=== PATIENT | male | born 1950 | race Caucasian/White ===

== ENCOUNTER 2016-10-20 10:23 | Inpatient (IN) | payer OTHER ==
[~2016-10-20] VITALS: Ht 172.7 cm; Wt 134.4 kg
[~2016-10-20 10:23] MED LIST: ACT30 PO; GLYB5TAB8 PO; HYZ/50125 PO; REPA1TAB40 PO
[2016-10-20] MEDS ORDERED: SODIUM CHLORIDE 0.9% 500ML 500 ML IV STA (11:24)
[2016-10-20 11:58] LABS: BASO % 0.1 %; BASO ABS # 0.01 K/uL (0-0.2); COMPLETE YES; EOS % 1.8 %; HEMATOCRIT 42.6 % (42-52); IG% 0.3 %; MEAN CELL VOLUME 88.9 fL (80-100); MEAN CORPUSCULAR HEMOGLOBIN 28.8 pg (25-34); MEAN CORPUSCULAR HGB CONC 32.4 g/dl (32-36); MEAN PLATELET VOLUME 9.7 fL (7.4-10.4); MONO % 4.2 %; NEUT % 79.6 %; PLATELET COUNT 159 K/uL (130-400); RED BLOOD COUNT 4.79 M/uL (4.7-6.1); WHITE BLOOD COUNT 7.12 K/uL (4.8-10.8)
[2016-10-20 12:16] LABS: BLOOD UREA NITROGEN 16 mg/dl (7-18); BUN/CREATININE RATIO 18.8 (10-20); CARBON DIOXIDE 30 mmol/L (21-32); CHLORIDE 104 mmol/L (98-107); CREATININE 0.86 mg/dl (0.60-1.40); GLUCOSE 158 mg/dl (70-99); SODIUM 139 mmol/L (136-145)
[2016-10-20 12:17] LABS: CALCIUM 8.6 mg/dl (8.5-10.1)
--- NOTE | 2016-10-20 12:19 | DIAGNOSTIC IMAGING REPORT ---
CHEST ONE VIEW PORTABLE CLINICAL HISTORY: Chest Pain dyspnea COMPARISON STUDY: 10/21/2015 FINDINGS: Increase in prominence of the mid dyspnea mediastinum. Increased prominence of pulmonary vasculature. Central catheter in superior vena cava. Diaphragms smooth. IMPRESSION: Increased prominence of the mid to superior mediastinum. Mild congestive failure. CT study of the chest is recommended as follow-up. Electronically signed by: Miguel Granados M.D. 10/20/2016 12:18 PM Dictated Date/Time: 10/20/2016 12:17 PM
[2016-10-20 12:21] LABS: CKMB/CK RATIO 2.6 (0-3.0)
[2016-10-20] MEDS ORDERED: OPTIRAY 320 IV PRN (13:00)
--- NOTE | 2016-10-20 13:11 | DIAGNOSTIC IMAGING REPORT ---
CT ANGIOGRAM OF THE CHEST CLINICAL HISTORY: Atypical chest pain. Reported history of esophageal cancer. COMPARISON STUDY: Chest x-ray dated 10/20/2016. Radiation treatment planning CT dated 09/03/2015. TECHNIQUE: Following the IV administration of 120 cc of Optiray 320, CT angiogram of the chest was performed from the upper abdomen to the thoracic inlet utilizing the pulmonary embolus protocol. Images are reviewed in the axial, sagittal, and coronal planes. 3-D MIPS images are created and assessed. IV contrast was administered without complication. The examination is degraded by large body habitus, and by streak artifact from the body wall abutting the CT gantry. The examination is also degraded by motion artifact. CT DOSE: 566.96 mGycm FINDINGS: Thyroid: Imaged portions of the thyroid gland are normal in size and attenuation. Thoracic aorta: The thoracic aorta is normal in caliber and demonstrates standard 3-vessel arch anatomy. No dissection is seen. Pulmonary vasculature: The pulmonary trunk is normal in caliber. There are no filling defects identified in main, lobar, or segmental pulmonary branches to suggest pulmonary embolus. Heart: The heart is enlarged and there is a small pericardial effusion. Lungs and pleural spaces: Evaluation of the lung parenchyma is degraded by motion artifact. There are moderate pleural effusions with associated compressive atelectasis. Diffuse peribronchial thickening is seen in both lungs. There are numerous foci of irregular airspace nodularity. Retort Pre Cooker foci are seen in the right lower lobe on image #110 measuring 11 mm, the lingula on image #121 measuring 14 mm and 9 mm, and in the left upper lobe on image #223 measuring 6 mm. The trachea and central airways are clear. Mediastinum: There is mediastinal lymphadenopathy. Enlarged prevascular nodes measure up to 1.4 cm in short axis. Subcarinal nodes measure up to 1.7 cm in short axis. A high right peritracheal node on image #235 measures 2.3 x 2.0 cm. Anel: There is bilateral hilar adenopathy. The largest node is seen on the right on image #176 and measures 2.7 x 2.0 cm. Left hilar nodes measure up to 2.0 cm short axis. Axillae: There is no axillary lymphadenopathy. Esophagus: There is mild circumferential wall thickening seen in the mid to distal esophagus. There are adjacent surgical clips are identified as well as small surrounding Esophageal lymph nodes. Upper abdomen: There is a large hiatal hernia, with at least half of the stomach located in the thoracic cavity. A 2.0 cm right adrenal nodule meets CT criteria for a fat-containing adenoma. Hepatic steatosis is suggested the spleen is mildly enlarged. Laxity of the ventral abdominal wall is noted with protrusion of bowel contents.. Skeletal structures: The skeletal structures are osteopenic. Mild degenerative change is noted throughout the thoracic spine. No lytic or blastic bony lesions are seen. There are healed left anterior rib fractures. IMPRESSION: 1. There is no evidence of pulmonary embolus in the main, lobar, or segmental pulmonary arteries. 2. Moderate pleural effusions with associated compressive atelectasis. 3. There is wall thickening and irregularity seen in the mid to distal esophagus with surrounding surgical clips and paraesophageal lymph nodes. This likely corresponds the patient's reported history of esophageal cancer. Correlation with the patient's oncological history will be required. 4. There are numerous irregular nodular airspace opacities seen throughout both lungs. These are new from the treatment planning CT dated 09/03/2015. This could be on an infectious/inflammatory basis or could represent metastatic disease. Clinical correlation will be required. CT follow-up in 3 months time is recommended for reassessment. 5. There are pathologically enlarged mediastinal and hilar lymph nodes. This is new from the radiation treatment planning CT dated 09/03/2015. Although this could be on a reactive basis, the appearance is concerning for metastatic disease given the patient's history. These should also be reassessed at follow-up. 6. Large hiatal hernia. 7. Cardiomegaly and small pericardial effusion. 8. Additional findings as above. Electronically signed by: Rl Sauceda M.D. 10/20/2016 1:10 PM Dictated Date/Time: 10/20/2016 12:59 PM
[2016-10-20] MEDS ORDERED: FUROSEMIDE 40 MG/4 ML VIAL IV STA (13:24)
[2016-10-20 13:45] VITALS: O2SAT 88; BMI 46.2
[2016-10-20] MEDS ORDERED: ONDANSETRON INJ 2 MG/ML 2 ML VIAL IV PRN (14:30)
[2016-10-20] MEDS ORDERED: ACETAMINOPHEN 325 MG TAB PO PRN (14:30)
[2016-10-20 14:45] VITALS: O2SAT 97
[2016-10-20] MEDS ORDERED: GLUCOSE 40% GEL 15 GM TUBE PO PRN (15:00)
[2016-10-20] MEDS ORDERED: GLUCOSE 10 TABS/TUBE PO PRN (15:00)
[2016-10-20] MEDS ORDERED: DEXTROSE 50% 50 ML SYR IV PRN (15:00)
[2016-10-20] MEDS ORDERED: GLUCAGON FOR INJ 1 MG VIAL SQ PRN (15:00)
[2016-10-20] MEDS ORDERED: FLUT0.15 (15:06)
[2016-10-20] MEDS ORDERED: ALBU18002 INH (15:06)
[2016-10-20 15:34] VITALS: BP 138/86; PULSE 102; TEMP 36.8; O2SAT 97
--- NOTE | 2016-10-20 16:19 | DIAGNOSTIC IMAGING REPORT ---
EFFUSION-CHEST/MEDIASTINUM ultrasound CLINICAL HISTORY: Bilateral pleural effusions COMPARISON STUDY: Chest CTA 10/20/2016. FINDINGS: The right pleural effusion demonstrated a volume of 160 cc. The left pleural effusion demonstrated a volume of 305 cc. Neither site was marked for thoracentesis due to the intervening lung. IMPRESSION: Small bilateral pleural effusions, left greater than right, as described above. Electronically signed by: Sachin Marmolejo M.D. 10/20/2016 4:17 PM Dictated Date/Time: 10/20/2016 4:16 PM
[2016-10-20 16:55] LABS: INR 1.1 (0.9-1.1); PROTHROMBIN TIME (PATIENT) 11.6 SECONDS (9.0-12.0)
[2016-10-20] MEDS: LEVOFLOXACIN / D5W 750 MG in PREMIXED IN D5W 150 ML IV SCH (17:05)
--- NOTE | 2016-10-20 17:09 | EMERGENCY ROOM VISIT NOTE ---
History Report prepared by Thang: Jasmyn Dee Under the Supervision of: Dr. Zackary Hendricks D.O. First contact with patient: 10:51 Chief Complaint: SHORTNESS OF BREATH Stated Complaint: SHORTNESS OF BREATH Nursing Triage Summary: pt reports hx of esophageal ca , to PCP today for sinus sx finished round of prednisone 10/10 and all sinus drainage , sob ,cough returned the next day pt reports feeling increasing exertional sob currently on chemo last tx Sun. sent in for eval of poss PE History of Present Illness The patient is a 65 year old male who presents to the Emergency Room with complaints of worsening shortness of breath beginning a 2 weeks prior to arrival. He notes movement worsens the shortness of breath. The patient has been experiencing sinus symptoms since July. He notes the symptoms include throat pressure, cough and congestion. The patient is experiencing sinus drainage down the throat. He notes he did vomit yesterday. The patient finished a course of Prednisone on October 10. He notes that while taking the Prednisone his symptoms resolved. On October 11, the day after finishing the steroid his symptoms returned again. He was referred to the ED by Dr. Lopez to rule out a PE. The patient has a history of diabetes, hypertension and high cholesterol. He is currently being treated for esophageal cancer. Pt denies headache, change in vision, fevers, chest pain, nausea, diarrhea, abdominal pain, pain with urination, and melena. 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 A total of 10 systems reviewed and were otherwise negative. Past Medical & Surgical Medical Problems: (1) Howard esophagus (2) Cortisol resistance (3) DM2 (diabetes mellitus, type 2) (4) GERD (gastroesophageal reflux disease) (5) HTN (hypertension) (6) AMARA (obstructive sleep apnea) (7) Pleural effusion Surgical Problems: (1) Amputation of leg (2) H/O hernia repair (3) History of carpal tunnel surgery Family History FH: cancer Stroke Social History Smoking Status: Former Smoker Drug Use: none Marital Status: Housing Status: lives with family Current/Historical Medications Scheduled Citalopram Hydrobromide (Celexa), 1 TAB PO DAILY Fish Oil (Athelstane-3), 2 CAP PO DAILY Fluticasone Propionate (Nasal) (Flonase Allergy Relief), 2 SPRAYS NA DAILY Glyburide (Micronase), 15 MG PO DAILYBD Hctz/Losartan (Hyzaar 12.5MG/50MG), 1 TAB PO DAILY Losartan Potassium (Cozaar), 25 MG PO DAILY Multiple Vitamins W/ Minerals (One Daily Adults 50+), 1 TAB PO DAILY Pantoprazole (Pantoprazole Sodium), 40 MG PO DAILY Pioglitazone (Actos), 1 TAB PO DAILYBD Pravastatin (Pravachol ), 20 MG PO DAILY Repaglinide (Prandin), 4 MG PO DAILYBD Scheduled PRN Albuterol Sulfate (Proair Respiclick), 2 PUFFS INH Q4H PRN for SOB/Wheezing Allergies Coded Allergies: Lisinopril (Verified Adverse Reaction, Mild, Cough, 10/21/15) Physical Exam Vital Signs Date Time Temp Pulse Resp B/P Pulse Ox O2 Delivery O2 Flow Rate FiO2 10/20/16 13:49 110 28 88 Room Air 10/20/16 13:45 88 Room Air 10/20/16 12:48 96 20 124/85 95 10/20/16 12:05 94 10/20/16 11:48 95 18 136/84 94 Room Air 10/20/16 10:27 36.5 100 20 103/65 93 Room Air Physical Exam GENERAL: alert, sitting up in bed, well appearing, well nourished, no distress, non-toxic HEAD: No maxillary or frontal sinus tenderness. EYE EXAM: normal conjunctiva OROPHARYNX: no exudate, no erythema, lips, buccal mucosa, and tongue normal and mucous membranes are moist NECK: supple, no nuchal rigidity, no adenopathy, non-tender LUNGS: Clear to auscultation. Normal chest wall mechanics HEART: no murmurs, S1 normal and S2 normal ABDOMEN: abdomen soft, non-tender, normo-active bowel sounds, no masses, no rebound or guarding. BACK: Back is symmetrical on inspection and there is no deformity, no midline tenderness, no CVA tenderness. SKIN: no rashes and no bruising UPPER EXTREMITIES: upper extremities are grossly normal. LOWER EXTREMITIES: Right calf has faint pitting edema. NEURO EXAM: Normal sensorium, cranial nerves II-XII grossly intact, normal speech, no gross weakness of arms, no gross weakness of legs. Medical Decision & Procedures ER Provider Diagnostic Interpretation: Radiology results as stated below per my review and the radiologist's interpretation: CT ANGIOGRAM OF THE CHEST CLINICAL HISTORY: Atypical chest pain. Reported history of esophageal cancer. COMPARISON STUDY: Chest x-ray dated 10/20/2016. Radiation treatment planning CT dated 09/03/2015. TECHNIQUE: Following the IV administration of 120 cc of Optiray 320, CT angiogram of the chest was performed from the upper abdomen to the thoracic inlet utilizing the pulmonary embolus protocol. Images are reviewed in the axial, sagittal, and coronal planes. 3-D MIPS images are created and assessed. IV contrast was administered without complication. The examination is degraded by large body habitus, and by streak artifact from the body wall abutting the CT gantry. The examination is also degraded by motion artifact. CT DOSE: 566.96 mGycm FINDINGS: Thyroid: Imaged portions of the thyroid gland are normal in size and attenuation. Thoracic aorta: The thoracic aorta is normal in caliber and demonstrates standard 3-vessel arch anatomy. No dissection is seen. Pulmonary vasculature: The pulmonary trunk is normal in caliber. There are no filling defects identified in main, lobar, or segmental pulmonary branches to suggest pulmonary embolus. Heart: The heart is enlarged and there is a small pericardial effusion. Lungs and pleural spaces: Evaluation of the lung parenchyma is degraded by motion artifact. There are moderate pleural effusions with associated compressive atelectasis. Diffuse peribronchial thickening is seen in both lungs. There are numerous foci of irregular airspace nodularity. Tar Heater foci are seen in the right lower lobe on image #110 measuring 11 mm, the lingula on image #121 measuring 14 mm and 9 mm, and in the left upper lobe on image #223 measuring 6 mm. The trachea and central airways are clear. Mediastinum: There is mediastinal lymphadenopathy. Enlarged prevascular nodes measure up to 1.4 cm in short axis. Subcarinal nodes measure up to 1.7 cm in short axis. A high right peritracheal node on image #235 measures 2.3 x 2.0 cm. Anel: There is bilateral hilar adenopathy. The largest node is seen on the right on image #176 and measures 2.7 x 2.0 cm. Left hilar nodes measure up to 2.0 cm short axis. Axillae: There is no axillary lymphadenopathy. Esophagus: There is mild circumferential wall thickening seen in the mid to distal esophagus. There are adjacent surgical clips are identified as well as small surrounding Esophageal lymph nodes. Upper abdomen: There is a large hiatal hernia, with at least half of the stomach located in the thoracic cavity. A 2.0 cm right adrenal nodule meets CT criteria for a fat-containing adenoma. Hepatic steatosis is suggested the spleen is mildly enlarged. Laxity of the ventral abdominal wall is noted with protrusion of bowel contents.. Skeletal structures: The skeletal structures are osteopenic. Mild degenerative change is noted throughout the thoracic spine. No lytic or blastic bony lesions are seen. There are healed left anterior rib fractures. IMPRESSION: 1. There is no evidence of pulmonary embolus in the main, lobar, or segmental pulmonary arteries. 2. Moderate pleural effusions with associated compressive atelectasis. 3. There is wall thickening and irregularity seen in the mid to distal esophagus with surrounding surgical clips and paraesophageal lymph nodes. This likely corresponds the patient's reported history of esophageal cancer. Correlation with the patient's oncological history will be required. 4. There are numerous irregular nodular airspace opacities seen throughout both lungs. These are new from the treatment planning CT dated 09/03/2015. This could be on an infectious/inflammatory basis or could represent metastatic disease. Clinical correlation will be required. CT follow-up in 3 months time is recommended for reassessment. 5. There are pathologically enlarged mediastinal and hilar lymph nodes. This is new from the radiation treatment planning CT dated 09/03/2015. Although this could be on a reactive basis, the appearance is concerning for metastatic disease given the patient's history. These should also be reassessed at follow-up. 6. Large hiatal hernia. 7. Cardiomegaly and small pericardial effusion. 8. Additional findings as above. Electronically signed by: Rl Sauceda M.D. 10/20/2016 1:10 PM Dictated Date/Time: 10/20/2016 12:59 PM CHEST ONE VIEW PORTABLE CLINICAL HISTORY: Chest Pain dyspnea COMPARISON STUDY: 10/21/2015 FINDINGS: Increase in prominence of the mid dyspnea mediastinum. Increased prominence of pulmonary vasculature. Central catheter in superior vena cava. Diaphragms smooth. IMPRESSION: Increased prominence of the mid to superior mediastinum. Mild congestive failure. CT study of the chest is recommended as follow-up. Electronically signed by: Miguel Granados M.D. 10/20/2016 12:18 PM Dictated Date/Time: 10/20/2016 12:17 PM Laboratory Results 10/20/16 11:30 Red Blood Count 4.79, Mean Corpuscular Volume 88.9, Mean Corpuscular Hemoglobin 28.8, Mean Corpuscular Hemoglobin Concent 32.4, Mean Platelet Volume 9.7, Neutrophils (%) (Auto) 79.6, Lymphocytes (%) (Auto) 14.0, Monocytes (%) (Auto) 4.2, Eosinophils (%) (Auto) 1.8, Basophils (%) (Auto) 0.1, Neutrophils # (Auto) 5.66, Lymphocytes # (Auto) 1.00, Monocytes # (Auto) 0.30, Eosinophils # (Auto) 0.13, Basophils # (Auto) 0.01 10/20/16 11:30 Test 10/20/16 11:30 White Blood Count 7.12 K/uL (4.8-10.8) Red Blood Count 4.79 M/uL (4.7-6.1) Hemoglobin 13.8 g/dL (14.0-18.0) Hematocrit 42.6 % (42-52) Mean Corpuscular Volume 88.9 fL (80-100) Mean Corpuscular Hemoglobin 28.8 pg (25-34) Mean Corpuscular Hemoglobin Concent 32.4 g/dl (32-36) Platelet Count 159 K/uL (130-400) Mean Platelet Volume 9.7 fL (7.4-10.4) Neutrophils (%) (Auto) 79.6 % Lymphocytes (%) (Auto) 14.0 % Monocytes (%) (Auto) 4.2 % Eosinophils (%) (Auto) 1.8 % Basophils (%) (Auto) 0.1 % Neutrophils # (Auto) 5.66 K/uL (1.4-6.5) Lymphocytes # (Auto) 1.00 K/uL (1.2-3.4) Monocytes # (Auto) 0.30 K/uL (0.11-0.59) Eosinophils # (Auto) 0.13 K/uL (0-0.5) Basophils # (Auto) 0.01 K/uL (0-0.2) RDW Standard Deviation 54.3 fL (36.4-46.3) RDW Coefficient of Variation 16.9 % (11.5-14.5) Immature Granulocyte % (Auto) 0.3 % Immature Granulocyte # (Auto) 0.02 K/uL (0.00-0.02) Anion Gap 5.0 mmol/L (3-11) Est Creatinine Clear Calc Drug Dose 118.1 ml/min Estimated GFR () 106.2 Estimated GFR (Non- 91.6 BUN/Creatinine Ratio 18.8 (10-20) Calcium Level 8.6 mg/dl (8.5-10.1) Total Creatine Kinase 23 U/L (39-308) Creatine Kinase MB 0.6 ng/ml (0.5-3.6) Creatine Kinase MB Ratio 2.6 (0-3.0) Troponin I < 0.015 ng/ml (0-0.045) Pro-B-Type Natriuretic Peptide 99 pg/ml (0-900) Laboratory results per my review. Medications Administered Medications (Trade) Dose Ordered Sig/[place] Route Start Time Stop Time Status Last Admin Dose Admin Sodium Chloride (Nss 500ml) 500 ml @ 999 mls/hr Q31M STAT IV 10/20/16 11:24 10/20/16 11:54 DC 10/20/16 11:24 999 MLS/HR Furosemide (Lasix Inj) 40 mg NOW STAT IV 10/20/16 13:24 10/20/16 13:25 DC 10/20/16 13:48 40 MG ECG Indication: SOB/dyspnea Rate (beats per minute): 94 Rhythm: normal sinus Findings: other (poor baseline inferior, normal intervals) Change: no significant change (from 10/20/16) ED Course ED COURSE: Vital signs were reviewed and showed hypertensive vitals. The patients medical record was reviewed The above diagnostic studies were performed and reviewed. ED treatments and interventions as stated above. 1117: The patient was evaluated in room C3. A complete history and physical examination was performed. 1124: Sodium Chloride 500 ml @ 999 mls/hr IV. 1321: I discussed the results with the patient. 1324: Lasix Inj 40 mg IV. 1345: I reviewed the patient's case with MARYANN Beltran. The patient will evaluate the patient for further management. 1350: Upon reevaluation, the patient is hemodynamically stable.I discussed my findings with the patient and he understands and agrees with the treatment plan. Based on the patients age, coexisting illnesses, exam and lab findings the decision to treat as an inpatient was made. The patient remained stable while under my care. The patient will be evaluated for further management. Medical Decision Differential diagnoses includes but is not limited to pneumonia, bronchitis, COPD/Asthma exacerbation, pneumothorax, pulmonary embolism, congestive heart failure, acute coronary syndrome The patient is a 65 year old male who presents to the ED with complaints of shortness of breath. Patient was sent in by primary care doctor for shortness breath which has been worsening over the past 2 weeks. Patient does have a history of esophageal cancer is currently undergoing treatment. Patient does to describe a viral URI. He had some improvement with steroids. Chest x-ray was fairly unremarkable. Troponin was negative. EKG shows no obvious ischemia. CT of the chest shows bilateral moderate pleural effusions. I do believe this is the cause of his shortness of breath. He was tachypneic and tachycardic. I question whether this is secondary to heart failure versus secondary to his cancer. With the mild pitting edema in his lower extremity and to give him a small dose of Lasix and noted him to internal medicine for further workup. Consults Time Called: 1340 Consulting Physician: MARYANN Beltran Returned Call: [phone] I reviewed the patient's case with MARYANN Beltran. The patient will evaluate the patient for further management. Impression Primary Impression: Pleural effusion Additional Impressions: SOB (shortness of breath) questionable malignant effusion Scribe Attestation The scribe's documentation has been prepared under my direction and personally reviewed by me in its entirety. I confirm that the note above accurately reflects all work, treatment, procedures, and medical decision making performed by me. Departure Information Dispostion Being Evaluated By Hospitalist Referrals Esther Lopez D.O. (PCP) Problem Qualifiers
[2016-10-20] MEDS: INSULIN ASPART 100 UNITS/ML 3 ML PEN SC SCH ×2 (17:51→21:00)
--- NOTE | 2016-10-20 20:31 | History and Physical ---
History & Physical Date & Time of Service: October 20, 2016 ~ 14:00 Chief Complaint: Shortness of Breath Primary Care Physician: Esther Lopez D.O. History of Present Illness 65 year old male who presents to the ER with shortness of breath. Patient has history of esophageal cancer with mets to the right cervical chain and mediastinum lymph nodes. Patient is currently undergoing chemotherapy. About one month ago he developed rhinorrhea, sinus congestion, cough, and post nasal drip. He was given Augmentin and Flonase on 09/21. Unfortunately this did not improve his symptoms. He was then started on a course of Prednisone which did resolve his symptoms however once the prednisone was completed, his symptoms returned. He notes increasing shortness of breath. He reports a moist non productive cough. No orthopnea. He reports mild RLE edema. He denies fever and chills. No chest pain or palpitations. He reports a poor appetite the past few days but denies abdominal pain, nausea, or vomiting. He denies any urinary symptoms. In the ER, patient was hypoxic on room air at 88%, however improved on its own to 97%. CT was negative for PE but is showing BL pleural effusions, possible pneumonia vs. metastatic disease. Vitals are stable and labs are unremarkable. Past Medical/Surgical History Medical Problems: (1) Howard esophagus Status: Chronic (2) Diabetic neuropathy Status: Chronic (3) DM2 (diabetes mellitus, type 2) Status: Chronic (4) Dyslipidemia Status: Chronic (5) Esophageal cancer Permanent Comment: DIAGNOSIS: Esophagus, adenocarcinoma, uT2N1 stage IIB Status post completion of combined radiation and chemotherapy radiation completed 11/02/2015 Received 5040 cGy Status: Chronic (6) HTN (hypertension) Status: Chronic Surgical Problems: (1) Amputation of leg Status: Chronic (2) H/O hernia repair Status: Chronic (3) History of carpal tunnel surgery Status: Chronic Social History Smoking Status: Former Smoker Alcohol Use: none Immunizations History of Influenza Vaccine: Yes Influenza Vaccine Date: Mar 23, 2016 History of Tetanus Vaccine?: Yes Tetanus Immunization Date: Jan 24, 2010 History of Pneumococcal: Yes Pneumococcal Date: Jun 08, 2008 Multi-Drug Resistant Organisms History of MDRO: No Allergies Coded Allergies: Lisinopril (Verified Adverse Reaction, Mild, Cough, 10/21/15) Home Medications Scheduled Citalopram Hydrobromide (Celexa), 1 TAB PO DAILY Fish Oil ([place]-3), 2 CAP PO DAILY Fluticasone Propionate (Nasal) (Flonase Allergy Relief), 2 SPRAYS NA DAILY Glyburide (Micronase), 15 MG PO DAILYBD Hctz/Losartan (Hyzaar 12.5MG/50MG), 1 TAB PO DAILY Losartan Potassium (Cozaar), 25 MG PO DAILY Multiple Vitamins W/ Minerals (One Daily Adults 50+), 1 TAB PO DAILY Pantoprazole (Pantoprazole Sodium), 40 MG PO DAILY Pioglitazone (Actos), 1 TAB PO DAILYBD Pravastatin (Pravachol ), 20 MG PO DAILY Repaglinide (Prandin), 4 MG PO DAILYBD Scheduled PRN Albuterol Sulfate (Proair Respiclick), 2 PUFFS INH Q4H PRN for SOB/Wheezing Review of Systems ROS per HPI, all other systems reviewed and negative Physical Exam Vital Signs Date Time Temp Pulse Resp B/P Pulse Ox O2 Delivery O2 Flow Rate FiO2 10/20/16 15:34 36.8 102 20 138/86 97 Room Air 10/20/16 14:45 103 20 112/99 97 Room Air 10/20/16 13:49 110 28 88 Room Air 10/20/16 13:45 88 Room Air 10/20/16 12:48 96 20 124/85 95 10/20/16 12:05 94 10/20/16 11:48 95 18 136/84 94 Room Air 10/20/16 10:27 36.5 100 20 103/65 93 Room Air General Appearance: no apparent distress Head: normocephalic Eyes: normal inspection ENT: hearing grossly normal Neck: supple, no JVD Respiratory/Chest: no respiratory distress, + decreased breath sounds (BL bases ), + pertinent finding (mild tachypnea however patient is able to speak in full sentances ) Cardiovascular: regular rate, rhythm, + pertinent finding (trace edma RLE) Abdomen/GI: normal bowel sounds, non tender, soft Extremities/Musculoskelatal: + pertinent finding (LLE amputation) Neurologic/Psych: no motor/sensory deficits, alert, normal mood/affect, oriented x 3 Skin: normal color, warm/dry Diagnostics Laboratory Results Results Past 24 Hours Test 10/20/16 11:30 10/20/16 16:27 10/20/16 16:30 Range/Units White Blood Count 7.12 4.8-10.8 K/uL Red Blood Count 4.79 4.7-6.1 M/uL Hemoglobin 13.8 14.0-18.0 g/dL Hematocrit 42.6 42-52 % Mean Corpuscular Volume 88.9 80-100 fL Mean Corpuscular Hemoglobin 28.8 25-34 pg Mean Corpuscular Hemoglobin Concent 32.4 32-36 g/dl Platelet Count 159 130-400 K/uL Mean Platelet Volume 9.7 7.4-10.4 fL Neutrophils (%) (Auto) 79.6 % Lymphocytes (%) (Auto) 14.0 % Monocytes (%) (Auto) 4.2 % Eosinophils (%) (Auto) 1.8 % Basophils (%) (Auto) 0.1 % Neutrophils # (Auto) 5.66 1.4-6.5 K/uL Lymphocytes # (Auto) 1.00 1.2-3.4 K/uL Monocytes # (Auto) 0.30 0.11-0.59 K/uL Eosinophils # (Auto) 0.13 0-0.5 K/uL Basophils # (Auto) 0.01 0-0.2 K/uL RDW Standard Deviation 54.3 36.4-46.3 fL RDW Coefficient of Variation 16.9 11.5-14.5 % Immature Granulocyte % (Auto) 0.3 % Immature Granulocyte # (Auto) 0.02 0.00-0.02 K/uL Sodium Level 139 136-145 mmol/L Potassium Level 4.0 3.5-5.1 mmol/L Chloride Level 104 98-107 mmol/L Carbon Dioxide Level 30 21-32 mmol/L Anion Gap 5.0 3-11 mmol/L Blood Urea Nitrogen 16 7-18 mg/dl Creatinine 0.86 0.60-1.40 mg/dl Est Creatinine Clear Calc Drug Dose 118.1 ml/min Estimated GFR () 106.2 Estimated GFR (Non- 91.6 BUN/Creatinine Ratio 18.8 10-20 Random Glucose 158 70-99 mg/dl Calcium Level 8.6 8.5-10.1 mg/dl Total Creatine Kinase 23 39-308 U/L Creatine Kinase MB 0.6 0.5-3.6 ng/ml Creatine Kinase MB Ratio 2.6 0-3.0 Troponin I < 0.015 0-0.045 ng/ml Pro-B-Type Natriuretic Peptide 99 0-900 pg/ml Bedside Glucose 233 70-99 mg/dl Prothrombin Time 11.6 9.0-12.0 SECONDS Prothromb Time International Ratio 1.1 0.9-1.1 Diagnostic Radiology CTA CHEST IMPRESSION: 1. There is no evidence of pulmonary embolus in the main, lobar, or segmental pulmonary arteries. 2. Moderate pleural effusions with associated compressive atelectasis. 3. There is wall thickening and irregularity seen in the mid to distal esophagus with surrounding surgical clips and paraesophageal lymph nodes. This likely corresponds the patient's reported history of esophageal cancer. Correlation with the patient's oncological history will be required. 4. There are numerous irregular nodular airspace opacities seen throughout both lungs. These are new from the treatment planning CT dated 09/03/2015. This could be on an infectious/inflammatory basis or could represent metastatic disease. Clinical correlation will be required. CT follow-up in 3 months time is recommended for reassessment. 5. There are pathologically enlarged mediastinal and hilar lymph nodes. This is new from the radiation treatment planning CT dated 09/03/2015. Although this could be on a reactive basis, the appearance is concerning for metastatic disease given the patient's history. These should also be reassessed at follow-up. 6. Large hiatal hernia. 7. Cardiomegaly and small pericardial effusion. 8. Additional findings as above. CXR IMPRESSION: Increased prominence of the mid to superior mediastinum. Mild congestive failure. CT study of the chest is recommended as follow-up. Impression Assessment and Plan SHORTNESS OF BREATH DUE TO BL PLEURAL EFFUSIONS, POSSIBLE PNEUMONIA - admit to med/surg - patient presenting with increasing shortness of breath x 1 month; was treated as an outpatient for sinusitis with Augmentin, nasal, spray, and prednisone; once prednisone course was completed symptoms returned - in the ER, patient was hypoxic on room air at 88% however improved on its own to the 90s - CTA chest negative for PE but showing BL pleural effusions and multiple nodular opacities concerning for pneumonia vs metastatic disease - afebrile, no leukocytosis - will empirically place on Levaquin and add prednisone 40mg PO daily x 5 days - s/p Lasix 40mg IV in ER, will hold on further diuresis for now; check chest US to quantify effusions for possible thoracentesis - consider effusions to be malignant vs from CHF - however noted normal proBNP; will check echo HX ESOPHAGEAL CANCER - currently receiving 5FU and leucovorin - finished treatment on 10/18 - due to concerns for further metastatic disease - consult placed for oncology HTN - BP controlled, continue losartan / HCTZ DM - hgb a1c 6.6 08/2016 - hold oral agents and utilize SSI while hospitalized DVT PROPHYLAXIS - SQ Lovenox CODE STATUS - Patient is a DNR as per my discussion with him. DISPO - In my clinical judgment this beneficiary meets acute admission criteria, established by [facility], that includes being hospitalized through two midnights. Agree with above H and P. Briefly 65M with hx of oesophageal cancer presents with ongoing sob for some time he was treated with abx and Flonase for sinuitis but it didnot improve but got relief with prednisone. When he finished prednisone his sob came back and getting worse. has cough but couldn't get out sputum. Afebrile. Appetite not great. Currently feeling better after treatments in Er. 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 Y/N: Yes Risk Level: Moderate
[2016-10-20] MEDS: ENOXAPARIN 40 MG/0.4 ML SYR SQ SCH (21:39)
[2016-10-20 23:23] VITALS: BP 133/86; PULSE 100; TEMP 37.3; O2SAT 92
[2016-10-21 04:15] VITALS: BP 109/71; PULSE 87; TEMP 36.9; O2SAT 92
[2016-10-21 05:49] LABS: HEMATOCRIT 39.7 % (42-52); MEAN CELL VOLUME 87.8 fL (80-100); MEAN CORPUSCULAR HEMOGLOBIN 29.4 pg (25-34); MEAN CORPUSCULAR HGB CONC 33.5 g/dl (32-36); MEAN PLATELET VOLUME 9.8 fL (7.4-10.4); PLATELET COUNT 146 K/uL (130-400); RED BLOOD COUNT 4.52 M/uL (4.7-6.1); WHITE BLOOD COUNT 6.49 K/uL (4.8-10.8)
[2016-10-21 05:53] VITALS: BMI 45.4
[2016-10-21 06:16] LABS: BUN/CREATININE RATIO 22.5 (10-20); CALCIUM 8.7 mg/dl (8.5-10.1); CREATININE 0.88 mg/dl (0.60-1.40); POTASSIUM 4.3 mmol/L (3.5-5.1)
[2016-10-21 07:16] VITALS: BP 105/71; PULSE 85; TEMP 36.7; O2SAT 95
[2016-10-21] MEDS: PRAVASTATIN SOD 20 MG TAB PO SCH (09:06)
[2016-10-21] MEDS: LOSARTAN POTASSIUM 25 MG TAB PO SCH (09:06)
[2016-10-21] MEDS: PANTOprazole SOD 40 MG TAB PO SCH (09:06)
[2016-10-21] MEDS: CEROVITE ADV FORMULA TAB PO SCH (09:06)
[2016-10-21] MEDS: OMEGA-3 (PURIFIED FISH OIL) 1 GM CAP PO SCH (09:06)
[2016-10-21] MEDS: CITALOPRAM 40 MG TAB PO SCH (09:06)
[2016-10-21] MEDS: LOSARTAN/HCTZ 50-12.5 EA TAB PO SCH (09:06)
[2016-10-21] MEDS: FLUTICASONE PROPIONATE NA SPR 16 GM BTL SCH (09:07)
[2016-10-21] MEDS: INSULIN ASPART 100 UNITS/ML 3 ML PEN SC SCH ×4 (09:08→20:55)
[2016-10-21 09:18] LABS: ESTIMATED AVERAGE GLUCOSE 160 mg/dl; HA1C FLAG Normal (Normal)
--- NOTE | 2016-10-21 09:43 | DIAGNOSTIC IMAGING REPORT ---
TWO VIEW CHEST CLINICAL HISTORY: Dyspnea. Pleural effusions. FINDINGS: PA and lateral chest radiographs are compared to chest x-ray and chest CT dated 10/20/2016. The PA view is degraded by patient rotation. A right internal jugular central venous infusion port is unchanged in position. Surgical clips are noted in the mediastinum. A hiatal hernia is observed. The heart is enlarged. There is prominence of the pulmonary vasculature. There are layering pleural effusions with bibasilar consolidation, left slightly larger than right. The upper lobes appear clear. There is no pneumothorax. The skeletal structures are osteopenic. The bone thorax appears intact. IMPRESSION: 1. Cardiomegaly with prominence of the central pulmonary vessels. Correlate clinically for evidence of mild congestive failure. 2. Layering pleural effusions with bibasilar consolidation, left larger than right. This could present atelectasis and/or pneumonia. Clinical correlation will be required and this is similar in appearance to yesterday. Electronically signed by: Rl Sauceda M.D. 10/21/2016 9:42 AM Dictated Date/Time: 10/21/2016 9:40 AM
[2016-10-21] MEDS ORDERED: PERFLUTREN LIPID MICROSPHERE (DEFINITY) IV ONE (10:48)
[2016-10-21 11:09] VITALS: BP 113/75; PULSE 101; TEMP 36.7; O2SAT 96
--- NOTE | 2016-10-21 12:30 | ECHOCARDIOGRAM REPORT ---
*NOTICE TO RECEIVING [employer] This information is strictly Confidential and protected under [place] law. [place] law prohibits you from making any further disclosure of this information unless further disclosure is expressly permitted by the written consent of the person to whom it pertains or is authorized by law. A general authorization for the release of medical or other information is not sufficient for this purpose. Hospital accepts no responsibility if the information is made available to any other person, INCLUDING THE PATIENT. Interpretation Summary * Name: SHANNON JUDD Study Date: 10/21/2016 10:30 AM BP: 109/71 mmHg * Patient Location: C.4E\S\E410\S\1 HR: 87 * : 1950 (M/d/yyyy) Gender: Male Height: 68 in * Age: 65 yrs Ethnicity: CA Weight: 304 lb * Ordering Physician: Helen Tipton * Referring Physician: Esther Lopez D.O. * Performed By: Karlie Martinez * * Reason For Study: PLEURAL EFFUSION * BSA: 2.4 m2 * -- Conclusions -- * The left ventricle is not well visualized. * The left ventricle is grossly normal size. * No regional wall motion abnormalities noted. * Ejection Fraction = 65-70%. * No hemodynamically significant valvular aortic stenosis. * There is no mitral valve stenosis. * Significant mitral regurgitation is absent. * The study was technically difficult. * Limited views were obtained. Procedure Details * A complete two-dimensional transthoracic echocardiogram was performed (2D, M-mode, Doppler and color flow Doppler). * The study was technically limited. * The study was technically difficult. * Limited views were obtained. * There were technical limitations due to patient'sbody habitus * A contrast injection of Definity was performed to improve assessment of LV function. * Contrast was injected into an intravenous site in the right arm. * One vial of Definity ultrasound contrast was diluted in normal saline to a total volume of 10 ml. A total of '2' ml of solution was administered during imaging. * Lot # [id number] of Definity utilized for procedure. * Expiration date 11/12. * The attending nurse who injected the contrast agent was VALERIA SIMPSON RN. Left Ventricle * The left ventricle is not well visualized. * The left ventricle is grossly normal size. * There is borderline concentric left ventricular hypertrophy. * Ejection Fraction = 65-70%. * No regional wall motion abnormalities noted. Right Ventricle * The right ventricle is not well visualized. Mitral Valve * The mitral valve is not well visualized. * There is no mitral valve stenosis. * Significant mitral regurgitation is absent. Tricuspid Valve * The tricuspid valve is not well visualized. Aortic Valve * The aortic valve is not well visualized. * No hemodynamically significant valvular aortic stenosis. Great Vessels * The aortic root is normal size. Pericardium/Pleural * There is no pericardial effusion. Left Ventricular Diastolic Function * Grade I diastolic dysfunction, (abnormal relaxation pattern). MMode 2D Measurements and Calculations IVSd 1.1 cm IVSs 1.6 cm LVIDd 3.3 cm LVIDs 2.0 cm LVPWd 1.1 cm LVPWs 1.2 cm IVS/LVPW 1.1 FS 38.3 % EDV(Teich) 44.6 ml ESV(Teich) 13.5 ml EF(Teich) 69.8 % EDV(cubed) 36.4 ml ESV(cubed) 8.5 ml EF(cubed) 76.5 % % IVS thick 36.5 % % LVPW thick 15.6 % LV mass(C)d 111.3 grams LV mass(C)dI 45.6 grams/m\S\2 LV mass(C)s 88.3 grams LV mass(C)sI 36.2 grams/m\S\2 SV(Teich) 31.2 ml SI(Teich) 12.8 ml/m\S\2 SV(cubed) 27.9 ml SI(cubed) 11.4 ml/m\S\2 ACS 1.5 cm LVOT diam 1.9 cm LVOT area 2.9 cm\S\2 LVAd ap4 27.9 cm\S\2 LVLd ap4 7.1 cm EDV(MOD-sp4) 87.0 ml EDV(sp4-el) 92.4 ml LVAs ap4 13.2 cm\S\2 LVLs ap4 5.5 cm ESV(MOD-sp4) 25.3 ml ESV(sp4-el) 26.9 ml EF(MOD-sp4) 70.9 % EF(sp4-el) 70.9 % LVAd ap2 20.6 cm\S\2 LVLd ap2 7.0 cm EDV(MOD-sp2) 49.9 ml EDV(sp2-el) 51.4 ml LVAs ap2 11.2 cm\S\2 LVLs ap2 6.8 cm ESV(MOD-sp2) 15.8 ml ESV(sp2-el) 15.7 ml EF(MOD-sp2) 68.4 % EF(sp2-el) 69.6 % LVLd %diff -1.42 % EDV(MOD-bp) 67.9 ml LVLs %diff 19.2 % ESV(MOD-bp) 21.4 ml EF(MOD-bp) 68.5 % SV(MOD-sp4) 61.6 ml SI(MOD-sp4) 25.2 ml/m\S\2 SV(MOD-sp2) 34.1 ml SI(MOD-sp2) 14.0 ml/m\S\2 SV(MOD-bp) 46.5 ml SI(MOD-bp) 19.1 ml/m\S\2 SV(sp4-el) 65.5 ml SI(sp4-el) 26.8 ml/m\S\2 SV(sp2-el) 35.8 ml SI(sp2-el) 14.7 ml/m\S\2 Doppler Measurements and Calculations MV E max shanna 87.4 cm/sec MV A max shanna 101.9 cm/sec MV E/A 0.86 MV dec time 0.16 sec Ao V2 max 151.8 cm/sec Ao max PG 9.2 mmHg Ao max PG (full) 4.1 mmHg SANDRINE(V,A) 2.2 cm\S\2 SANDRINE(V,D) 2.2 cm\S\2 LV V1 max PG 5.2 mmHg LV V1 max 113.5 cm/sec PA V2 max 115.9 cm/sec PA max PG 5.4 mmHg
[2016-10-21 14:50] VITALS: BP 129/84; PULSE 106; TEMP 37; O2SAT 93
[2016-10-21] MEDS: LEVOFLOXACIN / D5W 750 MG in PREMIXED IN D5W 150 ML IV SCH (17:59)
[2016-10-21 19:03] VITALS: BP 124/87; PULSE 93; TEMP 36.7; O2SAT 94
--- NOTE | 2016-10-21 19:03 | Progress Note ---
Internal Med Progress Note Date of Service: October 21, 2016. Provider Documentation: SUBJECTIVE: resting comfortably sob improved still has cough appetite improved no pain afebrile OBJECTIVE: Vital Signs-as noted below Exam: General-alert and awake and oriented x 3. ENT-Normal hearing Neck-no neck masses Lungs-cta b/l no wheezing or crackles Heart-s1 and s2 heard regular rate and rhythm no murmurs Abdomen-soft bowel sounds present non tender no distension Extremities- no present no erythema Neuro-alert and awake oriented moves extremities Lab data as noted below. ASSESSMENT & PLAN: SHORTNESS OF BREATH DUE TO BL PLEURAL EFFUSIONS, POSSIBLE PNEUMONIA Presents with increasing shortness of breath x 1 month; was treated as an outpatient for sinusitis with Augmentin, nasal, spray, and prednisone; once prednisone course was completed symptoms returned in the ER, patient was hypoxic on room air at 88% however improved on its own to the 90s - CTA chest negative for PE but showing BL pleural effusions and multiple nodular opacities concerning for pneumonia vs metastatic disease s/p dose of lasix in ER. chest US no significant pleural effusions echo unremarkable Has a plan for PET scan on coming Sunday will continue abx and steroids improving. HX ESOPHAGEAL CANCER currently receiving 5FU and leucovorin - finished treatment on 10/18 due to concerns for further metastatic disease - consult placed for oncology await inouts HTN -BP controlled, continue losartan / HCTZ DM hgb a1c 6.6 08/2016 Holding oral agents and utilizing SSI while hospitalized DVT PROPHYLAXIS SQ Lovenox CODE STATUS DNR DISPOSITION to be determined Vital Signs: Date Time Temp Pulse Resp B/P Pulse Ox O2 Delivery O2 Flow Rate FiO2 10/21/16 16:27 Room Air 10/21/16 14:50 37.0 106 20 129/84 93 Room Air 10/21/16 11:09 36.7 101 18 113/75 96 10/21/16 09:00 Room Air 10/21/16 07:16 36.7 85 18 105/71 95 Room Air 10/21/16 04:15 36.9 87 20 109/71 92 Room Air 10/20/16 23:59 Room Air 10/20/16 23:23 37.3 100 20 133/86 92 Room Air Lab Results: Results Past 24 Hours Test 10/20/16 20:06 10/21/16 05:19 10/21/16 07:33 10/21/16 11:19 Range/Units Bedside Glucose 149 156 182 70-99 mg/dl White Blood Count 6.49 4.8-10.8 K/uL Red Blood Count 4.52 4.7-6.1 M/uL Hemoglobin 13.3 14.0-18.0 g/dL Hematocrit 39.7 42-52 % Mean Corpuscular Volume 87.8 80-100 fL Mean Corpuscular Hemoglobin 29.4 25-34 pg Mean Corpuscular Hemoglobin Concent 33.5 32-36 g/dl RDW Standard Deviation 51.7 36.4-46.3 fL RDW Coefficient of Variation 16.2 11.5-14.5 % Platelet Count 146 130-400 K/uL Mean Platelet Volume 9.8 7.4-10.4 fL Sodium Level 140 136-145 mmol/L Potassium Level 4.3 3.5-5.1 mmol/L Chloride Level 104 98-107 mmol/L Carbon Dioxide Level 33 21-32 mmol/L Anion Gap 3.0 3-11 mmol/L Blood Urea Nitrogen 20 7-18 mg/dl Creatinine 0.88 0.60-1.40 mg/dl Est Creatinine Clear Calc Drug Dose 114.1 ml/min Estimated GFR () 105.2 Estimated GFR (Non- 90.8 BUN/Creatinine Ratio 22.5 10-20 Random Glucose 175 70-99 mg/dl Estimated Average Glucose 160 mg/dl Hemoglobin A1c 7.2 4.5-5.6 % Calcium Level 8.7 8.5-10.1 mg/dl Test 10/21/16 15:45 Range/Units Bedside Glucose 222 70-99 mg/dl
[2016-10-21] MEDS ORDERED: FUROSEMIDE INJ 20 MG in SYRINGE 0 ML IV ONE (19:30)
[2016-10-21] MEDS: ENOXAPARIN 40 MG/0.4 ML SYR SQ SCH (19:45)
[2016-10-21 23:42] VITALS: BP 128/82; PULSE 98; TEMP 37; O2SAT 95
[2016-10-22 04:10] VITALS: BP 126/82; PULSE 88; TEMP 36.7; O2SAT 94
[2016-10-22 06:26] VITALS: Ht 172.7 cm; Wt 134.4 kg
[2016-10-22 07:19] VITALS: BP 143/87; PULSE 95; TEMP 37; O2SAT 94
[2016-10-22] MEDS: PANTOprazole SOD 40 MG TAB PO SCH (08:30)
[2016-10-22] MEDS: OMEGA-3 (PURIFIED FISH OIL) 1 GM CAP PO SCH (08:31)
[2016-10-22] MEDS: LOSARTAN POTASSIUM 25 MG TAB PO SCH (08:31)
[2016-10-22] MEDS: CEROVITE ADV FORMULA TAB PO SCH (08:31)
[2016-10-22] MEDS: CITALOPRAM 40 MG TAB PO SCH (08:31)
[2016-10-22] MEDS: LOSARTAN/HCTZ 50-12.5 EA TAB PO SCH (08:31)
[2016-10-22] MEDS: PRAVASTATIN SOD 20 MG TAB PO SCH (08:31)
[2016-10-22] MEDS: FLUTICASONE PROPIONATE NA SPR 16 GM BTL SCH (08:32)
[2016-10-22] MEDS: INSULIN ASPART 100 UNITS/ML 3 ML PEN SC SCH ×3 (08:33→16:36)
[2016-10-22 11:08] VITALS: BP 139/87; PULSE 95; TEMP 36.8; O2SAT 96
[2016-10-22 14:50] VITALS: BP 126/80; PULSE 101; TEMP 36.7; O2SAT 94
[2016-10-22] MEDS ORDERED: LEVO750T23 PO (15:36)
[2016-10-22] MEDS ORDERED: PRED10TA PO (15:36)
--- NOTE | 2016-10-22 15:43 | Discharge Instructions ---
Discharge Instructions Date of Service October 22, 2016. Admission Reason for Admission: Pleural Effusion Discharge Discharge Diagnosis / Problem: PNEUMINIA? PULMONARY NODULES Discharge Goals Goal(s): Decrease discomfort, Improve function Activity Recommendations Activity Limitations: resume your previous activity . Instructions / Follow-Up Instructions / Follow-Up FOLLOWUP WITH FAMILY DOCTOR IN ONE WEEK. PATIENT WILL BE CALLED WITH APPOINTMENT. FOLLOWUP WITH HEME/ONCOLOGY IN ONE WEEK. MONITOR BLOOD GLUCOSE CLOSELY WHILE PATIENT ON STEROIDS AND NOTIFY FAMILY DOCTOR IF BLOOD SUGARS ABOVE 300. Current Hospital Diet Patient's current hospital diet: AHA Diet (Heart Healthy), Diabetes Type 2 Diet Discharge Diet Recommended Diet: AHA Diet (Heart Healthy), Diabetes Type 2 Diet Pending Studies Studies pending at discharge: no Laboratory Results Hemoglobin A1c Test 10/21/16 05:19 Range/Units Estimated Average Glucose 160 mg/dl Hemoglobin A1c 7.2 H 4.5-5.6 % Medical Emergencies . Who to Call and When: Medical Emergencies: If at any time you feel your situation is an emergency, please call 911 immediately. . Non-Emergent Contact Non-Emergency issues call your: Primary Care Provider . . "Provider Documentation" section prepared by Kunal Willis. . VTE Core Measure Inpt VTE Proph given/why not?: Enoxaparin (Lovenox)SQ
[2016-10-22] MEDS ORDERED: NON-FORMULARY MEDICATION SCH (15:45)
[2016-10-22 15:52] VITALS: BP 126/80; PULSE 101; TEMP 36.7; O2SAT 94
[2016-10-22] MEDS ORDERED: LEVOFLOXACIN 750 MG TAB PO SCH (16:00)
[2016-10-22] MEDS ORDERED: NURSING VERBAL MED ORDER ONE (16:15)
[2016-10-22] MEDS ORDERED: LEVOFLOXACIN 750 MG TAB PO ONE (16:30)
--- NOTE | 2016-10-22 16:31 | Progress Note ---
Internal Med Progress Note Date of Service: October 22, 2016. Provider Documentation: SUBJECTIVE: resting comfortably denies sob says cannot bring out sputum afebrile no chest pain ok for discharge OBJECTIVE: Vital Signs-as noted below Exam: General-alert and awake and oriented x 3. ENT-Normal hearing Neck-no neck masses Lungs-cta b/l no wheezing or crackles Heart-s1 and s2 heard regular rate and rhythm no murmurs Abdomen-soft bowel sounds present non tender no distension Extremities- no present no erythema Neuro-alert and awake oriented moves extremities Lab data as noted below. ASSESSMENT & PLAN: SHORTNESS OF BREATH DUE TO BL PLEURAL EFFUSIONS, POSSIBLE PNEUMONIA Presents with increasing shortness of breath x 1 month; was treated as an outpatient for sinusitis with Augmentin, nasal, spray, and prednisone; once prednisone course was completed symptoms returned in the ER, patient was hypoxic on room air at 88% however improved on its own to the 90s - CTA chest negative for PE but showing BL pleural effusions and multiple nodular opacities concerning for pneumonia vs metastatic disease s/p dose of lasix in ER. chest US no significant pleural effusions echo unremarkable Has a plan for PET scan on coming Sunday will continue abx and steroids discharged on po Levaquin and prednisone taper needs followup with pcp and heme/onco HX ESOPHAGEAL CANCER currently receiving 5FU and leucovorin - finished treatment on 10/18 due to concerns for further metastatic disease - consult placed for oncology f/u with heme/onco HTN -BP controlled, continue losartan / HCTZ DM hgb a1c 6.6 08/2016 Holding oral agents and utilizing SSI while hospitalized d/c on home meds Discharged home Vital Signs: Date Time Temp Pulse Resp B/P Pulse Ox O2 Delivery O2 Flow Rate FiO2 10/22/16 15:52 36.7 101 20 94 Room Air 10/22/16 14:50 36.7 101 20 126/80 94 10/22/16 11:08 36.8 95 20 139/87 96 Room Air 10/22/16 08:30 Room Air 10/22/16 07:19 37.0 95 18 143/87 94 10/22/16 04:10 36.7 88 20 126/82 94 Room Air 10/22/16 00:00 Room Air 10/21/16 23:42 37.0 98 20 128/82 95 Room Air 10/21/16 20:00 Room Air 10/21/16 19:03 36.7 93 20 124/87 94 Room Air Lab Results: Results Past 24 Hours Test 10/21/16 20:06 10/22/16 07:37 10/22/16 11:15 10/22/16 16:19 Range/Units Bedside Glucose 266 155 205 270 70-99 mg/dl
--- NOTE | 2016-10-22 19:02 | Discharge Summary ---
Discharge Summary Date of Service October 22, 2016. Discharge Summary Admission Date: October 20, 2016 at 14:29 Discharge Date: October 22, 2016 Discharge Disposition: Home Principal Diagnosis: SOB PNEUMONIA VS METASTATIC DISEASE Secondary Diagnoses/Problems: (1) Howard esophagus Status: Chronic (2) Diabetic neuropathy Status: Chronic (3) DM2 (diabetes mellitus, type 2) Status: Chronic (4) Dyslipidemia Status: Chronic (5) Esophageal cancer Permanent Comment: DIAGNOSIS: Esophagus, adenocarcinoma, uT2N1 stage IIB Status post completion of combined radiation and chemotherapy radiation completed 11/02/2015 Received 5040 cGy Status: Chronic (6) HTN (hypertension) Status: Chronic Procedures: CTA CHEST: 1. There is no evidence of pulmonary embolus in the main, lobar, or segmental pulmonary arteries. 2. Moderate pleural effusions with associated compressive atelectasis. 3. There is wall thickening and irregularity seen in the mid to distal esophagus with surrounding surgical clips and paraesophageal lymph nodes. This likely corresponds the patient's reported history of esophageal cancer. Correlation with the patient's oncological history will be required. 4. There are numerous irregular nodular airspace opacities seen throughout both lungs. These are new from the treatment planning CT dated 09/03/2015. This could be on an infectious/inflammatory basis or could represent metastatic disease. Clinical correlation will be required. CT follow-up in 3 months time is recommended for reassessment. 5. There are pathologically enlarged mediastinal and hilar lymph nodes. This is new from the radiation treatment planning CT dated 09/03/2015. Although this could be on a reactive basis, the appearance is concerning for metastatic disease given the patient's history. These should also be reassessed at follow-up. 6. Large hiatal hernia. 7. Cardiomegaly and small pericardial effusion. CHEST US: Small bilateral pleural effusions, left greater than right, as described above. ECHO: * The left ventricle is not well visualized. * The left ventricle is grossly normal size. * No regional wall motion abnormalities noted. * Ejection Fraction = 65-70%. * No hemodynamically significant valvular aortic stenosis. * There is no mitral valve stenosis. * Significant mitral regurgitation is absent. * The study was technically difficult. Medication Reconciliation New Medications: Levofloxacin (Levaquin) 750 Mg Tab 1 TAB PO DAILY for 7 Days, #7 TAB Prednisone Tab (Prednisone) 10 Mg Tab 40 MG PO UD, #20 TAB PREDNISONE 40MG PO DAILY X 2 DAYS THEN PREDNISONE 30MG PO DAILY X 2 DAYS THEN PREDNISONE 20MG PO DAILY X 2 DAYS THEN PREDNISONE 10MG PO DAILY X 2 DAYS THEN STOP. Continued Medications: Albuterol Sulfate (Proair Respiclick) 108 Mcg/Act Aer 2 PUFFS INH Q4H PRN for SOB/Wheezing Citalopram Hydrobromide (Celexa) 40 Mg Tab 1 TAB PO DAILY Fish Oil ([place]-3) 1 Ea Cap 2 CAP PO DAILY Fluticasone Propionate (Nasal) (Flonase Allergy Relief) 50 Mcg/Act Spr 2 SPRAYS NA DAILY Glyburide (Micronase) 5 Mg Tab 15 MG PO DAILYBD, TAB Hctz/Losartan (Hyzaar 12.5MG/50MG) Tab 1 TAB PO DAILY for 30 Days, #30 TAB 5 Refills Losartan Potassium (Cozaar) 25 Mg Tab 25 MG PO DAILY Multiple Vitamins W/ Minerals (One Daily Adults 50+) 1 Tab Tab 1 TAB PO DAILY Pantoprazole (Pantoprazole Sodium) 40 Mg Tab 40 MG PO DAILY Pioglitazone (Actos) 30 Mg Tab 1 TAB PO DAILYBD for 30 Days, #30 TAB 5 Refills Pravastatin (Pravachol ) 20 Mg Tab 20 MG PO DAILY, TAB Repaglinide (Prandin) 2 Mg Tab 4 MG PO DAILYBD, TAB Admission Information HPI (per Admitting provider): 65 year old male who presents to the ER with shortness of breath. Patient has history of esophageal cancer with mets to the right cervical chain and mediastinum lymph nodes. Patient is currently undergoing chemotherapy. About one month ago he developed rhinorrhea, sinus congestion, cough, and post nasal drip. He was given Augmentin and Flonase on 09/21. Unfortunately this did not improve his symptoms. He was then started on a course of Prednisone which did resolve his symptoms however once the prednisone was completed, his symptoms returned. He notes increasing shortness of breath. He reports a moist non productive cough. No orthopnea. He reports mild RLE edema. He denies fever and chills. No chest pain or palpitations. He reports a poor appetite the past few days but denies abdominal pain, nausea, or vomiting. He denies any urinary symptoms. In the ER, patient was hypoxic on room air at 88%, however improved on its own to 97%. CT was negative for PE but is showing BL pleural effusions, possible pneumonia vs. metastatic disease. Vitals are stable and labs are unremarkable. Physical Exam (per Admitting): General Appearance: no apparent distress Head: normocephalic Eyes: normal inspection ENT: hearing grossly normal Neck: supple, no JVD Respiratory/Chest: no respiratory distress, + decreased breath sounds (BL bases), + pertinent finding (mild tachypnea however patient is able to speak in full sentances ) Cardiovascular: regular rate, rhythm, + pertinent finding (trace edma RLE) Abdomen/GI: normal bowel sounds, non tender, soft Extremities/Musculoskelatal: + pertinent finding (LLE amputation) Neurologic/Psych: no motor/sensory deficits, alert, normal mood/affect, oriented x 3 Skin: normal color, warm/dry Hospital Course SHORTNESS OF BREATH DUE TO BL PLEURAL EFFUSIONS, POSSIBLE PNEUMONIA Presents with increasing shortness of breath x 1 month; was treated as an outpatient for sinusitis with Augmentin, nasal, spray, and prednisone; once prednisone course was completed symptoms returned in the ER, patient was hypoxic on room air at 88% however improved on its own to the 90s - CTA chest negative for PE but showing BL pleural effusions and multiple nodular opacities concerning for pneumonia vs metastatic disease s/p dose of lasix in ER. chest US no significant pleural effusions echo unremarkable Has a plan for PET scan on coming Sunday will continue abx and steroids discharged on po Levaquin and prednisone taper needs followup with pcp and heme/onco HX ESOPHAGEAL CANCER currently receiving 5FU and leucovorin - finished treatment on 10/18 due to concerns for further metastatic disease - consult placed for oncology f/u with heme/onco HTN -BP controlled, continue losartan / HCTZ DM hgb a1c 6.6 08/2016 Holding oral agents and utilizing SSI while hospitalized d/c on home meds Discharged home Total time spent on discharge = 35MINUTES This includes examination of the patient, discharge planning, medication reconciliation, and communication with other providers. Discharge Instructions Discharge Instructions Date of Service October 22, 2016. Admission Reason for Admission: Pleural Effusion Discharge Discharge Diagnosis / Problem: PNEUMINIA? PULMONARY NODULES Discharge Goals Goal(s): Decrease discomfort, Improve function Activity Recommendations Activity Limitations: resume your previous activity . Instructions / Follow-Up Instructions / Follow-Up FOLLOWUP WITH FAMILY DOCTOR IN ONE WEEK. PATIENT WILL BE CALLED WITH APPOINTMENT. FOLLOWUP WITH HEME/ONCOLOGY IN ONE WEEK. MONITOR BLOOD GLUCOSE CLOSELY WHILE PATIENT ON STEROIDS AND NOTIFY FAMILY DOCTOR IF BLOOD SUGARS ABOVE 300. Current Hospital Diet Patient's current hospital diet: AHA Diet (Heart Healthy), Diabetes Type 2 Diet Discharge Diet Recommended Diet: AHA Diet (Heart Healthy), Diabetes Type 2 Diet Pending Studies Studies pending at discharge: no Laboratory Results Hemoglobin A1c Test 10/21/16 05:19 Range/Units Estimated Average Glucose 160 mg/dl Hemoglobin A1c 7.2 H 4.5-5.6 % Medical Emergencies . Who to Call and When: Medical Emergencies: If at any time you feel your situation is an emergency, please call 911 immediately. . Non-Emergent Contact Non-Emergency issues call your: Primary Care Provider . . "Provider Documentation" section prepared by Kunal Willis. . VTE Core Measure Inpt VTE Proph given/why not?: Enoxaparin (Lovenox)SQ
[2016-10-23] MEDS ORDERED: LEVOFLOXACIN 750 MG TAB PO SCH (11:00)
[2016-11-15] MEDS ORDERED: SPR25 PO (14:21)
[2016-11-15] MEDS ORDERED: LSX40 PO (14:21)
[2016-11-15] MEDS ORDERED: POTA10CA28 PO (14:21)
[2016-11-15] MEDS ORDERED: LPR25 PO (14:21)
[2016-11-15] MEDS ORDERED: PRED10TA PO (14:21)
[2016-11-24] MEDS ORDERED: CITA40TA12 PO (02:56)
[2016-11-24] MEDS ORDERED: PRAV20TA PO (02:56)
[2016-11-24] MEDS ORDERED: PRT40 PO (02:56)
[2016-11-24] MEDS ORDERED: REPA2TAB12 PO (02:56)
[2016-11-24] MEDS ORDERED: OMEG10007 PO (02:56)
[2016-11-24] MEDS ORDERED: MULT1TAB56 PO (11:46)
[2016-11-24] MEDS ORDERED: LOSA1TAB PO (11:46)
[2016-12-01] MEDS ORDERED: ATRINS INH (10:38)
[2016-12-01] MEDS ORDERED: GFNSR600 PO (10:38)
[2016-12-01] MEDS ORDERED: XPNINS1255 INH (10:38)
[2016-12-01] MEDS ORDERED: RXNS10 PO (11:00)
[2016-12-01] MEDS ORDERED: ATV5 PO (11:00)
== END 2016-10-22 17:07 | disposition home or self-care (01) | DRG 194 ==
LOC: ENRESERVTM → ENRESERVDT → C.EDB 10:24 → C.4E 14:29
PROVIDERS: ADMIT Internal Medicine; ATTEND Internal Medicine
DX: J18.9 Pneumonia, unspecified organism (principal); J90 Pleural effusion, not elsewhere classified; Z66 Do not resuscitate; K21.9 Gastro-esophageal reflux disease without esophagitis; I10 Essential (primary) hypertension; G47.33 Obstructive sleep apnea (adult) (pediatric); K22.70 Barrett's esophagus without dysplasia; E11.40 Type 2 diabetes mellitus with diabetic neuropathy, unspecified; E78.5 Hyperlipidemia, unspecified; Z87.891 Personal history of nicotine dependence; Z85.01 Personal history of malignant neoplasm of esophagus

== ENCOUNTER → 2016-10-31 | Outpatient (CLI) | payer OTHER ==
[~2016-10-31] MED LIST changes: +ALBU18002 INH; +ATRINS INH; +ATV5 PO; +CITA40TA12 PO; +DPRO15 TOP; +FLUT0.15; +FLUT230A INH; +FRS/40 PO; +GFNSR600 PO; +IPRASOL4 INH; +LOSA1TAB PO; +LPR25 PO; +LSX40 PO; +METO25TA56 PO; +MULT1TAB56 PO; +OMEG10007 PO; +POTA10CA28 PO; +PRAV20TA PO; +PRED10TA PO; +PRT40 PO; -REPA1TAB40 PO; +REPA2TAB12 PO; +RXNS10 PO; +SPIR25TA PO; +SPR25 PO; +XPNINS1255 INH
--- NOTE | 2016-10-31 11:28 | DIAGNOSTIC IMAGING REPORT ---
CHEST 2 VIEWS ROUTINE CLINICAL HISTORY: R59.0 Mediastinal [id number] Bilateral pleural effusionR COMPARISON STUDY: 10/21/2016 FINDINGS: The cardiac and mediastinal contours remain stable. There is a right-sided internal jugular central venous catheter unchanged in position. There is persistent interstitial thickening. There are small pleural effusions left greater than right. There are progressive left basal airspace opacities.[ IMPRESSION: 1. Small bilateral pleural effusions left greater than right 2. Progressive left basal airspace opacities 3. Stable mild interstitial thickening/edema. Electronically signed by: Roge Ye M.D. 10/31/2016 11:27 AM Dictated Date/Time: 10/31/2016 11:26 AM
== END | disposition home or self-care (01) ==
LOC: C.RAD1850 11:04
PROVIDERS: ATTEND Internal Medicine Pulmonary Disease
DX: J90 Pleural effusion, not elsewhere classified (principal); R59.0 Localized enlarged lymph nodes; R91.8 Other nonspecific abnormal finding of lung field; G47.33 Obstructive sleep apnea (adult) (pediatric)

== ENCOUNTER → 2016-10-31 | Outpatient (CLI) | payer OTHER ==
--- NOTE | 2016-11-08 21:57 | POLYSOMNOGRAPH REPORT ---
CLINICAL DATA: The patient is a 65-year-old male with a BMI of 46.22. He has a history of sleep apnea in the past, but was not treated. He has snoring, lethargy and fatigue. He also has shortness of breath. On the evening of 10/31/2016, a home sleep test was performed using a [employer] type 3 monitor. RECORDING RESULTS: Total recording time was 10 hours. The estimated sleep time was 9.2 hours. RESPIRATORY DATA: Mild sleep apnea was recorded. The patient had an PAGE of 6.1 events per hour. There were 4 obstructive apneas, 1 mixed apnea, and 51 hypopneas. Hypopneas were scored according to the 4% desaturation rule. The longest event was 38 seconds. OXIMETRY DATA: The mean saturation was 93%. The minimum saturation was 82%. There was a total of 11 minutes with saturations less than 89%. HEART RATE DATA: The lowest heart rate was 63 beats per minute and the mean heart rate was 86 beats per minute. SNORING DATA: Snoring was present throughout the test. IMPRESSION: Obstructive sleep apnea -- mild. RECOMMENDATIONS: Consideration is given to treatment of this mild sleep apnea with nasal CPAP. This could be obtained by treatment with auto CPAP. Alternatively, he could have a CPAP titration done in the sleep lab.
== END | disposition home or self-care (01) ==
LOC: C.NEUR 13:55
PROVIDERS: ATTEND Internal Medicine Pulmonary Disease
DX: G47.33 Obstructive sleep apnea (adult) (pediatric) (principal)

== ENCOUNTER 2016-11-09 16:32 | Inpatient (IN) | payer OTHER ==
[~2016-11-09] VITALS: Ht 172.7 cm; Wt 131.5 kg
[~2016-11-09 16:32] MED LIST changes: -ATRINS INH; -ATV5 PO; -CITA40TA12 PO; -DPRO15 TOP; -FLUT230A INH; -FRS/40 PO; -GFNSR600 PO; -IPRASOL4 INH; -LOSA1TAB PO; -LPR25 PO; -LSX40 PO; -METO25TA56 PO; -MULT1TAB56 PO; -OMEG10007 PO; -POTA10CA28 PO; -PRAV20TA PO; -PRT40 PO; -REPA2TAB12 PO; -RXNS10 PO; -SPIR25TA PO; -SPR25 PO; -XPNINS1255 INH
[2016-11-09] MEDS ORDERED: ALBUTEROL 0.083% NEBU SOLN 3 ML VIAL INH STA ×2 (17:02→18:04)
[2016-11-09] MEDS ORDERED: METHYLPREDNISOLONE 125 MG VIAL IV STA (17:12)
[2016-11-09 17:26] LABS: BASO % 0.2 %; BASO ABS # 0.02 K/uL (0-0.2); COMPLETE YES; EOS % 0.5 %; HEMATOCRIT 41.2 % (42-52); LYMPH % 10.1 %; LYMPH ABS # 1.09 K/uL (1.2-3.4); MEAN CELL VOLUME 87.8 fL (80-100); MEAN CORPUSCULAR HEMOGLOBIN 29.2 pg (25-34); MEAN CORPUSCULAR HGB CONC 33.3 g/dl (32-36); MEAN PLATELET VOLUME 9.9 fL (7.4-10.4); MONO % 8.5 %; NEUT % 79.7 %; PLATELET COUNT 180 K/uL (130-400); RED BLOOD COUNT 4.69 M/uL (4.7-6.1); WHITE BLOOD COUNT 10.75 K/uL (4.8-10.8)
[2016-11-09 17:33] LABS: PROTHROMBIN TIME (PATIENT) 11.2 SECONDS (9.0-12.0)
--- NOTE | 2016-11-09 17:41 | DIAGNOSTIC IMAGING REPORT ---
CHEST ONE VIEW PORTABLE CLINICAL HISTORY: Respiratory distress. Dyspnea. COMPARISON STUDY: Chest radiograph October 31, 2016. FINDINGS: A right internal jugular Pwybyi-g-Ybqa is in place. There is no pneumothorax. A small left pleural effusion is noted. Diffuse interstitial thickening persists. There are bibasilar opacities as well as left midlung opacity. These have progressed since exam of October 31, 2016. A large hiatal hernia is again noted. IMPRESSION: 1. Progression of interstitial thickening which suggests pulmonary edema. 2. Bilateral airspace opacities which could reflect pulmonary edema or pneumonia. 3. Small left pleural effusion. Electronically signed by: Ashish Arriola M.D. 11/09/2016 5:40 PM Dictated Date/Time: 11/09/2016 5:38 PM
[2016-11-09 17:45] LABS: ALT/SGPT 18 U/L (12-78); AST/SGOT 10 U/L (15-37); BLOOD UREA NITROGEN 13 mg/dl (7-18); BUN/CREATININE RATIO 14.1 (10-20); CALCIUM 8.7 mg/dl (8.5-10.1); CARBON DIOXIDE 29 mmol/L (21-32); CHLORIDE 103 mmol/L (98-107); CREATININE 0.92 mg/dl (0.60-1.40); GLUCOSE 172 mg/dl (70-99); POTASSIUM 3.8 mmol/L (3.5-5.1); SODIUM 138 mmol/L (136-145)
[2016-11-09 17:50] LABS: ALB/GLOB RATIO 0.8 (0.9-2); ALKALINE PHOSPHATASE 102 U/L (45-117)
[2016-11-09] MEDS ORDERED: FUROSEMIDE 40 MG/4 ML VIAL IV STA (18:05)
[2016-11-09 18:28] VITALS: PULSE 116; O2SAT 97
[2016-11-09 18:29] VITALS: PULSE 116; O2SAT 97
[2016-11-09] MEDS ORDERED: ALBUT/IPRATROP 3MG/0.5MG NEB 3 ML VIAL INH STA (18:32)
[2016-11-09 19:58] LABS: MAGNESIUM 2.1 mg/dl (1.8-2.4); THYROID STIMULATING HORMONE 1.11 uIu/ml (0.300-4.500)
[2016-11-09 20:05] LABS: URINE APPEARANCE CLEAR (CLEAR); URINE BILIRUBIN NEG (NEG); URINE COLOR YELLOW; URINE NITRITE NEG (NEG); URINE PH 6.5 (4.5-7.5); URINE SPECIFIC GRAVITY 1.014 (1.000-1.030); UROBILINOGEN NEG (NEG)
[2016-11-09 20:08] LABS: MANUAL MICROSCOPIC REQUIRED? NO; REVIEW REQ? NO
[2016-11-09 20:39] LABS: ALLEN TEST POS (POS); ARTERIAL BLD GAS O2 SATURATION 97.5 % (90-95); ARTERIAL BLOOD GAS BASE EXCESS 2.1 mEq/L (-9-1.8); ARTERIAL BLOOD GAS HCO3 26 mmol/L (19-24); ARTERIAL BLOOD GAS PO2 93 mmHg (80-95); ARTERIAL BLOOD GAS pH 7.46 (7.35-7.45); O2 ADMINISTRATION 35% FIO2
[2016-11-09] MEDS ORDERED: LEVALBUTEROL/IPRATROPIUM NEB INH PRN (20:45)
[2016-11-09] MEDS ORDERED: GLUCAGON FOR INJ 1 MG VIAL SQ PRN (20:45)
[2016-11-09] MEDS ORDERED: GLUCOSE 40% GEL 15 GM TUBE PO PRN (20:45)
[2016-11-09] MEDS ORDERED: DEXTROSE 50% 50 ML SYR IV PRN (20:45)
[2016-11-09] MEDS ORDERED: MoRPHine SULFATE 4 MG/ML 1 ML CARP\\VIAL IV PRN (20:45)
[2016-11-09] MEDS ORDERED: TRAMADOL HCL 50 MG TAB PO PRN (20:45)
[2016-11-09] MEDS ORDERED: ACETAMINOPHEN 325 MG TAB PO PRN (20:45)
[2016-11-09] MEDS ORDERED: NITROGLYCERIN 0.4 MG SL PER TAB CHARGE SL PRN (20:45)
[2016-11-09] MEDS ORDERED: GLUCOSE 10 TABS/TUBE PO PRN (20:45)
[2016-11-09] MEDS ORDERED: ONDANSETRON INJ 2 MG/ML 2 ML VIAL IV PRN (20:45)
[2016-11-09 20:57] VITALS: BP 132/102; PULSE 123; TEMP 36.6; BMI 45.4
[2016-11-09] MEDS ORDERED: LEVALBUTEROL/IPRATROPIUM NEB INH SCH (21:00)
--- NOTE | 2016-11-09 21:12 | EMERGENCY ROOM VISIT NOTE ---
History Report prepared by Jakeibgaro: Ruben Raphael Under the Supervision of: Dr. Zackary Hendricks D.O. First contact with patient: 16:44 Chief Complaint: RESPIRATORY PROBLEMS Stated Complaint: RESPIRATORY DISTRESS, DIASTOLIC HEART FAILURE History of Present Illness The patient is a 65 year old male who presents to the Emergency Room with complaints of worsening shortness of breath starting six months ago. He rates his discomfort as a 7/10 in severity. The patient states that he has been short of breath starting six months ago and has fluid in his bag. The patient states that he saw Dr. Morrison a couple of weeks ago and was diagnosed with Obstructive Pulmonary Disorder. He admits he saw Dr. Workman yesterday and states that he was diagnosed with Diastolic Heart Failure and was told to present to the ED. The patient states that he was given Lasix by Dr. Workman and admits he took one yesterday and one today. He reports that he has also been experiencing edema to the lower extremities which has been going on for a month. He also states that he has a chronic productive cough and wheeze. The patient states that he we was put on inhalers but denies any relief of symptoms. He admits that he uses 2L of oxygen at all times. The patient denies headache, change in vision, fevers, chest pain, nausea, vomiting, diarrhea, pain with urination, and melena. Source of History: patient Onset: six months ago Position: other (global) Symptom Intensity: 7/10 Timing: worsening Modifying Factors (Worsening): breathing Associated Symptoms: + cough Review of Systems See HPI for pertinent positives & negatives. A total of 10 systems reviewed and were otherwise negative. Past Medical & Surgical Medical Problems: (1) Howard esophagus (2) Diabetic neuropathy (3) DM2 (diabetes mellitus, type 2) (4) Dyslipidemia (5) Esophageal cancer (6) HTN (hypertension) (7) Respiratory failure, acute Surgical Problems: (1) Amputation of leg (2) H/O hernia repair (3) History of carpal tunnel surgery Family History FH: esophageal cancer BROTHER FH: leukemia FATHER Stroke MOTHER SISTER Social History Smoking Status: Former Smoker Housing Status: lives with family Current/Historical Medications Scheduled Betamethasone Dip Augmented (Augmented Betamethasone D), 1 APPLN TOP BID Citalopram Hydrobromide (Celexa), 1 TAB PO DAILY Fish Oil ([place]-3), 2 CAP PO DAILY Fluticasone-Salmeterol 230/21 Mcg (Advair Hfa 230/21 Mcg), 2 PUFFS INH BID Glyburide (Micronase), 15 MG PO DAILYBD Hctz/Losartan (Hyzaar 12.5MG/50MG), 1 TAB PO DAILY Ipratropium-Albuterol (Duoneb), 3 ML INH DAILY Losartan Potassium (Cozaar), 25 MG PO DAILY Multiple Vitamins W/ Minerals (One Daily Adults 50+), 0.5 TAB PO BID Pantoprazole (Pantoprazole Sodium), 40 MG PO BID Pioglitazone (Actos), 1 TAB PO DAILYBD Pravastatin (Pravachol ), 20 MG PO DAILY Repaglinide (Prandin), 2 MG PO TIDM Allergies Coded Allergies: Lisinopril (Verified Adverse Reaction, Mild, Cough, 11/09/16) Physical Exam Vital Signs Date Time Temp Pulse Resp B/P (MAP) Pulse Ox O2 Delivery O2 Flow Rate FiO2 11/09/16 19:31 139/83 11/09/16 19:16 122/81 11/09/16 19:07 117 22 97 11/09/16 19:02 202/179 11/09/16 19:00 116 26 122/81 97 11/09/16 18:37 115 23 97 11/09/16 18:32 115 21 98 11/09/16 18:31 166/109 11/09/16 18:29 116 24 97 BiPAP/CPAP 35 11/09/16 18:28 116 97 35 11/09/16 18:02 117 25 94 11/09/16 17:32 115 30 96 11/09/16 17:31 130/76 11/09/16 17:22 95 Nasal Cannula 2.0 11/09/16 17:22 95 Nasal Cannula 2.0 11/09/16 17:20 95 2.0 11/09/16 17:17 114/82 11/09/16 17:07 118 11/09/16 16:37 36.7 115 24 118/71 94 Nasal Cannula 2.0 Physical Exam GENERAL: Sitting up in bed able to have a conversation. alert, well appearing, well nourished, no distress, non-toxic EYE EXAM: normal conjunctiva, PERRL and EOM's grossly intact OROPHARYNX: no exudate, no erythema, lips, buccal mucosa, and tongue normal and mucous membranes are moist NECK: No JVD supple, no nuchal rigidity, no adenopathy, non-tender LUNGS: Wheezing bilaterally. Normal chest wall mechanics HEART: no murmurs, S1 normal and S2 normal ABDOMEN: abdomen soft, non-tender, normo-active bowel sounds, no masses, no rebound or guarding. BACK: Back is symmetrical on inspection and there is no deformity, no midline tenderness, no CVA tenderness. SKIN: no rashes and no bruising UPPER EXTREMITIES: upper extremities are grossly normal. LOWER EXTREMITIES: +3 edema of bilateral lower extremities up to abdomen. Right lower leg amputation above knee. NEURO EXAM: Normal sensorium, cranial nerves II-XII grossly intact, normal speech, no gross weakness of arms, no gross weakness of legs. Gross sensation intact. Medical Decision & Procedures ER Provider Diagnostic Interpretation: CT scan: Radiology provided the following report CT: The preliminary reading from radiology is the following, CHEST ONE VIEW PORTABLE CLINICAL HISTORY: Respiratory distress. Dyspnea. COMPARISON STUDY: Chest radiograph October 31, 2016. FINDINGS: A right internal jugular [id number]-[id number] is in place. There is no pneumothorax. A small left pleural effusion is noted. Diffuse interstitial thickening persists. There are bibasilar opacities as well as left midlung opacity. These have progressed since exam of October 31, 2016. A large hiatal hernia is again noted. IMPRESSION: 1. Progression of interstitial thickening which suggests pulmonary edema. 2. Bilateral airspace opacities which could reflect pulmonary edema or pneumonia. 3. Small left pleural effusion. Electronically signed by: Ashish Arriola M.D. 11/09/2016 5:40 PM Dictated Date/Time: 11/09/2016 5:38 PM Laboratory Results 11/09/16 17:00 Red Blood Count 4.69, Mean Corpuscular Volume 87.8, Mean Corpuscular Hemoglobin 29.2, Mean Corpuscular Hemoglobin Concent 33.3, Mean Platelet Volume 9.9, Neutrophils (%) (Auto) 79.7, Lymphocytes (%) (Auto) 10.1, Monocytes (%) (Auto) 8.5, Eosinophils (%) (Auto) 0.5, Basophils (%) (Auto) 0.2, Neutrophils # (Auto) 8.57, Lymphocytes # (Auto) 1.09, Monocytes # (Auto) 0.91, Eosinophils # (Auto) 0.05, Basophils # (Auto) 0.02 11/09/16 17:00 Test 11/09/16 00:00 11/09/16 17:00 Urine Color YELLOW Urine Appearance CLEAR (CLEAR) Urine pH 6.5 (4.5-7.5) Urine Specific [place] 1.014 (1.000-1.030) Urine Protein NEG (NEG) Urine Glucose (UA) NEG (NEG) Urine Ketones NEG (NEG) Urine Occult Blood NEG (NEG) Urine Nitrite NEG (NEG) Urine Bilirubin NEG (NEG) Urine Urobilinogen NEG (NEG) Urine Leukocyte Esterase NEG (NEG) White Blood Count 10.75 K/uL (4.8-10.8) Red Blood Count 4.69 M/uL (4.7-6.1) Hemoglobin 13.7 g/dL (14.0-18.0) Hematocrit 41.2 % (42-52) Mean Corpuscular Volume 87.8 fL (80-100) Mean Corpuscular Hemoglobin 29.2 pg (25-34) Mean Corpuscular Hemoglobin Concent 33.3 g/dl (32-36) Platelet Count 180 K/uL (130-400) Mean Platelet Volume 9.9 fL (7.4-10.4) Neutrophils (%) (Auto) 79.7 % Lymphocytes (%) (Auto) 10.1 % Monocytes (%) (Auto) 8.5 % Eosinophils (%) (Auto) 0.5 % Basophils (%) (Auto) 0.2 % Neutrophils # (Auto) 8.57 K/uL (1.4-6.5) Lymphocytes # (Auto) 1.09 K/uL (1.2-3.4) Monocytes # (Auto) 0.91 K/uL (0.11-0.59) Eosinophils # (Auto) 0.05 K/uL (0-0.5) Basophils # (Auto) 0.02 K/uL (0-0.2) RDW Standard Deviation 56.5 fL (36.4-46.3) RDW Coefficient of Variation 17.9 % (11.5-14.5) Immature Granulocyte % (Auto) 1.0 % Immature Granulocyte # (Auto) 0.11 K/uL (0.00-0.02) Prothrombin Time 11.2 SECONDS (9.0-12.0) Prothromb Time International Ratio 1.0 (0.9-1.1) Activated Partial Thromboplast Time 25.4 SECONDS (21.0-31.0) Partial Thromboplastin Ratio 1.0 Anion Gap 6.0 mmol/L (3-11) Est Creatinine Clear Calc Drug Dose 109.3 ml/min Estimated GFR () 101.5 Estimated GFR (Non- 87.6 BUN/Creatinine Ratio 14.1 (10-20) Calcium Level 8.7 mg/dl (8.5-10.1) Magnesium Level 2.1 mg/dl (1.8-2.4) Total Bilirubin 0.9 mg/dl (0.2-1) Aspartate Amino Transf (AST/SGOT) 10 U/L (15-37) Alanine Aminotransferase (ALT/SGPT) 18 U/L (12-78) Alkaline Phosphatase 102 U/L (45-117) Troponin I < 0.015 ng/ml (0-0.045) Pro-B-Type Natriuretic Peptide 108 pg/ml (0-900) Total Protein 6.7 gm/dl (6.4-8.2) Albumin 2.9 gm/dl (3.4-5.0) Globulin 3.8 gm/dl (2.5-4.0) Albumin/Globulin Ratio 0.8 (0.9-2) Thyroid Stimulating Hormone (TSH) 1.110 uIu/ml (0.300-4.500) Laboratory results per my review. Medications Administered Medications (Trade) Dose Ordered Sig/[place] Route Start Time Stop Time Status Last Admin Dose Admin Albuterol Sulfate (Ventolin 0.083% 2.5MG/3ML Neb) 2.5 mg NOW STAT INH 11/09/16 17:02 11/09/16 17:03 DC 11/09/16 17:14 2.5 MG Methylprednisolone Sodium Succinate (Solu-Medrol IV) 125 mg NOW STAT IV 11/09/16 17:12 11/09/16 17:14 DC 11/09/16 17:17 125 MG Albuterol Sulfate (Ventolin 0.083% 2.5MG/3ML Neb) 2.5 mg NOW STAT INH 11/09/16 18:04 11/09/16 18:06 DC 11/09/16 18:27 2.5 MG Furosemide (Lasix Inj) 40 mg NOW STAT IV 11/09/16 18:05 11/09/16 18:06 DC 11/09/16 18:36 40 MG Albuterol/ Ipratropium (Duoneb) 3 ml NOW STAT INH 11/09/16 18:32 11/09/16 18:33 DC 11/09/16 18:42 3 ML ECG Indication: SOB/dyspnea Rate (beats per minute): 117 Rhythm: sinus tachycardia Findings: no ectopy, other (septal Q wave, normal axis) ED Course ED COURSE: Vital signs were reviewed and showed tachycardic and tachypneic The patients medical record was reviewed The above diagnostic studies were performed and reviewed. ED treatments and interventions as stated above. 1650: The patient was evaluated in room A09. A complete history and physical examination was performed. 1702: Albuterol Sulfate 2.5 mg INH 1712: Solu-Medrol IV 125 mg IV 1804: Albuterol Sulfate 2.5 mg INH 1805: Lasix Injection 40 mg IV. 1805: I reevaluated the patient and he is resting comfortably. He states he feels better after BIPAP. 1832: Duoneb 3 ml INH. 0: I discussed the patient's case with Dr. Santana, [facility] Hospitalist, He understands the patient's condition and agrees to accept the patient. I updated the patient on the treatment plan and he agrees to admission. The patient will be further evaluated. Medical Decision Differential diagnoses includes but is not limited to pneumonia, bronchitis, COPD/Asthma exacerbation, pneumothorax, pulmonary embolism, congestive heart failure, acute coronary syndrome Patient is a 65-year-old male who presents the ER for shortness of breath. He is dyspneic with conversation. He does have diffuse wheezing along with pitting edema in his right lower extremity tracking up through the hips. He does have a history of diastolic heart failure and is currently being treated with Lasix per family. He is currently on 2 L and his cannula. He is given a full nebs, steroids and placed on BiPAP. He did have improvement with his symptoms. I gave him a dose of Lasix. I do believe this is multifactorial and likely a combination of fluid overload and COPD. Labs were fairly unremarkable and patient was admitted to internal medicine on BiPAP for shortness of breath secondary to CHF and COPD. Consults Time Called: 1899 Consulting Physician: Dr. Santana, [facility] Hospitalist Returned Call: 1899 I discussed the patient's case with Dr. Santana, [facility] Hospitalist, He understands the patient's condition and agrees to accept the patient. The patient will be further evaluated. Impression Primary Impression: CHF (congestive heart failure) Additional Impression: COPD (chronic obstructive pulmonary disease) Critical Care I have personally spent 35 minutes of critical care time in the direct management of this patient. This includes bedside care, interpretation of diagnostic studies, and testing, discussion with consultants, patient, and family members, and other required patient management activities. This 35 minutes is in excess of all separately billable procedures. Scribe Attestation The scribe's documentation has been prepared under my direction and personally reviewed by me in its entirety. I confirm that the note above accurately reflects all work, treatment, procedures, and medical decision making performed by me. Departure Information Dispostion Being Evaluated By Hospitalist (Dr. Santana) Referrals Esther Lopez D.O. (PCP) Patient Instructions [facility] Problem Qualifiers Primary Impression: CHF (congestive heart failure) Congestive heart failure type: unspecified congestive heart failure type Congestive heart failure chronicity: unspecified congestive heart failure chronicity Qualified Codes: I50.9 - Heart failure, unspecified Additional Impression: COPD (chronic obstructive pulmonary disease) COPD type: unspecified COPD Qualified Codes: J44.9 - Chronic obstructive pulmonary disease, unspecified
[2016-11-09 21:15] VITALS: PULSE 120; O2SAT 95
[2016-11-09] MEDS ORDERED: POTASSIUM CHLORIDE 10 MEQ TABCR PO STA (21:16)
[2016-11-09] MEDS ORDERED: LEVALBUTEROL 1.25MG/0.5ML NEB INH PRN (22:00)
[2016-11-09] MEDS ORDERED: IPRATROPIUM BROMIDE NEB SOLN 0.02% 2.5 ML VIAL INH PRN (22:00)
[2016-11-09] MEDS: PANTOprazole SOD 40 MG TAB PO SCH (22:09)
[2016-11-09] MEDS: CEROVITE ADV FORMULA TAB PO SCH (22:09)
[2016-11-09] MEDS: INSULIN ASPART 100 UNITS/ML 3 ML PEN SC SCH (22:10)
[2016-11-09] MEDS: INSULIN GLARGINE SOLOSTAR 100 UNITS/ML 3 ML PEN SC SCH (22:11)
[2016-11-09] MEDS: ENOXAPARIN 40 MG/0.4 ML SYR SC SCH (22:12)
[2016-11-09 23:34] VITALS: BP 127/89; PULSE 99; TEMP 36.7; O2SAT 97
[2016-11-10] VITALS (12 sets, daily range): BP systolic 103–146; BP diastolic 70–87; PULSE 63–106; TEMP 36.6–37; O2SAT 93–98; BMI 45.2
[2016-11-10] MEDS: IPRATROPIUM BROMIDE NEB SOLN 0.02% 2.5 ML VIAL INH SCH ×4 (01:41→19:29)
[2016-11-10] MEDS: LEVALBUTEROL 1.25MG/0.5ML NEB INH SCH ×4 (01:41→19:29)
--- NOTE | 2016-11-10 04:30 | HISTORY & PHYSICAL EXAMINATION ---
DATE OF ADMISSION: 11/09/2016 PRIMARY CARE DOCTOR: Dr. Lopez. CHIEF COMPLAINT: Shortness of breath. History obtained from the patient, patient's and records. History is somewhat difficult to obtain from the patient secondary to hearing impairment. HISTORY OF PRESENT ILLNESS: Medical history significant for chronic respiratory failure secondary to COPD on home O2, mild AMARA, history of esophageal cancer status post chemoradiation, hypertension, DM2 on oral meds, past tobacco abuse. Recent confinement a few weeks ago for shortness of breath, leg swelling. Pneumonia versus metastatic disease. CTA at that time was negative for PE, showed bilateral pleural effusions, multiple noted opacities concerning for pneumonia versus metastatic disease. 2D echo at that time showed EF 65-70%, no significant valvular heart disease, technically difficult study. Patient discharged on Levaquin, steroid course. Unimproved symptoms. Px was seen by [facility] Pulmonology outpx. PFTs showed moderate obstructive pattern, cannot exclude restriction. mild improvement following bronchodilators. As per notes, malignancy itself may be a major contributor of shortness of breath. Patient started on round the clock breathing treatment and inhalers. As per the patient had a followup pulmonary evaluation a few days ago, started on Lasix. As per rounder and backer's conversation with patient's property insurance agent, may need thoracentesis, bronchoscopy to rule out metastatic lung disease. Patient may need referral to a air plant engineer as per patient's family. Patient's chemotherapy on hold until breathing issues clarified. SOB, dry cough symptoms wo aspiration, leg swelling did not respond to a few doses of Lasix at home. Patient told to proceed to the Emergency Room. At the Emergency Room, the patient received Solu-Medrol and Lasix for possible CHF, CHF exacerbation. BiPAP initiated. Px feeling better. MEDICAL HISTORY: As above. SURGERIES: Abdominal surgery, orthopedic procedures. HOME MEDICATIONS: Include Prandin, DuoNeb, Cozaar, multivitamins, Protonix, Actos, Pravachol, betamethasone, Celexa, Advair Diskus, Hyzaar. ALLERGIES: LISINOPRIL. 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 REVIEW OF SYSTEMS: As per HPI. All other ROS negative. PHYSICAL EXAMINATION: VITAL SIGNS: Blood pressure noted to be 118/70, pulse rate of 115, RR 24, T 37 sats 94% on 2 liters, later 96% on BiPAP. GENERAL: Noted to be obese, in no distress. hard of hearing SKIN: Normal color. HEENT: Thomas palpebral conjunctivae. Dry mucosa. BIPAP mask in place NECK: Short neck. LUNGS: Decreased breath sounds. HEART: tachycardic ABDOMEN: Some distention, nontender. healed scars EXTREMITIES: Minimal swelling on the right lower extremity, no tenderness. 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 LABORATORY DATA: Hemoglobin 13.7, hematocrit 41.2, white cell count 11 platelets 158. Sodium 140 potassium 3.8, chloride 103, CO2 29, BUN 13.9, glucose 172. BNP was normal. Troponin was noted to be 0.015. IMAGING DATA: Chest x-ray showed small left pleural effusion, pulmonary edema, thickening. EKG as per my interpretation - rate 115, sinus tachycardia, poor R-wave progression, low voltage. ABG - pH 7.46, pCO2 37, pO2 93, 97 on 35%. ASSESSMENT: 1. Acute on chronic hypoxemic respiratory failure persistent cough, SOB, leg swelling sx since discharge from the hospital a few weeks ago COPD, mild AMARA on recent outpx Pulmo [place] ? right-sided heart failure ? metastatic lung disease from esophageal cancer status post chemoradiation ( chemotherapy currently on hold) 2. Hypertension, stable 3. DM2 on oral meds well controlled as of recent HgA1c 4. past tobacco abuse. PLAN: PCU supplemental O2. nebs RTC, prn Further eval/management as per Pulmonology. (Dr. Workman) Cardiology consult as per outpx Pulmo recommendation as per px/ RE possible CHF. ISS BG goal 140-180. DVT prophylaxis, Lovenox subQ. DNR. MTDD
[2016-11-10 05:47] LABS: BASO % 0.1 %; BASO ABS # 0.01 K/uL (0-0.2); COMPLETE YES; HEMATOCRIT 41.1 % (42-52); IG% 0.7 %; LYMPH % 8.9 %; LYMPH ABS # 0.72 K/uL (1.2-3.4); MEAN CELL VOLUME 88.2 fL (80-100); MEAN CORPUSCULAR HEMOGLOBIN 27.9 pg (25-34); MEAN CORPUSCULAR HGB CONC 31.6 g/dl (32-36); MEAN PLATELET VOLUME 10.1 fL (7.4-10.4); MONO % 3.2 %; NEUT % 87.1 %; PLATELET COUNT 176 K/uL (130-400); RED BLOOD COUNT 4.66 M/uL (4.7-6.1); WHITE BLOOD COUNT 8.07 K/uL (4.8-10.8)
[2016-11-10 06:17] LABS: BLOOD UREA NITROGEN 17 mg/dl (7-18); BUN/CREATININE RATIO 18.3 (10-20); CARBON DIOXIDE 32 mmol/L (21-32); CHLORIDE 102 mmol/L (98-107); CREATININE 0.94 mg/dl (0.60-1.40); GLUCOSE 235 mg/dl (70-99); POTASSIUM 4.3 mmol/L (3.5-5.1); SODIUM 139 mmol/L (136-145)
[2016-11-10] MEDS: CEROVITE ADV FORMULA TAB PO SCH ×2 (08:44→21:07)
[2016-11-10] MEDS: PANTOprazole SOD 40 MG TAB PO SCH ×2 (08:44→21:08)
[2016-11-10] MEDS: PRAVASTATIN SOD 20 MG TAB PO SCH ×2 (08:44→21:07)
[2016-11-10] MEDS: CITALOPRAM 40 MG TAB PO SCH (08:44)
[2016-11-10] MEDS: INSULIN ASPART 100 UNITS/ML 3 ML PEN SC SCH ×4 (08:47→21:12)
[2016-11-10] MEDS ORDERED: LOSARTAN POTASSIUM 25 MG TAB PO SCH (09:00)
--- NOTE | 2016-11-10 11:00 | Cardiology Consultation ---
Cardiology Consultation Date of Consultation: Nov 10, 2016 Requesting Physician: Sandi Attending Fuel Cell Battery Technician: Genaro (Miguel Agustin PA-C) History of Present Illness Mr. Corry Granados is a complex 65 year old male who is being seen at the request of Dr. Junior. Reason for cardiology consultation is possible congestive heart failure. Patient referred for hospitalization by Dr. Jaimes to due to concern for acute decompensated diastolic congestive heart failure. Mr. Granados states that he has had a significant time breathing since May 2016. He notes feeling comfortable only at rest. He describes being unable to get a shower "cause I can 't get no air." Notes possible improvement with the use of steroids though with regression with tapering/discontinuation. Notes recently being prescribed supplemental oxygen therapy with improvement, stating "they just gave me oxygen that really helped, someone should have given me that a long time ago." He describes abdominal bloating and a decreased appetite. He notes right lower extremity peripheral edema. No scrotal edema. Denies exertional chest pain. No palpitations. Comfortable at rest. He typically sleeps in a chair at home though was able to lay relatively flat last night without difficulty. He notes recently being started on an unknown dose of furosemide without improvement in his dyspnea or the right lower extremity edema which has been present for about one month. He notes no improvement in his dyspnea with administration of 40 mg IV furosemide in the ER. Notes improvement in dyspnea with the use of BiPAP overnight. Mr. Granados denies prior cardiac history. He specifically denies history of coronary artery disease, myocardial infarction, congestion heart failure, arrhythmias, heart murmur, rheumatic fever, or scarlet fever. 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 Right carpal tunnel surgery Right subclavian A-Port placement Ventral hernia repair Family History: Mother passed of "old age," 93. Father with leukemia at the age of 57. One brother passed with esophageal cancer. One brother passes with ? mesothelioma. One brother is alive at 85. Two sisters, ages 70 and 72, are without significant melisa issues. Social History: Reformed smoker, quit about 30 years ago after smoking about 1 ppd x 15-20 years. He describes chewing snuff off and on through the years. No alcohol. No illegal drug use. . One child. 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 Disabled. (Miguel Agustin PA-C) Review Of Systems General: No abrupt weight changes. No fevers. No rigors. HEENT: No headache. Cardiovascular: No chest pain or chest discomfort. ? Mild orthopnea. No PND. Right lower extremity edema. No near syncope or syncope. Pulmonary: + Cough. Difficulty expectorating. + Wheeze. No hemoptysis. Gastrointestinal: No nausea, vomiting, diarrhea. Recent bout of constipation. Skin: No rash. Musculoskeletal: See above. Neurological: No history of TIA, CVA, or seizures Complete review of systems is as stated above, negative, or noncontributory. (Miguel Agustin PA-C) Allergies Coded Allergies: Lisinopril (Verified Adverse Reaction, Mild, Cough, 11/09/16) Medications Reported Home Medications Medications Dose Route/Sig Max Daily Dose Days Date Category Dose Instructions Duoneb (Ipratropium-Albuterol) 3 Ml Nebu 3 Ml INH DAILY 11/09/16 Reported Augmented Betamethasone D (Betamethasone Dip Augmented) 90 Appln/15 Gm Oint 1 Appln TOP BID 11/09/16 Reported APPLY OINTMENT TWICE DAILY TO [place] Advair Hfa 230/21 Mcg (Fluticasone-Salmeterol 230/21 Mcg) 1 Aer Aer 2 Puffs INH BID 11/09/16 Reported Cozaar (Losartan Potassium) 25 Mg Tab 25 Mg PO DAILY 10/20/16 Reported One Daily Adults 50+ (Multiple Vitamins W/ Minerals) 1 Tab Tab 0.5 Tab PO BID 10/20/16 Reported [place]-3 (Fish Oil) 1 Ea Cap 2 Cap PO DAILY 10/22/15 Reported Pantoprazole Sodium (Pantoprazole) 40 Mg Tab 40 Mg PO BID 10/22/15 Reported Micronase (Glyburide) 5 Mg Tab 15 Mg PO DAILYBD 10/22/15 Reported Actos (Pioglitazone) 30 Mg Tab 1 Tab PO DAILYBD 30 10/22/15 Reported Celexa (Citalopram Hydrobromide) 40 Mg Tab 1 Tab PO DAILY 10/22/15 Reported Prandin (Repaglinide) 2 Mg Tab 2 Mg PO TIDM 10/22/15 Reported Hyzaar 12.5MG/50MG (HCTZ/Losartan Potassium) Tab 1 Tab PO DAILY 30 10/22/15 Reported Pravachol (Pravastatin Sodium) 20 Mg Tab 20 Mg PO DAILY 10/22/15 Reported (Miguel Agustin PA-C) Physical Exam Vital Signs (Last 8hrs): Last 8 Hrs Date Time Temp Pulse Resp B/P (MAP) Pulse Ox O2 Delivery O2 Flow Rate FiO2 11/10/16 07:47 36.8 99 20 142/85 (104) 95 BiPAP 11/10/16 07:30 Nasal Cannula 2.0 11/10/16 06:56 101 29 98 BiPAP/CPAP 35 11/10/16 06:56 101 98 35 11/10/16 04:00 CPAP 2.0 35 11/10/16 03:56 36.6 103 22 146/87 (106) 97 BiPAP General Appearance: Alert and Oriented x3. NAD. Elevated BMI HEENT: Normocephalic Atraumatic. PER, EOMI, conjunctiva and sclera clear Neck: Supple. No carotid bruits. No JVD. No HJD. Respiratory: Markedly diminished breath sounds with diffuse inspiratory and expiratory wheezing. Left lower lobe dry crackles. Left lower lobe rhonchi. Dullness to percussion at the left base. Cardiovascular: Somewhat distant heart sounds. Regular, tachycardic at 110 bpm. S1 and S2 noted. No murmurs appreciated. PMI was not found. Abdomen: Obese. +BS. Soft. Nontender. Extremities: Prosthesis, left lower extremity below the knee. Mild right lower extremity edema, lymphedematous changes. No clubbing. No cyanosis. Neuro: No focal deficits. Psychiatric: Normal affect. (Miguel Agustin PA-C) Data Last 24 Hours Test 11/09/16 17:00 11/09/16 20:25 11/09/16 21:30 11/10/16 05:11 White Blood Count 10.75 K/uL 8.07 K/uL Red Blood Count 4.69 M/uL 4.66 M/uL Hemoglobin 13.7 g/dL 13.0 g/dL Hematocrit 41.2 % 41.1 % Mean Corpuscular Volume 87.8 fL 88.2 fL Mean Corpuscular Hemoglobin 29.2 pg 27.9 pg Mean Corpuscular Hemoglobin Concent 33.3 g/dl 31.6 g/dl Platelet Count 180 K/uL 176 K/uL Mean Platelet Volume 9.9 fL 10.1 fL Neutrophils (%) (Auto) 79.7 % 87.1 % Lymphocytes (%) (Auto) 10.1 % 8.9 % Monocytes (%) (Auto) 8.5 % 3.2 % Eosinophils (%) (Auto) 0.5 % 0.0 % Basophils (%) (Auto) 0.2 % 0.1 % Neutrophils # (Auto) 8.57 K/uL 7.02 K/uL Lymphocytes # (Auto) 1.09 K/uL 0.72 K/uL Monocytes # (Auto) 0.91 K/uL 0.26 K/uL Eosinophils # (Auto) 0.05 K/uL 0.00 K/uL Basophils # (Auto) 0.02 K/uL 0.01 K/uL RDW Standard Deviation 56.5 fL 56.1 fL RDW Coefficient of Variation 17.9 % 17.5 % Immature Granulocyte % (Auto) 1.0 % 0.7 % Immature Granulocyte # (Auto) 0.11 K/uL 0.06 K/uL Prothrombin Time 11.2 SECONDS Prothromb Time International Ratio 1.0 Activated Partial Thromboplast Time 25.4 SECONDS Partial Thromboplastin Ratio 1.0 Sodium Level 138 mmol/L 139 mmol/L Potassium Level 3.8 mmol/L 4.3 mmol/L Chloride Level 103 mmol/L 102 mmol/L Carbon Dioxide Level 29 mmol/L 32 mmol/L Anion Gap 6.0 mmol/L 5.0 mmol/L Blood Urea Nitrogen 13 mg/dl 17 mg/dl Creatinine 0.92 mg/dl 0.94 mg/dl Est Creatinine Clear Calc Drug Dose 109.3 ml/min 106.7 ml/min Estimated GFR () 101.5 98.9 Estimated GFR (Non- 87.6 85.3 BUN/Creatinine Ratio 14.1 18.3 Random Glucose 172 mg/dl 235 mg/dl Calcium Level 8.7 mg/dl 8.9 mg/dl Magnesium Level 2.1 mg/dl Total Bilirubin 0.9 mg/dl Aspartate Amino Transf (AST/SGOT) 10 U/L Alanine Aminotransferase (ALT/SGPT) 18 U/L Alkaline Phosphatase 102 U/L Troponin I < 0.015 ng/ml < 0.015 ng/ml Pro-B-Type Natriuretic Peptide 108 pg/ml Total Protein 6.7 gm/dl Albumin 2.9 gm/dl Globulin 3.8 gm/dl Albumin/Globulin Ratio 0.8 Thyroid Stimulating Hormone (TSH) 1.110 uIu/ml Arterial Blood pH 7.46 Arterial Blood Partial Pressure CO2 37 mmHg Arterial Blood Partial Pressure O2 93 mmHg Arterial Blood HCO3 26 mmol/L Arterial Blood Oxygen Saturation 97.5 % Arterial Blood Base Excess 2.1 mEq/L Arterial Blood Gas Delivery 35% FIO2 Haider Test POS Bedside Glucose 230 mg/dl Test 11/10/16 06:41 Bedside Glucose 212 mg/dl October 21, 2016 TTE Interpretation Summary ([facility], Dr. Rodolfo Lam): The left ventricle is not well visualized. The left ventricle is grossly normal size. No regional wall motion abnormalities noted. Ejection Fraction = 65-70%. No hemodynamically significant valvular aortic stenosis. There is no mitral valve stenosis. Significant mitral regurgitation is absent. The study was technically difficult. Limited views were obtained. EKG dated and timed 09-NOV-2016 @ 17:08:19: Sinus tachycardia with premature atrial complexes. Low voltage QRS. EKG dated and timed 10-NOV-2016 @ 07:06:06: Normal sinus rhythm. Low voltage QRS. Telemetry: Predominately sinus tachycardia. Periods of normal sinus rhythm overnight. No overt atrial arrhythmias such as atrial fibrillation or flutter. No significant ventricular arrhythmias. Admission CXR: Large hiatal hernia. Progression of interstitial thickening which suggests pulmonary edema. Bilateral airspace opacities which could reflect pulmonary edema or pneumonia. Small left pleural effusion. Interpretation as per Dr. Arriola. (Miguel Agustin PA-C) Assessment & Plan Complex 65 year old male admitted to [facility] on November 09, 2016 with acute on chronic hypoxemic respiratory failure. Patient with complaints of chronic (since May 2016) class III+ dyspnea, persistent cough , and chest congestion with difficulty expectorating and significant wheezing, symptoms aided by use of supplemental oxygen, BiPAP, and ? steroids. Although there may be an elevated of diastolic heart failure, history and physical examination today are not reflective of the same. Resting echocardiography obtained at the end of September 2016 was technically difficult thought left ventricular systolic function was normal to hyperdynamic and there were no significant valvular issues observed. History, electrocardiograms , and cardiac biomarkers are not reflective of necrosis or an acute coronary syndrome. I suspect his symptoms are predominately pulmonary in etiology and raise concern for infiltrative disease, ? possible late fibrotic radiation pneumonitis. Hypoalbuminemia is likely playing a part to his fluid retention. His renal function has remained stable following administration of 40 mg IV furosemide on presentation; consideration may be made for further IV diuresis to see if this provides any symptomatic benefit. Further recommendations pending evaluation by Dr. Rodolfo Lam. (Miguel Agustin PA-C) Patient seen and examined, agree with assessment as above. Preserved to hyperdynamic LV function Overall impression multifactorial respiratory compromise including a component of mild volume overload exacerbated by multiple medical issues. Will attempt to optimize cardiac concerns. Slow heart rate by adding beta hannah in hospitalized setting. Stop losartan for time being. Add furosemide 40mg po daily, first today, consider spironolactone in future. Actos on hold appropriately. Rodolfo Lam MD (Rodolfo Lam M.D.)
[2016-11-10] MEDS ORDERED: FUROSEMIDE 40 MG TAB PO ONE (12:47)
[2016-11-10] MEDS ORDERED: METOPROLOL TARTRATE 50 MG TAB PO ONE (13:00)
[2016-11-10] MEDS ORDERED: IPRATROPIUM BROMIDE NEB SOLN 0.02% 2.5 ML VIAL INH PRN (14:00)
[2016-11-10] MEDS ORDERED: LEVALBUTEROL 1.25MG/0.5ML NEB INH PRN (14:00)
--- NOTE | 2016-11-10 14:09 | PULMONARY CONSULTATION ---
DATE OF CONSULTATION: 11/10/2016 TIME: 11:20 a.m. REPORT OF CONSULTATION: The patient was seen in room 201. He is a 65-year-old male who has a chief complaint of shortness of breath. He has been having problems breathing for approximately 2-1/2 months. He states that in May and June, he had sinus problems. He never felt better after that. He was hospitalized from October 20 until October 22 with shortness of breath. He did not feel much better at the time of discharge. His dyspnea has progressed. He is now short of breath especially taking a shower. He feels like his air just cuts off. He is short of breath with exertion. Sitting still, he is fairly comfortable. At first, he had had a trial of some steroids. He seemed to feel better with the first course of steroids, but when they wore off, his symptoms worsened. He then had another course, but it did not seem to help. He is not coughing much, but he will cough in paroxysms. He does not bring anything up. He has not had any chest pains. There has been no chills, fevers or sweats. The patient is very short of breath doing activities such as bending over. Pertinent history is that he has a history of esophageal CA diagnosed in April of 2015. He was treated with chemotherapy and radiation therapy. Subsequently, earlier this year, he had an abnormal PET scan done through the [facility] system. The patient states he had new lymph nodes that were positive and something up in his neck. He was treated with leucovorin. At the time of his hospital stay in September, he had a CAT scan of the chest done. This did not reveal any pulmonary embolism. It did, however, show mediastinal and hilar adenopathy that was new compared with the prior CAT scan done in 2016. The prevascular node measured up to 1.4 cm. Subcarinal nodes measured up to 1.7 cm. There was a high peritracheal node, measuring up to 2.3 cm. There was bilateral hilar adenopathy. On the right side, there was an node, measuring up to 2.7 cm and on the left side up to 2.0 cm. I believe these would be very suspicious for metastatic disease. In addition, he had numerous foci of irregular airspace nodularities. Some of these were measuring larger than a centimeter. While these could be inflammatory, I think it was more likely that they would be neoplastic. A PET scan was done on 10/25/2016. This reported a new FDG avid subcarinal lymph node. The cervical and mediastinal lymph nodes were reported to be similar to slightly decreased in activity compared with the prior exam. The patient also was found to have small bilateral pleural effusions. There was some compressive atelectasis associated with this. A large hiatal hernia was seen. Review of Dr. Epps's oncology notes shows that she reported he has had an EUS, showing malignant appearing lymph nodes and biopsy proven recurrence or residual disease. The date of that was not clear to me. The patient has a history of smoking 1 pack per day for 15 years, but he quit smoking about 30 years ago. Alcohol use is none. PAST MEDICAL HISTORY: 1. Howard's esophagus. 2. Diabetes mellitus. 3. Diabetic neuropathy. 4. Hyperlipidemia. 5. Hypertension. 6. Esophageal CA as noted. PAST SURGICAL HISTORY: 1. Hiatal hernia repair with multiple followup surgeries. 2. Left below knee amputation at age 6. ALLERGIES: LISINOPRIL. FAMILY HISTORY: Reportedly positive for esophageal cancer, leukemia, and CVA. REVIEW OF SYSTEMS: Negative except for the above-mentioned complaints. Ten systems were reviewed. PHYSICAL EXAMINATION: GENERAL: The patient is a 65-year-old male who was cooperative, alert and oriented. He is very anxious. VITAL SIGNS: Temperature is 36.8. Heart rate is elevated at 109 per minute. The rhythm is regular. Blood pressure 142/85. Respiratory rate was 24 per minute. Saturation was 95% on a nonspecified amount of oxygen. HEENT: Pupils were reactive to light. Nares were clear. Mouth exam revealed a Mallampati grade 3 pharynx. NECK: Palpation of the neck did not reveal adenopathy. CHEST: Showed diminished excursions. Wheezes are heard bilaterally on expiration. ABDOMEN: Obese. There are numerous scars from prior surgeries. Bowel sounds were normal. There was no tenderness to palpation. EXTREMITIES: Revealed that on the right side, he has +2 edema. On the left side, he has the prior amputation and he has a prosthesis. IMAGING STUDIES: The patient's chest x-ray done at the time of admission showed what appeared to be bilateral airspace opacities, possibly reflecting pulmonary edema or pneumonia. A small left effusion was reported. Obviously, the chest x-ray does not show the detail that his CAT scan has. LABORATORY DATA: CBC showed a white count of 8.07. Hemoglobin is 13. Platelets are 176,000. INR is 1 with a PTT of 25.4. Urinalysis was unremarkable. Blood gas showed a pH of 7.46 with a pCO2 of 37 and a pO2 of 93 done on 35% FiO2. Electrolytes show sodium 139, potassium 4.3, chloride 102, and bicarbonate 32. BUN was 17 with a creatinine of 0.94. Blood sugars have been ranging today between 199 and 235. Calcium was 8.9. Magnesium 2.1. Troponin was negative. TSH was normal. ProBNP was 108, which would be normal. Liver functions were normal. Albumin was decreased to 2.9 with total protein 6.7. Recent pulmonary function testing done as an outpatient showed a moderate obstructive pattern with only mild improvement following bronchodilators. The patient underwent a home sleep study within the past 1 week. His apnea-hypopnea index was just slightly elevated. I believe it was 6.1. IMPRESSIONS: 1. Severe shortness of breath -- multifactorial. 2. Esophageal carcinoma. 3. Chronic obstructive pulmonary disease. 4. Mediastinal and hilar adenopathy -- suspicious for metastatic disease. 5. Small bilateral pleural effusions. 6. Multiple lung nodules -- suspicious for metastatic disease with an inability to exclude infection. 7. Mild obstructive sleep apnea. COMMENTS AND RECOMMENDATIONS: The patient is a very difficult case. Thus far, he has not responded to the usual bronchodilator therapy. He did feel better last night wearing BiPAP, but it has not substantially changed his dyspnea on exertion. The case was discussed with Dr. Farmer. Suggest a repeat CAT scan to again rule out PE and also to reassess the size of the nodules and adenopathy. Suggestions could then be made as to whether he would be a candidate for either thoracentesis or bronchoscopy. We will have the patient wear the BiPAP nightly. He is on neb treatments every 6 hours and would continue those. I believe the patient should still have some IV Solu-Medrol in an attempt to improve his status. Although, it does not seem like an infectious process, I believe he should have course of antibiotics again for at least a few days. Further suggestions will be made after the CAT scan is reviewed.
--- NOTE | 2016-11-10 14:36 | Progress Note ---
Internal Med Progress Note Date of Service: Nov 10, 2016. Provider Documentation: SUBJECTIVE: Continued to be very hypoxic requiring 5 L 02 associated with orthopnea tachycardic in 110-120 does not have any symptom of palpitation having non productive cough , no fever or chills OBJECTIVE: Vital Signs-as noted below Exam: General-no apparent distress noted Eyes-sclera non icteric ENT-NAd Lungs-diminished, crackles at base Heart-regular tachycardic Abdomen-soft, non tender Extremities-+ 1-2 edema Neuro-no focal deficit Lab data as noted below. ASSESSMENT & PLAN: SOB /HYPOXIA : multifactorial etiology -recent PFT done at pulmonology office showed moderate COPD -CT chest 10/24/16 no evidence of PE moderate pleural effusion with associated compressive atelectasis , wall thickening and irregularity seen in the mid to distal esophagus - corresponding to pt's hx of esophageal CA -numerous irregular nodular air space opacities seen throughout both lungs - could be infectious /inflammatory need to r/o metastatic process pathologically enlarged hilar and mediastinal LN CT chest with contrast ordered to R/O PE and evaluation of pleural effusion and lung nodules pulmonology eval appreciated pt will be treated with IV steroids , NEb tx scheduled and PRN empiric abx with Rocephin and Zithromax ( recently completed Levaquin dose ) Cardiology eval requested to address possible vol over load recent ECHO -showed normal LV pt clinically vol overloaded for multiple factors -low Albumin, 3rd spacing , acute respiratory failure causing cardiac strain Lasix ordered per Cardiology cont to monitor in tele METASTATIC ESOPHAGEAL CA -Follows with Heme Onc Dr Epps diagnosed on in Feb 02 2016 -by EGD /EUS s/p radiation tx and on chemo tx weekly Carboplatin /Taxol PET/CT scan on 10/25/16 Impression : 1. Multiple new subcentimeter pulmonary nodules, nodular opacities , bilateral effusions with adjacent consolidation and a new FDG avid subcarinal lymph node, This may be infectious vs worsening of metastatic disease . 2. Cervical and Mediastinal lymph nodes are similar to slightly decreased in activity compared to prior exam pt has been on 5 FU/LV cycle by Dr Epps after getting 5 cycles developed progressive SOB /OH significantly hypoxic with minimum movement Chemo on Sunday10/30/16 was on hold for worsening of respiratory status D/w Dr Epps there is evidence of progression of malignancy with possible pleural /pulmonary involvement causing worsening of respiratory status Dr Epps consulted for D/w with pt and family regarding prognosis and option for treatment POSSIBLE VOL OVERLOAD : multi factorial metastatic Ca, low albumin ECHO 09/2016 EF 65-70 % appreciate input form Cardiology Lasix diuresis ordered may need Thoracentesis -will defer to Pulmonology SINUS TACHYCARDIA possible due to Hypoxia Cardiology following closely Beta hannah added for rate control monitor in tele DNR/DNI poor prognosis DVT PROPHYLAXIS moderate to high risk for metastatic Ca Sub q Lovenox DISPOSITION expected to be discharged home when medically stable Medicine follow up with Dr Esther Delgadillo heme Onc follow up with Dr Epps Plan of care D/w pt and at bedside Vital Signs: Date Time Temp Pulse Resp B/P (MAP) Pulse Ox O2 Delivery O2 Flow Rate FiO2 11/10/16 14:11 106 18 95 Nasal Cannula 5.0 11/10/16 11:48 36.9 104 20 124/73 (90) 95 Nasal Cannula 5.0 11/10/16 07:47 36.8 99 20 142/85 (104) 95 BiPAP 11/10/16 07:30 Nasal Cannula 2.0 11/10/16 06:56 101 29 98 BiPAP/CPAP 35 11/10/16 06:56 101 98 35 11/10/16 04:00 CPAP 2.0 35 11/10/16 03:56 36.6 103 22 146/87 (106) 97 BiPAP 11/10/16 01:43 105 26 95 BiPAP/CPAP 35 11/10/16 01:41 105 95 35 11/10/16 00:00 CPAP 2.0 35 11/09/16 23:34 36.7 99 22 127/89 (102) 97 BiPAP 11/09/16 21:15 120 95 35 11/09/16 20:57 36.6 123 25 132/102 CPAP 11/09/16 20:31 106/77 11/09/16 20:12 84 26 96 11/09/16 20:07 102 24 95 11/09/16 20:01 127/88 11/09/16 19:37 118 26 96 11/09/16 19:31 139/83 11/09/16 19:16 122/81 11/09/16 19:07 117 22 97 11/09/16 19:02 202/179 11/09/16 19:00 116 26 122/81 97 11/09/16 18:37 115 23 97 11/09/16 18:32 115 21 98 11/09/16 18:31 166/109 11/09/16 18:29 116 24 97 BiPAP/CPAP 35 11/09/16 18:28 116 97 35 11/09/16 18:02 117 25 94 11/09/16 17:32 115 30 96 11/09/16 17:31 130/76 11/09/16 17:22 95 Nasal Cannula 2.0 11/09/16 17:22 95 Nasal Cannula 2.0 11/09/16 17:20 95 2.0 11/09/16 17:17 114/82 11/09/16 17:07 118 11/09/16 16:37 36.7 115 24 118/71 94 Nasal Cannula 2.0 Lab Results: Results Past 24 Hours Test 11/09/16 17:00 11/09/16 20:25 11/09/16 21:30 11/10/16 05:11 Range/Units White Blood Count 10.75 8.07 4.8-10.8 K/uL Red Blood Count 4.69 4.66 4.7-6.1 M/uL Hemoglobin 13.7 13.0 14.0-18.0 g/dL Hematocrit 41.2 41.1 42-52 % Mean Corpuscular Volume 87.8 88.2 80-100 fL Mean Corpuscular Hemoglobin 29.2 27.9 25-34 pg Mean Corpuscular Hemoglobin Concent 33.3 31.6 32-36 g/dl Platelet Count 180 176 130-400 K/uL Mean Platelet Volume 9.9 10.1 7.4-10.4 fL Neutrophils (%) (Auto) 79.7 87.1 % Lymphocytes (%) (Auto) 10.1 8.9 % Monocytes (%) (Auto) 8.5 3.2 % Eosinophils (%) (Auto) 0.5 0.0 % Basophils (%) (Auto) 0.2 0.1 % Neutrophils # (Auto) 8.57 7.02 1.4-6.5 K/uL Lymphocytes # (Auto) 1.09 0.72 1.2-3.4 K/uL Monocytes # (Auto) 0.91 0.26 0.11-0.59 K/uL Eosinophils # (Auto) 0.05 0.00 0-0.5 K/uL Basophils # (Auto) 0.02 0.01 0-0.2 K/uL RDW Standard Deviation 56.5 56.1 36.4-46.3 fL RDW Coefficient of Variation 17.9 17.5 11.5-14.5 % Immature Granulocyte % (Auto) 1.0 0.7 % Immature Granulocyte # (Auto) 0.11 0.06 0.00-0.02 K/uL Prothrombin Time 11.2 9.0-12.0 SECONDS Prothromb Time International Ratio 1.0 0.9-1.1 Activated Partial Thromboplast Time 25.4 21.0-31.0 SECONDS Partial Thromboplastin Ratio 1.0 Sodium Level 138 139 136-145 mmol/L Potassium Level 3.8 4.3 3.5-5.1 mmol/L Chloride Level 103 102 98-107 mmol/L Carbon Dioxide Level 29 32 21-32 mmol/L Anion Gap 6.0 5.0 3-11 mmol/L Blood Urea Nitrogen 13 17 7-18 mg/dl Creatinine 0.92 0.94 0.60-1.40 mg/dl Est Creatinine Clear Calc Drug Dose 109.3 106.7 ml/min Estimated GFR () 101.5 98.9 Estimated GFR (Non- 87.6 85.3 BUN/Creatinine Ratio 14.1 18.3 10-20 Random Glucose 172 235 70-99 mg/dl Calcium Level 8.7 8.9 8.5-10.1 mg/dl Magnesium Level 2.1 1.8-2.4 mg/dl Total Bilirubin 0.9 0.2-1 mg/dl Aspartate Amino Transf (AST/SGOT) 10 15-37 U/L Alanine Aminotransferase (ALT/SGPT) 18 12-78 U/L Alkaline Phosphatase 102 45-117 U/L Troponin I < 0.015 < 0.015 0-0.045 ng/ml Pro-B-Type Natriuretic Peptide 108 0-900 pg/ml Total Protein 6.7 6.4-8.2 gm/dl Albumin 2.9 3.4-5.0 gm/dl Globulin 3.8 2.5-4.0 gm/dl Albumin/Globulin Ratio 0.8 0.9-2 Thyroid Stimulating Hormone (TSH) 1.110 0.300-4.500 uIu/ml Arterial Blood pH 7.46 7.35-7.45 Arterial Blood Partial Pressure CO2 37 35-46 mmHg Arterial Blood Partial Pressure O2 93 80-95 mmHg Arterial Blood HCO3 26 19-24 mmol/L Arterial Blood Oxygen Saturation 97.5 90-95 % Arterial Blood Base Excess 2.1 -9-1.8 mEq/L Arterial Blood Gas Delivery 35% FIO2 [place] Test POS POS Bedside Glucose 230 70-99 mg/dl Test 11/10/16 06:41 11/10/16 11:10 Range/Units Bedside Glucose 212 199 70-99 mg/dl
[2016-11-10] MEDS: AZITHROMYCIN 250 MG TAB PO SCH (15:25)
[2016-11-10] MEDS: METHYLPREDNISOLONE IV 60 MG in SYRINGE 0 ML IV SCH ×2 (15:26→21:08)
[2016-11-10] MEDS ORDERED: OPTIRAY 320 IV PRN (15:30)
[2016-11-10] MEDS: CEFTRIAXONE SOD INJ 1 GM in DEXTROSE 5% ADD-VANTAGE 50ML 50 ML IV SCH (15:30)
--- NOTE | 2016-11-10 15:49 | DIAGNOSTIC IMAGING REPORT ---
CT ANGIOGRAM OF THE CHEST CLINICAL HISTORY: Shortness of breath. Hypoxia. COMPARISON STUDY: 10/20/2016 TECHNIQUE: Following the IV administration of 94 mL of Optiray-320, CT angiogram of the thorax was performed from the thoracic inlet to the lung bases utilizing the pulmonary embolus protocol. Images are reviewed in the axial, sagittal, and coronal planes. IV contrast was administered without complication. MIP imaging was performed. CT DOSE: 570.23 mGy.cm FINDINGS: There is persistent bilateral hilar and mediastinal lymphadenopathy. A ambulatory services representative paratracheal lymph node measures 21 mm in diameter. There is a prevascular lymph node measuring 13 mm in short axis. There was no evidence of thoracic aortic dilatation. There were no pulmonary artery filling defects to indicate acute pulmonary embolism. There are persistent moderate bilateral pleural effusions. Multifocal nodular airspace opacities remain similar to the prior study. There is a large hiatal hernia. There is persistent mid and distal esophageal wall thickening. There is a bowel containing ventral hernia. IMPRESSION: 1. No evidence of acute pulmonary embolism 2. Persistent moderate bilateral pleural effusions 3. Persistent multifocal nodular airspace opacities. These could be infectious/inflammatory or represent metastatic disease. Again follow-up CT scanning is recommended. 4. The distal esophageal wall thickening 5. Large hiatal hernia 6. Pathologic mediastinal and hilar lymphadenopathy Electronically signed by: Roge Ye M.D. 11/10/2016 3:47 PM Dictated Date/Time: 11/10/2016 3:40 PM
[2016-11-10 16:37] LABS: CALCIUM 8.6 mg/dl (8.5-10.1)
--- NOTE | 2016-11-10 18:19 | Progress Note ---
Progress Note Date of Service Nov 10, 2016. Progress Note ATTENDING NOTE : CT CHEST WITH CONTRAST REPORT NOTED : IMPRESSION: 1. No evidence of acute pulmonary embolism 2. Persistent moderate bilateral pleural effusions 3. Persistent multifocal nodular airspace opacities. These could be infectious/inflammatory or represent metastatic disease. Again follow-up CT scanning is recommended. 4. The distal esophageal wall thickening 5. Large hiatal hernia 6. Pathologic mediastinal and hilar lymphadenopathy -possible cause of persisted/worsening of hypoxia /respiratory failure due to pleural effusion -need to r/o possible due to metastatic malignancy -ordered to thoracic USG tomorrow to be marked for thoracenteses pt will benefit form both therapeutic and diagnosis thoracentesis with pleural fluid to be sent for cytobiology -pulmonology team updated
[2016-11-10] MEDS: METOPROLOL TARTRATE 25 MG TAB PO SCH (18:22)
--- NOTE | 2016-11-10 19:30 | Medical Consult ---
Consultation Date of Consultation: Nov 10, 2016. Attending Physician: Sakina Farmer M.D. Reason for Consultation: Esophageal cancer, patient admitted with shortness of breath History of Present Illness 65 year old male with esophageal cancer. He received concurrent chemoRT with carboplatin and taxol weekly. He was not interested in surgery. Post treatment PET-CT was negative. Subsequently he followed up with GI and had EGD and EUS and biopsy of a paraesophageal lymph node which was positive for adenocarcinoma. He was not interested in surgery. He was also not interested in receiving chemotherapy at that time and he was followed by observation. Subsequently his PET-CT scan showed more progression in the mediastinal lymph nodes and neck. He had agreed to capecitabine but was unable to afford it. He agreed to receive chemotherapy with 5Fluorouracil and leucovorin. He has neuropathy and so he declined oxaliplatin due to fear of worsening of his neuropathy in his foot. He received 5 cycles of chemotherapy with 5FU/LV. Chemotherapy was held last week due to ongoing shortness of breath and declining performance status. He consulted with pulmonary - Dr Morrison and Dr Workman He is now admitted with shortness of breath. Patient states that his breathing has worsened over the past month. He is now unable to take a shower or do ADLs without significant assistance from his He states that in the shower feels like he is unable to get any air He denies any fever or chills He has cough, mostly nonproductive Appetite is somewhat decreased but he feels this is from not feeling well with shortness of breath Past Medical/Surgical History PMH:diabetes type 2, left BKA, dyslipidemia, Barretts esophagus with dysplasia, morbid obesity, recurrent esophageal adenocarcinoma, HTN, COPD, partial small bowel obstruction, neuropathy, Family History FH: esophageal cancer BROTHER FH: leukemia FATHER Stroke MOTHER SISTER Social History Smoking Status: Former Smoker Alcohol Use: none Drug Use: none Marital Status: Housing Status: lives with family Allergies Coded Allergies: Lisinopril (Verified Adverse Reaction, Mild, Cough, 11/09/16) Current Inpatient Medications Current Inpatient Medications Medications (Trade) Dose Ordered Sig/[place] Route Start Time Stop Time Status Last Admin Dose Admin Insulin Glargine (Lantus Solostar Pen) 5 unit HS SC 11/09/16 21:00 12/09/16 20:59 11/09/16 22:11 5 UNIT Enoxaparin Sodium (Lovenox Inj) 40 mg Q24H SC 11/09/16 22:00 12/09/16 21:59 11/09/16 22:12 40 MG Acetaminophen (Tylenol Tab) 650 mg Q4H PRN PO 11/09/16 20:45 12/09/16 20:44 Nitroglycerin (Nitrostat Tab) 0.4 mg UD PRN SL 11/09/16 20:45 12/09/16 20:44 Insulin Aspart (novoLOG ASPART) SLIDING SCALE If C... ACHS SC 11/09/16 21:00 12/09/16 20:59 11/10/16 12:41 2 UNITS Glucose (Glucose 40% Gel) 15-30 GRAMS 15 GRAMS... UD PRN PO 11/09/16 20:45 12/09/16 20:44 Glucose (Glucose Chew Tab) 4-8 Tablets 4 Tabl... UD PRN PO 11/09/16 20:45 12/09/16 20:44 Dextrose (Dextrose 50% 50ML Syringe) 25-50ML OF 50% DW IV FOR... UD PRN IV 11/09/16 20:45 12/09/16 20:44 Glucagon (Glucagon Inj) 1 mg UD PRN SQ 11/09/16 20:45 12/09/16 20:44 Tramadol HCl (Ultram Tab) 25 mg Q6H PRN PO 11/09/16 20:45 12/09/16 20:44 Ondansetron HCl (Zofran Inj) 4 mg Q6H PRN IV 11/09/16 20:45 12/09/16 20:44 Morphine Sulfate (MoRPHine SULFATE INJ) 4 mg Q6H PRN IV 11/09/16 20:45 11/23/16 20:44 Citalopram Hydrobromide (celeXA TAB) 40 mg DAILY PO 11/10/16 09:00 12/10/16 08:59 11/10/16 08:44 40 MG Multivitamins/ Minerals (Multivitamin W/ Minerals Tab) 0.5 tab BID PO 11/09/16 21:00 12/09/16 20:59 11/10/16 08:44 0.5 TAB Pantoprazole Sodium (Protonix Tab) 40 mg BID PO 11/09/16 21:00 12/09/16 20:59 11/10/16 08:44 40 MG Pravastatin Sodium (Pravachol Tab) 20 mg PM PO 11/10/16 09:00 12/10/16 08:59 11/10/16 08:44 20 MG Miscellaneous Information (Order Awaiting Action) 1 ea QS N/A 11/10/16 08:00 12/10/16 07:59 Ipratropium [place] (Atrovent 0.02% 0.5MG/2.5ML Neb) 0.5 mg Q6R INH 11/10/16 03:00 12/10/16 02:59 11/10/16 14:11 0.5 MG Levalbuterol (Xopenex 1.25MG/ 0.5ML Neb) 1.25 mg Q6R INH 11/10/16 03:00 12/10/16 02:59 11/10/16 14:11 1.25 MG Ipratropium [place] (Atrovent 0.02% 0.5MG/2.5ML Neb) 0.5 mg Q2H PRN INH 11/10/16 14:00 12/09/16 21:59 Levalbuterol (Xopenex 1.25MG/ 0.5ML Neb) 1.25 mg Q2H PRN INH 11/10/16 14:00 12/09/16 21:59 Methylprednisolone Sodium Succinate 60 mg/Syringe 0.96 ml @ 1.5 mls/min Q8@0600,1400,2200 IV 11/10/16 14:00 12/10/16 13:59 11/10/16 15:26 1.5 MLS/MIN Ceftriaxone Sodium 1 gm/ Dextrose 50 ml @ 100 mls/hr Q24H IV 11/10/16 13:00 11/17/16 12:59 11/10/16 15:30 100 MLS/HR Azithromycin (Zithromax Tab) 500 mg QAM PO 11/10/16 12:15 11/17/16 12:14 11/10/16 15:25 500 MG Metoprolol Tartrate (Lopressor Tab) 25 mg BID17 PO 11/10/16 17:00 12/10/16 16:59 Furosemide (Lasix Tab) 40 mg QAM PO 11/11/16 09:00 12/11/16 08:59 Ioversol (Optiray 320) 125 ml UD PRN IV 11/10/16 15:30 11/14/16 15:29 Review of Systems Constitutional: + fatigue, No fever, No chills, No weight loss, No weakness Eyes: No worsening of vision ENT: + hearing loss, + sore throat (sometimes with coughing), No unusual epistaxis, No nasal symptoms, No trouble swallowing Respiratory: + cough, + wheezing (sometimes), + shortness of breath, + dyspnea on exertion, + dyspnea at rest, No hemoptysis Cardiovascular: + edema, No chest pain, No palpitations Abdomen: No pain, No nausea, No vomiting, No diarrhea, No constipation Musculoskeletal: No joint pain, No muscle pain, No calf pain Genitourinary - Male: No hematuria, No dysuria Neurologic: + numbness/tingling (neuropathy in his foot), No weakness Psychiatric: No depression symptoms Hematologic / Lymphatic: No abnormal bleeding/bruising Integumentary: No rash, No itch Physical Exam Date Time Temp Pulse Resp B/P (MAP) Pulse Ox O2 Delivery O2 Flow Rate FiO2 11/10/16 15:16 36.7 103 22 123/70 (87) 93 Nasal Cannula 5.0 11/10/16 14:11 106 18 95 Nasal Cannula 5.0 11/10/16 11:48 36.9 104 20 124/73 (90) 95 Nasal Cannula 5.0 11/10/16 11:00 Nasal Cannula 5.0 11/10/16 07:47 36.8 99 20 142/85 (104) 95 BiPAP 11/10/16 06:56 101 29 98 BiPAP/CPAP 35 11/10/16 06:56 101 98 35 11/10/16 04:00 CPAP 2.0 35 11/10/16 03:56 36.6 103 22 146/87 (106) 97 BiPAP 11/10/16 01:43 105 26 95 BiPAP/CPAP 35 11/10/16 01:41 105 95 35 11/10/16 00:00 CPAP 2.0 35 11/09/16 23:34 36.7 99 22 127/89 (102) 97 BiPAP 11/09/16 21:15 120 95 35 11/09/16 20:57 36.6 123 25 132/102 CPAP 11/09/16 20:31 106/77 11/09/16 20:12 84 26 96 11/09/16 20:07 102 24 95 11/09/16 20:01 127/88 11/09/16 19:37 118 26 96 11/09/16 19:31 139/83 11/09/16 19:16 122/81 11/09/16 19:07 117 22 97 11/09/16 19:02 202/179 11/09/16 19:00 116 26 122/81 97 11/09/16 18:37 115 23 97 11/09/16 18:32 115 21 98 11/09/16 18:31 166/109 11/09/16 18:29 116 24 97 BiPAP/CPAP 35 11/09/16 18:28 116 97 35 11/09/16 18:02 117 25 94 General Appearance: + mild distress (due to dyspnea, feels more comfortable at rest but dyspnea with minimal activity), + obese, + pertinent finding ( chronically ill, on supplemental O2 5L , ) Head: normocephalic, atraumatic Eyes: sclerae normal ENT: pharynx normal, + pertinent finding (+hearing loss) Neck: supple Respiratory/Chest: + pertinent finding (decreased breath sounds at bases, scattered wheezes) Cardiovascular: regular rate, rhythm, no murmur Abdomen/GI: normal bowel sounds, non tender, soft Back: normal inspection, no CVA tenderness Extremities/Musculoskelatal: no calf tenderness, non-tender, + pedal edema ( right ), + pertinent finding (left prosthesis) Neurologic/Psych: alert, oriented x 3 Skin: warm/dry Laboratory Results Last 24 Hours Test 11/09/16 20:25 11/09/16 21:30 11/10/16 05:11 11/10/16 06:41 Arterial Blood pH 7.46 Arterial Blood Partial Pressure CO2 37 mmHg Arterial Blood Partial Pressure O2 93 mmHg Arterial Blood HCO3 26 mmol/L Arterial Blood Oxygen Saturation 97.5 % Arterial Blood Base Excess 2.1 mEq/L Arterial Blood Gas Delivery 35% FIO2 [place] Test POS Bedside Glucose 230 mg/dl 212 mg/dl White Blood Count 8.07 K/uL Red Blood Count 4.66 M/uL Hemoglobin 13.0 g/dL Hematocrit 41.1 % Mean Corpuscular Volume 88.2 fL Mean Corpuscular Hemoglobin 27.9 pg Mean Corpuscular Hemoglobin Concent 31.6 g/dl Platelet Count 176 K/uL Mean Platelet Volume 10.1 fL Neutrophils (%) (Auto) 87.1 % Lymphocytes (%) (Auto) 8.9 % Monocytes (%) (Auto) 3.2 % Eosinophils (%) (Auto) 0.0 % Basophils (%) (Auto) 0.1 % Neutrophils # (Auto) 7.02 K/uL Lymphocytes # (Auto) 0.72 K/uL Monocytes # (Auto) 0.26 K/uL Eosinophils # (Auto) 0.00 K/uL Basophils # (Auto) 0.01 K/uL RDW Standard Deviation 56.1 fL RDW Coefficient of Variation 17.5 % Immature Granulocyte % (Auto) 0.7 % Immature Granulocyte # (Auto) 0.06 K/uL Sodium Level 139 mmol/L Potassium Level 4.3 mmol/L Chloride Level 102 mmol/L Carbon Dioxide Level 32 mmol/L Anion Gap 5.0 mmol/L Blood Urea Nitrogen 17 mg/dl Creatinine 0.94 mg/dl Est Creatinine Clear Calc Drug Dose 106.7 ml/min Estimated GFR () 98.9 Estimated GFR (Non- 85.3 BUN/Creatinine Ratio 18.3 Random Glucose 235 mg/dl Calcium Level 8.6 mg/dl Troponin I < 0.015 ng/ml Test 11/10/16 11:10 11/10/16 16:21 Bedside Glucose 199 mg/dl 186 mg/dl CT chest "IMPRESSION: 1. No evidence of acute pulmonary embolism 2. Persistent moderate bilateral pleural effusions 3. Persistent multifocal nodular airspace opacities. These could be infectious/inflammatory or represent metastatic disease. Again follow-up CT scanning is recommended. 4. The distal esophageal wall thickening 5. Large hiatal hernia 6. Pathologic mediastinal and hilar lymphadenopathy" Assessment & Plan 65 year old male with recurrent esophageal cancer s/p concurrent chemoRT with carboplatin and taxol s/p 5 cycles of palliative chemotherapy with 5FU/LV now admitted with shortness of breath I discussed with the patient and his that I feel the findings on the CT scan are more likely due to progression of his cancer /metastatic disease, since He has not improved significantly with antibiotics and steroids since his last admission. His performance status is poor at this time ECOG PS 3. He is not a good candidate for chemotherapy with taxotere at this time and patient also not keen on the potential side effects of the chemotherapy I agree with empirically treating with the diuretic and antibiotics/steroids in the mean time in case there is any component of pneumonia/COPD exacerbation He had moderate pleural effusions Patient and his are interested in him having the thoracentesis if feasible , and sending fluid for cultures and cytology I discussed advanced directives with patient and his and he and his state that his preference is for DO NOT RESUSCITATE I discussed option of palliative care and hospice. He and his want to hold off on palliative care consult at this time. Support provided and his questions were answered I discussed with Dr Farmer Thank you for consult
[2016-11-10] MEDS: ENOXAPARIN 40 MG/0.4 ML SYR SC SCH (21:09)
[2016-11-10] MEDS: INSULIN GLARGINE SOLOSTAR 100 UNITS/ML 3 ML PEN SC SCH (21:12)
[2016-11-11] VITALS (10 sets, daily range): BP systolic 91–162; BP diastolic 62–94; PULSE 52–98; TEMP 36.4–36.7; O2SAT 91–96
[2016-11-11 05:36] LABS: HEMATOCRIT 40.9 % (42-52); MEAN CELL VOLUME 88.1 fL (80-100); MEAN CORPUSCULAR HEMOGLOBIN 29.3 pg (25-34); MEAN CORPUSCULAR HGB CONC 33.3 g/dl (32-36); MEAN PLATELET VOLUME 10.6 fL (7.4-10.4); PLATELET COUNT 201 K/uL (130-400); RED BLOOD COUNT 4.64 M/uL (4.7-6.1)
[2016-11-11] MEDS: METHYLPREDNISOLONE IV 60 MG in SYRINGE 0 ML IV SCH ×3 (05:45→21:14)
[2016-11-11 06:07] LABS: CALCIUM 9.1 mg/dl (8.5-10.1); CREATININE 0.87 mg/dl (0.60-1.40); POTASSIUM 3.9 mmol/L (3.5-5.1)
[2016-11-11] MEDS: IPRATROPIUM BROMIDE NEB SOLN 0.02% 2.5 ML VIAL INH SCH ×3 (06:52→18:32)
[2016-11-11] MEDS: LEVALBUTEROL 1.25MG/0.5ML NEB INH SCH ×3 (06:53→18:32)
--- NOTE | 2016-11-11 07:03 | DIAGNOSTIC IMAGING REPORT ---
Chest ultrasound EFFUSION-CHEST/MEDIASTINUM CLINICAL HISTORY: moderate Pleural effusion noted in CT chest pleural effusion TECHNIQUE: Ultrasound COMPARISON STUDY: 10/20/2016 FINDINGS: Bilateral pleural effusions. Right effusion has estimated volume of 270 cc. Left testis is midline with 600 cc. IMPRESSION: Bilateral pleural effusion. Interposed lung at both sites. No marking was performed. Volumes are slightly increased compared to the prior study Electronically signed by: Miguel Granados M.D. 11/11/2016 7:02 AM Dictated Date/Time: 11/11/2016 7:00 AM
--- NOTE | 2016-11-11 08:38 | CARDIOLOGY PROGRESS NOTE ---
DATE: 11/11/2016 DATE: 11/11/2016. The patient seen and examined. Chart, medications, telemetry reviewed. SUBJECTIVE: The patient notes no overt change, did not sleep well last night. Heart rate is however better controlled. Notes no chest pain. Notes no worsening edema, though peripheral edema remains present. Appetite is good. Notes no productive sputum. OBJECTIVE: VITAL SIGNS: Heart rate is 84, blood pressure is 123/73. NECK: Thick. LUNGS: Reveal inspiratory and expiratory wheezes in apices, dullness to auscultation and percussion in both bases. CARDIOVASCULAR EXAMINATION: Regular with distant heart sounds. There is no S3 gallop. ABDOMEN: Soft, moderately distended. EXTREMITIES: Reveal 1-2+ right lower extremity edema. LABORATORY DATA: White cell count 16.5, hemoglobin is 13.6, sodium is 136, potassium is 3.9, chloride is 98, bicarbonate is 20, BUN is 0.87. IMPRESSION: A 65-year-old male with mixed respiratory decline. PLAN: Optimization of cardiac function. Continue to hold losartan. Continue current dosing of metoprolol with good blood pressure control. Continue daily furosemide 40 mg per day. Will add potassium at 10 mEq per day. Agree with thoracentesis if indicated by other services. Will follow patient in the hospital.
[2016-11-11] MEDS: INSULIN ASPART 100 UNITS/ML 3 ML PEN SC SCH ×4 (08:40→21:13)
[2016-11-11] MEDS: CITALOPRAM 40 MG TAB PO SCH (08:41)
[2016-11-11] MEDS: CEROVITE ADV FORMULA TAB PO SCH ×2 (08:42→21:15)
[2016-11-11] MEDS: FUROSEMIDE 40 MG TAB PO SCH (08:42)
[2016-11-11] MEDS: METOPROLOL TARTRATE 25 MG TAB PO SCH ×2 (08:42→17:00)
[2016-11-11] MEDS: PANTOprazole SOD 40 MG TAB PO SCH ×2 (08:42→21:15)
[2016-11-11] MEDS: AZITHROMYCIN 250 MG TAB PO SCH (08:42)
[2016-11-11] MEDS: POTASSIUM CHLORIDE 10 MEQ TABCR PO SCH (08:44)
--- NOTE | 2016-11-11 09:22 | Progress Note ---
Progress Note Date of Service Nov 11, 2016. Progress Note ATTENDING NOTE : chest USG noted : IMPRESSION: Bilateral pleural effusions. Right effusion has estimated volume of 270 cc. Left testis is midline with 600 cc. Bilateral pleural effusion. Interposed lung at both sites. No marking was performed. Volumes are slightly increased compared to the prior study CT surgery Dr Dukes consulted for possible Thoracentesis pt will need both therapeutic and diagnostic thoracentesis with pleural fluid to be tested for Cytology /culture /amylase level
--- NOTE | 2016-11-11 09:50 | PULMONARY PROGRESS NOTE ---
DATE: 11/11/2016 TIME: 08:55 a.m. SUBJECTIVE: The patient remains quite short of breath. He feels the same. He is still wheezing. The patient was started on some cardiotonic medications by the cardiology department. His heart rate has been a bit slower. He has had some diuresis. He still feels about as wheezy and tight as he did yesterday. OBJECTIVE: GENERAL: The patient appeared comfortable, but he was at rest and sitting up. VITAL SIGNS: Temperature is 36.4. ENT: Exam is unchanged from prior. HEART: Current heart rate is 99 per minute. The rhythm is regular. The blood pressure is 123/73. LUNGS: Auscultation of the lung quinteros revealed wheeze bilaterally. There are decreased breath sounds at the bases, especially at the left. Respiratory rate was 20 breaths per minute. Saturation was 96% on 4 liters. ABDOMEN: Remains obese. It was soft and nontender. EXTREMITIES: Continue to show +2 edema on the right side. The patient had an ultrasound of the chest done this morning. The radiologist reports an estimated volume of 270 mL on the right and 600 mL on the left. However, no markings were performed due to interposed lung at both sides. LABORATORY DATA: White count today is up to 16.5. I suspect this is related to steroids. Hemoglobin is 13.6. Platelets are 201,000. Electrolytes today show sodium 136, potassium 3.9, chloride 98, bicarbonate 29. BUN was 20 with a creatinine of 0.87. Blood sugars today are as high as 244. IMPRESSIONS: 1. Severe short of breath-multifactorial. 2. Esophageal carcinoma. 3. Chronic obstructive pulmonary disease. 4. Mediastinal and hilar adenopathy suspicious for metastatic disease. 5. Relatively small bilateral pleural effusions greater on the left. 6. Multiple lung nodules suspicious for metastatic disease with an inability to exclude infection. 7. Mild obstructive sleep apnea. COMMENTS AND RECOMMENDATIONS: The patient has not improved with antibiotics, steroids, and bronchodilators. He also has not improved thus far with cardiotonic medications and diuretics. These were all suggested. The most likely scenario is progressive malignancy. He does have an effusion on the left, which is getting a bit larger. Case was discussed with Dr. Farmer. RECOMMENDATIONS: I agree with consulting Dr. Barrett to see if he feels it is possible to access some of the fluid. This could be done at least for the purpose of diagnostic testing to determine if there are malignant cells, if it is a transudate or exudate, and if there is amylase in the pleural fluid. The patient seems agreeable with this plan. I did speak with him about the benefits of doing a tap as well as the potential complications. I would continue with his other interventions the same for now.
--- NOTE | 2016-11-11 10:21 | Progress Note ---
Internal Med Progress Note Date of Service: Nov 11, 2016. Provider Documentation: SUBJECTIVE: was not able to sleep last night kept bipap till 2: 30 am then could not tolerated still very SOB appreciate input/help from Dr Dukes getting Bedside Thoracentesis of left side OBJECTIVE: Vital Signs-as noted below Exam: General-no apparent distress noted Eyes-sclera non icteric ENT-NAd Lungs-diminished on left base , crackles at base Heart-regular tachycardic Abdomen-soft, non tender Extremities-+ 1-2 edema Neuro-no focal deficit Lab data as noted below. ASSESSMENT & PLAN: SOB /HYPOXIA : multifactorial etiology -recent PFT done at pulmonology office showed moderate COPD -CT chest 10/24/16 no evidence of PE moderate pleural effusion with associated compressive atelectasis , wall thickening and irregularity seen in the mid to distal esophagus - corresponding to pt's hx of esophageal CA -numerous irregular nodular air space opacities seen throughout both lungs - could be infectious /inflammatory need to r/o metastatic process pathologically enlarged hilar and mediastinal LN CT chest with contrast yesterday 11/10/16 : IMPRESSION: 1. No evidence of acute pulmonary embolism 2. Persistent moderate bilateral pleural effusions 3. Persistent multifocal nodular airspace opacities. These could be infectious/inflammatory or represent metastatic disease. Again follow-up CT scanning is recommended. 4. The distal esophageal wall thickening 5. Large hiatal hernia 6. Pathologic mediastinal and hilar lymphadenopathy pulmonology eval appreciated pt will be treated with IV steroids , NEb tx scheduled and PRN empiric abx with Rocephin and Zithromax ( recently completed Levaquin dose ) Cardiology eval requested to address possible vol over load recent ECHO -showed normal LV pt clinically vol overloaded for multiple factors -low Albumin, 3rd spacing , acute respiratory failure causing cardiac strain Lasix ordered per Cardiology USG of chest shows left sided [address] surgery consulted , appreciate input form Dr Dukes s/p thoracentesis at bedside today -approx 900 ml of vonnie color pleural effusion drained for left side pleural effusion will be sent for cytology /culture and appropriate testing to R /o infectious vs metastatic CA METASTATIC ESOPHAGEAL CA -Follows with Heme Onc Dr Epps diagnosed on in Feb 02 2016 -by EGD /EUS s/p radiation tx and on chemo tx weekly Carboplatin /Taxol PET/CT scan on 10/25/16 Impression : 1. Multiple new subcentimeter pulmonary nodules, nodular opacities , bilateral effusions with adjacent consolidation and a new FDG avid subcarinal lymph node, This may be infectious vs worsening of metastatic disease . 2. Cervical and Mediastinal lymph nodes are similar to slightly decreased in activity compared to prior exam pt has been on 5 FU/LV cycle by Dr Epps after getting 5 cycles developed progressive SOB /OH significantly hypoxic with minimum movement Chemo on Sunday10/30/16 was on hold for worsening of respiratory status D/w Dr Epps there is evidence of progression of malignancy with possible pleural /pulmonary involvement causing worsening of respiratory status Dr Epps consulted for D/w with pt and family regarding prognosis and option for treatment appreciate input form Heme Onc very poor prognosis option for palliative care discussed with Pt and pt wants to hold off palliative care consult for now wants to proceed with Thoracentesis POSSIBLE VOL OVERLOAD : multi factorial metastatic Ca, low albumin ECHO 09/2016 EF 65-70 % appreciate input form Cardiology Lasix 40 mg Po daily diuresis ordered s/p Thoracentesis -of left side with drainage of 900 ml of pleural effusion today SINUS TACHYCARDIA Improved HR in 90's after addition of low dose Lopressor 12.5 mg BID Cardiology following closely monitor in tele DNR/DNI poor prognosis family and pt aware does not want to proceed for Palliative care yet DVT PROPHYLAXIS moderate to high risk for metastatic Ca Sub q Lovenox DISPOSITION expected to be discharged home when medically stable will order PT/OT eval will benefit form home health visiting nurse Medicine follow up with Dr Esther Delgadillo heme Onc follow up with Dr Epps Vital Signs: Date Time Temp Pulse Resp B/P (MAP) Pulse Ox O2 Delivery O2 Flow Rate FiO2 11/11/16 07:55 36.4 84 20 123/73 (90) 96 Nasal Cannula 4.0 11/11/16 07:30 Nasal Cannula 11/11/16 06:55 52 18 96 Nasal Cannula 4.0 11/11/16 04:00 Nasal Cannula 11/11/16 03:52 36.5 84 20 91/75 (80) 91 Nasal Cannula 4.0 11/10/16 23:59 CPAP 11/10/16 23:51 37.0 77 22 114/76 (89) 95 CPAP 11/10/16 22:05 85 97 30 11/10/16 19:43 Nasal Cannula 11/10/16 19:29 63 18 96 Nasal Cannula 5.0 11/10/16 19:11 36.7 80 18 103/74 (84) 96 Nasal Cannula 5.0 11/10/16 16:00 Nasal Cannula 5.0 11/10/16 15:16 36.7 103 22 123/70 (87) 93 Nasal Cannula 5.0 11/10/16 14:11 106 18 95 Nasal Cannula 5.0 11/10/16 11:48 36.9 104 20 124/73 (90) 95 Nasal Cannula 5.0 11/10/16 11:00 Nasal Cannula 5.0 Lab Results: Results Past 24 Hours Test 11/10/16 11:10 11/10/16 16:21 11/10/16 20:02 11/11/16 05:01 Range/Units Bedside Glucose 199 186 268 70-99 mg/dl White Blood Count 16.50 4.8-10.8 K/uL Red Blood Count 4.64 4.7-6.1 M/uL Hemoglobin 13.6 14.0-18.0 g/dL Hematocrit 40.9 42-52 % Mean Corpuscular Volume 88.1 80-100 fL Mean Corpuscular Hemoglobin 29.3 25-34 pg Mean Corpuscular Hemoglobin Concent 33.3 32-36 g/dl RDW Standard Deviation 56.0 36.4-46.3 fL RDW Coefficient of Variation 17.5 11.5-14.5 % Platelet Count 201 130-400 K/uL Mean Platelet Volume 10.6 7.4-10.4 fL Sodium Level 136 136-145 mmol/L Potassium Level 3.9 3.5-5.1 mmol/L Chloride Level 98 98-107 mmol/L Carbon Dioxide Level 29 21-32 mmol/L Anion Gap 9.0 3-11 mmol/L Blood Urea Nitrogen 20 7-18 mg/dl Creatinine 0.87 0.60-1.40 mg/dl Est Creatinine Clear Calc Drug Dose 114.8 ml/min Estimated GFR () 105.7 Estimated GFR (Non- 91.2 BUN/Creatinine Ratio 23.0 10-20 Random Glucose 229 70-99 mg/dl Calcium Level 9.1 8.5-10.1 mg/dl Test 11/11/16 06:28 11/11/16 10:23 Range/Units Bedside Glucose 244 70-99 mg/dl
[2016-11-11 10:33] LABS: ISTAT ARTERIAL BLOOD GAS HCO3 28 meq/L (19-24); ISTAT ARTERIAL BLOOD GAS PCO2 37 mmHg (35-46); ISTAT ARTERIAL BLOOD GAS PO2 98 mmHg (80-95); ISTAT ARTERIAL BLOOD GAS pH 7.48 (7.35-7.45); ISTAT CARBON DIOXIDE 29 mEq/l (24-31); ISTAT SITE Heel Stick
--- NOTE | 2016-11-11 11:00 | DIAGNOSTIC IMAGING REPORT ---
CHEST ONE VIEW PORTABLE CLINICAL HISTORY: s/p thoracentesis postthoracentesis COMPARISON STUDY: 11/09/2016 FINDINGS: No evidence pneumothorax status post thoracentesis. Mild improvement in aeration left base. All additional findings are unchanged prior exam. IMPRESSION: No evidence pneumothorax status post thoracentesis. Improved aeration left base. Electronically signed by: Miguel Granados M.D. 11/11/2016 10:58 AM Dictated Date/Time: 11/11/2016 10:58 AM
--- NOTE | 2016-11-11 11:13 | SURGICAL CONSULTATION ---
DATE OF CONSULTATION: 11/11/2016 REASON FOR CONSULTATION: Pleural effusion in a patient with metastatic pancreatic cancer. 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 Alona Epps. Interestingly enough, the patient had a brother, who from esophageal cancer also. The patient actually did well for a while; however, he recently had a workup for paraesophageal adenopathy and indeed, he has metastatic disease. He has been short of breath for the last couple of months. He was worked up by Dr. Morrison and this does not appear to be reactive airway disease. He has no evidence of chronic obstructive pulmonary disease. He did smoke when he was younger, but does not have a heavy smoking history; quite short of breath as he bends over. He does have a history of having have ascites in the past; does not have ascites now and it is unclear whether this was related to his cancer. He has been found to have bilateral pleural effusions. Given his shortness of breath and the fact that his workup does not reveal reversible reactive disease, I think that doing a thoracentesis, both for diagnosis and for therapy, is indicated. PAST MEDICAL HISTORY: 1. Remote history of cigarette smoking. 2. Recurrent distal gastroesophageal cancer. 3. Questionable chronic obstructive pulmonary disease. 4. Multiple episodes of small bowel obstruction and hernias. 5. Morbid obesity. 6. Peripheral neuropathy. 7. 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 8. Diabetes mellitus. 9. Hypercholesterolemia. PAST SURGICAL HISTORY: 1. Seven laparotomies for repair of a hiatal hernia and then for multiple recurrent incisional hernias, including infections. 2. Left below-knee amputation, secondary to trauma at age 6. 3. Insertion of a right infraclavicular Port-A-Cath. MEDICATIONS: At home: 1. Celexa. 2. Advair Diskus. 3. Micronase. 4. Hyzaar. 5. DuoNeb. 6. Cozaar. 7. Pantoprazole. 8. Actos. 9. Pravachol. 10. Prandin. Please read diabetes mellitus and hypercholesterolemia. ALLERGIES: LISINOPRIL. SOCIAL HISTORY: The patient is from [facility]. 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 He was raised on a farm and lost his leg at age 6 to a traumatic farm injury. He was a sugar trucker for many years. He is, of course, not working now. Interestingly enough, his son, who is 44, is also a sugar trucker. The patient lives with his . He smoked many years ago. FAMILY MEDICAL HISTORY: The patient's mother just recently at age 93 from "old age." His father from leukemia at age 57. He had a brother, who at age 57 from esophageal cancer. He had another brother, who from apparent mesothelioma after extensive asbestos exposure. He has 2 sisters and a brother that are all older and in fact, he has got a sister that is 85 and one of the sisters has cerebral vascular disease and has had a stroke. REVIEW OF SYSTEMS: The patient has had trouble breathing for the last 4-5 months. He states he has had some sinus issues. He has had no wound breakdown. He does have edema of his right leg. His left below-knee amputation stump has had no issues and he wears a prosthesis. He is quite short of breath if he bends over. He denies a productive cough. He does feel when he is wheezing. Interestingly enough, he has been eating fine, except until recently, when he states he is not eating as well, because he is so short of breath. He denies any dysphagia. He does have a history of hiatal hernias. He has had no visual or auditory changes, but does have decreased hearing acuity. PHYSICAL EXAMINATION: GENERAL: This is a jovial, conversive, obese male, who stands 5 feet 8 inches tall and weighs 295 pounds. HEENT: His extraocular movements are intact. Pupils are equal, round and reactive. Sclerae are anicteric. He has no nasolabial flattening. His tongue is midline. Interestingly enough, he has most of his own teeth. He is missing several, but he has no evidence of an active abscess or dental caries. He has no leukoplakia. His core mucosa is moist. NECK: Supple. I do not detect any adenopathy. He has no carotid bruits or neck vein distention. He has a well-healed right infraclavicular Port-A-Cath site. LUNGS: He has wheezing diffusely. Decreased breath sounds at both bases. HEART: He has a regular rate and rhythm of his heart. ABDOMEN: Obese. He has multiple incisions and has incisional hernias upon palpation. EXTREMITIES: He has a well-healed left below-knee amputation stump and he has quite an old prosthesis in place. He has got 2+ edema of his right lower leg with no discoloration or hemosiderin deposition, but he does have a palpable dorsalis pedis pulse. NEUROLOGIC: He has got a significant neuropathy in his left foot with a decrease in fine touch discrimination. Otherwise, he has no focal deficits. DATA: I reviewed a CT scan done as well as an x-ray and he does have fluid. Given his symptoms, I think that tapping him would be helpful.
[2016-11-11 12:26] LABS: PLEURAL FLUID TOTAL PROTEIN 3.8 g/dl
[2016-11-11 12:49] LABS: PLEURAL FLUID APPEARANCE HAZY; PLEURAL FLUID COLOR STRAW; PLEURAL FLUID MONONUC RELAT 83.8 %; PLEURAL FLUID POLYNUC 16.2 %; PLEURAL FLUID SOURCE LEFT LUNG; PLEURAL FLUID WBC (A) 741 /uL
[2016-11-11] MEDS: CEFTRIAXONE SOD INJ 1 GM in DEXTROSE 5% ADD-VANTAGE 50ML 50 ML IV SCH (12:53)
--- NOTE | 2016-11-11 18:49 | OPERATIVE REPORT ---
DATE OF OPERATION: 11/11/2016 PROCEDURE: Ultrasound-guided left thoracentesis. SURGEON: Mark Barrett MD ANESTHESIA: Local. DESCRIPTION OF PROCEDURE: At the patient's bedside, an ultrasound was used to clark an area which had a good window. After prepped and draped in the usual sterile fashion and calling appropriate timeout, a skin wheal was raised with 25-gauge needle and 1% Xylocaine. A large bore needle was used to anesthetize the deeper muscles and pleura. Pleural fluid was obtained and a wire was inserted and needle removed. Introducer sheath was slid over the wire and then removed to dilate this tract up. I then placed a triple lumen catheter at 17 cm and emir off 900 mL of tea-colored fluid. He tolerated it well. It appeared from our procedure that we drained it completely. A chest x-ray is pending. He tolerated it well. After the catheter was removed, an antimicrobial dressing was placed. I attest to the content of the Intraoperative Record and any orders documented therein. Any exception s are noted below.
[2016-11-11] MEDS: INSULIN GLARGINE SOLOSTAR 100 UNITS/ML 3 ML PEN SC SCH (21:13)
[2016-11-11] MEDS: PRAVASTATIN SOD 20 MG TAB PO SCH (21:14)
[2016-11-11] MEDS: ENOXAPARIN 40 MG/0.4 ML SYR SC SCH (21:14)
[2016-11-11] MEDS ORDERED: ZOLPIDEM TARTRATE 5 MG TAB PO PRN (22:00)
[2016-11-12] VITALS (7 sets, daily range): BP systolic 110–132; BP diastolic 69–80; PULSE 75–91; TEMP 36.4–37; O2SAT 93–97
[2016-11-12] MEDS: LEVALBUTEROL 1.25MG/0.5ML NEB INH SCH ×2 (02:07→06:58)
[2016-11-12] MEDS: IPRATROPIUM BROMIDE NEB SOLN 0.02% 2.5 ML VIAL INH SCH ×2 (02:07→06:57)
[2016-11-12 05:39] LABS: MEAN CELL VOLUME 88.6 fL (80-100); MEAN CORPUSCULAR HEMOGLOBIN 28.9 pg (25-34); MEAN CORPUSCULAR HGB CONC 32.7 g/dl (32-36); MEAN PLATELET VOLUME 9.9 fL (7.4-10.4); PLATELET COUNT 171 K/uL (130-400); RED BLOOD COUNT 4.63 M/uL (4.7-6.1); WHITE BLOOD COUNT 16.06 K/uL (4.8-10.8)
[2016-11-12] MEDS: METHYLPREDNISOLONE IV 60 MG in SYRINGE 0 ML IV SCH (05:40)
[2016-11-12 06:14] LABS: BUN/CREATININE RATIO 26.9 (10-20); CALCIUM 8.7 mg/dl (8.5-10.1); CREATININE 0.85 mg/dl (0.60-1.40); POTASSIUM 4.4 mmol/L (3.5-5.1)
[2016-11-12] MEDS: PANTOprazole SOD 40 MG TAB PO SCH ×2 (07:48→20:07)
[2016-11-12] MEDS: CITALOPRAM 40 MG TAB PO SCH (07:48)
[2016-11-12] MEDS: METOPROLOL TARTRATE 25 MG TAB PO SCH ×2 (07:48→17:51)
[2016-11-12] MEDS: CEROVITE ADV FORMULA TAB PO SCH ×2 (07:48→20:07)
[2016-11-12] MEDS: AZITHROMYCIN 250 MG TAB PO SCH (07:48)
[2016-11-12] MEDS: FUROSEMIDE 40 MG TAB PO SCH (07:48)
[2016-11-12] MEDS: POTASSIUM CHLORIDE 10 MEQ TABCR PO SCH (07:49)
[2016-11-12] MEDS: INSULIN ASPART 100 UNITS/ML 3 ML PEN SC SCH ×4 (07:51→21:28)
--- NOTE | 2016-11-12 09:12 | DIAGNOSTIC IMAGING REPORT ---
CHEST ONE VIEW PORTABLE HISTORY: Short of breath. Pleural effusion. COMPARISON: Chest 11/11/2016. FINDINGS: Left basilar airspace opacities have slightly improved. Mild diffuse interstitial thickening remains unchanged. Trace right pleural effusion, unchanged. No pneumothorax. Right-sided Port-A-Cath is looped within the expected location of the distal internal jugular vein. This is unchanged in position. Mediastinal widening consistent with the lymphadenopathy. IMPRESSION: 1. Improved aeration within the left lung base. 2. Diffuse interstitial thickening suggestive of mild pulmonary edema. 3. Trace bilateral pleural effusions, unchanged. No pneumothorax. 4. Mediastinal lymphadenopathy is better appreciated on the prior chest CT. Electronically signed by: Sachin Marmolejo M.D. 11/12/2016 9:10 AM Dictated Date/Time: 11/12/2016 9:07 AM
[2016-11-12] MEDS: IPRATROPIUM BROMIDE/ALBUTEROL respimat INH INH SCH ×4 (09:38→20:04)
[2016-11-12] MEDS: METHYLPREDNISOLONE IV 40 MG in SYRINGE 0 ML IV SCH ×2 (09:38→20:04)
--- NOTE | 2016-11-12 11:03 | SURGERY PROGRESS NOTE ---
DATE: 11/12/2016 Mr. Swift is seen today on 11/12/2016. He feels much better after thoracentesis yesterday. His x-ray looks better. He still has some changes on the left, but his diaphragm is pretty sharp on both sides. He sounds better. We are going to have to wait and see what the final cytology shows, but it does not appear we are dealing with an infection. It also as a transudative fluid what I would not expect with a malignant effusion. In addition, the amylase is only 25. MTDD
--- NOTE | 2016-11-12 11:27 | PULMONARY PROGRESS NOTE ---
DATE: 11/12/2016 TIME: 08:10 a.m. SUBJECTIVE: The patient had a thoracentesis yesterday by Dr. Barrett with removal of 900 mL from the left side of his chest. His shortness of breath seems a little better. He still feels the wheezing. He still feels that there is phlegm to bring out, but he does not bring any out. He has not had any significant exertion, so it is difficult for him to tell if he feels better or not. OBJECTIVE: GENERAL: The patient appears comfortable at rest. He did cough occasionally. VITAL SIGNS: Temperature is 36.4. ENT: Unchanged from prior. HEART: Rate was 82 per minute. Blood pressure is 110/69. His heart rate is lower than it had been a couple of days ago and this is likely related to metoprolol. LUNGS: Lung quinteros do reveal wheezing bilaterally, but I believe the wheezes are less than yesterday. His respiratory rate at rest was 18 breaths per minute. The saturations was 95% on 3 liters. ABDOMEN: Remains obese. Bowel sounds were present. EXTREMITIES: The right leg persists with +1 edema. The patient had a good urine output yesterday. He had a total of 2750 of urine output for a net balance of 1640. Thus far today, he has already had 600 mL of urine output. LABORATORY DATA: White count today is 16.06, hemoglobin 13.4, and platelets 171,000. The pleural fluid showed 4000 RBCs with 741 WBCs. The percent of polys was only 16.2 and the monos was 83.8. Pleural fluid protein was 3.8 and the serum protein was 6.5. Protein ratio was 0.58. The pleural fluid LDH is 125 and serum LDH is 217. The LDH ratio was 0.57. Pleural glucose was 288. Pleural amylase was normal at 25. Triglycerides were normal at 22. Pleural pH was 7.48. Electrolytes today show sodium 140, potassium 4.4, chloride 102, and bicarbonate 31. The BUN was 23 with a creatinine of 0.85. Chest x-ray done this morning shows improved aeration in the left lower lung field. I believe there may be some improvement in the presumed vascular accentuation as well. IMPRESSIONS: 1. Bilateral pleural effusions -- awaiting cytology on left effusion. 2. Mediastinal and hilar adenopathy. 3. Multiple lung nodules. 4. Obesity. 5. Mild sleep apnea. 6. Moderate chronic obstructive pulmonary disease by pulmonary function. 7. Esophageal carcinoma with metastasis. The patient's problem is multifactorial. He seems somewhat better today. This is likely related to a thoracentesis and the fact he diuresed better yesterday. It would seem that the metoprolol in combination with furosemide may have helped his situation. I am going to cut back his steroids. There has not been a dramatic improvement related to the steroids and his sugars have been elevated. I would continue with the antibiotics for now. In all likelihood, pleural fluid cytology will not be done until tomorrow or Sunday. Otherwise, continue with the current treatment. Prognosis is still very guarded.
--- NOTE | 2016-11-12 11:38 | CARDIOLOGY CONSULTATION ---
DATE OF CONSULTATION: 11/12/2016 The patient seen and examined. Chart, medications, telemetry reviewed. SUBJECTIVE: The patient tolerated thoracentesis well yesterday. Has manifested better heart rate and diuresis on current medical regimen. Notes no dizziness or lightheadedness, lower extremity edema has slightly improved. Still has significant wheezing with forced cough and expiration. OBJECTIVE: VITAL SIGNS: Heart rate is 80, blood pressure is 110/69. NECK: Thick. There is no distinct jugular venous distention. LUNGS: Reveal diminished breath sounds at bases, but better aeration on the left in comparison to the day prior. There are scattered wheezes apically. ABDOMEN: Soft. CARDIOVASCULAR: Regular. There is no S3 gallop. EXTREMITIES: Without cyanosis or clubbing. There is 1-2+ right leg edema. LABORATORY DATA: Sodium is 140, potassium 4.4, chloride is 102, bicarb is 31, BUN 23, creatinine 0.85. IMPRESSION: A 65-year-old male with mixed respiratory failure, who has demonstrated improvement after thoracentesis. We will continue current dosing of metoprolol for heart rate control as well as oral diuretic. Otherwise, followup as scheduled. MTDD
--- NOTE | 2016-11-12 16:46 | Progress Note ---
Internal Med Progress Note Date of Service: Nov 12, 2016. Provider Documentation: SUBJECTIVE: SOB much improved on 3 L 02 able to get some sleep last night improvement of orthopnea OBJECTIVE: Vital Signs-as noted below Exam: General-no apparent distress noted Eyes-sclera non icteric ENT-NAd Lungs-improved aeration on left lungs, crackles at base Heart-regular tachycardic Abdomen-soft, non tender Extremities-+ 1-2 edema Neuro-no focal deficit Lab data as noted below. ASSESSMENT & PLAN: SOB /HYPOXIA : improved after Thoracentesis and diuresis multifactorial etiology -recent PFT done at pulmonology office showed moderate COPD -CT chest 10/24/16 no evidence of PE moderate pleural effusion with associated compressive atelectasis , wall thickening and irregularity seen in the mid to distal esophagus - corresponding to pt's hx of esophageal CA -numerous irregular nodular air space opacities seen throughout both lungs - could be infectious /inflammatory need to r/o metastatic process pathologically enlarged hilar and mediastinal LN CT chest with contrast yesterday 11/10/16 : IMPRESSION: 1. No evidence of acute pulmonary embolism 2. Persistent moderate bilateral pleural effusions 3. Persistent multifocal nodular airspace opacities. These could be infectious/inflammatory or represent metastatic disease. Again follow-up CT scanning is recommended. 4. The distal esophageal wall thickening 5. Large hiatal hernia 6. Pathologic mediastinal and hilar lymphadenopathy pulmonology eval appreciated pt will be treated with IV steroids , NEb tx scheduled and PRN empiric abx with Rocephin and Zithromax ( recently completed Levaquin dose ) Cardiology eval requested to address possible vol over load recent ECHO -showed normal LV pt clinically vol overloaded for multiple factors -low Albumin, 3rd spacing , acute respiratory failure causing cardiac strain Lasix ordered per Cardiology USG of chest shows left sided [address] surgery consulted , appreciate input form Dr Dukes s/p thoracentesis at bedside today -approx 900 ml of vonnie color pleural effusion drained for left side pleural effusion will be sent for cytology /culture and appropriate testing to R /o infectious vs metastatic CA pt mentions improvement of his symptom -minimum SOB after thoracentesis METASTATIC ESOPHAGEAL CA -Follows with Heme Onc Dr Epps diagnosed on in Feb 02 2016 -by EGD /EUS s/p radiation tx and on chemo tx weekly Carboplatin /Taxol PET/CT scan on 10/25/16 Impression : 1. Multiple new subcentimeter pulmonary nodules, nodular opacities , bilateral effusions with adjacent consolidation and a new FDG avid subcarinal lymph node, This may be infectious vs worsening of metastatic disease . 2. Cervical and Mediastinal lymph nodes are similar to slightly decreased in activity compared to prior exam pt has been on 5 FU/LV cycle by Dr Epps after getting 5 cycles developed progressive SOB /OH significantly hypoxic with minimum movement Chemo on Sunday10/30/16 was on hold for worsening of respiratory status D/w Dr Epps there is evidence of progression of malignancy with possible pleural /pulmonary involvement causing worsening of respiratory status Dr Epps consulted for D/w with pt and family regarding prognosis and option for treatment appreciate input form Heme Onc very poor prognosis option for palliative care discussed with Pt and pt wants to hold off palliative care consult for now POSSIBLE VOL OVERLOAD : multi factorial metastatic Ca, low albumin ECHO 09/2016 EF 65-70 % appreciate input form Cardiology Lasix 40 mg Po daily -diuresed approx 2 L s/p Thoracentesis -of left side with drainage of 900 ml of pleural effusion today SINUS TACHYCARDIA Improved HR in 90's after addition of low dose Lopressor 12.5 mg BID Cardiology following closely monitor in tele DNR/DNI poor prognosis family and pt aware does not want to proceed for Palliative care yet DVT PROPHYLAXIS moderate to high risk for metastatic Ca Sub q Lovenox DISPOSITION expected to be discharged home when medically stable PT/OT eval will benefit form home health visiting nurse Medicine follow up with Dr Esther Delgadillo heme Onc follow up with Dr Epps updated at bedside Vital Signs: Date Time Temp Pulse Resp B/P (MAP) Pulse Ox O2 Delivery O2 Flow Rate FiO2 11/12/16 16:00 Nasal Cannula 11/12/16 15:02 36.9 91 18 114/76 (89) 94 Nasal Cannula 2.0 11/12/16 12:00 Nasal Cannula 11/12/16 11:40 36.7 75 18 122/69 (86) 93 Nasal Cannula 3.0 11/12/16 08:08 36.4 82 18 110/69 (83) 95 Nasal Cannula 3.0 11/12/16 08:00 Nasal Cannula 11/12/16 07:00 90 18 95 Nasal Cannula 3.0 11/12/16 04:00 Nasal Cannula 11/12/16 03:28 37.0 84 20 132/80 (97) 96 Nasal Cannula 3.0 11/12/16 02:07 84 18 96 Nasal Cannula 3.0 11/11/16 23:59 Nasal Cannula 11/11/16 23:08 36.7 86 24 140/68 (92) 95 Nasal Cannula 3.0 11/11/16 20:27 36.7 90 18 130/73 (92) 96 Nasal Cannula 3.0 11/11/16 20:00 Nasal Cannula 11/11/16 18:32 98 18 96 Nasal Cannula 3.0 Lab Results: Results Past 24 Hours Test 11/11/16 20:12 11/12/16 05:05 11/12/16 06:34 11/12/16 11:16 Range/Units Bedside Glucose 325 239 272 70-99 mg/dl White Blood Count 16.06 4.8-10.8 K/uL Red Blood Count 4.63 4.7-6.1 M/uL Hemoglobin 13.4 14.0-18.0 g/dL Hematocrit 41.0 42-52 % Mean Corpuscular Volume 88.6 80-100 fL Mean Corpuscular Hemoglobin 28.9 25-34 pg Mean Corpuscular Hemoglobin Concent 32.7 32-36 g/dl RDW Standard Deviation 55.7 36.4-46.3 fL RDW Coefficient of Variation 17.1 11.5-14.5 % Platelet Count 171 130-400 K/uL Mean Platelet Volume 9.9 7.4-10.4 fL Sodium Level 140 136-145 mmol/L Potassium Level 4.4 3.5-5.1 mmol/L Chloride Level 102 98-107 mmol/L Carbon Dioxide Level 31 21-32 mmol/L Anion Gap 7.0 3-11 mmol/L Blood Urea Nitrogen 23 7-18 mg/dl Creatinine 0.85 0.60-1.40 mg/dl Est Creatinine Clear Calc Drug Dose 117.3 ml/min Estimated GFR () 106.7 Estimated GFR (Non- 92.1 BUN/Creatinine Ratio 26.9 10-20 Random Glucose 262 70-99 mg/dl Calcium Level 8.7 8.5-10.1 mg/dl
[2016-11-12] MEDS: PRAVASTATIN SOD 20 MG TAB PO SCH (20:07)
[2016-11-12] MEDS: ENOXAPARIN 40 MG/0.4 ML SYR SC SCH (21:27)
[2016-11-12] MEDS: INSULIN GLARGINE SOLOSTAR 100 UNITS/ML 3 ML PEN SC SCH (21:29)
[2016-11-13] VITALS (7 sets, daily range): BP systolic 110–153; BP diastolic 71–86; PULSE 71–88; TEMP 36.7–37; O2SAT 93–96; Ht 172.7 cm; Wt 131.5 kg
[2016-11-13 06:18] LABS: MEAN CORPUSCULAR HEMOGLOBIN 28.1 pg (25-34); MEAN PLATELET VOLUME 9.9 fL (7.4-10.4); PLATELET COUNT 186 K/uL (130-400); RED BLOOD COUNT 4.66 M/uL (4.7-6.1); WHITE BLOOD COUNT 16.59 K/uL (4.8-10.8)
[2016-11-13 07:05] LABS: BUN/CREATININE RATIO 24.9 (10-20); CALCIUM 8.7 mg/dl (8.5-10.1); CREATININE 0.95 mg/dl (0.60-1.40); POTASSIUM 4.1 mmol/L (3.5-5.1)
[2016-11-13] MEDS: FUROSEMIDE 40 MG TAB PO SCH (08:16)
[2016-11-13] MEDS: METHYLPREDNISOLONE IV 40 MG in SYRINGE 0 ML IV SCH (08:16)
[2016-11-13] MEDS: IPRATROPIUM BROMIDE/ALBUTEROL respimat INH INH SCH ×4 (08:16→20:59)
[2016-11-13] MEDS: POTASSIUM CHLORIDE 10 MEQ TABCR PO SCH (08:17)
[2016-11-13] MEDS: AZITHROMYCIN 250 MG TAB PO SCH (08:17)
[2016-11-13] MEDS: METOPROLOL TARTRATE 25 MG TAB PO SCH ×2 (08:17→17:13)
[2016-11-13] MEDS: CEROVITE ADV FORMULA TAB PO SCH ×2 (08:17→20:59)
[2016-11-13] MEDS: PANTOprazole SOD 40 MG TAB PO SCH ×2 (08:18→21:00)
[2016-11-13] MEDS: CITALOPRAM 40 MG TAB PO SCH (08:18)
[2016-11-13] MEDS: INSULIN ASPART 100 UNITS/ML 3 ML PEN SC SCH ×4 (08:25→21:14)
--- NOTE | 2016-11-13 09:13 | SURGERY PROGRESS NOTE ---
DATE: 11/13/2016 Mr. Granados is seen today on 11/13/2016, 48 hours after I performed a thoracentesis. His A-a gradient is a little worse, he is up to 3 liters now. He states he does not feel as good now as he did yesterday. We will check an x-ray in the morning and hopefully have his cytology back by then. We will determine how aggressive to be with PleurX catheter or simply observation after that.
--- NOTE | 2016-11-13 10:00 | Cardiology Follow-Up ---
Subjective General Date of Service: Nov 13, 2016. Chief Complaint: SOB Pt evaluation today including: conversation w/ patient, physical exam, chart review, lab review, review of studies, review of inpatient medication list History of Present Illness Patient feeling ok this AM. Notes increased SOB this AM, compared to yesterday, and ongoing non productive cough with wheeze. Denies chest pain, dizziness, syncope or near syncope. Edema on right LE mildly improved per patient. Allergies Coded Allergies: Lisinopril (Verified Adverse Reaction, Mild, Cough, 11/09/16) Social History Smoking Status: Former Smoker Hx Tobacco Use In Past Year?: No Hx Alcohol Use - Type And Amou: No Hx Substance Use - Type And Am: No Problem List Medical Problems: (1) CHF (congestive heart failure) Status: Acute (2) COPD (chronic obstructive pulmonary disease) Status: Acute (3) Dehydration Status: Acute (4) Partial small bowel obstruction Status: Acute (5) Vomiting Status: Acute Review of Systems Respiratory: + cough, + wheezing, + shortness of breath, + dyspnea on exertion , No sputum, No dyspnea at rest, No hemoptysis Cardiac: + edema, No chest pain, No orthopnea, No PND, No palpitations Physical Exam Vital Signs Last Vital Signs Documentation Date Time Temp Pulse Resp B/P (MAP) Pulse Ox O2 Delivery O2 Flow Rate FiO2 11/13/16 08:09 36.7 82 22 153/85 (107) 95 Nasal Cannula 3.0 11/12/16 23:34 30 Physical Exam Constitutional: General Apperance: obese Level of Distress: NAD Psychiatric: Mental Status: active & alert Orientation: to time, to place, to person Head: normocephalic Eyes: Pupils: PERRLA Neck: supple Lungs: Auscultation: deminished air movement, inspiratory wheezing, expiratory wheezing Cardiovascular: Heart Auscultation: RRR, normal S1, normal S2, no murmurs Abdomen: Bowel Sounds: normal Inspection & Palpation: soft, non-distended Extremities: edema (1+ right LE edema; Left s/p amputation) Assessment and Plan Assessment and Plan 65-year-old male 1. Multifactorial respiratory failure with hypoxia -pulm following -s/p left thoracentesis with initial improvement. Pathology pending. Repeat chest xray planned for tomorrow. -continue steroids -possible Pleurx if recurrent pleural fluid noted 2. Diastolic HF/hypertensive heart disease -continue metoprolol, furosemide/potassium -resume losartan with BP trending higher. 3. AMARA - Bipap therapy strongly encouraged 4. Metastatic esophageal CA -pathology pending for pleural fluid Case discussed with Dr. Lam. Will follow. Patient was personally seen and examined, plan as above. Rodolfo Lam MD Laboratory Results Last 24 Hours Test 11/12/16 11:16 11/12/16 16:09 11/12/16 20:34 11/13/16 05:54 Bedside Glucose 272 mg/dl 280 mg/dl 264 mg/dl White Blood Count 16.59 K/uL Red Blood Count 4.66 M/uL Hemoglobin 13.1 g/dL Hematocrit 41.0 % Mean Corpuscular Volume 88.0 fL Mean Corpuscular Hemoglobin 28.1 pg Mean Corpuscular Hemoglobin Concent 32.0 g/dl RDW Standard Deviation 54.0 fL RDW Coefficient of Variation 16.9 % Platelet Count 186 K/uL Mean Platelet Volume 9.9 fL Sodium Level 138 mmol/L Potassium Level 4.1 mmol/L Chloride Level 101 mmol/L Carbon Dioxide Level 32 mmol/L Anion Gap 5.0 mmol/L Blood Urea Nitrogen 24 mg/dl Creatinine 0.95 mg/dl Est Creatinine Clear Calc Drug Dose 104.9 ml/min Estimated GFR () 97.7 Estimated GFR (Non- 84.3 BUN/Creatinine Ratio 24.9 Random Glucose 273 mg/dl Calcium Level 8.7 mg/dl Test 11/13/16 06:57 Bedside Glucose 242 mg/dl
[2016-11-13] MEDS ORDERED: LOSARTAN POTASSIUM 25 MG TAB PO ONE (10:15)
[2016-11-13] MEDS ORDERED: PHARMACY GLYCEMIC MGMT CONSULT SCH (11:42)
--- NOTE | 2016-11-13 12:00 | Pulmonology Progress Note ---
Pulmonary Progress Note Date of Service Nov 13, 2016. Attending Dr. Workman Subjective Patient still notes dyspnea on exertion but improved dyspnea at rest with no active/productive cough at this time Objective Patient able to sit up in bed complete full sentences no signs of tachypnea or secondary respiratory muscle use I/Os: -3.5L SaO2: 95% on and off BIPAP and 2-3Lnc RR: 21-22 Respiratory: Bilateral crackles/thoracic ultrasound shows B lines bilaterally two thirds up thorax Cardiac: S1 and S2 distant heart sounds regular rate and rhythm Extremities: 3+ pitting edema of the right lower extremity Pleural Effusion (11/11/16) Serum Ratio Gradient TP: 3.8 6.5 0.58 2.7 ALB: 2.9 LDH: 125 Gluc: 288 Christine: 25 Trygl: 22 pH: 7.48 Cytology: Final report pending/Many Mononucleated Cells Microbiology: No organisms seen AFB: negative Chest x-ray 11/12/2016 bilateral hilar fullness, cephalization, parabronchial cuffing with blunted costophrenic angles left greater than right CT thorax 11/10/2016 No evidence of pulmonary emboli Persistent bilateral pleural effusion associated the right Bilateral opacifications most prominent in the lingula and left lower lobe Medications: #1 prednisone 40 mg daily #2 Combivent one puff every 4 hours #3 Lasix 40 mg by mouth daily #4 azithromycin 500 mg daily before 5 (change from 10 day to 5 day course) #5 Lovenox 40 mg every 24 hours subcutaneous Assessment & Plan 65-year-old gentleman with multiple medical issues: Possible metastatic esophageal CA, severe obstructive ventilatory disease and current hypoxia: #1 Hypoxia: The patient's hypoxia is most likely combination of deconditioning, severe obstructive ventilatory disease, initial pleural effusion and volume overload/diastolic heart failure. Thoracic ultrasound once again shows bilateral B-lines two thirds way up the thoracic cavity. This time the patient' s BUN/creatinine have done well showing no signs of hypotension I believe we can be more aggressive with his diuresis and will initiate Lasix IV 40 mg. #2 Pleural Effusion: Patient's pleural effusion via lytes criteria is exudative in nature. Even though trans-protein gradient is less than 3.1. At this time the patient is responded well to the pleural fluid drainage and there is no signs of recurrence by ultrasound today. We'll continue to monitor as this could be secondary to patient's current volume overload/CHF and/or possible malignant related with cytology currently pending. Data Medications: Current Inpatient Medications Medications (Trade) Dose Ordered Sig/[place] Route Start Time Stop Time Status Last Admin Dose Admin Insulin Glargine (Lantus Solostar Pen) 5 unit HS SC 11/09/16 21:00 12/09/16 20:59 11/12/16 21:29 5 UNIT Enoxaparin Sodium (Lovenox Inj) 40 mg Q24H SC 11/09/16 22:00 12/09/16 21:59 11/12/16 21:27 40 MG Acetaminophen (Tylenol Tab) 650 mg Q4H PRN PO 11/09/16 20:45 12/09/16 20:44 Nitroglycerin (Nitrostat Tab) 0.4 mg UD PRN SL 11/09/16 20:45 12/09/16 20:44 Insulin Aspart (novoLOG ASPART) SLIDING SCALE If C... ACHS SC 11/09/16 21:00 12/09/16 20:59 11/13/16 08:25 3 UNITS Glucose (Glucose 40% Gel) 15-30 GRAMS 15 GRAMS... UD PRN PO 11/09/16 20:45 12/09/16 20:44 Glucose (Glucose Chew Tab) 4-8 Tablets 4 Tabl... UD PRN PO 11/09/16 20:45 12/09/16 20:44 Dextrose (Dextrose 50% 50ML Syringe) 25-50ML OF 50% DW IV FOR... UD PRN IV 11/09/16 20:45 12/09/16 20:44 Glucagon (Glucagon Inj) 1 mg UD PRN SQ 11/09/16 20:45 12/09/16 20:44 Tramadol HCl (Ultram Tab) 25 mg Q6H PRN PO 11/09/16 20:45 12/09/16 20:44 Ondansetron HCl (Zofran Inj) 4 mg Q6H PRN IV 11/09/16 20:45 12/09/16 20:44 Morphine Sulfate (MoRPHine SULFATE INJ) 4 mg Q6H PRN IV 11/09/16 20:45 11/23/16 20:44 11/11/16 10:06 4 MG Citalopram Hydrobromide (celeXA TAB) 40 mg DAILY PO 11/10/16 09:00 12/10/16 08:59 11/13/16 08:18 40 MG Multivitamins/ Minerals (Multivitamin W/ Minerals Tab) 0.5 tab BID PO 11/09/16 21:00 12/09/16 20:59 11/13/16 08:17 0.5 TAB Pantoprazole Sodium (Protonix Tab) 40 mg BID PO 11/09/16 21:00 12/09/16 20:59 11/13/16 08:18 40 MG Pravastatin Sodium (Pravachol Tab) 20 mg PM PO 11/10/16 09:00 12/10/16 08:59 11/12/16 20:07 20 MG Miscellaneous Information (Order Awaiting Action) 1 ea QS N/A 11/10/16 08:00 12/10/16 07:59 Azithromycin (Zithromax Tab) 500 mg QAM PO 11/10/16 12:15 11/14/16 20:00 11/13/16 08:17 500 MG Metoprolol Tartrate (Lopressor Tab) 25 mg BID17 PO 11/10/16 17:00 12/10/16 16:59 11/13/16 08:17 25 MG Furosemide (Lasix Tab) 40 mg QAM PO 11/11/16 09:00 12/11/16 08:59 11/13/16 08:16 40 MG Ioversol (Optiray 320) 125 ml UD PRN IV 11/10/16 15:30 11/14/16 15:29 Potassium Chloride (Klor-Con M10) 10 meq DAILY PO 11/11/16 09:00 12/11/16 08:59 11/13/16 08:17 10 MEQ Zolpidem Tartrate (Ambien Tab) 5 mg HSZ PRN PO 11/11/16 22:00 12/11/16 21:59 11/12/16 00:43 5 MG Albuterol/ Ipratropium (Combivent Respimat Inh) 1 puffs QID INH 11/12/16 09:00 12/12/16 08:59 11/13/16 11:44 1 PUFFS Prednisone (PredniSONE TAB) 40 mg DAILY PO 11/14/16 09:00 12/14/16 08:59 Losartan Potassium (coZAAR TAB) 25 mg QAM PO 11/14/16 09:00 12/14/16 08:59 Miscellaneous Information (Consult Glycemic Management Pharmacy) 1 ea UD N/A 11/13/16 11:42 12/13/16 11:41 Vital Signs: Date Time Temp Pulse Resp B/P (MAP) Pulse Ox O2 Delivery O2 Flow Rate FiO2 11/13/16 11:38 36.7 82 19 110/81 (91) 94 Nasal Cannula 3.0 11/13/16 08:09 36.7 82 22 153/85 (107) 95 Nasal Cannula 3.0 11/13/16 08:00 Nasal Cannula 2.0 11/13/16 04:00 BiPAP 11/13/16 03:55 37.0 74 21 144/85 (104) 96 BiPAP 11/13/16 00:03 37.0 84 22 117/71 (86) 93 Nasal Cannula 2.0 11/13/16 00:00 BiPAP 11/12/16 23:34 97 30 11/12/16 20:00 Nasal Cannula 2.0 11/12/16 16:00 Nasal Cannula 11/12/16 15:02 36.9 91 18 114/76 (89) 94 Nasal Cannula 2.0 11/12/16 12:00 Nasal Cannula Laboratory Results: Last 24 Hours Test 11/12/16 16:09 11/12/16 20:34 11/13/16 05:54 11/13/16 06:57 Bedside Glucose 280 mg/dl 264 mg/dl 242 mg/dl White Blood Count 16.59 K/uL Red Blood Count 4.66 M/uL Hemoglobin 13.1 g/dL Hematocrit 41.0 % Mean Corpuscular Volume 88.0 fL Mean Corpuscular Hemoglobin 28.1 pg Mean Corpuscular Hemoglobin Concent 32.0 g/dl RDW Standard Deviation 54.0 fL RDW Coefficient of Variation 16.9 % Platelet Count 186 K/uL Mean Platelet Volume 9.9 fL Sodium Level 138 mmol/L Potassium Level 4.1 mmol/L Chloride Level 101 mmol/L Carbon Dioxide Level 32 mmol/L Anion Gap 5.0 mmol/L Blood Urea Nitrogen 24 mg/dl Creatinine 0.95 mg/dl Est Creatinine Clear Calc Drug Dose 104.9 ml/min Estimated GFR () 97.7 Estimated GFR (Non- 84.3 BUN/Creatinine Ratio 24.9 Random Glucose 273 mg/dl Calcium Level 8.7 mg/dl
[2016-11-13] MEDS ORDERED: INSULIN GLARGINE SOLOSTAR 100 UNITS/ML 3 ML PEN SC ONE (12:15)
[2016-11-13] MEDS ORDERED: FUROSEMIDE INJ 40 MG in SYRINGE 0 ML IV ONE (12:30)
--- NOTE | 2016-11-13 14:11 | Pharmacy Progress Note ---
Glycemic Control Intl Consult Date of Service Nov 13, 2016. Scope Glycemic Pharmacist consulted by Dr Farmer on 11/13 for glycemic control and to write orders per [facility] inpatient glycemic control protocol Objective Weight (Kilograms): 133.500 Accuchecks BSG (last 24hrs): Test 11/12/16 16:09 11/12/16 20:34 11/13/16 05:54 11/13/16 06:57 Bedside Glucose 280 mg/dl (70-99) 264 mg/dl (70-99) 242 mg/dl (70-99) Random Glucose 273 mg/dl (70-99) Laboratory Data (last 24hrs) Test 11/13/16 05:54 Anion Gap 5.0 mmol/L BUN/Creatinine Ratio 24.9 Blood Urea Nitrogen 24 mg/dl Creatinine 0.95 mg/dl Potassium Level 4.1 mmol/L Sodium Level 138 mmol/L White Blood Count 16.59 K/uL Recent Pertinent Medications Outpatient Anti-diabetic Regimen: * Glyburide 15 mg with dinner * Actos 30 mg with dinner * Prandin 2 mg TID with meals * A1c = 7.2 % 10/21/16 The patient is currently receiving: * Basal insulin: Lantus 5 units every 24 hours (since 11/09) * Correctional Insulin: Novolog Correction per scale ACHS Goal Range: Low 140 mg/dL - High 180 mg/dL -> just changed to 100-140 mg/dL Correction Factor: 25 mg/dL/unit * Prandial insulin: Per carb ratio of 1 unit per 0 grams CHO consumed -> just changed to 1 unit per 10 gm CHO * Oral Agents: None at this time Risk Factors for Insulin Resistance: * Steroids: Solu-medrol 40 mg IV q12h -> just changed to prednisone 40 mg daily to start tomorrow * Infection: po Zithromax for resp infection * Diet: type 2 diabetes Assessment & Plan ASSESSMENT: * 65 y/o male with type 2 diabetes, well controlled as an outpatient based on recent A1c * BSGs have been elevated since admission secondary to steroids on board without prandial coverage and a small dose of Lantus relative to the patient's weight * Dr. Farmer just tightened the goal range and added a carb ratio today so this will provide additional coverage * In addition, his steroids have been reduced so would expect BSGs to start improving with this change * Will plan to give a one time dose of extra basal today and f/u tomorrow to see if further changes need made * ADA & AACE recommend a goal blood sugar range 140-180 mg/dl for the majority of critically ill & non-critically ill patients. However, more stringent targets may be selected in individual cases. PLAN FOR INPATIENT GLYCEMIC CONTROL: * Continue Lantus 5 units SQ qHS, give additional one time dose of 10 units * Continue correction factor of 25 mg/dl/unit * Continue carb ratio of 1 unit per 10 grams CHO consumed since this was just added today * Continue goal range of Low 100 mg/dL - High 140 mg/dL * Please note that the plan above was derived based on current level of insulin resistance and hospital stress. These recommendations are appropriate for inpatient admission only. Plan of care upon discharge will need to be reassessed to avoid potential outpatient hypo/hyperglycemia. Thank you.
[2016-11-13] MEDS: ENOXAPARIN 40 MG/0.4 ML SYR SC SCH (21:00)
[2016-11-13] MEDS: PRAVASTATIN SOD 20 MG TAB PO SCH (21:00)
[2016-11-13] MEDS: INSULIN GLARGINE SOLOSTAR 100 UNITS/ML 3 ML PEN SC SCH (21:15)
--- NOTE | 2016-11-13 22:08 | Progress Note ---
Internal Med Progress Note Date of Service: Nov 13, 2016. Provider Documentation: SUBJECTIVE: more Short of breath today continues to have cough no fever or chills OBJECTIVE: Vital Signs-as noted below Exam: General-no apparent distress noted Eyes-sclera non icteric ENT-NAd Lungs-improved aeration on left lungs, crackles at base Heart-regular tachycardic Abdomen-soft, non tender Extremities-+ 1-2 edema Neuro-no focal deficit Lab data as noted below. ASSESSMENT & PLAN: SOB /HYPOXIA : symptom improved transiently after Thoracentesis yesterday appears to be more SOB today with persisted hypoxia multifactorial etiology -recent PFT done at pulmonology office showed moderate COPD -CT chest 10/24/16 no evidence of PE moderate pleural effusion with associated compressive atelectasis , wall thickening and irregularity seen in the mid to distal esophagus - corresponding to pt's hx of esophageal CA -numerous irregular nodular air space opacities seen throughout both lungs - could be infectious /inflammatory need to r/o metastatic process pathologically enlarged hilar and mediastinal LN CT chest with contrast 11/10/16 : IMPRESSION: 1. No evidence of acute pulmonary embolism 2. Persistent moderate bilateral pleural effusions 3. Persistent multifocal nodular airspace opacities. These could be infectious/inflammatory or represent metastatic disease. Again follow-up CT scanning is recommended. 4. The distal esophageal wall thickening 5. Large hiatal hernia 6. Pathologic mediastinal and hilar lymphadenopathy pulmonology eval appreciated Cardiology eval requested to address possible vol over load recent ECHO -showed normal LV pt clinically vol overloaded for multiple factors -low Albumin, 3rd spacing , acute respiratory failure causing cardiac strain Lasix ordered per Cardiology on 40 mg PO daily -diuresed ~2 L USG of chest shows left sided [address] surgery consulted , appreciate input form Dr Dukes s/p thoracentesis at bedside -approx 900 ml of vonnie color pleural effusion drained for left side pleural effusion will be sent for cytology /culture and appropriate testing to R /o infectious vs metastatic CA --SOB improved yesterday after thoracentesis; worsening of symptom today -repeat Cxray in AM , may need Plurex catheter of develops recurrent pleural effusion requiring repeated drainage CT surgery following pt will be continued to be monitored in tele for persistent hypoxemia /sob METASTATIC ESOPHAGEAL CA -Follows with Heme Onc Dr Epps diagnosed on in Feb 02 2016 -by EGD /EUS s/p radiation tx and on chemo tx weekly Carboplatin /Taxol PET/CT scan on 10/25/16 Impression : 1. Multiple new subcentimeter pulmonary nodules, nodular opacities , bilateral effusions with adjacent consolidation and a new FDG avid subcarinal lymph node, This may be infectious vs worsening of metastatic disease . 2. Cervical and Mediastinal lymph nodes are similar to slightly decreased in activity compared to prior exam pt has been on 5 FU/LV cycle by Dr Epps after getting 5 cycles developed progressive SOB /OH significantly hypoxic with minimum movement Chemo on Sunday10/30/16 was on hold for worsening of respiratory status D/w Dr Epps there is evidence of progression of malignancy with possible pleural /pulmonary involvement causing worsening of respiratory status Dr Epps consulted for D/w with pt and family regarding prognosis and option for treatment appreciate input form Heme Onc very poor prognosis option for palliative care discussed with Pt and pt wants to hold off palliative care consult for now POSSIBLE VOL OVERLOAD : multi factorial metastatic Ca, low albumin ECHO 09/2016 EF 65-70 % appreciate input form Cardiology Lasix 40 mg Po daily -diuresed approx 2 L s/p Thoracentesis -of left side with drainage of 900 ml of pleural effusion SINUS TACHYCARDIA Improved HR in 90's after addition of low dose Lopressor 12.5 mg BID Cardiology following closely monitor in tele DNR/DNI poor prognosis family and pt aware does not want to proceed for Palliative care yet DVT PROPHYLAXIS moderate to high risk for metastatic Ca Sub q Lovenox DISPOSITION expected to be discharged home when medically stable PT/OT eval will benefit form home health visiting nurse Medicine follow up with Dr Esther Delgadillo heme Onc follow up with Dr Epps Vital Signs: Date Time Temp Pulse Resp B/P (MAP) Pulse Ox O2 Delivery O2 Flow Rate FiO2 11/13/16 19:10 36.7 71 18 143/82 (102) 94 Nasal Cannula 2.0 11/13/16 16:02 Nasal Cannula 2.0 11/13/16 15:26 36.9 88 16 141/86 (104) 94 Nasal Cannula 2.0 11/13/16 12:16 Nasal Cannula 2.0 11/13/16 11:38 36.7 82 19 110/81 (91) 94 Nasal Cannula 3.0 11/13/16 08:09 36.7 82 22 153/85 (107) 95 Nasal Cannula 3.0 11/13/16 08:00 Nasal Cannula 2.0 11/13/16 04:00 BiPAP 11/13/16 03:55 37.0 74 21 144/85 (104) 96 BiPAP 11/13/16 00:03 37.0 84 22 117/71 (86) 93 Nasal Cannula 2.0 11/13/16 00:00 BiPAP 11/12/16 23:34 97 30 Lab Results: Results Past 24 Hours Test 11/13/16 05:54 11/13/16 06:57 11/13/16 11:09 11/13/16 16:36 Range/Units White Blood Count 16.59 4.8-10.8 K/uL Red Blood Count 4.66 4.7-6.1 M/uL Hemoglobin 13.1 14.0-18.0 g/dL Hematocrit 41.0 42-52 % Mean Corpuscular Volume 88.0 80-100 fL Mean Corpuscular Hemoglobin 28.1 25-34 pg Mean Corpuscular Hemoglobin Concent 32.0 32-36 g/dl RDW Standard Deviation 54.0 36.4-46.3 fL RDW Coefficient of Variation 16.9 11.5-14.5 % Platelet Count 186 130-400 K/uL Mean Platelet Volume 9.9 7.4-10.4 fL Sodium Level 138 136-145 mmol/L Potassium Level 4.1 3.5-5.1 mmol/L Chloride Level 101 98-107 mmol/L Carbon Dioxide Level 32 21-32 mmol/L Anion Gap 5.0 3-11 mmol/L Blood Urea Nitrogen 24 7-18 mg/dl Creatinine 0.95 0.60-1.40 mg/dl Est Creatinine Clear Calc Drug Dose 104.9 ml/min Estimated GFR () 97.7 Estimated GFR (Non- 84.3 BUN/Creatinine Ratio 24.9 10-20 Random Glucose 273 70-99 mg/dl Calcium Level 8.7 8.5-10.1 mg/dl Bedside Glucose 242 381 249 70-99 mg/dl Test 11/13/16 20:36 Range/Units Bedside Glucose 199 70-99 mg/dl
[2016-11-14] VITALS: BP 134/74; PULSE 79; TEMP 36.9; O2SAT 96
[2016-11-14 03:59] VITALS: BP 120/79; PULSE 83; TEMP 36.9; O2SAT 93
[2016-11-14 06:23] LABS: HEMATOCRIT 42.2 % (42-52); MEAN CELL VOLUME 89.2 fL (80-100); MEAN CORPUSCULAR HEMOGLOBIN 28.5 pg (25-34); MEAN PLATELET VOLUME 10.4 fL (7.4-10.4); PLATELET COUNT 149 K/uL (130-400); RED BLOOD COUNT 4.73 M/uL (4.7-6.1); WHITE BLOOD COUNT 12.13 K/uL (4.8-10.8)
[2016-11-14 06:49] VITALS: BP 115/85; PULSE 85; TEMP 36.6; O2SAT 93
[2016-11-14 07:00] LABS: BUN/CREATININE RATIO 26.4 (10-20); CALCIUM 8.6 mg/dl (8.5-10.1); CREATININE 0.93 mg/dl (0.60-1.40); POTASSIUM 3.8 mmol/L (3.5-5.1)
--- NOTE | 2016-11-14 07:15 | DIAGNOSTIC IMAGING REPORT ---
CHEST ONE VIEW PORTABLE CLINICAL HISTORY: pleural effusion dyspnea COMPARISON STUDY: 11/12/2016 FINDINGS: Mild congestive failure similar to the via the prior exam. Improving parenchymal infiltrate left base. Diaphragms are smooth. IMPRESSION: Stable to slightly improved congestive failure. Improving left basilar infiltrate. Electronically signed by: Miguel Granados M.D. 11/14/2016 7:13 AM Dictated Date/Time: 11/14/2016 7:12 AM
--- NOTE | 2016-11-14 08:31 | Progress Note ---
Internal Med Progress Note Date of Service: Nov 14, 2016. Provider Documentation: SUBJECTIVE: Seen and examined at bedside. States breathing is better when compared to yesterday. Also has dry cough. Denies chest pain. No new complaints. Discussed with family today. OBJECTIVE: Vital Signs-as noted below Physical Exam: General Appearance:Moderately built and nourished, no apparent distress Head: normocephalic, Atraumatic Eyes: normal inspection, EOMI, PERRL Neck: supple, Trachea midline Respiratory/Chest: Decreased breath sounds, B/L wheezing Cardiovascular: S1, S2, No murmur Abdomen/GI:Soft, Non tender, Bowel sounds present Extremities/Musculoskelatal:normal inspection, +edema, Left BKA Neurologic/Psych:AAOX3, grossly no focal neurological deficits Skin: normal color, warm Lab data as noted below. ASSESSMENT & PLAN: SOB/HYPOXIA: Multifactorial etiology: moderate COPD, Diastolic HF, Pulmonary involvement of Esophageal CA, Volume overload S/P Thoracentesis Appreciate Pulmonology, Cardiology, CT surgery help Recent ECHO:normal LV Continue diuresis: IV lasix 40 BID Follow Pleural effusion studies: to R/o infectious vs metastatic CA May eventually need Plurex catheter if recurrent pleural effusion On chronic home Oxygen METASTATIC ESOPHAGEAL CA Diagnosed on in Jan 2016 s/p radiation tx and on chemo tx weekly Carboplatin /Taxol Pt was on 5 FU/LV cycle by Dr Epps Chemo on Sunday10/30/16 was on hold for worsening of respiratory status Evidence of progression of malignancy with possible pleural /pulmonary involvement causing worsening of respiratory status Dr Epps consulted for D/w with pt and family regarding prognosis and option for treatment Very poor prognosis Patient prefers to hold off palliative care consult for now VOLUME OVERLOAD : Multifactorial:metastatic Ca, low albumin, Diastolic HF s/p L Thoracentesis: drainage of 900 ml of pleural effusion ECHO 09/2016 EF 65-70 % Cardiology following Continue diuresis Monitor electrolytes SINUS TACHYCARDIA Improved Continue Lopressor 25mg BID Cardiology following monitor in tele CODE STATUS: DNR/DNI poor prognosis Patient does not want to proceed for Palliative care yet DVT Px Lovenox SQ DISPOSITION Plan to discharge home when medically stable PT/OT eval Will benefit form home health Medicine follow up with Dr Esther Delgadillo Heme Onc follow up with Dr Epps Vital Signs: Date Time Temp Pulse Resp B/P (MAP) Pulse Ox O2 Delivery O2 Flow Rate FiO2 11/14/16 06:49 36.6 85 21 115/85 (95) 93 Nasal Cannula 2.0 11/14/16 04:00 Nasal Cannula 3.0 11/14/16 03:59 36.9 83 20 120/79 (93) 93 Nasal Cannula 3.0 11/14/16 00:00 36.9 79 22 134/74 (94) 96 Nasal Cannula 3.0 11/14/16 00:00 BiPAP 11/13/16 23:31 75 94 2.0 11/13/16 21:15 Nasal Cannula 2.0 11/13/16 19:10 36.7 71 18 143/82 (102) 94 Nasal Cannula 2.0 11/13/16 16:02 Nasal Cannula 2.0 11/13/16 15:26 36.9 88 16 141/86 (104) 94 Nasal Cannula 2.0 11/13/16 12:16 Nasal Cannula 2.0 11/13/16 11:38 36.7 82 19 110/81 (91) 94 Nasal Cannula 3.0 Lab Results: Results Past 24 Hours Test 11/13/16 11:09 11/13/16 16:36 11/13/16 20:36 11/14/16 05:46 Range/Units Bedside Glucose 381 249 199 70-99 mg/dl White Blood Count 12.13 4.8-10.8 K/uL Red Blood Count 4.73 4.7-6.1 M/uL Hemoglobin 13.5 14.0-18.0 g/dL Hematocrit 42.2 42-52 % Mean Corpuscular Volume 89.2 80-100 fL Mean Corpuscular Hemoglobin 28.5 25-34 pg Mean Corpuscular Hemoglobin Concent 32.0 32-36 g/dl RDW Standard Deviation 55.7 36.4-46.3 fL RDW Coefficient of Variation 17.0 11.5-14.5 % Platelet Count 149 130-400 K/uL Mean Platelet Volume 10.4 7.4-10.4 fL Sodium Level 142 136-145 mmol/L Potassium Level 3.8 3.5-5.1 mmol/L Chloride Level 100 98-107 mmol/L Carbon Dioxide Level 36 21-32 mmol/L Anion Gap 6.0 3-11 mmol/L Blood Urea Nitrogen 25 7-18 mg/dl Creatinine 0.93 0.60-1.40 mg/dl Est Creatinine Clear Calc Drug Dose 106.3 ml/min Estimated GFR () 100.2 Estimated GFR (Non- 86.5 BUN/Creatinine Ratio 26.4 10-20 Random Glucose 175 70-99 mg/dl Calcium Level 8.6 8.5-10.1 mg/dl Test 11/14/16 06:56 Range/Units Bedside Glucose 165 70-99 mg/dl
[2016-11-14] MEDS: IPRATROPIUM BROMIDE/ALBUTEROL respimat INH INH SCH ×4 (08:52→20:53)
[2016-11-14] MEDS: AZITHROMYCIN 250 MG TAB PO SCH (08:56)
[2016-11-14] MEDS: PANTOprazole SOD 40 MG TAB PO SCH ×2 (08:56→20:55)
[2016-11-14] MEDS: LOSARTAN POTASSIUM 25 MG TAB PO SCH (08:56)
[2016-11-14] MEDS: CEROVITE ADV FORMULA TAB PO SCH ×2 (08:58→20:53)
[2016-11-14] MEDS: METOPROLOL TARTRATE 25 MG TAB PO SCH ×2 (08:58→17:27)
[2016-11-14] MEDS: CITALOPRAM 40 MG TAB PO SCH (08:59)
[2016-11-14] MEDS: POTASSIUM CHLORIDE 10 MEQ TABCR PO SCH (08:59)
--- NOTE | 2016-11-14 09:00 | SURGERY PROGRESS NOTE ---
DATE: 11/14/2016 DATE: 11/14/2016. Mr. Granados continues to complain of shortness of breath; however his x-ray looks quite good from the fluid standpoint. He has not reaccumulated much at all. At this point, I would not intervene in his chest. I am disappointed that he did not have more of a responsive with his subjective symptoms. MTDD
[2016-11-14] MEDS: INSULIN ASPART 100 UNITS/ML 3 ML PEN SC SCH ×4 (09:13→20:58)
--- NOTE | 2016-11-14 10:33 | Cardiology Follow-Up ---
Subjective General Date of Service: Nov 14, 2016. Chief Complaint: SOB Pt evaluation today including: conversation w/ patient, physical exam, chart review, lab review, review of studies, review of inpatient medication list History of Present Illness Patient feeling ok. No great improvement in wheezing or SOB after thoracentesis. Continues to note ongoing wheeze with cough. No chest pain. No dizziness, syncope or near syncope. Allergies Coded Allergies: Lisinopril (Verified Adverse Reaction, Mild, Cough, 11/09/16) Social History Smoking Status: Former Smoker Hx Tobacco Use In Past Year?: No Hx Alcohol Use - Type And Amou: No Hx Substance Use - Type And Am: No Problem List Medical Problems: (1) CHF (congestive heart failure) Status: Acute (2) COPD (chronic obstructive pulmonary disease) Status: Acute (3) Dehydration Status: Acute (4) Partial small bowel obstruction Status: Acute (5) Vomiting Status: Acute Review of Systems Respiratory: + wheezing, + shortness of breath, No cough, No dyspnea at rest, No hemoptysis Cardiac: No chest pain, No orthopnea, No PND, No edema, No palpitations Physical Exam Vital Signs Last Vital Signs Documentation Date Time Temp Pulse Resp B/P (MAP) Pulse Ox O2 Delivery O2 Flow Rate FiO2 11/14/16 08:00 Nasal Cannula 2.0 11/14/16 06:49 36.6 85 21 115/85 (95) 93 11/12/16 23:34 30 Physical Exam Constitutional: General Apperance: obese Level of Distress: NAD Psychiatric: Mental Status: active & alert Orientation: to time, to place, to person Head: normocephalic Eyes: Pupils: PERRLA Neck: supple Lungs: Auscultation: deminished air movement, inspiratory wheezing, expiratory wheezing Cardiovascular: Heart Auscultation: RRR, normal S1, normal S2, no murmurs Abdomen: Bowel Sounds: normal Inspection & Palpation: soft, non-distended Extremities: edema (1+ right LE edema; Left s/p amputation) Assessment and Plan Assessment and Plan 65-year-old male 1. Multifactorial respiratory failure with hypoxia -pulm following -s/p left thoracentesis with some initial improvement. Pathology pending. Repeat chest xray planned for tomorrow. -continue steroids -Chest xray without evidence of recurrent pleural fluid -continue IV diuresis today 2. Diastolic HF/hypertensive heart disease -continue metoprolol, furosemide/potassium -resume losartan with BP trending higher. 3. AMARA - Bipap therapy strongly encouraged 4. Metastatic esophageal CA -pathology pending for pleural fluid Case discussed with Dr. Lam. Will follow. Assessment, exam and plan as above. Will supplement potassium today given beginnings of contraction alkalosis. Rodolfo Lam MD THIS NOTE WAS SENT TO MY ELECTRONIC INBOX IN ERROR I WAS NOT QUALITY ASSURANCE CONSULTANT AT [facility] ON THE DAY THE PATIENT WAS SEEN AND KWADWO DOCUMENTED ABOVE THE PATIENT WAS SEEN BY MRS BURKETT AND DR LAM. I FORWARED MY CONCERNS TO MEDICAL RECORDS BY TELEPHONE YESTERDAY, 11/16/16 TO CORRECT THIS AND REMOVE THE RECORD DEFICIENCY . A INBOUND SALES CONSULTANT OF THE [employer] STATED THE NOTE WOULD BE FORWARDED TO DR LAM. DO MICHAEL 11/17/16 9:07 AM. Laboratory Results Last 24 Hours Test 11/13/16 11:09 11/13/16 16:36 11/13/16 20:36 11/14/16 05:46 Bedside Glucose 381 mg/dl 249 mg/dl 199 mg/dl White Blood Count 12.13 K/uL Red Blood Count 4.73 M/uL Hemoglobin 13.5 g/dL Hematocrit 42.2 % Mean Corpuscular Volume 89.2 fL Mean Corpuscular Hemoglobin 28.5 pg Mean Corpuscular Hemoglobin Concent 32.0 g/dl RDW Standard Deviation 55.7 fL RDW Coefficient of Variation 17.0 % Platelet Count 149 K/uL Mean Platelet Volume 10.4 fL Sodium Level 142 mmol/L Potassium Level 3.8 mmol/L Chloride Level 100 mmol/L Carbon Dioxide Level 36 mmol/L Anion Gap 6.0 mmol/L Blood Urea Nitrogen 25 mg/dl Creatinine 0.93 mg/dl Est Creatinine Clear Calc Drug Dose 106.3 ml/min Estimated GFR () 100.2 Estimated GFR (Non- 86.5 BUN/Creatinine Ratio 26.4 Random Glucose 175 mg/dl Calcium Level 8.6 mg/dl Test 11/14/16 06:56 Bedside Glucose 165 mg/dl
[2016-11-14] MEDS: FUROSEMIDE INJ 40 MG in SYRINGE 0 ML IV SCH ×2 (11:28→17:29)
[2016-11-14] MEDS ORDERED: POTASSIUM CHLORIDE 10 MEQ TABCR PO ONE (11:45)
[2016-11-14 12:00] VITALS: BP 138/79; PULSE 91; TEMP 36.9; O2SAT 94
--- NOTE | 2016-11-14 12:07 | Pharmacy Progress Note ---
Glycemic Control: Progress Nt Date of Service Nov 14, 2016. Scope Glycemic Pharmacist consulted by Dr Farmer on 11/13/16 for glycemic control and to write orders per [facility] inpatient glycemic control protocol. Objective Accuchecks BSG (last 24hrs): Test 11/13/16 16:36 11/13/16 20:36 11/14/16 05:46 11/14/16 06:56 Bedside Glucose 249 mg/dl (70-99) 199 mg/dl (70-99) 165 mg/dl (70-99) Random Glucose 175 mg/dl (70-99) Laboratory Data (last 24hrs) Test 11/14/16 05:46 Anion Gap 6.0 mmol/L BUN/Creatinine Ratio 26.4 Blood Urea Nitrogen 25 mg/dl Creatinine 0.93 mg/dl Potassium Level 3.8 mmol/L Sodium Level 142 mmol/L White Blood Count 12.13 K/uL HbA1c: A1c 7.2% Recent Pertinent Medications Outpatient Anti-diabetic Regimen: * Glyburide 15mg daily w/ dinner * Pioglitazone 30mg daily w/ dinner * Prandin 2mg TID w/ meals * A1c = 7.2 % 10/21/16 The patient is currently receiving: * Basal insulin: Lantus 10 units x 1 in the AM yesterday + 5 units x 1 in the PM * Correctional Insulin: Novolog Correction per scale ACHS Goal Range: Low 100 mg/dL - High 140 mg/dL Correction Factor: 25 mg/dL/unit * Prandial insulin: Per carb ratio of 1 unit per 10 grams CHO consumed * Oral Agents: None currently Risk Factors for Insulin Resistance: * Steroids: Solu-Medrol 40mg IV Q 12 hrs --> changed to Prednisone 40mg PO daily today * Infection: receiving Azithromycin PO for resp infection * Diet: ordered T2DM diet Assessment & Plan ASSESSMENT: 11/14/16 * Glycemic control has improved over the last 24 hrs as a results of the insulin changes made yesterday as well as a lower dose of steroids given in the last 24 hrs (only 1 dose Solu-Medrol 40mg IV given yesterday) * Fasting BSG 165 today w/ 15 units Lantus on board (0.11 units/kg/day of basal) ; Current Lantus order is for 5 units daily at bedtime. I suspect the patient will require more. Ideally Lantus would be administered in the AM w/ the dose of Prednisone to allow for less effect overnight as Prednisone effects also dissipate. Will increase Lantus slightly and give w/ lunch today then in the AM starting tomorrow. * Current Novolog CF and CR may need intensified w/ current steroid dose -- will follow-up on pre-lunch BSG today and adjust if elevated. PLAN FOR INPATIENT GLYCEMIC CONTROL: * Increasing Lantus to 10 units SQ Q AM * Continuing correction factor 25 mg/dl/unit * Continuing carb ratio 1 unit per 10 grams CHO consumed * Continuing goal range Low 100 mg/dL - High 140 mg/dL * Reassess insulin doses with each step down in steroid dose * Please note that the plan above was derived based on current level of insulin resistance and hospital stress. These recommendations are appropriate for inpatient admission only. Plan of care upon discharge will need to be reassessed to avoid potential outpatient hypo/hyperglycemia. Thank you.
--- NOTE | 2016-11-14 13:20 | Hematology/Oncology Prog Note ---
Hematology/Onc Progress Note Date of Service Nov 14, 2016. Medications Current Inpatient Medications Medications (Trade) Dose Ordered Sig/Kamron Route Start Time Stop Time Status Last Admin Dose Admin Insulin Glargine (Lantus Solostar Pen) 5 unit HS SC 11/09/16 21:00 12/09/16 20:59 11/13/16 21:15 5 UNIT Enoxaparin Sodium (Lovenox Inj) 40 mg Q24H SC 11/09/16 22:00 12/09/16 21:59 11/13/16 21:00 40 MG Acetaminophen (Tylenol Tab) 650 mg Q4H PRN PO 11/09/16 20:45 12/09/16 20:44 Nitroglycerin (Nitrostat Tab) 0.4 mg UD PRN SL 11/09/16 20:45 12/09/16 20:44 Insulin Aspart (novoLOG ASPART) SLIDING SCALE If C... ACHS SC 11/09/16 21:00 12/09/16 20:59 11/14/16 12:03 8 UNITS Glucose (Glucose 40% Gel) 15-30 GRAMS 15 GRAMS... UD PRN PO 11/09/16 20:45 12/09/16 20:44 Glucose (Glucose Chew Tab) 4-8 Tablets 4 Tabl... UD PRN PO 11/09/16 20:45 12/09/16 20:44 Dextrose (Dextrose 50% 50ML Syringe) 25-50ML OF 50% DW IV FOR... UD PRN IV 11/09/16 20:45 12/09/16 20:44 Glucagon (Glucagon Inj) 1 mg UD PRN SQ 11/09/16 20:45 12/09/16 20:44 Tramadol HCl (Ultram Tab) 25 mg Q6H PRN PO 11/09/16 20:45 12/09/16 20:44 Ondansetron HCl (Zofran Inj) 4 mg Q6H PRN IV 11/09/16 20:45 12/09/16 20:44 Morphine Sulfate (MoRPHine SULFATE INJ) 4 mg Q6H PRN IV 11/09/16 20:45 11/23/16 20:44 11/11/16 10:06 4 MG Citalopram Hydrobromide (celeXA TAB) 40 mg DAILY PO 11/10/16 09:00 12/10/16 08:59 11/14/16 08:59 40 MG Multivitamins/ Minerals (Multivitamin W/ Minerals Tab) 0.5 tab BID PO 11/09/16 21:00 12/09/16 20:59 11/14/16 08:58 0.5 TAB Pantoprazole Sodium (Protonix Tab) 40 mg BID PO 11/09/16 21:00 12/09/16 20:59 11/14/16 08:56 40 MG Pravastatin Sodium (Pravachol Tab) 20 mg PM PO 11/10/16 09:00 12/10/16 08:59 11/13/16 21:00 20 MG Miscellaneous Information (Order Awaiting Action) 1 ea QS N/A 11/10/16 08:00 12/10/16 07:59 Azithromycin (Zithromax Tab) 500 mg QAM PO 11/10/16 12:15 11/14/16 20:00 11/14/16 08:56 500 MG Metoprolol Tartrate (Lopressor Tab) 25 mg BID17 PO 11/10/16 17:00 12/10/16 16:59 11/14/16 08:58 25 MG Furosemide (Lasix Tab) 40 mg QAM PO 11/11/16 09:00 12/11/16 08:59 Future Hold 11/13/16 08:16 40 MG Ioversol (Optiray 320) 125 ml UD PRN IV 11/10/16 15:30 11/14/16 15:29 Potassium Chloride (Klor-Con M10) 10 meq DAILY PO 11/11/16 09:00 12/11/16 08:59 11/14/16 08:59 10 MEQ Zolpidem Tartrate (Ambien Tab) 5 mg HSZ PRN PO 11/11/16 22:00 12/11/16 21:59 11/12/16 00:43 5 MG Albuterol/ Ipratropium (Combivent Respimat Inh) 1 puffs QID INH 11/12/16 09:00 12/12/16 08:59 11/14/16 12:04 1 PUFFS Prednisone (PredniSONE TAB) 40 mg DAILY PO 11/14/16 09:00 12/14/16 08:59 11/14/16 08:59 40 MG Losartan Potassium (coZAAR TAB) 25 mg QAM PO 11/14/16 09:00 12/14/16 08:59 11/14/16 08:56 25 MG Miscellaneous Information (Consult Glycemic Management Pharmacy) 1 ea UD N/A 11/13/16 11:42 12/13/16 11:41 Furosemide 40 mg/ Syringe 4 ml @ 4 mls/min BID17 IV 11/14/16 09:30 12/14/16 09:29 11/14/16 11:28 4 MLS/MIN Subjective Mr. Granados reports that his breathing has overall improved since he has been hospitalized. He was not wearing his oxygen nasal cannula earlier this morning for about 2 hours. He started to note chest heaviness, so he replace the nasal cannula and the symptoms resolved soon thereafter. He is currently on 2-3 liters. He did not have associated chest pain, dyspnea, nausea or sweating. He reports a good appetite and his bowels are regular. He has no mucositis. His right lower extremity edema has significantly improved. Review of Systems: Respiratory: + see HPI Cardiovascular: + see HPI Vital Signs Vital Signs Past 12 Hours Date Time Temp Pulse Resp B/P (MAP) Pulse Ox O2 Delivery O2 Flow Rate FiO2 11/14/16 12:13 Nasal Cannula 2.0 11/14/16 12:00 36.9 91 19 138/79 (98) 94 Nasal Cannula 2.0 11/14/16 08:00 Nasal Cannula 2.0 11/14/16 06:49 36.6 85 21 115/85 (95) 93 Nasal Cannula 2.0 11/14/16 04:00 Nasal Cannula 3.0 11/14/16 03:59 36.9 83 20 120/79 (93) 93 Nasal Cannula 3.0 Physical Exam Constitutional: General Apperance: well-nourished, obese Level of Distress: NAD ENMT: hearing grossly normal Lungs: Respiratory Effort: no dyspnea, good air movement Auscuitation: breath sounds normal Cardiovascular: Heart Auscultation: RRR Abdomen: Bowel Sounds: normal Extremities: edema (1+ RLE; LLE with prosthesis) Laboratory 11/12/16 05:05 11/13/16 05:54 11/14/16 05:46 11/12/16 05:05 11/13/16 05:54 11/14/16 05:46 Test 11/11/16 16:30 11/11/16 20:12 11/12/16 05:05 11/12/16 06:34 Bedside Glucose 312 mg/dl (70-99) 325 mg/dl (70-99) 239 mg/dl (70-99) Red Blood Count 4.63 M/uL (4.7-6.1) Mean Corpuscular Volume 88.6 fL (80-100) Mean Corpuscular Hemoglobin 28.9 pg (25-34) Mean Corpuscular Hemoglobin Concent 32.7 g/dl (32-36) RDW Standard Deviation 55.7 fL (36.4-46.3) RDW Coefficient of Variation 17.1 % (11.5-14.5) Mean Platelet Volume 9.9 fL (7.4-10.4) Anion Gap 7.0 mmol/L (3-11) Est Creatinine Clear Calc Drug Dose 117.3 ml/min Estimated GFR () 106.7 Estimated GFR (Non- 92.1 BUN/Creatinine Ratio 26.9 (10-20) Calcium Level 8.7 mg/dl (8.5-10.1) Test 11/12/16 11:16 11/12/16 16:09 11/12/16 20:34 11/13/16 05:54 Bedside Glucose 272 mg/dl (70-99) 280 mg/dl (70-99) 264 mg/dl (70-99) Red Blood Count 4.66 M/uL (4.7-6.1) Mean Corpuscular Volume 88.0 fL (80-100) Mean Corpuscular Hemoglobin 28.1 pg (25-34) Mean Corpuscular Hemoglobin Concent 32.0 g/dl (32-36) RDW Standard Deviation 54.0 fL (36.4-46.3) RDW Coefficient of Variation 16.9 % (11.5-14.5) Mean Platelet Volume 9.9 fL (7.4-10.4) Anion Gap 5.0 mmol/L (3-11) Est Creatinine Clear Calc Drug Dose 104.9 ml/min Estimated GFR () 97.7 Estimated GFR (Non- 84.3 BUN/Creatinine Ratio 24.9 (10-20) Calcium Level 8.7 mg/dl (8.5-10.1) Test 11/13/16 06:57 11/13/16 11:09 11/13/16 16:36 11/13/16 20:36 Bedside Glucose 242 mg/dl (70-99) 381 mg/dl (70-99) 249 mg/dl (70-99) 199 mg/dl (70-99) Test 11/14/16 05:46 11/14/16 06:56 Red Blood Count 4.73 M/uL (4.7-6.1) Mean Corpuscular Volume 89.2 fL (80-100) Mean Corpuscular Hemoglobin 28.5 pg (25-34) Mean Corpuscular Hemoglobin Concent 32.0 g/dl (32-36) RDW Standard Deviation 55.7 fL (36.4-46.3) RDW Coefficient of Variation 17.0 % (11.5-14.5) Mean Platelet Volume 10.4 fL (7.4-10.4) Anion Gap 6.0 mmol/L (3-11) Est Creatinine Clear Calc Drug Dose 106.3 ml/min Estimated GFR () 100.2 Estimated GFR (Non- 86.5 BUN/Creatinine Ratio 26.4 (10-20) Calcium Level 8.6 mg/dl (8.5-10.1) Bedside Glucose 165 mg/dl (70-99) Pathology Cytology from pleurocentesis on 11/11/16 pending at this time. AFB negative, Gram stain and culture negative. Radiology CXR from 11/14/16: Stable to slightly improved congestive failure. Improving left basilar infiltrate. Assessment & Plan 1. Stage IV esophageal cancer with probably lung and pleural involvement * Was on 2nd line therapy prior to progression noted during this hospitalization * PS on admission was too poor to consider for further palliative chemotherapy * PS may be improved mildly as he is sitting up most of the day, has been cleared to ambulate * Awaiting cytology from recent pleurocentesis * Patient anticipates to have follow up discussion with Dr. Epps in outpatient setting about possible further palliative treatment * Again discussed palliative care 2. Dyspnea- multifactorial with possible secondary infection, metastatic disease to lung, diastolic HF * Pulmonary and cardiology on board * Management per multidisciplinary team * Advised patient to keep O2 on at all times unless otherwise directed * Notified primary hospitalist today about patient's chest symptoms earlier today Will continue to follow while patient is hospitalized. Discussed impression/Plan with Jeanette Rashid PA-C and agree with her note
[2016-11-14 15:13] VITALS: BP 138/83; PULSE 82; TEMP 36.8; O2SAT 95
[2016-11-14] MEDS ORDERED: INSULIN GLARGINE SOLOSTAR 100 UNITS/ML 3 ML PEN SC SCH (16:15)
--- NOTE | 2016-11-14 16:42 | Pulmonology Progress Note ---
Pulmonary Progress Note Date of Service Nov 14, 2016. Attending Dr. Dan Subjective Ambulates well with O2 Objective Patient able to sit up in bed complete full sentences no signs of tachypnea or secondary respiratory muscle use General: Obese, NAD Lung: Bilateral expiratory wheezing with some crackles Cardiac: S1 and S2 distant heart sounds regular rate and rhythm Extremities: 2+ pitting edema of the right lower extremity CXR: 11/14/16 FINDINGS: Mild congestive failure similar to the via the prior exam. Improving parenchymal infiltrate left base. Diaphragms are smooth. Assessment & Plan 65-year-old gentleman with multiple medical issues: Possible metastatic esophageal CA, severe obstructive ventilatory disease and current hypoxia, s/p left thoracentesis on 11/11 Acute respiratory failure: Multifactorial, secondary to fluid overload, pleural effusion, pulmonary involvement of what seems to be metastatic disease. Continue IV diuresis, even though BNP is normal, it may still help, given CXR appearance and LE edema. Follow up cytology of pleural fluid, concerning for malignancy May be discharged home, probably on oxygen therapy. No need for non-invasive ventilation Data Medications: Current Inpatient Medications Medications (Trade) Dose Ordered Sig/Kamron Route Start Time Stop Time Status Last Admin Dose Admin Enoxaparin Sodium (Lovenox Inj) 40 mg Q24H SC 11/09/16 22:00 12/09/16 21:59 11/13/16 21:00 40 MG Acetaminophen (Tylenol Tab) 650 mg Q4H PRN PO 11/09/16 20:45 12/09/16 20:44 Nitroglycerin (Nitrostat Tab) 0.4 mg UD PRN SL 11/09/16 20:45 12/09/16 20:44 Insulin Aspart (novoLOG ASPART) SLIDING SCALE If C... ACHS SC 11/09/16 21:00 12/09/16 20:59 11/14/16 12:03 8 UNITS Glucose (Glucose 40% Gel) 15-30 GRAMS 15 GRAMS... UD PRN PO 11/09/16 20:45 12/09/16 20:44 Glucose (Glucose Chew Tab) 4-8 Tablets 4 Tabl... UD PRN PO 11/09/16 20:45 12/09/16 20:44 Dextrose (Dextrose 50% 50ML Syringe) 25-50ML OF 50% DW IV FOR... UD PRN IV 11/09/16 20:45 12/09/16 20:44 Glucagon (Glucagon Inj) 1 mg UD PRN SQ 11/09/16 20:45 12/09/16 20:44 Tramadol HCl (Ultram Tab) 25 mg Q6H PRN PO 11/09/16 20:45 12/09/16 20:44 Ondansetron HCl (Zofran Inj) 4 mg Q6H PRN IV 11/09/16 20:45 12/09/16 20:44 Morphine Sulfate (MoRPHine SULFATE INJ) 4 mg Q6H PRN IV 11/09/16 20:45 11/23/16 20:44 11/11/16 10:06 4 MG Citalopram Hydrobromide (celeXA TAB) 40 mg DAILY PO 11/10/16 09:00 12/10/16 08:59 11/14/16 08:59 40 MG Multivitamins/ Minerals (Multivitamin W/ Minerals Tab) 0.5 tab BID PO 11/09/16 21:00 12/09/16 20:59 11/14/16 08:58 0.5 TAB Pantoprazole Sodium (Protonix Tab) 40 mg BID PO 11/09/16 21:00 12/09/16 20:59 11/14/16 08:56 40 MG Pravastatin Sodium (Pravachol Tab) 20 mg PM PO 11/10/16 09:00 12/10/16 08:59 11/13/16 21:00 20 MG Miscellaneous Information (Order Awaiting Action) 1 ea QS N/A 11/10/16 08:00 12/10/16 07:59 Azithromycin (Zithromax Tab) 500 mg QAM PO 11/10/16 12:15 11/14/16 20:00 11/14/16 08:56 500 MG Metoprolol Tartrate (Lopressor Tab) 25 mg BID17 PO 11/10/16 17:00 12/10/16 16:59 11/14/16 08:58 25 MG Furosemide (Lasix Tab) 40 mg QAM PO 11/11/16 09:00 12/11/16 08:59 Future Hold 11/13/16 08:16 40 MG Potassium Chloride (Klor-Con M10) 10 meq DAILY PO 11/11/16 09:00 12/11/16 08:59 11/14/16 08:59 10 MEQ Zolpidem Tartrate (Ambien Tab) 5 mg HSZ PRN PO 11/11/16 22:00 12/11/16 21:59 11/12/16 00:43 5 MG Albuterol/ Ipratropium (Combivent Respimat Inh) 1 puffs QID INH 11/12/16 09:00 12/12/16 08:59 11/14/16 12:04 1 PUFFS Prednisone (PredniSONE TAB) 40 mg DAILY PO 11/14/16 09:00 12/14/16 08:59 11/14/16 08:59 40 MG Losartan Potassium (coZAAR TAB) 25 mg QAM PO 11/14/16 09:00 12/14/16 08:59 11/14/16 08:56 25 MG Miscellaneous Information (Consult Glycemic Management Pharmacy) 1 ea UD N/A 11/13/16 11:42 12/13/16 11:41 Furosemide 40 mg/ Syringe 4 ml @ 4 mls/min BID17 IV 11/14/16 09:30 12/14/16 09:29 11/14/16 11:28 4 MLS/MIN Insulin Glargine (Lantus Solostar Pen) 10 unit DAILYBD SC 11/14/16 16:15 12/14/16 16:14 I & O: 24-Hour Column 11/15/16 07:59 Intake Total 815 ml Output Total 1710 ml Balance -895 ml Vital Signs: Date Time Temp Pulse Resp B/P (MAP) Pulse Ox O2 Delivery O2 Flow Rate FiO2 11/14/16 15:13 36.8 82 18 138/83 (101) 95 Nasal Cannula 2.0 11/14/16 12:13 Nasal Cannula 2.0 11/14/16 12:00 36.9 91 19 138/79 (98) 94 Nasal Cannula 2.0 11/14/16 08:00 Nasal Cannula 2.0 11/14/16 06:49 36.6 85 21 115/85 (95) 93 Nasal Cannula 2.0 11/14/16 04:00 Nasal Cannula 3.0 11/14/16 03:59 36.9 83 20 120/79 (93) 93 Nasal Cannula 3.0 11/14/16 00:00 36.9 79 22 134/74 (94) 96 Nasal Cannula 3.0 11/14/16 00:00 BiPAP 11/13/16 23:31 75 94 2.0 11/13/16 21:15 Nasal Cannula 2.0 11/13/16 19:10 36.7 71 18 143/82 (102) 94 Nasal Cannula 2.0 Laboratory Results: Last 24 Hours Test 11/13/16 16:36 11/13/16 20:36 11/14/16 05:46 11/14/16 06:56 Bedside Glucose 249 mg/dl 199 mg/dl 165 mg/dl White Blood Count 12.13 K/uL Red Blood Count 4.73 M/uL Hemoglobin 13.5 g/dL Hematocrit 42.2 % Mean Corpuscular Volume 89.2 fL Mean Corpuscular Hemoglobin 28.5 pg Mean Corpuscular Hemoglobin Concent 32.0 g/dl RDW Standard Deviation 55.7 fL RDW Coefficient of Variation 17.0 % Platelet Count 149 K/uL Mean Platelet Volume 10.4 fL Sodium Level 142 mmol/L Potassium Level 3.8 mmol/L Chloride Level 100 mmol/L Carbon Dioxide Level 36 mmol/L Anion Gap 6.0 mmol/L Blood Urea Nitrogen 25 mg/dl Creatinine 0.93 mg/dl Est Creatinine Clear Calc Drug Dose 106.3 ml/min Estimated GFR () 100.2 Estimated GFR (Non- 86.5 BUN/Creatinine Ratio 26.4 Random Glucose 175 mg/dl Calcium Level 8.6 mg/dl Test 11/14/16 11:21 Bedside Glucose 205 mg/dl
[2016-11-14 19:12] VITALS: BP 111/66; PULSE 84; TEMP 36.9; O2SAT 94
[2016-11-14] MEDS: PRAVASTATIN SOD 20 MG TAB PO SCH (20:54)
[2016-11-14] MEDS: ENOXAPARIN 40 MG/0.4 ML SYR SC SCH (21:43)
[2016-11-15] VITALS: BP 107/87; PULSE 86; TEMP 36.9; O2SAT 94
[2016-11-15 04:00] VITALS: BP 104/58; PULSE 81; TEMP 36.9; O2SAT 94
[2016-11-15 05:58] LABS: BASO % 0.1 %; BASO ABS # 0.02 K/uL (0-0.2); COMPLETE YES; EOS % 0.6 %; HEMATOCRIT 41.1 % (42-52); IG% 1.9 %; LYMPH % 10.4 %; MEAN CELL VOLUME 88.8 fL (80-100); MEAN CORPUSCULAR HGB CONC 33.8 g/dl (32-36); MEAN PLATELET VOLUME 9.9 fL (7.4-10.4); MONO % 9.6 %; NEUT % 77.4 %; PLATELET COUNT 148 K/uL (130-400); RED BLOOD COUNT 4.63 M/uL (4.7-6.1)
[2016-11-15 06:34] LABS: BUN/CREATININE RATIO 31.6 (10-20); CALCIUM 8.5 mg/dl (8.5-10.1); CREATININE 0.88 mg/dl (0.60-1.40); POTASSIUM 3.5 mmol/L (3.5-5.1)
[2016-11-15 07:27] VITALS: BP 126/84; PULSE 95; TEMP 36.8; O2SAT 92
--- NOTE | 2016-11-15 07:44 | Progress Note ---
Internal Med Progress Note Date of Service: Nov 15, 2016. Provider Documentation: SUBJECTIVE: Seen and examined at bedside. States feeling much better today and wants to get discharged. Denies SOB, wheezing, chest pain. Has intermittent dry cough. No new complaints. OBJECTIVE: Vital Signs-as noted below Physical Exam: General Appearance:Moderately built and nourished, no apparent distress Head: normocephalic, Atraumatic Eyes: normal inspection, EOMI, PERRL Neck: supple, Trachea midline Respiratory/Chest: Decreased breath sounds, CTA Cardiovascular: S1, S2, No murmur Abdomen/GI:Soft, Non tender, Bowel sounds present Extremities/Musculoskelatal:normal inspection, +edema, Left BKA Neurologic/Psych:AAOX3, grossly no focal neurological deficits Skin: normal color, warm Lab data as noted below. ASSESSMENT & PLAN: SOB/HYPOXIA: Multifactorial etiology: moderate COPD, Diastolic HF, Pulmonary involvement of Esophageal CA, Volume overload S/P Thoracentesis Appreciate Pulmonology, Cardiology, CT surgery help Recent ECHO:normal LV Continue diuresis: IV lasix 40 BID Follow Pleural effusion studies: to R/o infectious vs metastatic CA:pending May eventually need Plurex catheter if recurrent pleural effusion On chronic home Oxygen Leukocytosis likely secondary to prednisone, afebrile. METASTATIC ESOPHAGEAL CA Diagnosed on in Jan 2016 s/p radiation tx and on chemo tx weekly Carboplatin /Taxol Pt was on 5 FU/LV cycle by Dr Epps Chemo on 10/30/16 was on hold for worsening of respiratory status Evidence of progression of malignancy with possible pleural /pulmonary involvement causing worsening of respiratory status Dr Epps consulted for D/w with pt and family regarding prognosis and option for treatment Very poor prognosis Patient prefers to discuss with about palliative care as outpatient VOLUME OVERLOAD : Multifactorial:metastatic Ca, low albumin, Diastolic HF s/p L Thoracentesis: drainage of 900 ml of pleural effusion ECHO 09/2016 EF 65-70 % Cardiology following Continue diuresis Monitor electrolytes SINUS TACHYCARDIA Improved Continue Lopressor 25mg BID Cardiology following monitor in tele CODE STATUS: DNR/DNI poor prognosis Patient does not want to proceed for Palliative care yet DVT Px Lovenox SQ DISPOSITION Plan to discharge home when medically stable PT/OT eval Will benefit form home health Medicine follow up with Dr Esther Delgadillo on 11/20/16 at 12:00pm Heme Onc follow up with Dr Epps on 11/24/16 at 2:15pm Follow up with CT surgery in 2 weeks Follow up with Pulmonary in 2 weeks as advised Vital Signs: Date Time Temp Pulse Resp B/P (MAP) Pulse Ox O2 Delivery O2 Flow Rate FiO2 11/15/16 12:00 Nasal Cannula 2.0 11/15/16 11:31 36.6 81 19 100/71 (81) 95 Nasal Cannula 2.0 11/15/16 08:00 Nasal Cannula 2.0 11/15/16 07:27 36.8 95 22 126/84 (98) 92 Room Air 11/15/16 04:00 36.9 81 21 104/58 (73) 94 Nasal Cannula 11/15/16 04:00 Nasal Cannula 2.0 11/15/16 00:00 36.9 86 21 107/87 (94) 94 Nasal Cannula 2.0 11/14/16 23:59 Nasal Cannula 2.0 11/14/16 20:00 Nasal Cannula 2.0 11/14/16 19:12 36.9 84 18 111/66 (81) 94 Nasal Cannula 2.0 11/14/16 16:00 Nasal Cannula 2.0 11/14/16 15:13 36.8 82 18 138/83 (101) 95 Nasal Cannula 2.0 Lab Results: Results Past 24 Hours Test 11/14/16 16:01 11/14/16 20:00 11/15/16 05:23 11/15/16 06:50 Range/Units Bedside Glucose 272 230 189 70-99 mg/dl White Blood Count 13.40 4.8-10.8 K/uL Red Blood Count 4.63 4.7-6.1 M/uL Hemoglobin 13.9 14.0-18.0 g/dL Hematocrit 41.1 42-52 % Mean Corpuscular Volume 88.8 80-100 fL Mean Corpuscular Hemoglobin 30.0 25-34 pg Mean Corpuscular Hemoglobin Concent 33.8 32-36 g/dl Platelet Count 148 130-400 K/uL Mean Platelet Volume 9.9 7.4-10.4 fL Neutrophils (%) (Auto) 77.4 % Lymphocytes (%) (Auto) 10.4 % Monocytes (%) (Auto) 9.6 % Eosinophils (%) (Auto) 0.6 % Basophils (%) (Auto) 0.1 % Neutrophils # (Auto) 10.36 1.4-6.5 K/uL Lymphocytes # (Auto) 1.40 1.2-3.4 K/uL Monocytes # (Auto) 1.28 0.11-0.59 K/uL Eosinophils # (Auto) 0.08 0-0.5 K/uL Basophils # (Auto) 0.02 0-0.2 K/uL RDW Standard Deviation 54.7 36.4-46.3 fL RDW Coefficient of Variation 17.2 11.5-14.5 % Immature Granulocyte % (Auto) 1.9 % Immature Granulocyte # (Auto) 0.26 0.00-0.02 K/uL Sodium Level 140 136-145 mmol/L Potassium Level 3.5 3.5-5.1 mmol/L Chloride Level 102 98-107 mmol/L Carbon Dioxide Level 31 21-32 mmol/L Anion Gap 7.0 3-11 mmol/L Blood Urea Nitrogen 28 7-18 mg/dl Creatinine 0.88 0.60-1.40 mg/dl Est Creatinine Clear Calc Drug Dose 112.3 ml/min Estimated GFR () 105.2 Estimated GFR (Non- 90.8 BUN/Creatinine Ratio 31.6 10-20 Random Glucose 182 70-99 mg/dl Calcium Level 8.5 8.5-10.1 mg/dl
[2016-11-15] MEDS ORDERED: POTASSIUM CHLORIDE 10 MEQ TABCR PO ONE (08:30)
[2016-11-15] MEDS: IPRATROPIUM BROMIDE/ALBUTEROL respimat INH INH SCH ×2 (08:42→11:57)
[2016-11-15] MEDS: INSULIN ASPART 100 UNITS/ML 3 ML PEN SC SCH ×2 (08:42→11:55)
[2016-11-15] MEDS: FUROSEMIDE INJ 40 MG in SYRINGE 0 ML IV SCH (08:42)
[2016-11-15] MEDS: CEROVITE ADV FORMULA TAB PO SCH (08:47)
[2016-11-15] MEDS: METOPROLOL TARTRATE 25 MG TAB PO SCH (08:48)
[2016-11-15] MEDS: CITALOPRAM 40 MG TAB PO SCH (08:48)
[2016-11-15] MEDS: LOSARTAN POTASSIUM 25 MG TAB PO SCH (08:48)
[2016-11-15] MEDS: PANTOprazole SOD 40 MG TAB PO SCH (08:48)
[2016-11-15] MEDS: POTASSIUM CHLORIDE 10 MEQ TABCR PO SCH (09:00)
[2016-11-15] MEDS ORDERED: INSULIN GLARGINE SOLOSTAR 100 UNITS/ML 3 ML PEN SC SCH (09:00)
--- NOTE | 2016-11-15 10:27 | PROGRESS NOTE ---
DATE: 11/15/2016 The patient was seen and examined. Chart, medications and telemetry were reviewed. SUBJECTIVE: The patient feels substantially improved this morning. He continues to have diuresed overnight Wheezing and chest congestion have substantially improved. He notes no chest pain, notes no tachy-palpitations. Telemetry reveals no sinus tachycardia, no atrial arrhythmias. OBJECTIVE: VITAL SIGNS: Heart rate is 84 and blood pressure is 126/84. HEENT: Normocephalic and atraumatic. NECK: Thick. LUNGS: Reveal substantially improved wheezing, increased aeration of the bases. CARDIOVASCULAR: Regular. There is no S3 gallop. ABDOMEN: Soft, obese. EXTREMITIES: Reveal diminished lower extremity edema. LABORATORY STUDIES: White cell count is 13.4, hemoglobin is 13.9 sodium is 140, potassium is 3.5, chloride is 102, bicarbonate is 31, BUN is 28 and creatinine 0.88. IMPRESSION: A 65-year-old male with mixed respiratory failure, diastolic heart failure clinically improved after diuresis. Maintains sinus rhythm on beta hannah and has not lapsed into atrial arrhythmias despite aggressive diuresis. PLAN: Will be to supplement potassium as already ordered. We will change furosemide from IV to oral at 40 mg per day, add in spironolactone at 12.5 mg once per day. Continue oxygen supplementation and increase activities. CHF instructions will be given. Arrangements were made for cardiac followup in addition to pulmonary followup in the next months' time. [facility]
[2016-11-15] MEDS ORDERED: SPIRONOLACTONE 25 MG TAB PO ONE (10:30)
--- NOTE | 2016-11-15 11:07 | Pharmacy Progress Note ---
Glycemic Control: Progress Nt Date of Service Nov 15, 2016. Scope Glycemic Pharmacist consulted by Dr Farmer on 11/13/16 for glycemic control and to write orders per [facility] inpatient glycemic control protocol. Objective Accuchecks BSG (last 24hrs): Test 11/14/16 11:21 11/14/16 16:01 11/14/16 20:00 11/15/16 05:23 Bedside Glucose 205 mg/dl (70-99) 272 mg/dl (70-99) 230 mg/dl (70-99) Random Glucose 182 mg/dl (70-99) Test 11/15/16 06:50 Bedside Glucose 189 mg/dl (70-99) Laboratory Data (last 24hrs) Test 11/15/16 05:23 Anion Gap 7.0 mmol/L BUN/Creatinine Ratio 31.6 Blood Urea Nitrogen 28 mg/dl Creatinine 0.88 mg/dl Potassium Level 3.5 mmol/L Sodium Level 140 mmol/L White Blood Count 13.40 K/uL Red Blood Count 4.63 M/uL Hemoglobin 13.9 g/dL Hematocrit 41.1 % Mean Corpuscular Volume 88.8 fL Mean Corpuscular Hemoglobin 30.0 pg Mean Corpuscular Hemoglobin Concent 33.8 g/dl Platelet Count 148 K/uL Mean Platelet Volume 9.9 fL Neutrophils (%) (Auto) 77.4 % Lymphocytes (%) (Auto) 10.4 % Monocytes (%) (Auto) 9.6 % Eosinophils (%) (Auto) 0.6 % Basophils (%) (Auto) 0.1 % Neutrophils # (Auto) 10.36 K/uL Lymphocytes # (Auto) 1.40 K/uL Monocytes # (Auto) 1.28 K/uL Eosinophils # (Auto) 0.08 K/uL Basophils # (Auto) 0.02 K/uL HbA1c: 7.2% 10/21/16 Recent Pertinent Medications Outpatient Anti-diabetic Regimen: * Glyburide 15mg daily w/ dinner * Pioglitazone 30mg daily w/ dinner * Prandin 2mg TID w/ meals * A1c = 7.2 % 10/21/16 The patient is currently receiving: * Basal insulin: Lantus 10 units SQ daily (given with dinner yesterday) * Correctional Insulin: Novolog Correction per scale ACHS Goal Range: Low 100 mg/dL - High 140 mg/dL Correction Factor: 20 mg/dL/unit * Prandial insulin: Per carb ratio of 1 unit per 8 grams CHO consumed * Oral Agents: None currently Risk Factors for Insulin Resistance: * Steroids: Prednisone 40mg PO daily * Diet: ordered T2DM / Low Sodium / Fluid restriction; tolerating diet well Assessment & Plan ASSESSMENT: 11/14/16 * Glycemic control has improved over the last 24 hrs as a results of the insulin changes made yesterday as well as a lower dose of steroids given in the last 24 hrs (only 1 dose Solu-Medrol 40mg IV given yesterday) * Fasting BSG 165 today w/ 15 units Lantus on board (0.11 units/kg/day of basal) ; Current Lantus order is for 5 units daily at bedtime. I suspect the patient will require more. Ideally Lantus would be administered in the AM w/ the dose of Prednisone to allow for less effect overnight as Prednisone effects also dissipate. Will increase Lantus slightly and give w/ lunch today then in the AM starting tomorrow. * Current Novolog CF and CR may need intensified w/ current steroid dose -- will follow-up on pre-lunch BSG today and adjust if elevated. 11/15/16 * Glycemic control deteriorated throughout the day yesterday - likely due to underestimation of insulin needs in the setting of reduced steroid dose * Fasting BSG elevated this AM w/ 10 units of Lantus on board; will begin to titrate the basal insulin dose upwards * Post prandial BSG improved after use of CR 8 yesterday w/ dinner, however there is likely room for more prandial insulin with meals given current steroid dose and insulin requirement over past 24 hrs. Will increase prandial dose as well PLAN FOR INPATIENT GLYCEMIC CONTROL: * Increasing Lantus to 20 units SQ Q AM (gave 15 units w/ breakfast today, will give additional 5 units w/ lunch) * Continuing correction factor 20 mg/dl/unit * Changing carb ratio to 1 unit per 6 grams CHO consumed * Continuing goal range Low 100 mg/dL - High 140 mg/dL * Reassess insulin doses with each step down in steroid dose * Please note that the plan above was derived based on current level of insulin resistance and hospital stress. These recommendations are appropriate for inpatient admission only. Plan of care upon discharge will need to be reassessed to avoid potential outpatient hypo/hyperglycemia. Thank you.
[2016-11-15] MEDS ORDERED: INSULIN GLARGINE SOLOSTAR 100 UNITS/ML 3 ML PEN SC ONE (11:15)
[2016-11-15 11:31] VITALS: BP 100/71; PULSE 81; TEMP 36.6; O2SAT 95
--- NOTE | 2016-11-15 11:32 | SURGERY PROGRESS NOTE ---
DATE: 11/15/2016 DATE: 11/15/2016. Mr. Granados is seen today. He looks great. He is up ambulating. He states his breathing is much improved. The cytology is still pending from the pleural fluid which was drained this weekend; however, overall I think he looks better and his wheezing is much improved. I would like to see him back in the office with a chest x-ray in 2 weeks. We will call him to make arrangements for that.
[2016-11-15] MEDS ORDERED: SPR25 PO ×2 (14:21)
[2016-11-15] MEDS ORDERED: LSX40 PO ×2 (14:21)
[2016-11-15] MEDS ORDERED: PRED10TA PO ×2 (14:21)
[2016-11-15] MEDS ORDERED: LPR25 PO ×2 (14:21)
[2016-11-15] MEDS ORDERED: POTA10CA28 PO ×2 (14:21)
--- NOTE | 2016-11-15 14:26 | Discharge Summary ---
Discharge Summary Date of Service Nov 15, 2016. Discharge Summary Admission Date: Nov 09, 2016 at 19:35 Discharge Disposition: Home Principal Diagnosis: Acute respiratory failure, Volume Overload, Diastolic Heart failure Procedures: CTA: 1. No evidence of acute pulmonary embolism 2. Persistent moderate bilateral pleural effusions 3. Persistent multifocal nodular airspace opacities. These could be infectious/inflammatory or represent metastatic disease. Again follow-up CT scanning is recommended. 4. The distal esophageal wall thickening 5. Large hiatal hernia 6. Pathologic mediastinal and hilar lymphadenopathy Chest USD; Bilateral pleural effusion. Interposed lung at both sites. No marking was performed. Volumes are slightly increased compared to the prior study Consultations: Pulmonology, Cardiology, CT surgery, Oncology Pending Studies/Follow-Up: Medicine follow up with Dr Esther Delgadillo on 11/20/16 at 12:00pm Heme Onc follow up with Dr Epps on 11/24/16 at 2:15pm Follow up with CT surgery in 2 weeks with chest X ray Follow up with Pulmonary in 2 weeks as advised Follow up with cardiology in 2-4 weeks as advised Medication Reconciliation New Medications: Prednisone Tab (Prednisone) 10 Mg Tab 10 MG PO UD for 9 Days, #18 TAB Start taking 30mg daily for 3 days then 20mg daily for 3 days then 10mg daily for 3 days and stop Furosemide (Furosemide) 40 Mg Tab 40 MG PO QAM for 30 Days, #30 TAB 1 Refill Metoprolol Tartrate (Lopressor) 25 Mg Tab 25 MG PO BID17 for 30 Days, #60 TAB 1 Refill Potassium Chloride (Micro-K Ext Rel) 10 Meq Capcr 10 MEQ PO DAILY for 30 Days, #30 Spironolactone (Spironolactone) 25 Mg Tab 12.5 MG PO QAM for 30 Days, #15 TAB 1 Refill Continued Medications: Betamethasone Dip Augmented (Augmented Betamethasone D) 90 Appln/15 Gm Oint 1 APPLN TOP BID APPLY OINTMENT TWICE DAILY TO [place] Citalopram Hydrobromide (Celexa) 40 Mg Tab 1 TAB PO DAILY Fish Oil ([place]-3) 1 Ea Cap 2 CAP PO DAILY Fluticasone-Salmeterol 230/21 Mcg (Advair Hfa 230/21 Mcg) 1 Aer Aer 2 PUFFS INH BID, AER Glyburide (Micronase) 5 Mg Tab 15 MG PO DAILYBD, TAB Ipratropium-Albuterol (Duoneb) 3 Ml Nebu 3 ML INH DAILY, INHA Losartan Potassium (Cozaar) 25 Mg Tab 25 MG PO DAILY Multiple Vitamins W/ Minerals (One Daily Adults 50+) 1 Tab Tab 0.5 TAB PO BID Pantoprazole (Pantoprazole Sodium) 40 Mg Tab 40 MG PO BID Pioglitazone (Actos) 30 Mg Tab 1 TAB PO DAILYBD for 30 Days, #30 TAB 5 Refills Pravastatin (Pravachol ) 20 Mg Tab 20 MG PO DAILY, TAB Repaglinide (Prandin) 2 Mg Tab 2 MG PO TIDM, TAB Discontinued Medications: Hctz/Losartan (Hyzaar 12.5MG/50MG) Tab 1 TAB PO DAILY for 30 Days, #30 TAB 5 Refills Admission Information HPI (per Admitting provider): CHIEF COMPLAINT: Shortness of breath. History obtained from the patient, patient's and records. History is somewhat difficult to obtain from the patient secondary to hearing impairment. HISTORY OF PRESENT ILLNESS: Medical history significant for chronic respiratory failure secondary to COPD on home O2, mild AMARA, history of esophageal cancer status post chemoradiation, hypertension, DM2 on oral meds, past tobacco abuse. Recent confinement a few weeks ago for shortness of breath, leg swelling. Pneumonia versus metastatic disease. CTA at that time was negative for PE, showed bilateral pleural effusions, multiple noted opacities concerning for pneumonia versus metastatic disease. 2D echo at that time showed EF 65-70%, no significant valvular heart disease, technically difficult study. Patient discharged on Levaquin, steroid course. Unimproved symptoms. Px was seen by [facility]. PFTs showed moderate obstructive pattern, cannot exclude restriction. mild improvement following bronchodilators. As per notes, malignancy itself may be a major contributor of shortness of breath. Patient started on round the clock breathing treatment and inhalers. As per the patient had a followup pulmonary evaluation a few days ago, started on Lasix. 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 Patient may need referral to a dessert cup machine feeder as per patient's family. Patient's chemotherapy on hold until breathing issues clarified. SOB, dry cough symptoms wo aspiration, leg swelling did not respond to a few doses of Lasix at home. Patient told to proceed to the Emergency Room. At the Emergency Room, the patient received Solu-Medrol and Lasix for possible CHF, CHF exacerbation. BiPAP initiated. Px feeling better. Physical Exam (per Admitting): PHYSICAL EXAMINATION: VITAL SIGNS: Blood pressure noted to be 118/70, pulse rate of 115, RR 24, T 37 sats 94% on 2 liters, later 96% on BiPAP. GENERAL: Noted to be obese, in no distress. hard of hearing SKIN: Normal color. HEENT: [place] palpebral conjunctivae. Dry mucosa. BIPAP mask in place NECK: Short neck. LUNGS: Decreased breath sounds. HEART: tachycardic ABDOMEN: Some distention, nontender. healed scars EXTREMITIES: Minimal swelling on the right lower extremity, no tenderness. 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 Hospital Course SOB/HYPOXIA: Multifactorial etiology: moderate COPD, Diastolic HF, Pulmonary involvement of Esophageal CA, Volume overload S/P Thoracentesis Appreciate Pulmonology, Cardiology, CT surgery help Recent ECHO:normal LV Continue diuresis: IV lasix 40 BID Follow Pleural effusion studies: to R/o infectious vs metastatic CA:pending May eventually need Plurex catheter if recurrent pleural effusion On chronic home Oxygen Leukocytosis likely secondary to prednisone, afebrile. METASTATIC ESOPHAGEAL CA Diagnosed on in Jan 2016 s/p radiation tx and on chemo tx weekly Carboplatin /Taxol Pt was on 5 FU/LV cycle by Dr Epps Chemo on 10/30/16 was on hold for worsening of respiratory status Evidence of progression of malignancy with possible pleural /pulmonary involvement causing worsening of respiratory status Dr Epps consulted for D/w with pt and family regarding prognosis and option for treatment Very poor prognosis Patient prefers to discuss with about palliative care as outpatient VOLUME OVERLOAD : Multifactorial:metastatic Ca, low albumin, Diastolic HF s/p L Thoracentesis: drainage of 900 ml of pleural effusion ECHO 09/2016 EF 65-70 % Cardiology following Continue diuresis Monitor electrolytes SINUS TACHYCARDIA Improved Continue Lopressor 25mg BID Cardiology following monitor in tele CODE STATUS: DNR/DNI poor prognosis Patient does not want to proceed for Palliative care yet DVT Px Lovenox SQ DISPOSITION Plan to discharge home when medically stable PT/OT eval Will benefit form home health Medicine follow up with Dr Esther Delgadillo on 11/20/16 at 12:00pm Heme Onc follow up with Dr Epps on 11/24/16 at 2:15pm Follow up with CT surgery in 2 weeks Follow up with Pulmonary in 2 weeks as advised Total time spent on discharge = 36 minutes This includes examination of the patient, discharge planning, medication reconciliation, and communication with other providers. Discharge Instructions Discharge Instructions Date of Service Nov 15, 2016. Admission Reason for Admission: Respiratory Failure, Acute Discharge Discharge Diagnosis / Problem: Acute respiratory failure, Volume Overload, Diastolic Heart failure Discharge Goals Goal(s): Decrease discomfort, Improve function Activity Recommendations Activity Limitations: resume your previous activity Exercise/Sports Limitations: as tolerated . Instructions / Follow-Up Instructions / Follow-Up Medicine follow up with Dr Esther Delgadillo on 11/20/16 at 12:00pm Heme Onc follow up with Dr Epps on 11/24/16 at 2:15pm Follow up with CT surgery in 2 weeks with chest X ray Follow up with Pulmonary in 2 weeks as advised Follow up with cardiology in 2-4 weeks as advised Call your Primary Care doctor if any of the following symptoms or problems start or get worse: * Shortness of breath or difficulty breathing * Wake up at night short of breath * Chest pain * Cough * Swelling of your hands, feet, or legs * More fatigued or tired with your normal activity * Palpitations - sudden fast heart beats WEIGHT * Weigh yourself every morning after using the bathroom. * Use the same scale. * Wear the same amount of clothing. * Write your weight down on a chart. * Call your Primary Care doctor if you gain more than 2-3 pounds in 1-2 days. MEDICATIONS * Use this discharge instruction sheet for medication instructions. * Take your medications at the time your doctor ordered. * Do not skip a dose of your medicines. * If you miss a dose of medicine, take it as soon as possible, but DO NOT DOUBLE A DOSE. * Read your medicine information when you get home. * Know all of the side effects of your medicine. If in doubt, ask your pharmacist * Call your Primary Care doctor's office if you have any side effects. * Be sure all of your doctors know what medicine and herbs you take (including cold, flu, and herbal medicine). Take the following with you to your follow-up doctor appointments: * Weight Chart * Medication List * List of questions Do not drink excessive alcohol, beer or wine. Current Hospital Diet Patient's current hospital diet: Diabetes Type 2 Diet, Low Sodium Diet (2gm Na) Discharge Diet Recommended Diet: Low Sodium Diet (2gm Na), Diabetes Type 2 Diet Pending Studies Studies pending at discharge: yes List of pending studies: Pleural fluid pathology report Laboratory Results Hemoglobin A1c Test 10/21/16 05:19 Range/Units Estimated Average Glucose 160 mg/dl Hemoglobin A1c 7.2 H 4.5-5.6 % Medical Emergencies . Who to Call and When: Call 911 or go to the Emergency Room if: * If at any time you feel your situation is an emergency * You have tightness or pain in your chest that does not go away with rest or Nitroglycerin * You are very short of breath even with rest . Non-Emergent Contact Non-Emergency issues call your: Primary Care Provider, Health Care Specialist, Oncologist Call Non-Emergent contact if: you have a fever, you have any medication questions If you have shortness of breath or your symptoms reoccur or worsen . . "Provider Documentation" section prepared by Moreno García. . VTE Core Measure Inpt VTE Proph given/why not?: Enoxaparin (Lovenox)SQ
--- NOTE | 2016-11-15 15:25 | Pulmonology Progress Note ---
Pulmonary Progress Note Date of Service Nov 15, 2016. Attending Dr. Workman Subjective Patient is greatly improved today still notes some mild dyspnea on exertion Objective Patient doing well able to sit up in bed today complete full sentences no signs of accessory muscle use or tachypnea LA 201-1 I/Os: total -7.2L SaO2: 93-95% (2L) RR: 19-22 General: Obese, NAD Lung: CTA Cardiac: S1 and S2 distant heart sounds regular rate and rhythm Extremities: 1+ pitting edema of the right lower extremity CXR: 11/14/16 FINDINGS: Mild congestive failure similar to the via the prior exam. Improving parenchymal infiltrate left base. Diaphragms are smooth. Medications: Furosemide 40 mg by mouth daily Spironolactone 12.5 mg by mouth daily Prednisone 40 mg by mouth daily Combivent inhaler 4 times a day Assessment & Plan 65-year-old gentleman with multiple medical issues: Possible metastatic esophageal CA, severe obstructive ventilatory disease and current hypoxia, s/p left thoracentesis on 11/11 #1 Hypoxemia: Most likely multifactorial with severe COPD, diastolic heart failure, malnutrition and deconditioning. Patient has been diuresed over 8 L and plus the 900 cc thoracentesis over 9 L of fluid of been removed. He is responded well and we'll have to continue to monitor his fluid balance. As well the patient to continue on his COPD medications please see below. Was also set the patient up for follow-up in the [place] pulmonary clinic over the next 2- 3 weeks. I will contact Dr. Epps and inform her of the patient's overall response to treatment. Discharge medications: Prednisone 40 mg taper over the next 14 days Advair 250/50 one puff twice a day Spiriva 2 puffs daily Pro Air rescue inhaler one puff 4 times daily as necessary Data Medications: Current Inpatient Medications Medications (Trade) Dose Ordered Sig/[place] Route Start Time Stop Time Status Last Admin Dose Admin Enoxaparin Sodium (Lovenox Inj) 40 mg Q24H SC 11/09/16 22:00 12/09/16 21:59 11/14/16 21:43 40 MG Acetaminophen (Tylenol Tab) 650 mg Q4H PRN PO 11/09/16 20:45 12/09/16 20:44 Nitroglycerin (Nitrostat Tab) 0.4 mg UD PRN SL 11/09/16 20:45 12/09/16 20:44 Insulin Aspart (novoLOG ASPART) SLIDING SCALE If C... ACHS SC 11/09/16 21:00 12/09/16 20:59 11/15/16 11:55 19 UNITS Glucose (Glucose 40% Gel) 15-30 GRAMS 15 GRAMS... UD PRN PO 11/09/16 20:45 12/09/16 20:44 Glucose (Glucose Chew Tab) 4-8 Tablets 4 Tabl... UD PRN PO 11/09/16 20:45 12/09/16 20:44 Dextrose (Dextrose 50% 50ML Syringe) 25-50ML OF 50% DW IV FOR... UD PRN IV 11/09/16 20:45 12/09/16 20:44 Glucagon (Glucagon Inj) 1 mg UD PRN SQ 11/09/16 20:45 12/09/16 20:44 Tramadol HCl (Ultram Tab) 25 mg Q6H PRN PO 11/09/16 20:45 12/09/16 20:44 Ondansetron HCl (Zofran Inj) 4 mg Q6H PRN IV 11/09/16 20:45 12/09/16 20:44 Morphine Sulfate (MoRPHine SULFATE INJ) 4 mg Q6H PRN IV 11/09/16 20:45 11/23/16 20:44 11/11/16 10:06 4 MG Citalopram Hydrobromide (celeXA TAB) 40 mg DAILY PO 11/10/16 09:00 12/10/16 08:59 11/15/16 08:48 40 MG Multivitamins/ Minerals (Multivitamin W/ Minerals Tab) 0.5 tab BID PO 11/09/16 21:00 12/09/16 20:59 11/15/16 08:47 0.5 TAB Pantoprazole Sodium (Protonix Tab) 40 mg BID PO 11/09/16 21:00 12/09/16 20:59 11/15/16 08:48 40 MG Pravastatin Sodium (Pravachol Tab) 20 mg PM PO 11/10/16 09:00 12/10/16 08:59 11/14/16 20:54 20 MG Miscellaneous Information (Order Awaiting Action) 1 ea QS N/A 11/10/16 08:00 12/10/16 07:59 Metoprolol Tartrate (Lopressor Tab) 25 mg BID17 PO 11/10/16 17:00 12/10/16 16:59 11/15/16 08:48 25 MG Furosemide (Lasix Tab) 40 mg QAM PO 11/11/16 09:00 12/11/16 08:59 Future Hold 11/13/16 08:16 40 MG Potassium Chloride (Klor-Con M10) 10 meq DAILY PO 11/11/16 09:00 12/11/16 08:59 11/14/16 08:59 10 MEQ Zolpidem Tartrate (Ambien Tab) 5 mg HSZ PRN PO 11/11/16 22:00 12/11/16 21:59 11/12/16 00:43 5 MG Albuterol/ Ipratropium (Combivent Respimat Inh) 1 puffs QID INH 11/12/16 09:00 12/12/16 08:59 11/15/16 11:57 1 PUFFS Prednisone (PredniSONE TAB) 40 mg DAILY PO 11/14/16 09:00 12/14/16 08:59 11/15/16 08:48 40 MG Losartan Potassium (coZAAR TAB) 25 mg QAM PO 11/14/16 09:00 12/14/16 08:59 11/15/16 08:48 25 MG Miscellaneous Information (Consult Glycemic Management Pharmacy) 1 ea UD N/A 11/13/16 11:42 12/13/16 11:41 Furosemide (Lasix Tab) 40 mg QAM PO 11/16/16 09:00 12/16/16 08:59 Spironolactone (Aldactone Tab) 12.5 mg QAM PO 11/16/16 09:00 12/16/16 08:59 Insulin Glargine (Lantus Solostar Pen) 20 unit QAM SC 11/16/16 09:00 12/16/16 08:59 I & O: 24-Hour Column 11/16/16 08:00 Intake Total 1000 ml Output Total 1575 ml Balance -575 ml Vital Signs: Date Time Temp Pulse Resp B/P (MAP) Pulse Ox O2 Delivery O2 Flow Rate FiO2 11/15/16 12:00 Nasal Cannula 2.0 11/15/16 11:31 36.6 81 19 100/71 (81) 95 Nasal Cannula 2.0 11/15/16 08:00 Nasal Cannula 2.0 11/15/16 07:27 36.8 95 22 126/84 (98) 92 Room Air 11/15/16 04:00 36.9 81 21 104/58 (73) 94 Nasal Cannula 11/15/16 04:00 Nasal Cannula 2.0 11/15/16 00:00 36.9 86 21 107/87 (94) 94 Nasal Cannula 2.0 11/14/16 23:59 Nasal Cannula 2.0 11/14/16 20:00 Nasal Cannula 2.0 11/14/16 19:12 36.9 84 18 111/66 (81) 94 Nasal Cannula 2.0 11/14/16 16:00 Nasal Cannula 2.0 Laboratory Results: Last 24 Hours Test 11/14/16 16:01 11/14/16 20:00 11/15/16 05:23 11/15/16 06:50 Bedside Glucose 272 mg/dl 230 mg/dl 189 mg/dl White Blood Count 13.40 K/uL Red Blood Count 4.63 M/uL Hemoglobin 13.9 g/dL Hematocrit 41.1 % Mean Corpuscular Volume 88.8 fL Mean Corpuscular Hemoglobin 30.0 pg Mean Corpuscular Hemoglobin Concent 33.8 g/dl Platelet Count 148 K/uL Mean Platelet Volume 9.9 fL Neutrophils (%) (Auto) 77.4 % Lymphocytes (%) (Auto) 10.4 % Monocytes (%) (Auto) 9.6 % Eosinophils (%) (Auto) 0.6 % Basophils (%) (Auto) 0.1 % Neutrophils # (Auto) 10.36 K/uL Lymphocytes # (Auto) 1.40 K/uL Monocytes # (Auto) 1.28 K/uL Eosinophils # (Auto) 0.08 K/uL Basophils # (Auto) 0.02 K/uL RDW Standard Deviation 54.7 fL RDW Coefficient of Variation 17.2 % Immature Granulocyte % (Auto) 1.9 % Immature Granulocyte # (Auto) 0.26 K/uL Sodium Level 140 mmol/L Potassium Level 3.5 mmol/L Chloride Level 102 mmol/L Carbon Dioxide Level 31 mmol/L Anion Gap 7.0 mmol/L Blood Urea Nitrogen 28 mg/dl Creatinine 0.88 mg/dl Est Creatinine Clear Calc Drug Dose 112.3 ml/min Estimated GFR () 105.2 Estimated GFR (Non- 90.8 BUN/Creatinine Ratio 31.6 Random Glucose 182 mg/dl Calcium Level 8.5 mg/dl
[2016-11-15 15:44] VITALS: BP 100/71; PULSE 81; TEMP 36.6; O2SAT 95
[2016-11-16] MEDS ORDERED: INSULIN GLARGINE SOLOSTAR 100 UNITS/ML 3 ML PEN SC SCH (09:00)
[2016-11-16] MEDS ORDERED: FUROSEMIDE 40 MG TAB PO SCH (09:00)
[2016-11-16] MEDS ORDERED: SPIRONOLACTONE 25 MG TAB PO SCH (09:00)
[2016-11-24] MEDS ORDERED: REPA2TAB12 PO ×2 (02:56)
[2016-11-24] MEDS ORDERED: CITA40TA12 PO ×2 (02:56)
[2016-11-24] MEDS ORDERED: PRAV20TA PO ×2 (02:56)
[2016-11-24] MEDS ORDERED: PRT40 PO ×2 (02:56)
[2016-11-24] MEDS ORDERED: OMEG10007 PO ×2 (02:56)
[2016-11-24] MEDS ORDERED: LOSA1TAB PO ×2 (11:46)
[2016-11-24] MEDS ORDERED: MULT1TAB56 PO ×2 (11:46)
[2016-11-24] MEDS ORDERED: FLUT230A INH ×2 (17:29)
[2016-11-24] MEDS ORDERED: DPRO15 TOP ×2 (17:43)
[2016-11-24] MEDS ORDERED: IPRASOL4 INH ×2 (17:45)
[2016-12-01] MEDS ORDERED: XPNINS1255 INH (10:38)
[2016-12-01] MEDS ORDERED: ATRINS INH (10:38)
[2016-12-01] MEDS ORDERED: GFNSR600 PO (10:38)
[2016-12-01] MEDS ORDERED: ATV5 PO (11:00)
[2016-12-01] MEDS ORDERED: RXNS10 PO (11:00)
== END 2016-11-15 16:26 | disposition home or self-care (01) | DRG 291 ==
LOC: C.EDB 16:33 → C.2E 19:35 → ENRESERV 19:42
PROVIDERS: ADMIT Hospitalist; ATTEND Internal Medicine
PROC: 0W9B3ZX Drainage of Left Pleural Cavity, Percutaneous Approach, Diagnostic (ICD-10-PCS; principal; 2016-11-11)
DX: I11.0 Hypertensive heart disease with heart failure (principal); J96.21 Acute and chronic respiratory failure with hypoxia; C15.9 Malignant neoplasm of esophagus, unspecified; C78.00 Secondary malignant neoplasm of unspecified lung; I50.33 Acute on chronic diastolic (congestive) heart failure; J18.9 Pneumonia, unspecified organism; J44.1 Chronic obstructive pulmonary disease with (acute) exacerbation; K56.60 Unspecified intestinal obstruction; J96.22 Acute and chronic respiratory failure with hypercapnia; E46 Unspecified protein-calorie malnutrition; K22.70 Barrett's esophagus without dysplasia; E11.40 Type 2 diabetes mellitus with diabetic neuropathy, unspecified; E78.5 Hyperlipidemia, unspecified; Z89.512 Acquired absence of left leg below knee; E66.01 Morbid (severe) obesity due to excess calories; G62.9 Polyneuropathy, unspecified; Z87.891 Personal history of nicotine dependence; G47.33 Obstructive sleep apnea (adult) (pediatric)

== ENCOUNTER 2016-11-24 16:04 | Inpatient (IN) | payer OTHER ==
[~2016-11-24] VITALS: Ht 172.7 cm; Wt 129.0 kg
[~2016-11-24 16:04] MED LIST changes: -ALBU18002 INH; +CITA40TA12 PO; -FLUT0.15; -HYZ/50125 PO; +LOSA1TAB PO; +LPR25 PO; +LSX40 PO; +MULT1TAB56 PO; +OMEG10007 PO; +POTA10CA28 PO; +PRAV20TA PO; +PRT40 PO; +REPA2TAB13 PO; +SPR25 PO
[2016-11-24] MEDS ORDERED: METO25TA56 PO (17:04)
[2016-11-24] MEDS ORDERED: POTA10CA28 PO (17:04)
[2016-11-24] MEDS ORDERED: FRS/40 PO (17:04)
[2016-11-24] MEDS ORDERED: SPIR25TA PO (17:04)
--- NOTE | 2016-11-24 17:12 | DIAGNOSTIC IMAGING REPORT ---
CHEST ONE VIEW PORTABLE CLINICAL HISTORY: Respiratory distress. Dyspnea. COMPARISON STUDY: Chest radiograph November 14, 2016. FINDINGS: A right internal jugular [id number] is in place. Cardiomediastinal silhouette is stable. Mediastinal widening is unchanged. There is no pneumothorax. A small left pleural effusion is noted. Left lower lung airspace opacity has slightly increased. There is diffuse interstitial thickening. IMPRESSION: 1. No change in a small left pleural effusion. 2. Increasing left lower lung opacity which may reflect pneumonia or atelectasis. Radiographic follow up is recommended. 3. Persistent interstitial thickening which may reflect mild pulmonary edema. Electronically signed by: Ashish Arriola M.D. 11/24/2016 5:11 PM Dictated Date/Time: 11/24/2016 5:09 PM
[2016-11-24 17:13] LABS: BASO % 0.1 %; BASO ABS # 0.01 K/uL (0-0.2); COMPLETE YES; HEMATOCRIT 43.9 % (42-52); IG% 1.6 %; LYMPH % 5.2 %; LYMPH ABS # 0.98 K/uL (1.2-3.4); MEAN CELL VOLUME 86.8 fL (80-100); MEAN CORPUSCULAR HEMOGLOBIN 28.5 pg (25-34); MEAN CORPUSCULAR HGB CONC 32.8 g/dl (32-36); MEAN PLATELET VOLUME 10.2 fL (7.4-10.4); MONO % 5.8 %; NEUT % 87.3 %; PLATELET COUNT 202 K/uL (130-400); RED BLOOD COUNT 5.06 M/uL (4.7-6.1); WHITE BLOOD COUNT 18.85 K/uL (4.8-10.8)
[2016-11-24 17:17] LABS: VEN BLD GAS O2 SATURATION 92.5 %; VEN BLOOD GAS BASE EXCESS 4.7 mmol/L
[2016-11-24 17:22] LABS: INR 1.1 (0.9-1.1); PARTIAL THROMBOPLASTIN RATIO 1.2; PROTHROMBIN TIME (PATIENT) 11.3 SECONDS (9.0-12.0)
[2016-11-24] MEDS ORDERED: FLUT230A INH (17:29)
[2016-11-24 17:31] LABS: ALT/SGPT 27 U/L (12-78); BLOOD UREA NITROGEN 22 mg/dl (7-18); BUN/CREATININE RATIO 23.9 (10-20); CALCIUM 9.3 mg/dl (8.5-10.1); CARBON DIOXIDE 29 mmol/L (21-32); CHLORIDE 100 mmol/L (98-107); CREATININE 0.92 mg/dl (0.60-1.40); GLUCOSE 276 mg/dl (70-99); POTASSIUM 4.2 mmol/L (3.5-5.1); SODIUM 137 mmol/L (136-145)
[2016-11-24 17:35] LABS: ALB/GLOB RATIO 0.8 (0.9-2); ALKALINE PHOSPHATASE 96 U/L (45-117); AST/SGOT 12 U/L (15-37)
[2016-11-24] MEDS ORDERED: DPRO15 TOP (17:43)
[2016-11-24] MEDS ORDERED: IPRASOL4 INH (17:45)
[2016-11-24] MEDS ORDERED: ALBUTEROL 0.083% NEBU SOLN 3 ML VIAL INH STA (18:27)
--- NOTE | 2016-11-24 19:32 | DIAGNOSTIC IMAGING REPORT ---
ULTRASOUND RIGHT LOWER EXTREMITY VENOUS CLINICAL HISTORY: Right leg swelling. COMPARISON STUDY: Bilateral lower extremity venous ultrasound dated 10/24/2015. TECHNIQUE: Real-time, grayscale, and color Doppler sonography of the deep veins of the right lower extremity was performed from the inguinal crease to the calf. Compression and augmentation were utilized. FINDINGS: There is no sonographic evidence of deep venous thrombosis identified in the right lower extremity. The common femoral, superficial femoral, and popliteal veins are patent and normally compressible. The greater saphenous vein and the profunda femoris vein at the junction with the common femoral vein are clear. The visualized calf veins are patent. IMPRESSION: There is no sonographic evidence of deep venous thrombosis identified in the right lower extremity. Electronically signed by: Rl Sauceda M.D. 11/24/2016 7:31 PM Dictated Date/Time: 11/24/2016 7:30 PM
[2016-11-24] MEDS ORDERED: FUROSEMIDE INJ 40 MG in SYRINGE 0 ML IV ONE (19:45)
[2016-11-24] MEDS ORDERED: METHYLPREDNISOLONE IV 20 MG in SYRINGE 0 ML IV STA (20:15)
[2016-11-24] MEDS ORDERED: NITROGLYCERIN 0.4 MG SL PER TAB CHARGE SL PRN (20:30)
[2016-11-24] MEDS ORDERED: LEVALBUTEROL/IPRATROPIUM NEB INH PRN (20:30)
[2016-11-24] MEDS ORDERED: GLUCOSE 40% GEL 15 GM TUBE PO PRN ×2 (20:30)
[2016-11-24] MEDS ORDERED: MoRPHine SULFATE 4 MG/ML 1 ML CARP\\VIAL IV PRN (20:30)
[2016-11-24] MEDS ORDERED: GLUCAGON FOR INJ 1 MG VIAL SQ PRN ×2 (20:30)
[2016-11-24] MEDS ORDERED: MAGNESIUM SULFATE 1GM / D5W 1 GM BAG IV SCH (20:30)
[2016-11-24] MEDS ORDERED: ONDANSETRON INJ 2 MG/ML 2 ML VIAL IV PRN (20:30)
[2016-11-24] MEDS ORDERED: INSULIN GLARGINE SOLOSTAR 100 UNITS/ML 3 ML PEN SC ONE (20:30)
[2016-11-24] MEDS ORDERED: ACETAMINOPHEN 325 MG TAB PO PRN (20:30)
[2016-11-24] MEDS ORDERED: GLUCOSE 10 TABS/TUBE PO PRN ×2 (20:30)
[2016-11-24] MEDS ORDERED: LEVAQUIN 750MG / 150ML D5W IV SCH (20:30)
[2016-11-24] MEDS ORDERED: DEXTROSE 50% 50 ML SYR IV PRN ×2 (20:30)
[2016-11-24 21:00] VITALS: BP 133/71; PULSE 56; TEMP 36.9; O2SAT 94; BMI 43.7
[2016-11-24] MEDS ORDERED: CEROVITE ADV FORMULA TAB PO SCH (21:00)
[2016-11-24] MEDS ORDERED: LEVALBUTEROL/IPRATROPIUM NEB INH SCH (21:00)
[2016-11-24 21:07] VITALS: BP 133/71; PULSE 56; TEMP 36.9; O2SAT 94
--- NOTE | 2016-11-24 21:09 | History and Physical ---
History & Physical Date & Time of Service: Nov 24, 2016 at 21:09 Chief Complaint: Cough, shortness of breath Primary Care Physician: Esther Lopez D.O. History of Present Illness Source: patient, partner, clinic records, hospital records Recent confinement last month for shortness of breath deemed to be multifactorial - COPD, lung involvement of esophageal cancer, diastolic dysfunction. Few days history of dry cough symptoms, patient unable to expectorate denies aspiration. No fever no chills Increasing shortness of breath Some right leg swelling. Patient combined with home meds. No inordinate weight gain. Patient actually losing weight because of poor appetite as per . Patient sent by his oncologist to the ER.. Past Medical/Surgical History Medical Problems: (1) Howard esophagus Status: Chronic (2) Diabetic neuropathy Status: Chronic (3) DM2 (diabetes mellitus, type 2) Status: Chronic (4) Dyslipidemia Status: Chronic (5) Esophageal cancer Permanent Comment: DIAGNOSIS: Esophagus, adenocarcinoma, uT2N1 stage IIB Status post completion of combined radiation and chemotherapy radiation completed 11/02/2015 Received 5040 cGy Status: Chronic w/ pleural spread (6) HTN (hypertension) Status: Chronic Surgical Problems: (1) Amputation of leg Status: Chronic (2) H/O hernia repair Status: Chronic (3) History of carpal tunnel surgery Status: Chronic Family History FH: esophageal cancer BROTHER FH: leukemia FATHER Stroke MOTHER SISTER Social History Smoking Status: Former Smoker Alcohol Use: none (as per HPI, all other ROS negative) Drug Use: none Marital Status: 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, 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) Immunizations History of Influenza Vaccine: Yes Influenza Vaccine Date: Mar 23, 2016 History of Tetanus Vaccine?: Yes Tetanus Immunization Date: Jan 24, 2010 History of Pneumococcal: Yes Pneumococcal Date: Jun 08, 2008 Multi-Drug Resistant Organisms History of MDRO: No Allergies Coded Allergies: Lisinopril (Verified Adverse Reaction, Mild, Cough, 11/09/16) Home Medications Scheduled Citalopram Hydrobromide (Celexa), 1 TAB PO QPM Fish Oil ([place]-3), 2 CAP PO DAILY Fluticasone-Salmeterol 230/21 Mcg (Advair Hfa 230/21 Mcg), 2 PUFFS INH BID Furosemide (Lasix), 40 MG PO DAILY Glyburide (Micronase), 15 MG PO QPM Ipratropium-Albuterol (Duoneb), 3 ML INH DAILY Losartan Potassium (Cozaar), 25 MG PO DAILY Metoprolol Tartrate (Lopressor) (Lopressor), 25 MG PO BID Multiple Vitamins W/ Minerals (One Daily Adults 50+), 0.5 TAB PO BID Pantoprazole (Pantoprazole Sodium), 40 MG PO BID Pioglitazone (Actos), 1 TAB PO QPM Potassium Chloride (Micro-K Ext Rel), 10 MEQ PO QPM Pravastatin (Pravachol ), 20 MG PO DAILY Repaglinide (Prandin), 6 MG PO QPM Spironolactone (Aldactone), 12.5 MG PO QAM Scheduled PRN Betamethasone Dip Augmented (Augmented Betamethasone D), 1 APPLN TOP BID PRN for Physical Exam Vital Signs Date Time Temp Pulse Resp B/P (MAP) Pulse Ox O2 Delivery O2 Flow Rate FiO2 11/24/16 21:07 36.9 56 22 133/71 (91) 94 Nasal Cannula 4.0 11/24/16 20:12 54 24 135/74 96 Nasal Cannula 4.0 11/24/16 18:32 98 20 112/75 96 Nasal Cannula 4.0 11/24/16 17:06 94 Nasal Cannula 4.0 11/24/16 17:06 94 Nasal Cannula 4.0 11/24/16 16:11 36.7 101 26 117/70 90 Nasal Cannula 4.0 General Appearance: + moderate distress, + obese Head: normocephalic Eyes: normal inspection Neck: + pertinent finding (short) Respiratory/Chest: + respiratory distress, + decreased breath sounds, + accessory muscle use, + wheezing Cardiovascular: regular rate, rhythm Abdomen/GI: + distended Extremities/Musculoskelatal: + pertinent finding (some RLE edema, nontender; prosthetic leg left) Diagnostics Laboratory Results Results Past 24 Hours Test 11/24/16 16:55 11/24/16 20:17 Range/Units White Blood Count 18.85 4.8-10.8 K/uL Red Blood Count 5.06 4.7-6.1 M/uL Hemoglobin 14.4 14.0-18.0 g/dL Hematocrit 43.9 42-52 % Mean Corpuscular Volume 86.8 80-100 fL Mean Corpuscular Hemoglobin 28.5 25-34 pg Mean Corpuscular Hemoglobin Concent 32.8 32-36 g/dl Platelet Count 202 130-400 K/uL Mean Platelet Volume 10.2 7.4-10.4 fL Neutrophils (%) (Auto) 87.3 % Lymphocytes (%) (Auto) 5.2 % Monocytes (%) (Auto) 5.8 % Eosinophils (%) (Auto) 0.0 % Basophils (%) (Auto) 0.1 % Neutrophils # (Auto) 16.46 1.4-6.5 K/uL Lymphocytes # (Auto) 0.98 1.2-3.4 K/uL Monocytes # (Auto) 1.10 0.11-0.59 K/uL Eosinophils # (Auto) 0.00 0-0.5 K/uL Basophils # (Auto) 0.01 0-0.2 K/uL RDW Standard Deviation 54.6 36.4-46.3 fL RDW Coefficient of Variation 17.3 11.5-14.5 % Immature Granulocyte % (Auto) 1.6 % Immature Granulocyte # (Auto) 0.30 0.00-0.02 K/uL Prothrombin Time 11.3 9.0-12.0 SECONDS Prothromb Time International Ratio 1.1 0.9-1.1 Activated Partial Thromboplast Time 30.6 21.0-31.0 SECONDS Partial Thromboplastin Ratio 1.2 Venous Blood pH 7.45 7.36-7.41 Venous Blood Partial Pressure CO2 43 38.0-50.0 mmHg Venous Blood Partial Pressure O2 64 mmHg Venous Blood HCO3 29 mmol/L Venous Blood Oxygen Saturation 92.5 % Venous Blood Base Excess 4.7 mmol/L Sodium Level 137 136-145 mmol/L Potassium Level 4.2 3.5-5.1 mmol/L Chloride Level 100 98-107 mmol/L Carbon Dioxide Level 29 21-32 mmol/L Anion Gap 8.0 3-11 mmol/L Blood Urea Nitrogen 22 7-18 mg/dl Creatinine 0.92 0.60-1.40 mg/dl Est Creatinine Clear Calc Drug Dose 105.6 ml/min Estimated GFR () 100.8 Estimated GFR (Non- 87.0 BUN/Creatinine Ratio 23.9 10-20 Random Glucose 276 70-99 mg/dl Calcium Level 9.3 8.5-10.1 mg/dl Magnesium Level 1.8 1.8-2.4 mg/dl Total Bilirubin 1.0 0.2-1 mg/dl Aspartate Amino Transf (AST/SGOT) 12 15-37 U/L Alanine Aminotransferase (ALT/SGPT) 27 12-78 U/L Alkaline Phosphatase 96 45-117 U/L Troponin I < 0.015 0-0.045 ng/ml Pro-B-Type Natriuretic Peptide 230 0-900 pg/ml Total Protein 6.3 6.4-8.2 gm/dl Albumin 2.8 3.4-5.0 gm/dl Globulin 3.5 2.5-4.0 gm/dl Albumin/Globulin Ratio 0.8 0.9-2 Microbiology Results 11/24/16 Blood Culture, Bridger Batch Pending 11/24/16 Blood Culture, Bridger Batch Pending Diagnostic Radiology Infiltrate left, interstitial congestion, small pleural effusion other (infiltrate left) EKG As per my read: Rate 100 normal sinus rhythm low voltage Impression Assessment and Plan AP Acute on chronic hypoxemic respiratory failure secondary to COPD exacerbation secondary to healthcare associated pneumonia Possible sepsis Chronic diastolic heart failure, minimal congestion Esophageal cancer with pulmonary spread status post chemoradiation, chemotherapy has been on hold Mild AMARA as per records past tobacco abuse HTN, stable DM 2 on oral meds reasonable control as of recent HgA1c, BGs elevated PCU Supplemental O2 Cultures, Levaquin Nebs steroids Continue home diuretic Pulmo opinion COPD exacerbation patient known to Dr. Workman Basal insulin, ISS BG goal 140-180 DVT prophylaxis Lovenox subcutaneous DO NOT RESUSCITATE Total critical care time was 40 mins. VTE Prophylaxis VTE Risk Assessment Done? Y/N: Yes Risk Level: Moderate
[2016-11-24] MEDS ORDERED: MAGNESIUM SULFATE 1GM / D5W 1 GM in PREMIXED IN D5W 100 ML IV STA (22:03)
[2016-11-24] MEDS ORDERED: LEVOFLOXACIN 750MG / D5W IV STA (22:09)
[2016-11-24] MEDS: PANTOprazole SOD 40 MG TAB PO SCH (23:16)
[2016-11-24] MEDS: CITALOPRAM 40 MG TAB PO SCH (23:16)
[2016-11-24] MEDS: GUAIFENESIN 600 MG TABCR PO SCH (23:16)
[2016-11-24] MEDS: METOPROLOL TARTRATE 25 MG TAB PO SCH (23:16)
[2016-11-24] MEDS: POTASSIUM CHLORIDE 10 MEQ TABCR PO SCH (23:16)
[2016-11-24] MEDS: ENOXAPARIN 40 MG/0.4 ML SYR SC SCH (23:16)
[2016-11-24] MEDS: INSULIN GLARGINE SOLOSTAR 100 UNITS/ML 3 ML PEN SC SCH (23:17)
[2016-11-24] MEDS: INSULIN ASPART 100 UNITS/ML 3 ML PEN SC SCH (23:18)
--- NOTE | 2016-11-24 23:40 | EMERGENCY ROOM VISIT NOTE ---
History Report prepared by Thang: Zan Vance Under the Supervision of: Dr. Zackary Hendricks D.O. First contact with patient: 16:21 Chief Complaint: RESPIRATORY PROBLEMS Stated Complaint: RESPIRATORY DISTRESS,FLUID ON LUNGS History of Present Illness The patient is a 66 year old male with CHF, moderate COPD and metastatic esophageal cancer stage 4 and a history of diastolic heart failure and obstructive pulmonary disorder who presents to the Emergency Room with complaints of worsening respiratory problems that started 4 days ago. The patient was sent here by Dr. Epps of hematology. The patient's says that the patient was hospitalized here last week and left here around 9 days ago. He had a thoracentesis with 500 ml's drained. The patient got a bit better, but then around 4 days ago, he started getting a cough again, and has had worsening shortness of breath. The patient's legs and feet are more swollen again, and he was told that he has fluid back in his lungs. He says that he is normally on 2 liters at home, but his machine has gone up to 3 or 4 liters for the past few days. The patient has been eating very little recently. He denies any back pain , chest pain, or bowel problems. He took his Lasix this morning. The patient has not had any recent chemotherapy or radiation. He has no history of blood clots in his lungs. Source of History: patient, spouse/significant other Onset: 4 days ago Position: other (global - respiratory problems) Timing: worsening Associated Symptoms: + cough, + SOB, No chest pain, No back pain Note: Associated symptoms: Minimal appetite. Leg and feet swelling. Denies bowel problems. Review of Systems See HPI for pertinent positives & negatives. A total of 10 systems reviewed and were otherwise negative. Past Medical & Surgical Medical Problems: (1) Howard esophagus (2) Diabetic neuropathy (3) DM2 (diabetes mellitus, type 2) (4) Dyslipidemia (5) Esophageal cancer (6) HTN (hypertension) (7) Respiratory failure, acute Surgical Problems: (1) Amputation of leg (2) H/O hernia repair (3) History of carpal tunnel surgery Family History FH: esophageal cancer BROTHER FH: leukemia FATHER Stroke MOTHER SISTER Social History Smoking Status: Former Smoker Drug Use: none Marital Status: Housing Status: lives with family Current/Historical Medications Scheduled Citalopram Hydrobromide (Celexa), 1 TAB PO QPM Fish Oil ([place]-3), 2 CAP PO DAILY Fluticasone-Salmeterol 230/21 Mcg (Advair Hfa 230/21 Mcg), 2 PUFFS INH BID Furosemide (Lasix), 40 MG PO DAILY Glyburide (Micronase), 15 MG PO QPM Ipratropium-Albuterol (Duoneb), 3 ML INH DAILY Losartan Potassium (Cozaar), 25 MG PO DAILY Metoprolol Tartrate (Lopressor) (Lopressor), 25 MG PO BID Multiple Vitamins W/ Minerals (One Daily Adults 50+), 0.5 TAB PO BID Pantoprazole (Pantoprazole Sodium), 40 MG PO BID Pioglitazone (Actos), 1 TAB PO QPM Potassium Chloride (Micro-K Ext Rel), 10 MEQ PO QPM Pravastatin (Pravachol ), 20 MG PO DAILY Repaglinide (Prandin), 6 MG PO QPM Spironolactone (Aldactone), 12.5 MG PO QAM Scheduled PRN Betamethasone Dip Augmented (Augmented Betamethasone D), 1 APPLN TOP BID PRN for Allergies Coded Allergies: Lisinopril (Verified Adverse Reaction, Mild, Cough, 11/09/16) Physical Exam Vital Signs Date Time Temp Pulse Resp B/P (MAP) Pulse Ox O2 Delivery O2 Flow Rate FiO2 11/24/16 20:12 54 24 135/74 96 Nasal Cannula 4.0 11/24/16 18:32 98 20 112/75 96 Nasal Cannula 4.0 11/24/16 17:06 94 Nasal Cannula 4.0 11/24/16 17:06 94 Nasal Cannula 4.0 11/24/16 16:11 36.7 101 26 117/70 90 Nasal Cannula 4.0 Physical Exam GENERAL: ill appearing, sitting up in bed, dyspneic with conversation. On 2 liters nasal cannula. EYE EXAM: normal conjunctiva OROPHARYNX: no exudate, no erythema, lips, buccal mucosa, and tongue normal and mucous membranes are moist NECK: supple, no nuchal rigidity, no adenopathy, non-tender LUNGS: Poor air movement with crackles at bilateral bases HEART: no murmurs, S1 normal and S2 normal ABDOMEN: abdomen soft, non-tender, normo-active bowel sounds, no masses, no rebound or guarding. BACK: Back is symmetrical on inspection and there is no deformity, no midline tenderness, no CVA tenderness. SKIN: no rashes and no bruising UPPER EXTREMITIES: upper extremities are grossly normal. LOWER EXTREMITIES: Pitting edema in right lower extremity. Left lower extremity above knee amputation. NEURO EXAM: Normal sensorium, cranial nerves II-XII grossly intact, normal speech, no gross weakness of arms, no gross weakness of legs. Medical Decision & Procedures ER Provider Diagnostic Interpretation: X-ray results as stated below per my review and the radiologist's interpretation : CHEST ONE VIEW PORTABLE CLINICAL HISTORY: Respiratory distress. Dyspnea. COMPARISON STUDY: Chest radiograph November 14, 2016. FINDINGS: A right internal jugular [place] is in place. Cardiomediastinal silhouette is stable. Mediastinal widening is unchanged. There is no pneumothorax. A small left pleural effusion is noted. Left lower lung airspace opacity has slightly increased. There is diffuse interstitial thickening. IMPRESSION: 1. No change in a small left pleural effusion. 2. Increasing left lower lung opacity which may reflect pneumonia or atelectasis. Radiographic follow up is recommended. 3. Persistent interstitial thickening which may reflect mild pulmonary edema. Electronically signed by: Ashish Arriola M.D. 11/24/2016 5:11 PM Dictated Date/Time: 11/24/2016 5:09 PM Laboratory Results 11/24/16 16:55 Red Blood Count 5.06, Mean Corpuscular Volume 86.8, Mean Corpuscular Hemoglobin 28.5, Mean Corpuscular Hemoglobin Concent 32.8, Mean Platelet Volume 10.2, Neutrophils (%) (Auto) 87.3, Lymphocytes (%) (Auto) 5.2, Monocytes (%) (Auto) 5.8, Eosinophils (%) (Auto) 0.0, Basophils (%) (Auto) 0.1, Neutrophils # (Auto) 16.46, Lymphocytes # (Auto) 0.98, Monocytes # (Auto) 1.10, Eosinophils # (Auto) 0.00, Basophils # (Auto) 0.01 11/24/16 16:55 Test 11/24/16 16:55 White Blood Count 18.85 K/uL (4.8-10.8) Red Blood Count 5.06 M/uL (4.7-6.1) Hemoglobin 14.4 g/dL (14.0-18.0) Hematocrit 43.9 % (42-52) Mean Corpuscular Volume 86.8 fL (80-100) Mean Corpuscular Hemoglobin 28.5 pg (25-34) Mean Corpuscular Hemoglobin Concent 32.8 g/dl (32-36) Platelet Count 202 K/uL (130-400) Mean Platelet Volume 10.2 fL (7.4-10.4) Neutrophils (%) (Auto) 87.3 % Lymphocytes (%) (Auto) 5.2 % Monocytes (%) (Auto) 5.8 % Eosinophils (%) (Auto) 0.0 % Basophils (%) (Auto) 0.1 % Neutrophils # (Auto) 16.46 K/uL (1.4-6.5) Lymphocytes # (Auto) 0.98 K/uL (1.2-3.4) Monocytes # (Auto) 1.10 K/uL (0.11-0.59) Eosinophils # (Auto) 0.00 K/uL (0-0.5) Basophils # (Auto) 0.01 K/uL (0-0.2) RDW Standard Deviation 54.6 fL (36.4-46.3) RDW Coefficient of Variation 17.3 % (11.5-14.5) Immature Granulocyte % (Auto) 1.6 % Immature Granulocyte # (Auto) 0.30 K/uL (0.00-0.02) Prothrombin Time 11.3 SECONDS (9.0-12.0) Prothromb Time International Ratio 1.1 (0.9-1.1) Activated Partial Thromboplast Time 30.6 SECONDS (21.0-31.0) Partial Thromboplastin Ratio 1.2 Venous Blood pH 7.45 (7.36-7.41) Venous Blood Partial Pressure CO2 43 mmHg (38.0-50.0) Venous Blood Partial Pressure O2 64 mmHg Venous Blood HCO3 29 mmol/L Venous Blood Oxygen Saturation 92.5 % Venous Blood Base Excess 4.7 mmol/L Anion Gap 8.0 mmol/L (3-11) Est Creatinine Clear Calc Drug Dose 105.6 ml/min Estimated GFR () 100.8 Estimated GFR (Non- 87.0 BUN/Creatinine Ratio 23.9 (10-20) Calcium Level 9.3 mg/dl (8.5-10.1) Magnesium Level 1.8 mg/dl (1.8-2.4) Total Bilirubin 1.0 mg/dl (0.2-1) Aspartate Amino Transf (AST/SGOT) 12 U/L (15-37) Alanine Aminotransferase (ALT/SGPT) 27 U/L (12-78) Alkaline Phosphatase 96 U/L (45-117) Troponin I < 0.015 ng/ml (0-0.045) Pro-B-Type Natriuretic Peptide 230 pg/ml (0-900) Total Protein 6.3 gm/dl (6.4-8.2) Albumin 2.8 gm/dl (3.4-5.0) Globulin 3.5 gm/dl (2.5-4.0) Albumin/Globulin Ratio 0.8 (0.9-2) Laboratory results per my review. Medications Administered Medications (Trade) Dose Ordered Sig/[place] Route Start Time Stop Time Status Last Admin Dose Admin Albuterol Sulfate (Ventolin 0.083% 2.5MG/3ML Neb) 2.5 mg NOW STAT INH 11/24/16 18:27 11/24/16 18:29 DC 11/24/16 18:34 2.5 MG Furosemide 40 mg/ Syringe 4 ml @ 4 mls/min 5 ONCE IV 11/24/16 19:45 11/24/16 19:46 DC 11/24/16 20:18 4 MLS/MIN Methylprednisolone Sodium Succinate (Solu-Medrol IV) 40 mg STK-MED ONCE .ROUTE 11/24/16 20:15 11/24/16 20:16 DC 11/24/16 20:18 20 MG ECG Indication: SOB/dyspnea Rate (beats per minute): 100 Rhythm: sinus tachycardia Findings: other (Nonspecific ST wave changes in lateral leads, normal axis) ED Course ED COURSE: Vital signs were reviewed and showed tachycardic vitals. The patients medical record was reviewed The above diagnostic studies were performed and reviewed. ED treatments and interventions as stated above. 1625: The patient was evaluated in room B10. A complete history and physical examination was performed. 1707: I discussed the patient with Dr. Epps of [facility] hematology oncology. 1827: Ordered Ventolin 0.083% 2.5MG/3ML Neb 2.5 mg INH. 1833: Upon reevaluation, the patient is resting.I discussed my findings with the patient and he understands and agrees with the treatment plan. Based on the patients age, coexisting illnesses, exam and lab findings the decision to treat as an inpatient was made. The patient remained stable while under my care. The patient will be evaluated for further management. 184: I discussed the patient with Dr. Darian Epperson bargeman - she will evaluate the patient for further treatment. Medical Decision Differential diagnoses includes but is not limited to pneumonia, bronchitis, COPD/Asthma exacerbation, pneumothorax, pulmonary embolism, congestive heart failure, acute coronary syndrome Blood pressure screening: Patient was found to have normal blood pressure on screening and does not require follow-up. Medication Reconciliation: I attest that I have personally reviewed the patient' s current medication list. 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 He has stage IV metastatic esophageal cancer and is no longer undergoing chemotherapy/radiation. He also has moderate COPD and diastolic heart 5. Last admission he was diuresed and thoracentesis was performed. Chest x-ray appears to be same as his last admission. He does have pitting edema in his right lower extremity. Duplex of his right lower extremity shows no clots. Troponin was negative. Patient was updated bedside and is admitted to internal medicine for shortness of breath secondary to CHF and pleural effusion. I did consider PE but did not explore this with his negative ultrasound and symptoms consistent with his last presentation following which he had a negative CT PE. Consults Time Called: 1700 Consulting Physician: Dr. Epps of [facility] hematology oncology Returned Call: 1707 I discussed the patient with Dr. Epps of [facility] hematology oncology. Additional Consults: Time Called: 1835 Consulted Physician: Dr. Darian Epperson bargeman Returned Call: 1841 Additional Comments: I discussed the patient with Dr. Darian Epperson bargeman - she will evaluate the patient for further treatment. Impression Primary Impression: CHF (congestive heart failure) Additional Impressions: Pleural effusion Hypoxia COPD (chronic obstructive pulmonary disease) Scribe Attestation The scribe's documentation has been prepared under my direction and personally reviewed by me in its entirety. I confirm that the note above accurately reflects all work, treatment, procedures, and medical decision making performed by me. Departure Information Dispostion Being Evaluated By Hospitalist Referrals Esther Lopez D.O. (PCP) Patient Instructions My [facility] Problem Qualifiers Primary Impression: CHF (congestive heart failure) Congestive heart failure type: unspecified congestive heart failure type Congestive heart failure chronicity: unspecified congestive heart failure chronicity Qualified Codes: I50.9 - Heart failure, unspecified Additional Impressions: COPD (chronic obstructive pulmonary disease) COPD type: unspecified COPD Qualified Codes: J44.9 - Chronic obstructive pulmonary disease, unspecified
[2016-11-24 23:50] VITALS: BP 114/83; PULSE 102; TEMP 36.8; O2SAT 98
[2016-11-25] VITALS (10 sets, daily range): BP systolic 91–141; BP diastolic 59–78; PULSE 53–98; TEMP 36.5–37; O2SAT 91–98
[2016-11-25] MEDS: TRAMADOL HCL 50 MG TAB PO PRN (00:51)
[2016-11-25] MEDS: IPRATROPIUM BROMIDE NEB SOLN 0.02% 2.5 ML VIAL INH SCH ×4 (02:31→19:18)
[2016-11-25] MEDS: LEVALBUTEROL 1.25MG/0.5ML NEB INH SCH ×4 (02:31→19:18)
[2016-11-25 06:38] LABS: BASO % 0.1 %; BASO ABS # 0.02 K/uL (0-0.2); COMPLETE YES; IG% 1.6 %; LYMPH % 7.5 %; LYMPH ABS # 1.41 K/uL (1.2-3.4); MEAN CELL VOLUME 86.1 fL (80-100); MEAN CORPUSCULAR HEMOGLOBIN 28.2 pg (25-34); MEAN CORPUSCULAR HGB CONC 32.7 g/dl (32-36); MEAN PLATELET VOLUME 9.8 fL (7.4-10.4); MONO % 7.1 %; NEUT % 83.7 %; PLATELET COUNT 184 K/uL (130-400); RED BLOOD COUNT 4.76 M/uL (4.7-6.1)
[2016-11-25] MEDS: INSULIN ASPART 100 UNITS/ML 3 ML PEN SC SCH ×4 (07:00→20:47)
[2016-11-25 07:17] LABS: BUN/CREATININE RATIO 30.8 (10-20); CALCIUM 8.9 mg/dl (8.5-10.1); CREATININE 0.73 mg/dl (0.60-1.40); POTASSIUM 3.8 mmol/L (3.5-5.1)
[2016-11-25] MEDS: METOPROLOL TARTRATE 25 MG TAB PO SCH ×2 (07:35→20:44)
[2016-11-25] MEDS: SPIRONOLACTONE 25 MG TAB PO SCH (07:35)
[2016-11-25] MEDS: GUAIFENESIN 600 MG TABCR PO SCH ×2 (07:35→20:44)
[2016-11-25] MEDS: LOSARTAN POTASSIUM 25 MG TAB PO SCH (07:35)
[2016-11-25] MEDS: PANTOprazole SOD 40 MG TAB PO SCH ×2 (07:36→20:44)
[2016-11-25] MEDS: PRAVASTATIN SOD 20 MG TAB PO SCH (07:36)
[2016-11-25] MEDS: INSULIN GLARGINE SOLOSTAR 100 UNITS/ML 3 ML PEN SC SCH (07:38)
[2016-11-25] MEDS ORDERED: FUROSEMIDE 40 MG TAB PO SCH (09:00)
[2016-11-25] MEDS ORDERED: INSULIN GLARGINE SOLOSTAR 100 UNITS/ML 3 ML PEN SC SCH (09:00)
[2016-11-25] MEDS ORDERED: LEVOFLOXACIN CONSULT ACTIVE PRN (09:00)
--- NOTE | 2016-11-25 09:20 | Pulmonary Consultation ---
History General Date of Service: Nov 25, 2016. Stated Complaint: Respiratory Failure, Acute HPI The patient is a 66 year old male who presents to [facility] with complaints of Respiratory Failure, Acute. The patient's primary care provider is Esther Lopez D.O.. The patient has been having shortness of breath for several months. In May and June he felt that he was having sinus problems. It never seemed to clear out. In July she gradually developed increasing shortness of breath. This became more and more problematic. He was hospitalized from October 20 until October 22 with shortness of breath. He did not seem to improve. Pertinent history is that he has esophageal carcinoma. This was diagnosed approximately 2014. He was treated with chemotherapy and radiation therapy. Subsequently he was felt to have metastatic disease to lymph nodes. He underwent a trial of different chemotherapy. More recently he has been found to have mediastinal and hilar lymphadenopathy. He had a subcarinal node measuring 1.7 cm. He had a right hilar node is running 2.7 cm. He had a left hilar node measuring 2 cm. He also had developed bilateral pleural effusions greater on the left. The patient also had a CAT scan relatively recently showing bilateral lung nodules. It was unclear if these were inflammatory or neoplastic. The patient has had a few courses of steroids and antibiotics and bronchodilators without dramatic improvement. He was admitted to [facility] in the [facility] from November 09 until November 15. At that time he was markedly edematous. He had a left thoracentesis done by Dr. Driver with removal of approximately 900 mL vessel fluid. The cytology of the pleural fluid was positive for metastatic esophageal carcinoma. The patient was also thought to have some diastolic congestive heart failure during that hospital stay. He did respond moderately to diuretic therapy. Over the course of the hospital stay he had a diuresis of over 7 L. He was doing pretty well at the time of discharge. However he was only home for 3 or 4 days when he started to develop worsening shortness of breath once again. This has become progressive. He cannot walk 3 or 4 steps without getting very winded. He feels air hunger. He has oxygen at home. His oxygen saturations have been able to be maintained but he has been short of breath despite that. Patient is coughing frequently. It is nonproductive. The patient does have some degree of COPD which contributes to his shortness of breath no doubt. He also underwent a sleep study recently. This showed very mild sleep apnea. The patient has not been interested in a trial of nasal CPAP. He did have some BiPAP during his last hospital stay and he felt very uncomfortable with it. On the date of this admission the patient had gone to see Dr. Epps. She referred him to the emergency room upon noticing his severe dyspnea. Review of Systems In addition to the above-mentioned complaints the patient reports a very low energy level. He has not had any chills fevers or sweats. He has not been sleeping well. He states sometimes it feels like he hardly sleeps. He will sleep for 15 minutes and then awakened with coughing and shortness of breath. He is thirsty. He has been trying to watch his oral intake of liquids. He denies any bowel problems or urine problems at present. He has noticed swelling of his legs and also of his right arm. The remainder of the review of systems is otherwise negative. 10 systems were reviewed. Cardiovascular: reports: chest tightness, orthopnea Past Medical History Past Medical History: Howard's esophagus Diabetes mellitus Diabetic neuropathy Hyperlipidemia Hypertension Esophageal CA COPD Diastolic CHF Pleural effusion-malignant on left Mild obstructive sleep apnea Mediastinal and hilar adenopathy Past Surgical History: Hiatal hernia with multiple follow-up surgeries totaling approximately 6 Left below-knee amputation as a child Family History FH: esophageal cancer BROTHER FH: leukemia FATHER Stroke MOTHER SISTER Social History Tobacco-one pack per day for 15 years, none for 30 years. 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) Immunizations History of Influenza Vaccine: Yes Influenza Vaccine Date: Mar 23, 2016 History of Tetanus Vaccine?: Yes Tetanus Immunization Date: Jan 24, 2010 History of Pneumococcal: Yes Pneumococcal Date: Jun 08, 2008 History of MDRO History of MDRO: No Allergies Coded Allergies: Lisinopril (Verified Adverse Reaction, Mild, Cough, 11/09/16) Current Medications Reported Home Medications Medications Dose Route/Sig Max Daily Dose Days Date Category Dose Instructions Aldactone (Spironolactone) 25 Mg Tab 12.5 Mg PO QAM 11/24/16 Reported Micro-K Ext Rel (Potassium Chloride) 10 Meq Capcr 10 Meq PO QPM 11/24/16 Reported Lopressor (Metoprolol Tartrate) 25 Mg Tab 25 Mg PO BID 11/24/16 Reported Lasix (Furosemide) 40 Mg Tab 40 Mg PO DAILY 11/24/16 Reported Duoneb (Ipratropium-Albuterol) 3 Ml Nebu 3 Ml INH DAILY 11/09/16 Reported Augmented Betamethasone D (Betamethasone Dip Augmented) 90 Appln/15 Gm Oint 1 Appln TOP BID PRN 11/09/16 Reported APPLY OINTMENT TWICE DAILY TO [place] Advair Hfa 230/21 Mcg (Fluticasone-Salmeterol 230/21 Mcg) 1 Aer Aer 2 Puffs INH BID 11/09/16 Reported Cozaar (Losartan Potassium) 25 Mg Tab 25 Mg PO DAILY 10/20/16 Reported One Daily Adults 50+ (Multiple Vitamins W/ Minerals) 1 Tab Tab 0.5 Tab PO BID 10/20/16 Reported [place]-3 (Fish Oil) 1 Ea Cap 2 Cap PO DAILY 10/22/15 Reported Pantoprazole Sodium (Pantoprazole) 40 Mg Tab 40 Mg PO BID 10/22/15 Reported Micronase (Glyburide) 5 Mg Tab 15 Mg PO QPM 10/22/15 Reported Actos (Pioglitazone) 30 Mg Tab 1 Tab PO QPM 30 10/22/15 Reported Celexa (Citalopram Hydrobromide) 40 Mg Tab 1 Tab PO QPM 10/22/15 Reported Prandin (Repaglinide) 2 Mg Tab 6 Mg PO QPM 10/22/15 Reported TAKES AT SUPPER Pravachol (Pravastatin Sodium) 20 Mg Tab 20 Mg PO DAILY 10/22/15 Reported Physical Physical Exam Vital Signs: Date Time Temp Pulse Resp B/P (MAP) Pulse Ox O2 Delivery O2 Flow Rate FiO2 11/25/16 07:56 36.6 53 20 118/78 (91) 93 Nasal Cannula 2.0 11/25/16 07:09 96 16 97 Nasal Cannula 4.0 11/25/16 04:00 Nasal Cannula 4.0 11/25/16 03:55 36.7 90 20 91/59 (70) 91 Nasal Cannula 4.0 11/25/16 02:31 88 16 98 Nasal Cannula 4.0 11/25/16 00:00 Nasal Cannula 4.0 11/24/16 23:50 36.8 102 20 114/83 (93) 98 Nasal Cannula 4.0 11/24/16 21:07 36.9 56 22 133/71 (91) 94 Nasal Cannula 4.0 11/24/16 21:00 36.9 56 22 133/71 94 Nasal Cannula 4.0 11/24/16 20:12 54 24 135/74 96 Nasal Cannula 4.0 11/24/16 18:32 98 20 112/75 96 Nasal Cannula 4.0 11/24/16 17:06 94 Nasal Cannula 4.0 11/24/16 17:06 94 Nasal Cannula 4.0 11/24/16 16:11 36.7 101 26 117/70 90 Nasal Cannula 4.0 The patient is a 66-year-old male who was cooperative alert and oriented. He was mildly short of breath at rest. His weight is 128 kg and his BMI is 43. The pupils were reactive to light. The nasal passages were clear. Mouth exam revealed a Mallampati grade 3 pharynx. He has a large neck. No lymphadenopathy was palpable. The temperature today is 36.6. Heart rate is 90/m. The blood pressure is 118/ 78. The cardiac sounds were somewhat diminished. The chest showed somewhat diminished excursions. Percussion reveals dullness at the left base. Auscultation revealed decreased breath sounds at the left base. The respiratory rate was 20 breaths per minute. The oxygen saturation was 93% on 2 L nasal cannula. The abdomen is obese. He had multiple scars from prior surgeries. Bowel sounds were present. There was no tenderness to palpation masses or organomegaly. The right upper extremity seems somewhat edematous compared with the left and this is most noticeable on the dorsum of the hand. The right lower extremity has +2 edema. The left lower extremity is a prosthesis below the knee. Diagnostics Labs Results Past 24 Hours Test 11/24/16 16:55 11/24/16 21:10 11/24/16 21:38 11/25/16 06:23 Range/Units White Blood Count 18.85 18.70 4.8-10.8 K/uL Red Blood Count 5.06 4.76 4.7-6.1 M/uL Hemoglobin 14.4 13.4 14.0-18.0 g/dL Hematocrit 43.9 41.0 42-52 % Mean Corpuscular Volume 86.8 86.1 80-100 fL Mean Corpuscular Hemoglobin 28.5 28.2 25-34 pg Mean Corpuscular Hemoglobin Concent 32.8 32.7 32-36 g/dl Platelet Count 202 184 130-400 K/uL Mean Platelet Volume 10.2 9.8 7.4-10.4 fL Neutrophils (%) (Auto) 87.3 83.7 % Lymphocytes (%) (Auto) 5.2 7.5 % Monocytes (%) (Auto) 5.8 7.1 % Eosinophils (%) (Auto) 0.0 0.0 % Basophils (%) (Auto) 0.1 0.1 % Neutrophils # (Auto) 16.46 15.64 1.4-6.5 K/uL Lymphocytes # (Auto) 0.98 1.41 1.2-3.4 K/uL Monocytes # (Auto) 1.10 1.33 0.11-0.59 K/uL Eosinophils # (Auto) 0.00 0.00 0-0.5 K/uL Basophils # (Auto) 0.01 0.02 0-0.2 K/uL RDW Standard Deviation 54.6 53.7 36.4-46.3 fL RDW Coefficient of Variation 17.3 17.1 11.5-14.5 % Immature Granulocyte % (Auto) 1.6 1.6 % Immature Granulocyte # (Auto) 0.30 0.30 0.00-0.02 K/uL Prothrombin Time 11.3 9.0-12.0 SECONDS Prothromb Time International Ratio 1.1 0.9-1.1 Activated Partial Thromboplast Time 30.6 21.0-31.0 SECONDS Partial Thromboplastin Ratio 1.2 Venous Blood pH 7.45 7.36-7.41 Venous Blood Partial Pressure CO2 43 38.0-50.0 mmHg Venous Blood Partial Pressure O2 64 mmHg Venous Blood HCO3 29 mmol/L Venous Blood Oxygen Saturation 92.5 % Venous Blood Base Excess 4.7 mmol/L Sodium Level 137 137 136-145 mmol/L Potassium Level 4.2 3.8 3.5-5.1 mmol/L Chloride Level 100 101 98-107 mmol/L Carbon Dioxide Level 29 30 21-32 mmol/L Anion Gap 8.0 6.0 3-11 mmol/L Blood Urea Nitrogen 22 23 7-18 mg/dl Creatinine 0.92 0.73 0.60-1.40 mg/dl Est Creatinine Clear Calc Drug Dose 105.6 131.7 ml/min Estimated GFR () 100.8 112.8 Estimated GFR (Non- 87.0 97.3 BUN/Creatinine Ratio 23.9 30.8 10-20 Random Glucose 276 146 70-99 mg/dl Calcium Level 9.3 8.9 8.5-10.1 mg/dl Magnesium Level 1.8 1.8-2.4 mg/dl Total Bilirubin 1.0 0.2-1 mg/dl Aspartate Amino Transf (AST/SGOT) 12 15-37 U/L Alanine Aminotransferase (ALT/SGPT) 27 12-78 U/L Alkaline Phosphatase 96 45-117 U/L Troponin I < 0.015 0-0.045 ng/ml Pro-B-Type Natriuretic Peptide 230 0-900 pg/ml Total Protein 6.3 6.4-8.2 gm/dl Albumin 2.8 3.4-5.0 gm/dl Globulin 3.5 2.5-4.0 gm/dl Albumin/Globulin Ratio 0.8 0.9-2 Bedside Glucose 225 70-99 mg/dl Lactic Acid Level 1.7 0.4-2.0 mmol/L Test 11/25/16 07:06 Range/Units Bedside Glucose 156 70-99 mg/dl Microbiology Results 11/24/16 Blood Culture, Received Pending 11/24/16 Blood Culture, Received Pending Impression Assessment and Plan Impressions 1 respiratory failure and severe shortness of breath-multifactorial 2 esophageal carcinoma with metastasis 3 malignant left pleural effusion 4 multiple lung nodules-suspicious for malignancy 5 COPD 6 mild AMARA 7 diastolic CHF 8 left lower lobe opacification-rule out pneumonia-less likely on clinical grounds Comments: The patient is doing poorly from a respiratory perspective. I suspect his progressive esophageal cancer with metastatic disease is the primary driving force in his symptoms. I believe a major part of his treatment at present should be comfort care with morphine or similar products. The patient is agreeable with this. I believe morphine would help his breathing significantly. We can try to treat anything that is reversible. Based upon multiple attempts in the past high-dose IV steroids have not helped him. I have no problem with giving him a short course of oral prednisone. I would consider giving the Lasix intravenously. It seemed to help better that way during his last hospital stay. Recommendations: 1 advise a trial of IV morphine or similar product 2 Suggest changing the Lasix to IV [address] Barrett to determine if there is enough fluid in the pleural space on the left for him to be a candidate for a Pleurx catheter 4 the patient is receiving neb treatments every 6 hours but would advise a when necessary levalbuterol in between.
--- NOTE | 2016-11-25 16:32 | Progress Note ---
Internal Med Progress Note Date of Service: Nov 25, 2016. Provider Documentation: SUBJECTIVE: still significantly SOB ,having marked orthopnea , OH cough persists still feels a bit better than yesterday present at bedside mentions -pt's appetite has gone down significantly will benefit form dietary consult and nutritional supplement pt does not care for boost or Ensure willing to try with Boost pudding OBJECTIVE: Vital Signs-as noted below Exam: General-chronically ill appearing Eyes-sclera non icteric ENT-NAd Neck-no JVD Lungs-diminished , rales at base Heart-regular S1/S2 Abdomen-soft, non tender Extremities-+ 1 lower ext edema Neuro-AAO x3 , no focal deficit Lab data as noted below. ASSESSMENT & PLAN: Acute on chronic hypoxemic respiratory failure : secondary to malignant pleural effusion -recurrence Esophageal CA with mets had thoracentesis done in last admission by Dr Dukes with drainage of approx 900 ml pathology of pleural effusion -metastatic esophageal CA appreciate input form Pulmonology very poor prognosis thoracic surgery consulted for possible Plurex catheter placement Lasix changed to IV as per pulmonary input hx of CHF with diastolic dysfunction -pt appears to be clinically dry will monitor Renal function with diuresis repeat Cxray in Am empiric Abx with Levaquin for possible pneumonia Esophageal cancer with pulmonary spread status post chemoradiation: not a candidate for chemo for progressively decline in functional status follows with Heme onc Dr Epps very poor prognosis Hospice care discussed with pt and family by Dr Epps last admission pt and family wanted to wait did not want any aggressive measure , was not in favor for chemo or radiation for side effect( now not a candidate ) willing to have Plurex catheter for symptom control /SOB CODE STATUS : very poor prognosis /advanced malignancy DO NOT RESUSCITATE DVT PROPHYLAXIS high risk for advanced malignancy Sub q Lovenox may have to be on hold for 12 -24 hr prior to Plurex catheter placement DISPOSITION discharge home when medically stable will need home health visiting nurse Medicine follow up with Dr Etsher Delgadillo updated at baseline Vital Signs: Date Time Temp Pulse Resp B/P (MAP) Pulse Ox O2 Delivery O2 Flow Rate FiO2 11/25/16 16:00 Nasal Cannula 11/25/16 15:20 36.5 96 20 129/76 (93) 97 Nasal Cannula 2.5 11/25/16 14:18 97 16 94 Nasal Cannula 2.0 11/25/16 12:00 Nasal Cannula 11/25/16 11:53 36.9 92 20 103/67 (79) 93 Nasal Cannula 2.0 11/25/16 08:00 Nasal Cannula 11/25/16 07:56 36.6 53 20 118/78 (91) 93 Nasal Cannula 2.0 11/25/16 07:09 96 16 97 Nasal Cannula 4.0 11/25/16 04:00 Nasal Cannula 4.0 11/25/16 03:55 36.7 90 20 91/59 (70) 91 Nasal Cannula 4.0 11/25/16 02:31 88 16 98 Nasal Cannula 4.0 11/25/16 00:00 Nasal Cannula 4.0 11/24/16 23:50 36.8 102 20 114/83 (93) 98 Nasal Cannula 4.0 11/24/16 21:07 36.9 56 22 133/71 (91) 94 Nasal Cannula 4.0 11/24/16 21:00 36.9 56 22 133/71 94 Nasal Cannula 4.0 11/24/16 20:12 54 24 135/74 96 Nasal Cannula 4.0 11/24/16 18:32 98 20 112/75 96 Nasal Cannula 4.0 11/24/16 17:06 94 Nasal Cannula 4.0 11/24/16 17:06 94 Nasal Cannula 4.0 Lab Results: Results Past 24 Hours Test 11/24/16 21:10 11/24/16 21:38 11/25/16 06:23 11/25/16 07:06 Range/Units Bedside Glucose 225 156 70-99 mg/dl Lactic Acid Level 1.7 0.4-2.0 mmol/L White Blood Count 18.70 4.8-10.8 K/uL Red Blood Count 4.76 4.7-6.1 M/uL Hemoglobin 13.4 14.0-18.0 g/dL Hematocrit 41.0 42-52 % Mean Corpuscular Volume 86.1 80-100 fL Mean Corpuscular Hemoglobin 28.2 25-34 pg Mean Corpuscular Hemoglobin Concent 32.7 32-36 g/dl Platelet Count 184 130-400 K/uL Mean Platelet Volume 9.8 7.4-10.4 fL Neutrophils (%) (Auto) 83.7 % Lymphocytes (%) (Auto) 7.5 % Monocytes (%) (Auto) 7.1 % Eosinophils (%) (Auto) 0.0 % Basophils (%) (Auto) 0.1 % Neutrophils # (Auto) 15.64 1.4-6.5 K/uL Lymphocytes # (Auto) 1.41 1.2-3.4 K/uL Monocytes # (Auto) 1.33 0.11-0.59 K/uL Eosinophils # (Auto) 0.00 0-0.5 K/uL Basophils # (Auto) 0.02 0-0.2 K/uL RDW Standard Deviation 53.7 36.4-46.3 fL RDW Coefficient of Variation 17.1 11.5-14.5 % Immature Granulocyte % (Auto) 1.6 % Immature Granulocyte # (Auto) 0.30 0.00-0.02 K/uL Sodium Level 137 136-145 mmol/L Potassium Level 3.8 3.5-5.1 mmol/L Chloride Level 101 98-107 mmol/L Carbon Dioxide Level 30 21-32 mmol/L Anion Gap 6.0 3-11 mmol/L Blood Urea Nitrogen 23 7-18 mg/dl Creatinine 0.73 0.60-1.40 mg/dl Est Creatinine Clear Calc Drug Dose 131.7 ml/min Estimated GFR () 112.8 Estimated GFR (Non- 97.3 BUN/Creatinine Ratio 30.8 10-20 Random Glucose 146 70-99 mg/dl Calcium Level 8.9 8.5-10.1 mg/dl Test 11/25/16 11:01 11/25/16 16:00 Range/Units Bedside Glucose 235 309 70-99 mg/dl Microbiology Results 11/24/16 Blood Culture, Received Pending 11/24/16 Blood Culture, Received Pending
[2016-11-25] MEDS: BOOST VANILLA PUDDING CUP PO SCH (17:15)
[2016-11-25] MEDS ORDERED: LEVOFLOXACIN 750MG / D5W IV SCH (20:00)
[2016-11-25] MEDS ORDERED: LORAZEPAM 0.5 MG TAB PO PRN (20:00)
[2016-11-25] MEDS: POTASSIUM CHLORIDE 10 MEQ TABCR PO SCH (20:44)
[2016-11-25] MEDS: LEVOFLOXACIN 500 MG TAB PO SCH (20:44)
[2016-11-25] MEDS: ENOXAPARIN 40 MG/0.4 ML SYR SC SCH (20:44)
[2016-11-25] MEDS: CITALOPRAM 40 MG TAB PO SCH (20:44)
[2016-11-26] VITALS (10 sets, daily range): BP systolic 96–123; BP diastolic 65–76; PULSE 89–108; TEMP 36.6–36.9; O2SAT 92–96
[2016-11-26] MEDS ORDERED: LORAZEPAM 0.5 MG TAB PO ONE (00:55)
[2016-11-26] MEDS ORDERED: LORAZEPAM 0.5 MG TAB PO PRN (01:00)
[2016-11-26] MEDS: IPRATROPIUM BROMIDE NEB SOLN 0.02% 2.5 ML VIAL INH SCH ×4 (01:52→19:22)
[2016-11-26] MEDS: LEVALBUTEROL 1.25MG/0.5ML NEB INH SCH ×4 (01:53→19:22)
[2016-11-26 06:47] LABS: HEMATOCRIT 40.7 % (42-52); MEAN CORPUSCULAR HEMOGLOBIN 28.5 pg (25-34); MEAN CORPUSCULAR HGB CONC 33.2 g/dl (32-36); MEAN PLATELET VOLUME 9.9 fL (7.4-10.4); PLATELET COUNT 185 K/uL (130-400); RED BLOOD COUNT 4.73 M/uL (4.7-6.1); WHITE BLOOD COUNT 19.04 K/uL (4.8-10.8)
[2016-11-26 07:21] LABS: BUN/CREATININE RATIO 35.4 (10-20); CREATININE 0.77 mg/dl (0.60-1.40); POTASSIUM 3.7 mmol/L (3.5-5.1)
[2016-11-26] MEDS: BOOST VANILLA PUDDING CUP PO SCH ×2 (08:21→15:05)
[2016-11-26] MEDS: PRAVASTATIN SOD 20 MG TAB PO SCH (08:22)
[2016-11-26] MEDS: METOPROLOL TARTRATE 25 MG TAB PO SCH ×2 (08:22→20:21)
[2016-11-26] MEDS: GUAIFENESIN 600 MG TABCR PO SCH ×2 (08:22→20:21)
[2016-11-26] MEDS: LOSARTAN POTASSIUM 25 MG TAB PO SCH (08:22)
[2016-11-26] MEDS: PANTOprazole SOD 40 MG TAB PO SCH ×2 (08:23→20:20)
[2016-11-26] MEDS: SPIRONOLACTONE 25 MG TAB PO SCH (08:23)
--- NOTE | 2016-11-26 08:25 | DIAGNOSTIC IMAGING REPORT ---
ULTRASOUND OF THE PLEURAL SPACES CLINICAL HISTORY: Malignant pleural effusion. COMPARISON STUDY: Chest x-ray dated 11/24/2016. FINDINGS: Real-time grayscale sonography of the pleural spaces is performed. There are small right and small to moderate left pleural effusions with associated atelectasis. The pleural effusion on the right has an estimated volume of 720 cc and the pleural effusion on the left has an estimated volume of 1024 cc. These were not marked for bedside thoracentesis due to intervening lung parenchyma. IMPRESSION: Bilateral pleural effusions as above. These were not marked for bedside thoracentesis due to intervening lung parenchyma. Electronically signed by: Rl Sauceda M.D. 11/26/2016 8:24 AM Dictated Date/Time: 11/26/2016 8:22 AM
[2016-11-26] MEDS: INSULIN ASPART 100 UNITS/ML 3 ML PEN SC SCH ×4 (08:27→20:24)
[2016-11-26] MEDS: INSULIN GLARGINE SOLOSTAR 100 UNITS/ML 3 ML PEN SC SCH (08:28)
[2016-11-26] MEDS ORDERED: FUROSEMIDE INJ 40 MG in SYRINGE 0 ML IV SCH (09:00)
--- NOTE | 2016-11-26 11:05 | Medical Consult ---
Consultation Note Date of Service Nov 26, 2016. Consultation Note Helen alters his 66-year-old male that I met about 2 weeks ago. He he has metastatic esophageal carcinoma. He came in with complaints of shortness of breath that was aggressively diuresed and improved however I did Him for about 900 mL with a left thoracentesis. Difficult for me to say V had much improvement. This fluid is positive for carcinoma. Patient states his breathing is gotten worse results become more edematous in his right leg. He has a left lower extremity prosthesis below the knee. He feels better since he was hospitalized 2 days ago and apparently is responding to diuretics. I asked to see him for consideration of a Pleurx catheter. Based on the ultrasound done today and the fact that this is a malignant effusion makes this a fairly easy decision. I'm going to insert a left Pleurx catheter in this patient tomorrow at bedside under ultrasound guidance. We discussed this in detail when he was here last time. I will get everything set up and we'll do it in the morning. For specifics of this patient's consultation please refer to my consultation from 11/11/2016. Assessment/plan: #1 reaccumulation of left malignant pleural effusion in a patient with metastatic esophageal carcinoma. I'm going to insert a left Pleurx catheter and ultrasound guidance at the bedside tomorrow morning.
--- NOTE | 2016-11-26 11:52 | DIAGNOSTIC IMAGING REPORT ---
SINGLE VIEW CHEST CLINICAL HISTORY: Pleural effusions. FINDINGS: An AP, portable, upright chest radiograph is compared to chest x-ray dated 11/24/2016 and correlated with chest CT dated 11/10/2016. The examination is degraded by portable technique and apical lordotic positioning. A right internal jugular central venous infusion port is unchanged in position. Surgical clips are noted in the mediastinum. A hiatal hernia is observed. The heart is enlarged. There is prominence of the pulmonary vasculature. There are pleural effusions with bibasilar consolidation, left greater than right. The upper lobes appear clear. There is no pneumothorax. The skeletal structures are osteopenic. The bone thorax appears intact. IMPRESSION: 1. Cardiomegaly with prominence of the pulmonary vessels. Correlate clinically for evidence of congestive failure. 2. Layering pleural effusions with bibasilar consolidation, left larger than right. This could present atelectasis and/or pneumonia and this has not significantly changed in appearance from 11/24/2016. Electronically signed by: Rl Sauceda M.D. 11/26/2016 11:50 AM Dictated Date/Time: 11/26/2016 11:48 AM
--- NOTE | 2016-11-26 13:43 | Pulmonology Progress Note ---
Pulmonary Progress Note Date of Service Nov 26, 2016. Attending Dr. Morrison Subjective The patient feels about the same as yesterday. He has not been exerting himself to any significant degree and thus he has not had the severe dyspnea he was getting at home. He does notice some shortness of breath just going a few steps in the room. He did not try the morphine that was ordered for him. His appetite remains fairly good. He is not having any chest pains. Objective The patient appeared comfortable. He was cooperative alert and oriented. His was with him during this evaluation. Temperature is 36.7. ENT exam is unremarkable and unchanged from yesterday. Heart rate was 99/m. The blood pressure is 96/65. The respiratory rate was 20/ m at the time of my exam but had been as high as 29 earlier today. He persists with decreased breath sounds especially at the left lung base. A few scattered rales are heard. There was no accessory muscle use. Oxygen saturation was 92% on 2 L nasal cannula. The abdomen is obese. Bowel sounds were well heard. There was no tenderness to palpation. Extremities reveal +2 edema on the right which is unchanged. The left lower extremity is a prosthesis. White count today was elevated at 19.04. Hemoglobin is 13.5. Platelets were 185,000. Electrolytes today show sodium 138 potassium 3.7 chloride 11 bicarbonate 30. BUN was 27 with a creatinine of 0.77. Blood sugars today were as high as 192. Assessment & Plan Impressions #1 respiratory failure and severe shortness of breath-multifactorial #2 esophageal carcinoma with metastasis #3 malignant left pleural effusion #4 multiple lung nodules suspicious for malignancy #5 COPD #6 mild obstructive sleep apnea #7 diastolic CHF #8 left lower lobe opacification-rule out pneumonia-most likely on clinical grounds Comments and recommendations: Dr. Barrett saw the patient today. Apparently he will do a drainage and Pleurx placement tomorrow if there is adequate fluid. I agree with this plan. I have encouraged the patient to try the morphine somewhat while he was in the hospital to see if he feels it helps his breathing. As discussed with Dr. Farmer as she may order some Roxanol for him upon discharge. Data Medications: Current Inpatient Medications Medications (Trade) Dose Ordered Sig/[place] Route Start Time Stop Time Status Last Admin Dose Admin Levofloxacin (Consult) 1 ea UD PRN N/A 11/25/16 09:00 12/25/16 08:59 Guaifenesin (Mucinex Contr Rel Tab) 600 mg Q12 PO 11/24/16 21:00 12/24/16 20:59 11/26/16 08:22 600 MG Glucose (Glucose 40% Gel) 15-30 GRAMS 15 GRAMS... UD PRN PO 11/24/16 20:30 12/24/16 20:29 Glucose (Glucose Chew Tab) 4-8 Tablets 4 Tabl... UD PRN PO 11/24/16 20:30 12/24/16 20:29 Dextrose (Dextrose 50% 50ML Syringe) 25-50ML OF 50% DW IV FOR... UD PRN IV 11/24/16 20:30 12/24/16 20:29 Glucagon (Glucagon Inj) 1 mg UD PRN SQ 11/24/16 20:30 12/24/16 20:29 Insulin Glargine (Lantus Solostar Pen) 10 units DAILY SC 11/24/16 22:05 12/24/16 22:04 11/26/16 08:28 10 UNITS Enoxaparin Sodium (Lovenox Inj) 40 mg Q24H SC 11/24/16 22:00 12/24/16 21:59 11/25/16 20:44 40 MG Acetaminophen (Tylenol Tab) 650 mg Q4H PRN PO 11/24/16 20:30 12/24/16 20:29 Nitroglycerin (Nitrostat Tab) 0.4 mg UD PRN SL 11/24/16 20:30 12/24/16 20:29 Insulin Aspart (novoLOG ASPART) SLIDING SCALE If C... ACHS SC 11/24/16 21:00 12/24/16 20:59 11/26/16 11:46 5 UNITS Citalopram Hydrobromide (celeXA TAB) 40 mg QPM PO 11/24/16 21:00 12/24/16 20:59 11/25/16 20:44 40 MG Losartan Potassium (coZAAR TAB) 25 mg DAILY PO 11/25/16 09:00 12/25/16 08:59 11/26/16 08:22 25 MG Metoprolol Tartrate (Lopressor Tab) 25 mg BID PO 11/24/16 21:00 12/24/16 20:59 11/26/16 08:22 25 MG Pantoprazole Sodium (Protonix Tab) 40 mg BID PO 11/24/16 21:00 12/24/16 20:59 11/26/16 08:23 40 MG Potassium Chloride (Klor-Con M10) 10 meq QPM PO 11/24/16 21:00 12/24/16 20:59 11/25/16 20:44 10 MEQ Pravastatin Sodium (Pravachol Tab) 20 mg DAILY PO 11/25/16 09:00 12/25/16 08:59 11/26/16 08:22 20 MG Spironolactone (Aldactone Tab) 12.5 mg QAM PO 11/25/16 09:00 12/25/16 08:59 11/26/16 08:23 12.5 MG Ondansetron HCl (Zofran Inj) 4 mg Q6H PRN IV 11/24/16 20:30 12/24/16 20:29 Tramadol HCl (Ultram Tab) 25 mg Q6H PRN PO 11/24/16 20:30 12/24/16 20:29 11/25/16 00:51 25 MG Prednisone (PredniSONE TAB) 40 mg DAILY PO 11/25/16 09:00 11/30/16 08:59 11/26/16 08:22 40 MG Levalbuterol (Xopenex 1.25MG/ 0.5ML Neb) 1.25 mg Q6R INH 11/25/16 03:00 12/25/16 02:59 11/25/16 19:18 1.25 MG Ipratropium [place] (Atrovent 0.02% 0.5MG/2.5ML Neb) 0.5 mg Q6R INH 11/25/16 03:00 12/25/16 02:59 11/25/16 19:18 0.5 MG Miscellaneous Information (Order Awaiting Action) 1 ea QS N/A 11/25/16 00:00 12/25/16 00:00 Furosemide 40 mg/ Syringe 4 ml @ 4 mls/min DAILY IV 11/26/16 09:00 12/26/16 08:59 11/26/16 08:22 4 MLS/MIN Morphine Sulfate (MoRPHine SULFATE INJ) 1 mg Q4 PRN IV 11/25/16 16:45 12/09/16 16:44 Levofloxacin (Levaquin Tab) 500 mg DAILY@2000 PO 11/25/16 20:00 11/30/16 20:01 11/25/16 20:44 500 MG Enteral Nutritional Formula (Boost Pudding) 1 cup BIDM PO 11/25/16 17:15 12/25/16 17:14 11/26/16 08:21 1 CUP Lorazepam (Ativan Tab) 0.25 mg HS PRN PO 11/25/16 20:00 12/25/16 19:59 11/25/16 23:42 0.25 MG Lorazepam (Ativan Tab) 0.5 mg HS PRN PO 11/26/16 01:00 12/26/16 00:59 Vital Signs: Date Time Temp Pulse Resp B/P (MAP) Pulse Ox O2 Delivery O2 Flow Rate FiO2 11/26/16 12:00 Nasal Cannula 2.0 11/26/16 11:52 36.7 99 29 96/65 (75) 92 Nasal Cannula 2.0 11/26/16 08:00 Nasal Cannula 2.0 11/26/16 07:50 36.6 99 19 121/72 (88) 93 Nasal Cannula 2.0 11/26/16 07:14 95 16 96 Nasal Cannula 2.0 11/26/16 04:00 36.7 95 22 119/76 (90) 93 Nasal Cannula 2.0 11/26/16 04:00 Nasal Cannula 2.0 11/26/16 00:00 Nasal Cannula 2.0 11/25/16 23:35 37.0 66 20 138/61 (86) 94 Nasal Cannula 2.0 11/25/16 20:00 Nasal Cannula 2.0 11/25/16 19:18 98 18 93 Nasal Cannula 2.0 11/25/16 19:13 37.0 57 20 141/71 (94) 94 Nasal Cannula 2.0 11/25/16 16:00 Nasal Cannula 11/25/16 15:20 36.5 96 20 129/76 (93) 97 Nasal Cannula 2.5 11/25/16 14:18 97 16 94 Nasal Cannula 2.0 Laboratory Results: Last 24 Hours Test 11/25/16 16:00 11/25/16 20:00 11/26/16 06:09 11/26/16 07:08 Bedside Glucose 309 mg/dl 282 mg/dl 150 mg/dl White Blood Count 19.04 K/uL Red Blood Count 4.73 M/uL Hemoglobin 13.5 g/dL Hematocrit 40.7 % Mean Corpuscular Volume 86.0 fL Mean Corpuscular Hemoglobin 28.5 pg Mean Corpuscular Hemoglobin Concent 33.2 g/dl RDW Standard Deviation 53.2 fL RDW Coefficient of Variation 16.9 % Platelet Count 185 K/uL Mean Platelet Volume 9.9 fL Sodium Level 138 mmol/L Potassium Level 3.7 mmol/L Chloride Level 101 mmol/L Carbon Dioxide Level 30 mmol/L Anion Gap 7.0 mmol/L Blood Urea Nitrogen 27 mg/dl Creatinine 0.77 mg/dl Est Creatinine Clear Calc Drug Dose 124.9 ml/min Estimated GFR () 110.4 Estimated GFR (Non- 95.2 BUN/Creatinine Ratio 35.4 Random Glucose 132 mg/dl Calcium Level 9.0 mg/dl Test 11/26/16 11:41 Bedside Glucose 192 mg/dl
[2016-11-26] MEDS ORDERED: NURSING VERBAL MED ORDER ONE (15:30)
--- NOTE | 2016-11-26 17:27 | Progress Note ---
Internal Med Progress Note Date of Service: Nov 26, 2016. Provider Documentation: SUBJECTIVE: feels a bit better today still very hypoxic . dyspneic with minimum activity Chest USG shows : Rt pleural effusion estimated volume of 720 cc and left sided pleural effusion estimated volume of 1024 cc. appreciate input form Dr Perales plan for Plurex catheter placement in AM OBJECTIVE: Vital Signs-as noted below Exam: General-chronically ill appearing Eyes-sclera non icteric ENT-NAd Neck-no JVD Lungs-diminished , rales at base Heart-regular S1/S2 Abdomen-soft, non tender Extremities-+ 1 lower ext edema Neuro-AAO x3 , no focal deficit Lab data as noted below. ASSESSMENT & PLAN: Acute on chronic hypoxemic respiratory failure : secondary to malignant pleural effusion -recurrence Esophageal CA with mets had thoracentesis done in last admission by Dr Dukes with drainage of approx 900 ml pathology of pleural effusion -metastatic esophageal CA appreciate input form Pulmonology very poor prognosis USG of chest : The pleural effusion on the right has an estimated volume of 720 cc and the pleural effusion on the left has an estimated volume of 1024 cc. These were not marked for bedside thoracentesis due to intervening lung parenchyma. no sign of pneumonia will D/C Levaquin thoracic surgery consulted for possible Plurex catheter placement appreciate input plan for Plurex catheter placement tomorrow at bedside information for Plurex catheter given to and patient will need arrangements for Home Health visiting nurse Esophageal cancer with pulmonary spread status post chemoradiation: not a candidate for chemo for progressively decline in functional status follows with Heme onc Dr Epps very poor prognosis -presents with reaccumulation of malignant effusion in past 10 days Hospice care discussed with pt and family by Dr Epps last admission pt and family wanted to wait did not want any aggressive measure , was not in favor for chemo or radiation for side effect( now not a candidate ) willing to have Plurex catheter for symptom control /SOB plan for Plurex catheter placement tomorrow 11/27/16 CODE STATUS : very poor prognosis /advanced malignancy DO NOT RESUSCITATE DVT PROPHYLAXIS high risk for advanced malignancy Sub q Lovenox hold for 12 -24 hr prior to Plurex catheter placement DISPOSITION discharge home when medically stable will need home health visiting nurse Medicine follow up with Dr Esther Delgadillo updated at bedside Vital Signs: Date Time Temp Pulse Resp B/P (MAP) Pulse Ox O2 Delivery O2 Flow Rate FiO2 11/26/16 16:00 Nasal Cannula 2.0 11/26/16 15:26 36.9 102 20 108/71 (83) 94 Nasal Cannula 4.0 11/26/16 14:33 94 93 11/26/16 14:26 90 18 96 Nasal Cannula 2.0 11/26/16 12:00 Nasal Cannula 2.0 11/26/16 11:52 36.7 99 29 96/65 (75) 92 Nasal Cannula 2.0 11/26/16 08:00 Nasal Cannula 2.0 11/26/16 07:50 36.6 99 19 121/72 (88) 93 Nasal Cannula 2.0 11/26/16 07:14 95 16 96 Nasal Cannula 2.0 11/26/16 04:00 36.7 95 22 119/76 (90) 93 Nasal Cannula 2.0 11/26/16 04:00 Nasal Cannula 2.0 11/26/16 00:00 Nasal Cannula 2.0 11/25/16 23:35 37.0 66 20 138/61 (86) 94 Nasal Cannula 2.0 11/25/16 20:00 Nasal Cannula 2.0 11/25/16 19:18 98 18 93 Nasal Cannula 2.0 11/25/16 19:13 37.0 57 20 141/71 (94) 94 Nasal Cannula 2.0 Lab Results: Results Past 24 Hours Test 11/25/16 20:00 11/26/16 06:09 11/26/16 07:08 11/26/16 11:41 Range/Units Bedside Glucose 282 150 192 70-99 mg/dl White Blood Count 19.04 4.8-10.8 K/uL Red Blood Count 4.73 4.7-6.1 M/uL Hemoglobin 13.5 14.0-18.0 g/dL Hematocrit 40.7 42-52 % Mean Corpuscular Volume 86.0 80-100 fL Mean Corpuscular Hemoglobin 28.5 25-34 pg Mean Corpuscular Hemoglobin Concent 33.2 32-36 g/dl RDW Standard Deviation 53.2 36.4-46.3 fL RDW Coefficient of Variation 16.9 11.5-14.5 % Platelet Count 185 130-400 K/uL Mean Platelet Volume 9.9 7.4-10.4 fL Sodium Level 138 136-145 mmol/L Potassium Level 3.7 3.5-5.1 mmol/L Chloride Level 101 98-107 mmol/L Carbon Dioxide Level 30 21-32 mmol/L Anion Gap 7.0 3-11 mmol/L Blood Urea Nitrogen 27 7-18 mg/dl Creatinine 0.77 0.60-1.40 mg/dl Est Creatinine Clear Calc Drug Dose 124.9 ml/min Estimated GFR () 110.4 Estimated GFR (Non- 95.2 BUN/Creatinine Ratio 35.4 10-20 Random Glucose 132 70-99 mg/dl Calcium Level 9.0 8.5-10.1 mg/dl Test 11/26/16 16:12 Range/Units Bedside Glucose 315 70-99 mg/dl
[2016-11-26] MEDS: LEVOFLOXACIN 500 MG TAB PO SCH (20:20)
[2016-11-26] MEDS: POTASSIUM CHLORIDE 10 MEQ TABCR PO SCH (20:21)
[2016-11-26] MEDS: CITALOPRAM 40 MG TAB PO SCH (20:21)
[2016-11-27] VITALS (9 sets, daily range): BP systolic 106–121; BP diastolic 63–79; PULSE 56–107; TEMP 36.7–37.1; O2SAT 91–97; Ht 172.7 cm; Wt 129.0 kg
[2016-11-27] MEDS: IPRATROPIUM BROMIDE NEB SOLN 0.02% 2.5 ML VIAL INH SCH ×4 (01:36→19:51)
[2016-11-27] MEDS: LEVALBUTEROL 1.25MG/0.5ML NEB INH SCH ×4 (01:36→19:51)
[2016-11-27] MEDS: MoRPHine SULFATE 5 MG/0.25 ML UDP PO PRN ×2 (03:06→23:18)
[2016-11-27 07:13] LABS: BUN/CREATININE RATIO 27.6 (10-20); CALCIUM 9.1 mg/dl (8.5-10.1); POTASSIUM 3.8 mmol/L (3.5-5.1)
[2016-11-27] MEDS: BOOST VANILLA PUDDING CUP PO SCH ×2 (07:30→16:45)
[2016-11-27] MEDS: PANTOprazole SOD 40 MG TAB PO SCH ×2 (07:36→21:14)
[2016-11-27] MEDS: SPIRONOLACTONE 25 MG TAB PO SCH (07:36)
[2016-11-27] MEDS: METOPROLOL TARTRATE 25 MG TAB PO SCH ×2 (07:36→21:16)
[2016-11-27] MEDS: GUAIFENESIN 600 MG TABCR PO SCH ×2 (07:36→21:14)
[2016-11-27] MEDS: LOSARTAN POTASSIUM 25 MG TAB PO SCH (07:37)
[2016-11-27] MEDS: FUROSEMIDE 40 MG TAB PO SCH (07:37)
[2016-11-27] MEDS: PRAVASTATIN SOD 20 MG TAB PO SCH (07:37)
[2016-11-27] MEDS: INSULIN ASPART 100 UNITS/ML 3 ML PEN SC SCH ×4 (07:44→21:23)
[2016-11-27] MEDS: INSULIN GLARGINE SOLOSTAR 100 UNITS/ML 3 ML PEN SC SCH (07:45)
--- NOTE | 2016-11-27 07:50 | DIAGNOSTIC IMAGING REPORT ---
CHEST ONE VIEW PORTABLE CLINICAL HISTORY: Pleural effusion COMPARISON STUDY: 11/26/2016 FINDINGS: There is a right-sided A-Port catheter, unchanged in orientation. The heart is mildly enlarged. There is elevation of the interstitium. There are left basal airspace opacities. Bilateral pleural effusions are suspected. There is persistent mediastinal and hilar fullness.[ IMPRESSION: No significant change from the prior study. Persistent cardiomegaly, pulmonary vascular congestion/fluid overload, bilateral pleural effusions, and left basal airspace opacities Electronically signed by: Roge Ye M.D. 11/27/2016 7:48 AM Dictated Date/Time: 11/27/2016 7:46 AM
[2016-11-27] MEDS ORDERED: LIDOCAINE HCL 2% LOCAL 50ML VIAL ONE (08:06)
[2016-11-27] MEDS: MoRPHine SULFATE 2 MG/ML CARP IV PRN ×2 (08:48→12:51)
--- NOTE | 2016-11-27 09:01 | DIAGNOSTIC IMAGING REPORT ---
CHEST ONE VIEW PORTABLE CLINICAL HISTORY: Respiratory failure. Insertion of port extraneous catheter. COMPARISON STUDY: 7017 FINDINGS: The cardiac and mediastinal contours remain stable. There is a retrocardiac air collection likely represent a hiatal hernia. The heart remains enlarged. The right-sided A-Port catheter remains unchanged in position. There is persistent elevation of the interstitium. There are bilateral pleural effusions. There is been interval insertion of a left-sided pleural drainage catheter. There is improving aeration of the left lung base with persistent left basal airspace opacities and decreasing left pleural fluid. No pneumothorax is visualized.[ IMPRESSION: No evidence of pneumothorax status post placement of a left-sided pleural drainage catheter. Decreasing left pleural effusion with slight improvement in the aeration of the left lung base Electronically signed by: Roge Ye M.D. 11/27/2016 8:59 AM Dictated Date/Time: 11/27/2016 8:58 AM
[2016-11-27] MEDS ORDERED: MoRPHine SULFATE 2 MG/ML CARP IV SCH (09:30)
[2016-11-27] MEDS ORDERED: NURSING VERBAL MED ORDER ONE (09:30)
--- NOTE | 2016-11-27 09:57 | Pulmonology Progress Note ---
Pulmonary Progress Note Date of Service Nov 27, 2016. Attending Dr. Morrison Subjective The patient had a Pleurx catheter placed by Dr. Barrett approximately 30 minutes prior to my exam. He is currently having a lot of pain. It hurts to move or take a deep breath. Reportedly they removed about 750 mL self fluid. He is short of breath at present but I believe this is secondary to the pain. He did receive 1 mg of morphine after the procedure. Objective The patient is very uncomfortable. He was cooperative and alert. Opportunistic 36.7. ENT exam is unchanged from prior. Heart rate is 62/m. The rhythm was regular. Blood pressure 114/79. Lung quinteros were difficult to assess because the patient was severely splinting. He does have rales bilaterally. His respiratory rate was 28/m. There is a left Pleurx in place. The abdomen is obese. Bowel sounds were present. The right leg again shows +2 edema. Left leg has the prosthesis. Blood sugar this morning was 176. Electrolytes show sodium 137 potassium 3.8 chloride 100 bicarbonate 32. The BUN is 28 with a creatinine of 1. Assessment & Plan Impressions #1 respiratory failure and severe shortness of breath-multifactorial #2 esophageal carcinoma with metastasis #3 malignant left pleural effusion #4 multiple lung nodules suspicious for malignancy #5 COPD #6 mild obstructive sleep apnea #7 diastolic CHF #8 left lower lobe opacification-rule out pneumonia-most likely on clinical grounds Comments and recommendations: The patient has just received a Pleurx. He is having a lot of discomfort. I have ordered 2 mg morphine IV to be given now. Hopefully his pain will resolve soon. The patient did relate that he tried some Roxanol during the night because he was short of breath and it didn't seem to help. I think the prednisone can be tapered back to 20 mg daily and then subsequently tapered off. Otherwise continue current care. Data Medications: Current Inpatient Medications Medications (Trade) Dose Ordered Sig/[place] Route Start Time Stop Time Status Last Admin Dose Admin Levofloxacin (Consult) 1 ea UD PRN N/A 11/25/16 09:00 12/25/16 08:59 Guaifenesin (Mucinex Contr Rel Tab) 600 mg Q12 PO 11/24/16 21:00 12/24/16 20:59 11/27/16 07:36 600 MG Glucose (Glucose 40% Gel) 15-30 GRAMS 15 GRAMS... UD PRN PO 11/24/16 20:30 12/24/16 20:29 Glucose (Glucose Chew Tab) 4-8 Tablets 4 Tabl... UD PRN PO 11/24/16 20:30 12/24/16 20:29 Dextrose (Dextrose 50% 50ML Syringe) 25-50ML OF 50% DW IV FOR... UD PRN IV 11/24/16 20:30 12/24/16 20:29 Glucagon (Glucagon Inj) 1 mg UD PRN SQ 11/24/16 20:30 12/24/16 20:29 Insulin Glargine (Lantus Solostar Pen) 10 units DAILY SC 11/24/16 22:05 12/24/16 22:04 11/27/16 07:45 10 UNITS Enoxaparin Sodium (Lovenox Inj) 40 mg Q24H SC 11/24/16 22:00 12/24/16 21:59 Future hold 11/25/16 20:44 40 MG Acetaminophen (Tylenol Tab) 650 mg Q4H PRN PO 11/24/16 20:30 12/24/16 20:29 Nitroglycerin (Nitrostat Tab) 0.4 mg UD PRN SL 11/24/16 20:30 12/24/16 20:29 Insulin Aspart (novoLOG ASPART) SLIDING SCALE If C... ACHS SC 11/24/16 21:00 12/24/16 20:59 11/27/16 07:44 5 UNITS Citalopram Hydrobromide (celeXA TAB) 40 mg QPM PO 11/24/16 21:00 12/24/16 20:59 11/26/16 20:21 40 MG Losartan Potassium (coZAAR TAB) 25 mg DAILY PO 11/25/16 09:00 12/25/16 08:59 11/27/16 07:37 25 MG Metoprolol Tartrate (Lopressor Tab) 25 mg BID PO 11/24/16 21:00 12/24/16 20:59 11/27/16 07:36 25 MG Pantoprazole Sodium (Protonix Tab) 40 mg BID PO 11/24/16 21:00 12/24/16 20:59 11/27/16 07:36 40 MG Potassium Chloride (Klor-Con M10) 10 meq QPM PO 11/24/16 21:00 12/24/16 20:59 11/26/16 20:21 10 MEQ Pravastatin Sodium (Pravachol Tab) 20 mg DAILY PO 11/25/16 09:00 12/25/16 08:59 11/27/16 07:37 20 MG Spironolactone (Aldactone Tab) 12.5 mg QAM PO 11/25/16 09:00 12/25/16 08:59 11/27/16 07:36 12.5 MG Ondansetron HCl (Zofran Inj) 4 mg Q6H PRN IV 11/24/16 20:30 12/24/16 20:29 Tramadol HCl (Ultram Tab) 25 mg Q6H PRN PO 11/24/16 20:30 12/24/16 20:29 11/25/16 00:51 25 MG Prednisone (PredniSONE TAB) 40 mg DAILY PO 11/25/16 09:00 11/30/16 08:59 11/27/16 07:37 40 MG Levalbuterol (Xopenex 1.25MG/ 0.5ML Neb) 1.25 mg Q6R INH 11/25/16 03:00 12/25/16 02:59 11/26/16 19:22 1.25 MG Ipratropium [place] (Atrovent 0.02% 0.5MG/2.5ML Neb) 0.5 mg Q6R INH 11/25/16 03:00 12/25/16 02:59 11/26/16 19:22 0.5 MG Miscellaneous Information (Order Awaiting Action) 1 ea QS N/A 11/25/16 00:00 12/25/16 00:00 Morphine Sulfate (MoRPHine SULFATE INJ) 1 mg Q4 PRN IV 11/25/16 16:45 12/09/16 16:44 11/27/16 08:48 1 MG Levofloxacin (Levaquin Tab) 500 mg DAILY@1999 PO 11/25/16 20:00 11/30/16 20:01 11/26/16 20:20 500 MG Enteral Nutritional Formula (Boost Pudding) 1 cup BIDM PO 11/25/16 17:15 12/25/16 17:14 11/26/16 08:21 1 CUP Lorazepam (Ativan Tab) 0.25 mg HS PRN PO 11/25/16 20:00 12/25/16 19:59 11/25/16 23:42 0.25 MG Lorazepam (Ativan Tab) 0.5 mg HS PRN PO 11/26/16 01:00 12/26/16 00:59 11/26/16 23:46 0.5 MG Furosemide (Lasix Tab) 40 mg QAM PO 11/27/16 09:00 12/27/16 08:59 11/27/16 07:37 40 MG Morphine Sulfate (Roxanol Oral Soln) 5 mg Q6 PRN PO 11/26/16 17:30 12/10/16 17:29 11/27/16 03:06 5 MG Morphine Sulfate (MoRPHine SULFATE INJ) 2 mg TODAY@0930 IV 11/27/16 09:30 11/27/16 10:30 11/27/16 09:28 2 MG Vital Signs: Date Time Temp Pulse Resp B/P (MAP) Pulse Ox O2 Delivery O2 Flow Rate FiO2 11/27/16 08:05 36.7 62 20 114/79 (91) 91 Nasal Cannula 2.0 11/27/16 08:00 Nasal Cannula 2.0 11/27/16 06:03 94 11/27/16 04:02 Nasal Cannula 2.0 11/27/16 03:47 37.1 56 20 109/66 (80) 92 Nasal Cannula 2.0 11/27/16 00:02 Nasal Cannula 2.0 11/26/16 23:53 36.8 101 24 112/73 (86) 94 Nasal Cannula 2.0 11/26/16 20:00 Nasal Cannula 2.0 11/26/16 19:25 89 20 93 Nasal Cannula 2.0 11/26/16 19:18 36.9 108 19 123/70 (87) 94 Nasal Cannula 4.0 11/26/16 16:00 Nasal Cannula 2.0 11/26/16 15:26 36.9 102 20 108/71 (83) 94 Nasal Cannula 4.0 11/26/16 14:33 94 93 11/26/16 14:26 90 18 96 Nasal Cannula 2.0 11/26/16 12:00 Nasal Cannula 2.0 11/26/16 11:52 36.7 99 29 96/65 (75) 92 Nasal Cannula 2.0 Laboratory Results: Last 24 Hours Test 11/26/16 11:41 11/26/16 16:12 11/26/16 20:07 11/27/16 06:24 Bedside Glucose 192 mg/dl 315 mg/dl 259 mg/dl Sodium Level 137 mmol/L Potassium Level 3.8 mmol/L Chloride Level 100 mmol/L Carbon Dioxide Level 32 mmol/L Anion Gap 5.0 mmol/L Blood Urea Nitrogen 28 mg/dl Creatinine 1.00 mg/dl Est Creatinine Clear Calc Drug Dose 96.2 ml/min Estimated GFR () 91.1 Estimated GFR (Non- 78.6 BUN/Creatinine Ratio 27.6 Random Glucose 184 mg/dl Calcium Level 9.1 mg/dl Test 11/27/16 07:08 Bedside Glucose 176 mg/dl
--- NOTE | 2016-11-27 10:25 | Progress Note ---
Progress Note Date of Service Nov 27, 2016. Progress Note I had a long talk with the patient this morning. We discussed thoracentesis versus Pleurx catheters versus chest tubes versus observation. Given the fact that he has a malignant left pleural effusion, we are going to proceed with insertion of a Pleurx catheter. Patient understands the risk and benefits including infection bleeding and the need to monitor this quite closely. I also explained I think he will go to be discharged in a more expedient fashion if he has this Pleurx catheter in place. We will insert this later today.
--- NOTE | 2016-11-27 10:29 | Procedure Note ---
Procedure Note Date of Service Nov 27, 2016. Procedure Note Preoperative diagnosis:Malignant left pleural effusion Postoperative diagnosis: Same Procedure:Insertion of left Pleurx catheter (indwelling pleural catheter) Surgeon:Sam Nguyễn Anesthesia: Local Procedure: With the patient in a right lateral decubitus position and his left chest was evaluated with a ultrasound. Spaces marked about the posterior axillary line near the eighth interspace. After prepping and draping and calling appropriate timeout, the skin was raised with a 25-gauge needle and 1% Xylocaine. A large bore needle was used to anesthetize the deeper tissues and the pleural cavity was entered with the needle. There was clear yellow free- flowing fluid. A guidewire was inserted the needle and needle removed. Approximately 12 cm anterior to this and the skin was raised with a gauge needle and 1 cm incisions were made at each one of these skin wheels. A long needle was used to anesthetize the subcutaneous tissues between these. A tunneler was attached to the Pleurx catheter directed from anterior to posterior incision and the tunneler removed. The introducer sheath was slid over the guidewire and inner cannula and guidewire were removed. The Pleurx cath was inserted to the peel-away sheath which was removed. 2 separate 3-0 silk sutures were used to close posterior incision and 3-0 silk sutures to anchor the catheter to the patient's skin anteriorly. 750 mL of a yellow serous fluid was drained. As we know this malignant effusion, I simply discarded this fluid. He tolerated well and x-ray showed good placement of the catheter with resolution of his pleural fluid.,
--- NOTE | 2016-11-27 10:45 | Progress Note ---
Medicine Progress Note Date & Time of Visit: Nov 27, 2016 at 10:23. Subjective Pt was seen and examined Sitting in chair with no distress Pt said that he is having a lot of tenderness around his left ribs area He had the PleurX cath done this morning by Dr. Barrett Pt said that he feels very tender when he tried to take deep breath He said the pain med seems to help denies any chest palpitation, fever and chills. Objective Last 8 Hrs Date Time Temp Pulse Resp B/P (MAP) Pulse Ox O2 Delivery O2 Flow Rate FiO2 11/27/16 08:05 36.7 62 20 114/79 (91) 91 Nasal Cannula 2.0 11/27/16 08:00 Nasal Cannula 2.0 11/27/16 06:03 94 11/27/16 04:02 Nasal Cannula 2.0 11/27/16 03:47 37.1 56 20 109/66 (80) 92 Nasal Cannula 2.0 Physical Exam: General- No acute distress Head- atraumatic Eyes- PERRL, EOMI ENT- oropharynx clear Neck- supple, no JVD Lungs- decrease breath sound Heart- regular rhythm Abdomen- normal bowel sounds, soft Extremities- +edema in right leg, Left LE prosthesis Neuro- alert, oriented x 3; PERRL, EOMI Skin- warm & dry Laboratory Results: Last 24 Hours Test 11/26/16 11:41 11/26/16 16:12 11/26/16 20:07 11/27/16 06:24 Bedside Glucose 192 mg/dl 315 mg/dl 259 mg/dl Sodium Level 137 mmol/L Potassium Level 3.8 mmol/L Chloride Level 100 mmol/L Carbon Dioxide Level 32 mmol/L Anion Gap 5.0 mmol/L Blood Urea Nitrogen 28 mg/dl Creatinine 1.00 mg/dl Est Creatinine Clear Calc Drug Dose 96.2 ml/min Estimated GFR () 91.1 Estimated GFR (Non- 78.6 BUN/Creatinine Ratio 27.6 Random Glucose 184 mg/dl Calcium Level 9.1 mg/dl Test 11/27/16 07:08 Bedside Glucose 176 mg/dl Diagnostic Imaging: CXR showed no evidence of pneumothorax status post placement of a left-sided pleural drainage catheter. Decreasing left pleural effusion with slight improvement in the aeration of the left lung base Assessment & Plan Acute on chronic hypoxemic respiratory failure : secondary to malignant pleural effusion -recurrence Esophageal CA with mets had thoracentesis done in last admission by Dr Dukes with drainage of approx 900 ml pathology of pleural effusion -metastatic esophageal CA U/S chest showed the pleural effusion on the right has an estimated volume of 720 cc and the pleural effusion on the left has an estimated volume of 1024 cc. S/P PleurX Catheter done today by Dr. Brambila Repeat CXR this morning showed decreasing left pleural effusion with slight improvement in the aeration of the left lung base Pulmonary and thoracic surgery on board no sign of pneumonia, Levaquin was D/Rachid Esophageal cancer with pulmonary spread status post chemo/radiation: not a candidate for chemo for progressively decline in functional status follows with Hem/Onc Dr Epps very poor prognosis -presents with reaccumulation of malignant effusion in past 10 days Hospice care discussed with pt and family by Dr Epps last admission pt and family wanted to wait did not want any aggressive measure , was not in favor for chemo or radiation for side effect( now not a candidate ) CODE STATUS : very poor prognosis /advanced malignancy DO NOT RESUSCITATE DVT PROPHYLAXIS high risk for advanced malignancy Sub q Lovenox Hold for 12 -24 hr prior to Plurex catheter placement DISPOSITION discharge home when medically stable will need home health visiting nurse Medicine follow up with Dr Esther Delgadillo Consultants: Pulmonary Thoracic Surgery Procedures: PleurX catheter insertion Current Inpatient Medications: Current Inpatient Medications Medications (Trade) Dose Ordered Sig/Kamron Route Start Time Stop Time Status Last Admin Dose Admin Levofloxacin (Consult) 1 ea UD PRN N/A 11/25/16 09:00 12/25/16 08:59 Guaifenesin (Mucinex Contr Rel Tab) 600 mg Q12 PO 11/24/16 21:00 12/24/16 20:59 11/27/16 07:36 600 MG Glucose (Glucose 40% Gel) 15-30 GRAMS 15 GRAMS... UD PRN PO 11/24/16 20:30 12/24/16 20:29 Glucose (Glucose Chew Tab) 4-8 Tablets 4 Tabl... UD PRN PO 11/24/16 20:30 12/24/16 20:29 Dextrose (Dextrose 50% 50ML Syringe) 25-50ML OF 50% DW IV FOR... UD PRN IV 11/24/16 20:30 12/24/16 20:29 Glucagon (Glucagon Inj) 1 mg UD PRN SQ 11/24/16 20:30 12/24/16 20:29 Insulin Glargine (Lantus Solostar Pen) 10 units DAILY SC 11/24/16 22:05 12/24/16 22:04 11/27/16 07:45 10 UNITS Enoxaparin Sodium (Lovenox Inj) 40 mg Q24H SC 11/24/16 22:00 12/24/16 21:59 Future hold 11/25/16 20:44 40 MG Acetaminophen (Tylenol Tab) 650 mg Q4H PRN PO 11/24/16 20:30 12/24/16 20:29 Nitroglycerin (Nitrostat Tab) 0.4 mg UD PRN SL 11/24/16 20:30 12/24/16 20:29 Insulin Aspart (novoLOG ASPART) SLIDING SCALE If C... ACHS SC 11/24/16 21:00 12/24/16 20:59 11/27/16 07:44 5 UNITS Citalopram Hydrobromide (celeXA TAB) 40 mg QPM PO 11/24/16 21:00 12/24/16 20:59 11/26/16 20:21 40 MG Losartan Potassium (coZAAR TAB) 25 mg DAILY PO 11/25/16 09:00 12/25/16 08:59 11/27/16 07:37 25 MG Metoprolol Tartrate (Lopressor Tab) 25 mg BID PO 11/24/16 21:00 12/24/16 20:59 11/27/16 07:36 25 MG Pantoprazole Sodium (Protonix Tab) 40 mg BID PO 11/24/16 21:00 12/24/16 20:59 11/27/16 07:36 40 MG Potassium Chloride (Klor-Con M10) 10 meq QPM PO 11/24/16 21:00 12/24/16 20:59 11/26/16 20:21 10 MEQ Pravastatin Sodium (Pravachol Tab) 20 mg DAILY PO 11/25/16 09:00 12/25/16 08:59 11/27/16 07:37 20 MG Spironolactone (Aldactone Tab) 12.5 mg QAM PO 11/25/16 09:00 12/25/16 08:59 11/27/16 07:36 12.5 MG Ondansetron HCl (Zofran Inj) 4 mg Q6H PRN IV 11/24/16 20:30 12/24/16 20:29 Tramadol HCl (Ultram Tab) 25 mg Q6H PRN PO 11/24/16 20:30 12/24/16 20:29 11/25/16 00:51 25 MG Prednisone (PredniSONE TAB) 40 mg DAILY PO 11/25/16 09:00 11/30/16 08:59 11/27/16 07:37 40 MG Levalbuterol (Xopenex 1.25MG/ 0.5ML Neb) 1.25 mg Q6R INH 11/25/16 03:00 12/25/16 02:59 11/26/16 19:22 1.25 MG Ipratropium [place] (Atrovent 0.02% 0.5MG/2.5ML Neb) 0.5 mg Q6R INH 11/25/16 03:00 12/25/16 02:59 11/26/16 19:22 0.5 MG Miscellaneous Information (Order Awaiting Action) 1 ea QS N/A 11/25/16 00:00 12/25/16 00:00 Morphine Sulfate (MoRPHine SULFATE INJ) 1 mg Q4 PRN IV 11/25/16 16:45 12/09/16 16:44 11/27/16 08:48 1 MG Levofloxacin (Levaquin Tab) 500 mg DAILY@2000 PO 11/25/16 20:00 11/30/16 20:01 11/26/16 20:20 500 MG Enteral Nutritional Formula (Boost Pudding) 1 cup BIDM PO 11/25/16 17:15 12/25/16 17:14 11/26/16 08:21 1 CUP Lorazepam (Ativan Tab) 0.25 mg HS PRN PO 11/25/16 20:00 12/25/16 19:59 11/25/16 23:42 0.25 MG Lorazepam (Ativan Tab) 0.5 mg HS PRN PO 11/26/16 01:00 12/26/16 00:59 11/26/16 23:46 0.5 MG Furosemide (Lasix Tab) 40 mg QAM PO 11/27/16 09:00 12/27/16 08:59 11/27/16 07:37 40 MG Morphine Sulfate (Roxanol Oral Soln) 5 mg Q6 PRN PO 11/26/16 17:30 12/10/16 17:29 11/27/16 03:06 5 MG Morphine Sulfate (MoRPHine SULFATE INJ) 2 mg TODAY@0930 IV 11/27/16 09:30 11/27/16 10:30 11/27/16 09:28 2 MG
--- NOTE | 2016-11-27 16:04 | Palliative Care Consultation ---
Consultation Date of Consultation: Nov 27, 2016. Requesting Physician: Dr. Craft Attending Physician: Dr. Craft Reason for Consultation: Goals of care History of Present Illness This 66 year old male patient with a PMH of metastatic esophageal cancer, COPD, diastolic dysfunction, Howard's esophagus, and others listed below, presented to the ED at the recommendation of his oncologist for increased SOB. He was found to have large left pleural effusion and had a Pleur-x catheter placed by thoracic surgeon. Mr. Granados was diagnosed with the esophageal cancer in 2014, underwent radiation and chemo, but now is not interested in any further chemotherapy as his functional status has been declining. The disease has become metastatic, now with lung involvement. Patient was here just a few weeks ago at which time he had a thoracentesis done-- pleural fluid was confirmed to be malignant by pathology. He now is being treated with steroids, nebulizer treatments, daily catheter drainage, lasix, and morphine for pain/SOB. Palliative care consulted to assist with establishing goals of care. I met with the patient and his , Sherry, in room 211. Patient is sitting up in chair in no apparent distress. His respirations are mildly labored with some accessory muscle use, but he states his breathing is much improved from earlier. Patient has pleuritic pain that he describes as stabbing which sounds to be reexpansion-related. The morphine is working well for the pain, patient reports. He really has no other symptoms at this time. Patient and his state they have already decided they'd like the patient to go home on hospice. The patient absolutely does not want to be in the hospital and does not want to seek any further life-prolonging treatment. He was experiencing a great deal of SOB and discomfort at home, but feels that now with the Pleur-x catheter, he will be able to manage at home. Patient's was tearful and stated she isn't quite ready to accept the fact that the patient will be on hospice, but they both feel that's what's best at this time. Patient's will be home with him 18/12. They already chose a hospice agency and are working with case liner. 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) Review of Systems Constitutional: + weakness Respiratory: + cough, + shortness of breath, + dyspnea on exertion, + problem reported (pleuritic pain with inspiration), No sputum Cardiac: + edema (right lower extremity), No chest pain Abdomen: + problem reported (appetite is better since drainage of pleural fluid ), No pain, No nausea, No vomiting Psychiatric: No depression symptoms, No anxiety Allergies Coded Allergies: Lisinopril (Verified Adverse Reaction, Mild, Cough, 11/09/16) Medications Current Inpatient Medications Medications (Trade) Dose Ordered Sig/Kamron Route Start Time Stop Time Status Last Admin Dose Admin Guaifenesin (Mucinex Contr Rel Tab) 600 mg Q12 PO 11/24/16 21:00 12/24/16 20:59 11/27/16 07:36 600 MG Glucose (Glucose 40% Gel) 15-30 GRAMS 15 GRAMS... UD PRN PO 11/24/16 20:30 12/24/16 20:29 Glucose (Glucose Chew Tab) 4-8 Tablets 4 Tabl... UD PRN PO 11/24/16 20:30 12/24/16 20:29 Dextrose (Dextrose 50% 50ML Syringe) 25-50ML OF 50% DW IV FOR... UD PRN IV 11/24/16 20:30 12/24/16 20:29 Glucagon (Glucagon Inj) 1 mg UD PRN SQ 11/24/16 20:30 12/24/16 20:29 Insulin Glargine (Lantus Solostar Pen) 10 units DAILY SC 11/24/16 22:05 12/24/16 22:04 11/27/16 07:45 10 UNITS Enoxaparin Sodium (Lovenox Inj) 40 mg Q24H SC 11/24/16 22:00 12/24/16 21:59 Future hold 11/25/16 20:44 40 MG Acetaminophen (Tylenol Tab) 650 mg Q4H PRN PO 11/24/16 20:30 12/24/16 20:29 Nitroglycerin (Nitrostat Tab) 0.4 mg UD PRN SL 11/24/16 20:30 12/24/16 20:29 Insulin Aspart (novoLOG ASPART) SLIDING SCALE If C... ACHS SC 11/24/16 21:00 12/24/16 20:59 11/27/16 12:45 8 UNITS Citalopram Hydrobromide (celeXA TAB) 40 mg QPM PO 11/24/16 21:00 12/24/16 20:59 11/26/16 20:21 40 MG Losartan Potassium (coZAAR TAB) 25 mg DAILY PO 11/25/16 09:00 12/25/16 08:59 11/27/16 07:37 25 MG Metoprolol Tartrate (Lopressor Tab) 25 mg BID PO 11/24/16 21:00 12/24/16 20:59 11/27/16 07:36 25 MG Pantoprazole Sodium (Protonix Tab) 40 mg BID PO 11/24/16 21:00 12/24/16 20:59 11/27/16 07:36 40 MG Potassium Chloride (Klor-Con M10) 10 meq QPM PO 11/24/16 21:00 12/24/16 20:59 11/26/16 20:21 10 MEQ Pravastatin Sodium (Pravachol Tab) 20 mg DAILY PO 11/25/16 09:00 12/25/16 08:59 11/27/16 07:37 20 MG Spironolactone (Aldactone Tab) 12.5 mg QAM PO 11/25/16 09:00 12/25/16 08:59 11/27/16 07:36 12.5 MG Ondansetron HCl (Zofran Inj) 4 mg Q6H PRN IV 11/24/16 20:30 12/24/16 20:29 Tramadol HCl (Ultram Tab) 25 mg Q6H PRN PO 11/24/16 20:30 12/24/16 20:29 11/25/16 00:51 25 MG Prednisone (PredniSONE TAB) 40 mg DAILY PO 11/25/16 09:00 11/30/16 08:59 11/27/16 07:37 40 MG Levalbuterol (Xopenex 1.25MG/ 0.5ML Neb) 1.25 mg Q6R INH 11/25/16 03:00 12/25/16 02:59 11/27/16 13:59 1.25 MG Ipratropium [place] (Atrovent 0.02% 0.5MG/2.5ML Neb) 0.5 mg Q6R INH 11/25/16 03:00 12/25/16 02:59 11/27/16 13:59 0.5 MG Miscellaneous Information (Order Awaiting Action) 1 ea QS N/A 11/25/16 00:00 12/25/16 00:00 Morphine Sulfate (MoRPHine SULFATE INJ) 1 mg Q4 PRN IV 11/25/16 16:45 12/09/16 16:44 11/27/16 12:51 1 MG Enteral Nutritional Formula (Boost Pudding) 1 cup BIDM PO 11/25/16 17:15 12/25/16 17:14 11/26/16 08:21 1 CUP Lorazepam (Ativan Tab) 0.25 mg HS PRN PO 11/25/16 20:00 12/25/16 19:59 11/25/16 23:42 0.25 MG Lorazepam (Ativan Tab) 0.5 mg HS PRN PO 11/26/16 01:00 12/26/16 00:59 11/26/16 23:46 0.5 MG Furosemide (Lasix Tab) 40 mg QAM PO 11/27/16 09:00 12/27/16 08:59 11/27/16 07:37 40 MG Morphine Sulfate (Roxanol Oral Soln) 5 mg Q6 PRN PO 11/26/16 17:30 12/10/16 17:29 11/27/16 03:06 5 MG Physical Exam Date Time Temp Pulse Resp B/P (MAP) Pulse Ox O2 Delivery O2 Flow Rate FiO2 11/27/16 14:00 94 20 97 Nasal Cannula 2.0 11/27/16 12:00 Nasal Cannula 2.0 11/27/16 11:54 36.7 96 22 112/63 (79) 91 Nasal Cannula 2.0 11/27/16 08:05 36.7 62 20 114/79 (91) 91 Nasal Cannula 2.0 11/27/16 08:00 Nasal Cannula 2.0 11/27/16 06:03 94 11/27/16 04:02 Nasal Cannula 2.0 11/27/16 03:47 37.1 56 20 109/66 (80) 92 Nasal Cannula 2.0 11/27/16 00:02 Nasal Cannula 2.0 11/26/16 23:53 36.8 101 24 112/73 (86) 94 Nasal Cannula 2.0 11/26/16 20:00 Nasal Cannula 2.0 11/26/16 19:25 89 20 93 Nasal Cannula 2.0 11/26/16 19:18 36.9 108 19 123/70 (87) 94 Nasal Cannula 4.0 11/26/16 16:00 Nasal Cannula 2.0 General Appearance: no apparent distress, + obese ENT: hearing grossly normal Neck: supple, no JVD Respiratory: + decreased breath sounds (bilateral bases), + accessory muscle use (slightly dyspneic), + rhonchi, + pertinent finding (2LNC) Cardiovascular: regular rate, rhythm, + pertinent finding (+3-4 pitting edema to right lower extremity) Abdomen: normal bowel sounds, non tender, soft Musculoskeletal: pertinent finding (left AKA) Neurologic/Psychiatric: alert, normal mood/affect, oriented x 3 Laboratory Results Last 24 Hours Test 11/26/16 16:12 11/26/16 20:07 11/27/16 06:24 11/27/16 07:08 Bedside Glucose 315 mg/dl 259 mg/dl 176 mg/dl Sodium Level 137 mmol/L Potassium Level 3.8 mmol/L Chloride Level 100 mmol/L Carbon Dioxide Level 32 mmol/L Anion Gap 5.0 mmol/L Blood Urea Nitrogen 28 mg/dl Creatinine 1.00 mg/dl Est Creatinine Clear Calc Drug Dose 96.2 ml/min Estimated GFR () 91.1 Estimated GFR (Non- 78.6 BUN/Creatinine Ratio 27.6 Random Glucose 184 mg/dl Calcium Level 9.1 mg/dl Test 11/27/16 11:08 Bedside Glucose 271 mg/dl Assessment & Plan Problem list: SOB/OH Pain, left pleuritic Esophageal cancer, metastatic Bilateral malignant pleural effusions- s/p left Pleur-x catheter placement Goals of care (Z51.5) Palliative care recommendations: -Patient's goal is for comfort and to be at home. -No more chemotherapy per patient and his oncologist's conversations. -Patient and agree they would like patient to go home with hospice. Do not ant him to come back to hospital. -Pleur-x can be drained at home by hospice and . will be with patient 18/12. -Patient is having pain from lung reexpansion s/p Pleur-x insertion. Tomorrow, would discontinue IV morphine. Increase Roxanol to 5mg PO Q2h PRN. Patient felt the 5mg worked, but certainly could increase to 10mg. -Patient declined wanting to do living will or POLST form, as his and son both know his wishes. Patient wants no heroic or life-prolonging measures. Thank you kindly for this consult. Please contact me with any further palliative care needs.
[2016-11-27] MEDS: CITALOPRAM 40 MG TAB PO SCH (21:14)
[2016-11-27] MEDS: POTASSIUM CHLORIDE 10 MEQ TABCR PO SCH (21:14)
[2016-11-27] MEDS: ENOXAPARIN 40 MG/0.4 ML SYR SC SCH (21:24)
[2016-11-27] MEDS ORDERED: POLYETHYLENE (MIRALAX) 17 GM PACK PO PRN (22:30)
--- NOTE | 2016-11-27 22:31 | Medical Consult ---
Consultation Date of Consultation: Nov 27, 2016. Attending Physician: Preston Craft M.D. 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 He is readmitted with shortness of breath. He felt improvement after he had the therapeuric thoracentesis last admission but developed progressive dyspnea on minimal exertion and was sent to ER on Sunday for evaluation He wasstarted on levaquin and steroids and continued on supplemental oxygen and diuretic He had edema of his right leg - venous doppler negative for DVT Performance status ECOG PS 3 Patient requiring assistance with all his ADLs now and he is not interested in receiving further chemotherapy and interested in palliative care with option of hospice at home - afraid of side effects and feels generally weak He had left pleur-X catheter placed today and feels improved in terms of his breathing He has pain on the left where he had catheter put in but states it is controlled with current meds No bowel movement today No abdominal pain No cough at present Past Medical/Surgical History PMH:PSH: metastatic esophageal cancer with malignant pleural effusion, diabetes type 2, neuropathy, obesity, dyslipidemia, Barretts esophagus, hypertension, left leg amputation hernia repair carpal tunnel Family History FH: esophageal cancer BROTHER FH: leukemia FATHER Stroke MOTHER SISTER Social History Smoking Status: Former Smoker Alcohol Use: none (as per HPI, all other ROS negative) Drug Use: none Marital Status: Housing Status: lives with family 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 UD PRN PO 11/24/16 20:30 12/24/16 20:29 Glucose (Glucose Chew Tab) 4-8 Tablets 4 Tabl... UD PRN PO 11/24/16 20:30 12/24/16 20:29 Dextrose (Dextrose 50% 50ML Syringe) 25-50ML OF 50% DW IV FOR... UD PRN IV 11/24/16 20:30 12/24/16 20:29 Glucagon (Glucagon Inj) 1 mg UD PRN SQ 11/24/16 20:30 12/24/16 20:29 Insulin Glargine (Lantus Solostar Pen) 10 units DAILY SC 11/24/16 22:05 12/24/16 22:04 11/27/16 07:45 10 UNITS Enoxaparin Sodium (Lovenox Inj) 40 mg Q24H SC 11/24/16 22:00 12/24/16 21:59 Future hold 11/27/16 21:24 40 MG Acetaminophen (Tylenol Tab) 650 mg Q4H PRN PO 11/24/16 20:30 12/24/16 20:29 Nitroglycerin (Nitrostat Tab) 0.4 mg UD PRN SL 11/24/16 20:30 12/24/16 20:29 Insulin Aspart (novoLOG ASPART) SLIDING SCALE If C... ACHS SC 11/24/16 21:00 12/24/16 20:59 11/27/16 21:23 4 UNITS Citalopram Hydrobromide (celeXA TAB) 40 mg QPM PO 11/24/16 21:00 12/24/16 20:59 11/27/16 21:14 40 MG Losartan Potassium (coZAAR TAB) 25 mg DAILY PO 11/25/16 09:00 12/25/16 08:59 11/27/16 07:37 25 MG Metoprolol Tartrate (Lopressor Tab) 25 mg BID PO 11/24/16 21:00 12/24/16 20:59 11/27/16 21:16 25 MG Pantoprazole Sodium (Protonix Tab) 40 mg BID PO 11/24/16 21:00 12/24/16 20:59 11/27/16 21:14 40 MG Potassium Chloride (Klor-Con M10) 10 meq QPM PO 11/24/16 21:00 12/24/16 20:59 11/27/16 21:14 10 MEQ Pravastatin Sodium (Pravachol Tab) 20 mg DAILY PO 11/25/16 09:00 12/25/16 08:59 11/27/16 07:37 20 MG Spironolactone (Aldactone Tab) 12.5 mg QAM PO 11/25/16 09:00 12/25/16 08:59 11/27/16 07:36 12.5 MG Ondansetron HCl (Zofran Inj) 4 mg Q6H PRN IV 11/24/16 20:30 12/24/16 20:29 Tramadol HCl (Ultram Tab) 25 mg Q6H PRN PO 11/24/16 20:30 12/24/16 20:29 11/25/16 00:51 25 MG Prednisone (PredniSONE TAB) 40 mg DAILY PO 11/25/16 09:00 11/30/16 08:59 11/27/16 07:37 40 MG Levalbuterol (Xopenex 1.25MG/ 0.5ML Neb) 1.25 mg Q6R INH 11/25/16 03:00 12/25/16 02:59 11/27/16 13:59 1.25 MG Ipratropium [place] (Atrovent 0.02% 0.5MG/2.5ML Neb) 0.5 mg Q6R INH 11/25/16 03:00 12/25/16 02:59 11/27/16 13:59 0.5 MG Miscellaneous Information (Order Awaiting Action) 1 ea QS N/A 11/25/16 00:00 12/25/16 00:00 Morphine Sulfate (MoRPHine SULFATE INJ) 1 mg Q4 PRN IV 11/25/16 16:45 12/09/16 16:44 11/27/16 12:51 1 MG Enteral Nutritional Formula (Boost Pudding) 1 cup BIDM PO 11/25/16 17:15 12/25/16 17:14 11/26/16 08:21 1 CUP Lorazepam (Ativan Tab) 0.25 mg HS PRN PO 11/25/16 20:00 12/25/16 19:59 11/25/16 23:42 0.25 MG Lorazepam (Ativan Tab) 0.5 mg HS PRN PO 11/26/16 01:00 12/26/16 00:59 11/26/16 23:46 0.5 MG Furosemide (Lasix Tab) 40 mg QAM PO 11/27/16 09:00 12/27/16 08:59 11/27/16 07:37 40 MG Morphine Sulfate (Roxanol Oral Soln) 5 mg Q6 PRN PO 11/26/16 17:30 12/10/16 17:29 11/27/16 03:06 5 MG Review of Systems Constitutional: + weight loss, + weakness (generalized), No fever, No chills, No sweats Eyes: No eye pain, No redness ENT: + hearing loss, No unusual epistaxis, No nasal symptoms, No sore throat Respiratory: + cough (nonproductive on and off), + wheezing (on and off), + shortness of breath, + dyspnea on exertion, + dyspnea at rest, No sputum, No hemoptysis Cardiovascular: + edema (right lower extremity), No chest pain, No palpitations Abdomen: + constipation, No pain, No nausea, No vomiting, No diarrhea, No GI bleeding Musculoskeletal: + swelling, + problem reported (discomfort by his pleurX on left chest wall - states controlled with current meds), No joint pain Genitourinary - Male: No hematuria, No dysuria, No urinary frequency Neurologic: + weakness (generalized), + numbness/tingling (neuropathy in his foot no changes) Endocrine: + fatigue Hematologic / Lymphatic: No abnormal bleeding/bruising Integumentary: No rash, No itch Physical Exam Date Time Temp Pulse Resp B/P (MAP) Pulse Ox O2 Delivery O2 Flow Rate FiO2 11/27/16 20:17 Nasal Cannula 2.0 11/27/16 19:20 36.9 107 26 121/72 (88) 92 Nasal Cannula 2.0 11/27/16 17:21 Nasal Cannula 2.0 11/27/16 16:05 37.0 66 23 106/67 (80) 92 Nasal Cannula 2.0 11/27/16 14:00 94 20 97 Nasal Cannula 2.0 11/27/16 12:00 Nasal Cannula 2.0 11/27/16 11:54 36.7 96 22 112/63 (79) 91 Nasal Cannula 2.0 11/27/16 08:05 36.7 62 20 114/79 (91) 91 Nasal Cannula 2.0 11/27/16 08:00 Nasal Cannula 2.0 11/27/16 06:03 94 11/27/16 04:02 Nasal Cannula 2.0 11/27/16 03:47 37.1 56 20 109/66 (80) 92 Nasal Cannula 2.0 11/27/16 00:02 Nasal Cannula 2.0 11/26/16 23:53 36.8 101 24 112/73 (86) 94 Nasal Cannula 2.0 General Appearance: WD/WN, no apparent distress Head: normocephalic, atraumatic Eyes: sclerae normal Neck: supple Respiratory/Chest: + decreased breath sounds, + pertinent finding (left pleurX catheter dressing c/d/i) Cardiovascular: regular rate, rhythm Abdomen/GI: non tender, soft, + pertinent finding (obese) Back: normal inspection Extremities/Musculoskelatal: no calf tenderness, non-tender, + pedal edema (on right; ), + pertinent finding (left leg prosthesis) Neurologic/Psych: alert, normal mood/affect, oriented x 3 Skin: warm/dry, no rash Laboratory Results Last 24 Hours Test 11/27/16 06:24 11/27/16 07:08 11/27/16 11:08 11/27/16 16:44 Sodium Level 137 mmol/L Potassium Level 3.8 mmol/L Chloride Level 100 mmol/L Carbon Dioxide Level 32 mmol/L Anion Gap 5.0 mmol/L Blood Urea Nitrogen 28 mg/dl Creatinine 1.00 mg/dl Est Creatinine Clear Calc Drug Dose 96.2 ml/min Estimated GFR () 91.1 Estimated GFR (Non- 78.6 BUN/Creatinine Ratio 27.6 Random Glucose 184 mg/dl Calcium Level 9.1 mg/dl Bedside Glucose 176 mg/dl 271 mg/dl 264 mg/dl Test 11/27/16 20:31 Bedside Glucose 268 mg/dl Assessment & Plan 66 year old male with metastatic esophageal adenocarcinoma with progression of disease, malignant pleural effusion, poor performance status currently admitted with shortness of breath S/P left pleurX catheter placement He appears more comfortable at this time on supplemental oxygen Patient has poor performance status currently and is not a good candidate for chemotherapy at this time. Patient also is not interested in receiving any further palliative chemotherapy - he fears potential side effects and states that he is dependent for all ADLs now. Recommend palliative care. Given the overall poor fci prognosis, hospice option is also reasonable at this time Continue pain control Add colace and miralax as needed for constipation Appreciate palliative care consult Support provided thank you for consult
[2016-11-27] MEDS ORDERED: LEVALBUTEROL 1.25MG/0.5ML NEB INH PRN (23:45)
[2016-11-27] MEDS ORDERED: IPRATROPIUM BROMIDE NEB SOLN 0.02% 2.5 ML VIAL INH PRN (23:45)
[2016-11-27] MEDS ORDERED: LEVALBUTEROL/IPRATROPIUM NEB INH STA (23:46)
[2016-11-27] MEDS ORDERED: LEVALBUTEROL 1.25MG/0.5ML NEB INH STA (23:57)
[2016-11-27] MEDS ORDERED: IPRATROPIUM BROMIDE NEB SOLN 0.02% 2.5 ML VIAL INH STA (23:57)
[2016-11-28] VITALS (9 sets, daily range): BP systolic 95–113; BP diastolic 53–68; PULSE 55–112; TEMP 36.5–36.9; O2SAT 90–94
[2016-11-28] MEDS ORDERED: LEVALBUTEROL/IPRATROPIUM NEB INH PRN
[2016-11-28] MEDS: IPRATROPIUM BROMIDE NEB SOLN 0.02% 2.5 ML VIAL INH SCH ×4 (02:09→19:08)
[2016-11-28] MEDS: LEVALBUTEROL 1.25MG/0.5ML NEB INH SCH ×4 (02:09→19:08)
[2016-11-28] MEDS: MoRPHine SULFATE 2 MG/ML CARP IV PRN (05:31)
[2016-11-28 06:37] LABS: MEAN CORPUSCULAR HEMOGLOBIN 29.6 pg (25-34); MEAN PLATELET VOLUME 10.1 fL (7.4-10.4); PLATELET COUNT 156 K/uL (130-400)
--- NOTE | 2016-11-28 06:46 | Surgery Progress Note ---
Subjective Date of Service: Nov 28, 2016. Pt. notes breathing is more comfortable since yesterday's procedure. He notes small amount of discomfort from pleurex catheter. Objective Vitals Date Time Temp Pulse Resp B/P (MAP) Pulse Ox O2 Delivery O2 Flow Rate FiO2 11/28/16 04:01 92 Nasal Cannula 2.0 11/28/16 03:45 36.5 55 22 113/68 (83) 91 Nasal Cannula 2.0 11/28/16 00:00 36.9 90 20 99/67 (78) 92 Nasal Cannula 3.0 11/28/16 00:00 92 Nasal Cannula 2.0 11/27/16 23:59 89 18 94 Nasal Cannula 2.0 11/27/16 20:17 Nasal Cannula 2.0 11/27/16 19:20 36.9 107 26 121/72 (88) 92 Nasal Cannula 2.0 11/27/16 17:21 Nasal Cannula 2.0 11/27/16 16:05 37.0 66 23 106/67 (80) 92 Nasal Cannula 2.0 11/27/16 14:00 94 20 97 Nasal Cannula 2.0 11/27/16 12:00 Nasal Cannula 2.0 11/27/16 11:54 36.7 96 22 112/63 (79) 91 Nasal Cannula 2.0 11/27/16 08:05 36.7 62 20 114/79 (91) 91 Nasal Cannula 2.0 11/27/16 08:00 Nasal Cannula 2.0 Physical Exam General: + well developed, + well nourished, No distress CV: + RRR Pulmonary: + rales (notes at bases ), No accessory muscle use, No respiratory distress Neurologic: + alert & oriented x 3 Drains / Tubes pleurex (left sided--minimal drainage this morning ) Assessment & Plan 66 year old male with pleural effusions -left pleurex placed on 11/27/16 -minimal drainage noted this morning -will check CT Scan to assess for residual fluid: -if minimal fluid will consider pleurodesis in next 24 hours -continue daily drainage for now
[2016-11-28 07:06] LABS: BUN/CREATININE RATIO 33.4 (10-20); CALCIUM 9.1 mg/dl (8.5-10.1); CREATININE 0.9 mg/dl (0.60-1.40)
[2016-11-28] MEDS: BOOST VANILLA PUDDING CUP PO SCH ×2 (07:30→16:45)
--- NOTE | 2016-11-28 08:18 | DIAGNOSTIC IMAGING REPORT ---
CT SCAN OF THE CHEST WITHOUT IV CONTRAST CLINICAL HISTORY: Pleural effusion. Respiratory failure. COMPARISON STUDY: Chest CT scans dated 11/10/2016 and 10/20/2016. TECHNIQUE: CT scan of the thorax was performed from the thoracic inlet to the upper abdomen. Images are reviewed in the axial, sagittal, and coronal planes. IV contrast was not administered for this examination. The examination is degraded by large body habitus, and by streak artifact from the body wall abutting the CT gantry. The examination is also degraded by motion artifact. CT DOSE: 1284.07 mGy.cm FINDINGS: Thyroid: Imaged portions of the thyroid gland are normal in size and attenuation. Thoracic aorta: The thoracic aorta is normal in caliber and demonstrates standard 3-vessel arch anatomy. A right subclavian central venous infusion port is in place. Heart: The heart is normal in size and there is a small pericardial effusion. The pulmonary trunk is normal in caliber. Lungs and pleural spaces: Evaluation of the lung parenchyma is degraded by motion artifact. A pleural drain is number present at the left lung base. There is only trace residual pleural fluid the left lower lobe. No pneumothorax is seen. There is also trace right pleural effusion. There is dense airspace consolidation the left lower lobe. There is diffuse parenchymal nodularity with associated interstitial thickening, greatest along the bronchovascular bundles. The trachea and central airways are clear. Mediastinum: There is mediastinal lymphadenopathy. Enlarged prevascular nodes measure up to 1.4 cm in short axis. Subcarinal nodes measure up to 1.7 cm in short axis. A high right paratracheal node measures 2.0 cm in short axis. Anel: Not well assessed without IV contrast. Axillae: There is no axillary lymphadenopathy. Esophagus: There is mild circumferential wall thickening seen in the mid to distal esophagus. There are adjacent surgical clips are identified as well as small surrounding paraesophageal lymph nodes. Upper abdomen: There is a large hiatal hernia, with at least half of the stomach located in the thoracic cavity. A 2.0 cm right adrenal nodule meets CT criteria for a fat-containing adenoma. 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 Laxity of the ventral abdominal wall is noted with protrusion of bowel contents.. Skeletal structures: The skeletal structures are osteopenic. Mild degenerative change is noted throughout the thoracic spine. No lytic or blastic bony lesions are seen. There are healed left anterior rib fractures. IMPRESSION: 1. A pleural drain is now seen at the left lung base. Only trace residual pleural effusions persist. No pneumothorax is identified. 2. There is dense airspace consolidation the left lower lobe which could represent atelectasis/scarring versus pneumonia. Clinical correlation will be required. 3. There is wall thickening and irregularity seen in the mid to distal esophagus with surrounding surgical clips and paraesophageal lymph nodes. This likely corresponds the patient's reported history of esophageal cancer. Correlation with the patient's oncological history will be required. 4. There are numerous irregular nodular airspace opacities seen throughout both lungs. These are similar to recent prior studies and differential considerations remain an infectious/inflammatory pneumonitis or could represent metastatic disease/lymphangitic spread of tumor. Clinical correlation will be required and [address] follow-up is recommended for reassessment. 5. There are pathologically enlarged mediastinal lymph nodes, not significantly changed from recent prior studies. The appearance is concerning for metastatic disease and the should also be reassessed at follow-up. 6. Large hiatal hernia. 7. Small pericardial effusion. 8. Additional findings as above. Electronically signed by: lR Sauceda M.D. 11/28/2016 8:16 AM Dictated Date/Time: 11/28/2016 8:07 AM
[2016-11-28] MEDS: LOSARTAN POTASSIUM 25 MG TAB PO SCH (08:57)
[2016-11-28] MEDS: SPIRONOLACTONE 25 MG TAB PO SCH (08:58)
[2016-11-28] MEDS: PANTOprazole SOD 40 MG TAB PO SCH ×2 (08:58→20:56)
[2016-11-28] MEDS: FUROSEMIDE 40 MG TAB PO SCH (08:58)
[2016-11-28] MEDS: GUAIFENESIN 600 MG TABCR PO SCH ×2 (08:58→20:56)
[2016-11-28] MEDS: PRAVASTATIN SOD 20 MG TAB PO SCH (08:59)
[2016-11-28] MEDS: METOPROLOL TARTRATE 25 MG TAB PO SCH ×2 (08:59→20:56)
[2016-11-28] MEDS: DOCUSATE SODIUM 100 MG CAP PO SCH ×2 (09:00→20:56)
[2016-11-28] MEDS: INSULIN GLARGINE SOLOSTAR 100 UNITS/ML 3 ML PEN SC SCH (09:00)
[2016-11-28] MEDS: INSULIN ASPART 100 UNITS/ML 3 ML PEN SC SCH ×4 (09:02→21:00)
[2016-11-28] MEDS: MoRPHine SULFATE 5 MG/0.25 ML UDP PO PRN (09:12)
--- NOTE | 2016-11-28 10:14 | DIAGNOSTIC IMAGING REPORT ---
SINGLE VIEW CHEST CLINICAL HISTORY: Pleural effusions. FINDINGS: An AP, portable, upright chest radiograph is compared to chest x-ray dated 11/27/2016 and correlated with chest CT dated 11/10/2016. The examination is degraded by portable technique and patient rotation. A right internal jugular central venous infusion port is unchanged in position. A pleural drain is noted at the left lung base. Surgical clips are noted in the mediastinum. A hiatal hernia is observed. The heart is enlarged. There is prominence of the pulmonary vasculature. Extensive interstitial thickening and nodularity is identified. There are trace residual pleural effusions with bibasilar opacities. The upper lobes appear clear. There is no pneumothorax. The skeletal structures are osteopenic. The bone thorax appears intact. IMPRESSION: 1. Cardiomegaly with prominence of the pulmonary vessels. This is similar to previous. Correlate clinically for evidence of mild congestive change. 2. Trace pleural effusions persist with bibasilar airspace opacities. 3. Diffuse interstitial thickening and nodularity is identified. Electronically signed by: Rl Sauceda M.D. 11/28/2016 10:12 AM Dictated Date/Time: 11/28/2016 10:10 AM
--- NOTE | 2016-11-28 15:59 | Progress Note ---
Medicine Progress Note Date & Time of Visit: Nov 28, 2016 at 15:40. Subjective Pt was seen and examined Sitting in chair with no distress Pt said that he continues to have pain where he had the PleurX cath done he said that the pain med helps he said that he had a large BM this morning His breathing is slightly improved, but continue to have SOB on exertion Denies any fever, chills and palpitation Objective Last 8 Hrs Date Time Temp Pulse Resp B/P (MAP) Pulse Ox O2 Delivery O2 Flow Rate FiO2 11/28/16 14:14 92 20 90 Nasal Cannula 2.0 11/28/16 12:22 36.9 92 20 100/53 (69) 91 Nasal Cannula 2.0 11/28/16 12:00 Nasal Cannula 2.0 11/28/16 08:18 36.7 112 24 95/67 (76) 91 Nasal Cannula 2.0 11/28/16 08:00 Nasal Cannula 2.0 Physical Exam: General- No acute distress Head- atraumatic Eyes- PERRL, EOMI ENT- oropharynx clear Neck- supple, no JVD Lungs- decrease breath sound Heart- regular rhythm Abdomen- normal bowel sounds, soft Extremities- +edema in right leg, Left LE prosthesis Neuro- alert, oriented x 3; PERRL, EOMI Skin- warm & dry Laboratory Results: Last 24 Hours Test 11/27/16 16:44 11/27/16 20:31 11/28/16 06:16 11/28/16 06:21 Bedside Glucose 264 mg/dl 268 mg/dl 208 mg/dl White Blood Count 16.80 K/uL Red Blood Count 4.60 M/uL Hemoglobin 13.6 g/dL Hematocrit 40.0 % Mean Corpuscular Volume 87.0 fL Mean Corpuscular Hemoglobin 29.6 pg Mean Corpuscular Hemoglobin Concent 34.0 g/dl RDW Standard Deviation 55.3 fL RDW Coefficient of Variation 17.3 % Platelet Count 156 K/uL Mean Platelet Volume 10.1 fL Sodium Level 135 mmol/L Potassium Level 4.0 mmol/L Chloride Level 99 mmol/L Carbon Dioxide Level 32 mmol/L Anion Gap 4.0 mmol/L Blood Urea Nitrogen 30 mg/dl Creatinine 0.90 mg/dl Est Creatinine Clear Calc Drug Dose 107.3 ml/min Estimated GFR () 103.5 Estimated GFR (Non- 89.3 BUN/Creatinine Ratio 33.4 Random Glucose 173 mg/dl Calcium Level 9.1 mg/dl Test 11/28/16 11:04 Bedside Glucose 221 mg/dl Assessment & Plan Acute on chronic hypoxemic respiratory failure : secondary to malignant pleural effusion -recurrence Esophageal CA with mets had thoracentesis done in last admission by Dr Dukes with drainage of approx 900 ml pathology of pleural effusion -metastatic esophageal CA U/S chest showed the pleural effusion on the right has an estimated volume of 720 cc and the pleural effusion on the left has an estimated volume of 1024 cc. S/P PleurX Catheter done today by Dr. 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: not a candidate for chemo for progressively decline in functional status follows with Hem/Onc Dr Epps very poor prognosis -presents with reaccumulation of malignant effusion in past 10 days Hospice care discussed with pt and family by Dr Epps last admission pt and family wanted to wait did not want any aggressive measure , was not in favor for chemo or radiation for side effect( now not a candidate ) palliative care was consulted Patient and agreed for home instrumentation manager will arrange for home hospice Will d/c morphine and increase Roxanol to 10mg CODE STATUS very poor prognosis /advanced malignancy DO NOT RESUSCITATE DVT PROPHYLAXIS high risk for advanced malignancy Sub q Lovenox DISPOSITION Discharge home for home hospice Will need home health visiting nurse Medicine follow up with Dr Esther Delgadillo Consultants: Pulmonary Thoracic Surgery Procedures: PleurX catheter insertion Current Inpatient Medications: Current Inpatient Medications Medications (Trade) Dose Ordered Sig/Kamron Route Start Time Stop Time Status Last Admin Dose Admin Guaifenesin (Mucinex Contr Rel Tab) 600 mg Q12 PO 11/24/16 21:00 12/24/16 20:59 11/28/16 08:58 600 MG Glucose (Glucose 40% Gel) 15-30 GRAMS 15 GRAMS... UD PRN PO 11/24/16 20:30 12/24/16 20:29 Glucose (Glucose Chew Tab) 4-8 Tablets 4 Tabl... UD PRN PO 11/24/16 20:30 12/24/16 20:29 Dextrose (Dextrose 50% 50ML Syringe) 25-50ML OF 50% DW IV FOR... UD PRN IV 11/24/16 20:30 12/24/16 20:29 Glucagon (Glucagon Inj) 1 mg UD PRN SQ 11/24/16 20:30 12/24/16 20:29 Insulin Glargine (Lantus Solostar Pen) 10 units DAILY SC 11/24/16 22:05 12/24/16 22:04 11/28/16 09:00 10 UNITS Enoxaparin Sodium (Lovenox Inj) 40 mg Q24H SC 11/24/16 22:00 12/24/16 21:59 Future hold 11/27/16 21:24 40 MG Acetaminophen (Tylenol Tab) 650 mg Q4H PRN PO 11/24/16 20:30 12/24/16 20:29 Nitroglycerin (Nitrostat Tab) 0.4 mg UD PRN SL 11/24/16 20:30 12/24/16 20:29 Insulin Aspart (novoLOG ASPART) SLIDING SCALE If C... ACHS SC 11/24/16 21:00 12/24/16 20:59 11/28/16 11:40 4 UNITS Citalopram Hydrobromide (celeXA TAB) 40 mg QPM PO 11/24/16 21:00 12/24/16 20:59 11/27/16 21:14 40 MG Losartan Potassium (coZAAR TAB) 25 mg DAILY PO 11/25/16 09:00 12/25/16 08:59 11/28/16 08:57 25 MG Metoprolol Tartrate (Lopressor Tab) 25 mg BID PO 11/24/16 21:00 12/24/16 20:59 11/28/16 08:59 25 MG Pantoprazole Sodium (Protonix Tab) 40 mg BID PO 11/24/16 21:00 12/24/16 20:59 11/28/16 08:58 40 MG Potassium Chloride (Klor-Con M10) 10 meq QPM PO 11/24/16 21:00 12/24/16 20:59 11/27/16 21:14 10 MEQ Pravastatin Sodium (Pravachol Tab) 20 mg DAILY PO 11/25/16 09:00 12/25/16 08:59 11/28/16 08:59 20 MG Spironolactone (Aldactone Tab) 12.5 mg QAM PO 11/25/16 09:00 12/25/16 08:59 11/28/16 08:58 12.5 MG Ondansetron HCl (Zofran Inj) 4 mg Q6H PRN IV 11/24/16 20:30 12/24/16 20:29 Tramadol HCl (Ultram Tab) 25 mg Q6H PRN PO 11/24/16 20:30 12/24/16 20:29 11/25/16 00:51 25 MG Prednisone (PredniSONE TAB) 40 mg DAILY PO 11/25/16 09:00 11/30/16 08:59 11/28/16 08:59 40 MG Levalbuterol (Xopenex 1.25MG/ 0.5ML Neb) 1.25 mg Q6R INH 11/25/16 03:00 12/25/16 02:59 11/28/16 14:13 1.25 MG Ipratropium [place] (Atrovent 0.02% 0.5MG/2.5ML Neb) 0.5 mg Q6R INH 11/25/16 03:00 12/25/16 02:59 11/28/16 14:13 0.5 MG Miscellaneous Information (Order Awaiting Action) 1 ea QS N/A 11/25/16 00:00 12/25/16 00:00 Morphine Sulfate (MoRPHine SULFATE INJ) 1 mg Q4 PRN IV 11/25/16 16:45 12/09/16 16:44 11/28/16 05:31 1 MG Enteral Nutritional Formula (Boost Pudding) 1 cup BIDM PO 11/25/16 17:15 12/25/16 17:14 11/26/16 08:21 1 CUP Lorazepam (Ativan Tab) 0.25 mg HS PRN PO 11/25/16 20:00 12/25/16 19:59 11/25/16 23:42 0.25 MG Lorazepam (Ativan Tab) 0.5 mg HS PRN PO 11/26/16 01:00 12/26/16 00:59 11/26/16 23:46 0.5 MG Furosemide (Lasix Tab) 40 mg QAM PO 11/27/16 09:00 12/27/16 08:59 11/28/16 08:58 40 MG Morphine Sulfate (Roxanol Oral Soln) 5 mg Q6 PRN PO 11/26/16 17:30 12/10/16 17:29 11/28/16 09:12 5 MG Docusate Sodium (coLACE CAP) 100 mg BID PO 11/28/16 09:00 12/28/16 08:59 Polyethylene (Miralax Powder Packet) 17 gm DAILY PRN PO 11/27/16 22:30 12/27/16 22:29 Ipratropium [place] (Atrovent 0.02% 0.5MG/2.5ML Neb) 0.5 mg Q4H PRN INH 11/27/16 23:45 12/27/16 23:44 Levalbuterol (Xopenex 1.25MG/ 0.5ML Neb) 1.25 mg Q4H PRN INH 11/27/16 23:45 12/27/16 23:44
[2016-11-28] MEDS: ENOXAPARIN 40 MG/0.4 ML SYR SC SCH (20:55)
[2016-11-28] MEDS: POTASSIUM CHLORIDE 10 MEQ TABCR PO SCH (20:56)
[2016-11-28] MEDS: CITALOPRAM 40 MG TAB PO SCH (20:56)
[2016-11-29] VITALS (12 sets, daily range): BP systolic 93–119; BP diastolic 57–84; PULSE 80–109; TEMP 36.5–37; O2SAT 92–95
[2016-11-29] MEDS: LEVALBUTEROL 1.25MG/0.5ML NEB INH SCH ×4 (02:10→18:57)
[2016-11-29] MEDS: IPRATROPIUM BROMIDE NEB SOLN 0.02% 2.5 ML VIAL INH SCH ×4 (02:10→18:57)
[2016-11-29] MEDS: MoRPHine SULFATE 5 MG/0.25 ML UDP PO PRN ×2 (05:37→22:23)
[2016-11-29 05:59] LABS: HEMATOCRIT 42.3 % (42-52); MEAN CELL VOLUME 87.4 fL (80-100); MEAN CORPUSCULAR HEMOGLOBIN 28.9 pg (25-34); MEAN CORPUSCULAR HGB CONC 33.1 g/dl (32-36); MEAN PLATELET VOLUME 10.1 fL (7.4-10.4); PLATELET COUNT 159 K/uL (130-400); RED BLOOD COUNT 4.84 M/uL (4.7-6.1); WHITE BLOOD COUNT 16.52 K/uL (4.8-10.8)
[2016-11-29 06:29] LABS: BUN/CREATININE RATIO 27.4 (10-20); CALCIUM 9.2 mg/dl (8.5-10.1); CREATININE 0.9 mg/dl (0.60-1.40); POTASSIUM 3.9 mmol/L (3.5-5.1)
[2016-11-29] MEDS: BOOST VANILLA PUDDING CUP PO SCH ×2 (07:30→16:24)
[2016-11-29] MEDS: LOSARTAN POTASSIUM 25 MG TAB PO SCH (08:28)
[2016-11-29] MEDS: SPIRONOLACTONE 25 MG TAB PO SCH (08:28)
[2016-11-29] MEDS: PANTOprazole SOD 40 MG TAB PO SCH ×2 (08:29→19:55)
[2016-11-29] MEDS: FUROSEMIDE 40 MG TAB PO SCH (08:29)
[2016-11-29] MEDS: GUAIFENESIN 600 MG TABCR PO SCH ×2 (08:29→19:54)
[2016-11-29] MEDS: PRAVASTATIN SOD 20 MG TAB PO SCH (08:29)
[2016-11-29] MEDS: METOPROLOL TARTRATE 25 MG TAB PO SCH ×2 (08:29→19:54)
[2016-11-29] MEDS: DOCUSATE SODIUM 100 MG CAP PO SCH ×2 (08:32→19:56)
[2016-11-29] MEDS: INSULIN ASPART 100 UNITS/ML 3 ML PEN SC SCH ×4 (08:37→20:54)
[2016-11-29] MEDS: INSULIN GLARGINE SOLOSTAR 100 UNITS/ML 3 ML PEN SC SCH (08:37)
[2016-11-29] MEDS ORDERED: TALC 6 GM/PKT EXT ONE (09:15)
[2016-11-29] MEDS ORDERED: MoRPHine SULFATE 2 MG/ML CARP ONE (10:26)
[2016-11-29] MEDS ORDERED: LIDOCAINE HCL 2% LOCAL 50ML VIAL ONE (10:26)
[2016-11-29] MEDS ORDERED: NURSING VERBAL MED ORDER ONE (10:30)
--- NOTE | 2016-11-29 11:31 | Progress Note ---
Progress Note Date of Service Nov 29, 2016. Progress Note I had a long talk about this patient with Dr. Mark Morrison. I reviewed his CT scan. We are really not draining any fluid from the Pleurx catheter and he has essentially no fluid in the left pleural cavity. He does have some abnormalities. He is also is still somewhat short of breath but I do not believe this is related to his pleural fluid. His incision is clean except for some mild ecchymosis. A long talk with the patient and we have elected to proceed with a bedside pleurodesis with talc. He understands and wishes to proceed. Hopefully we will be able to remove the Pleurx catheter tomorrow.
--- NOTE | 2016-11-29 11:32 | [facility] Operative Report ---
Operative Report Date of Service Nov 29, 2016. Operative Report Procedure: The patient is seated position, the patient was pleurodesed by injecting the talc which had been reconstituted with saline sterilely into the left pleural cavity. This was done via the Pleurx catheter. Patient developed quite a bit of pain with this. For this reason, 50 mL of 1% Xylocaine was then injected sterilely through the Pleurx also. This helped him immediately. We will re- drain the Pleurx catheter later today and hopefully remove it in the morning. He tolerated it well. I attest to the content of the Intraoperative Record and any orders documented therein. Any exceptions are noted below.
--- NOTE | 2016-11-29 14:33 | Progress Note ---
Medicine Progress Note Date & Time of Visit: Nov 29, 2016 at 14:25. Subjective Pt was seen and examined Sitting in chair complaint of tenderness in the left side Pt said that his breathing feels the same he said that the pain med help denies any palpitation, dizziness, fever and chills Objective Last 8 Hrs Date Time Temp Pulse Resp B/P (MAP) Pulse Ox O2 Delivery O2 Flow Rate FiO2 11/29/16 14:22 94 20 94 Nasal Cannula 2.0 11/29/16 12:32 36.5 100 18 119/69 (86) 95 11/29/16 12:00 Nasal Cannula 2.0 11/29/16 08:07 36.8 109 24 100/84 (89) 94 11/29/16 08:00 Nasal Cannula 2.0 Physical Exam: General- No acute distress Head- atraumatic Eyes- PERRL, EOMI ENT- oropharynx clear Neck- supple, no JVD Lungs- decrease breath sound Heart- regular rhythm Abdomen- normal bowel sounds, soft Extremities- +edema in right leg, Left LE prosthesis Neuro- alert, oriented x 3; PERRL, EOMI Skin- warm & dry Laboratory Results: Last 24 Hours Test 11/28/16 15:55 11/28/16 20:04 11/29/16 05:44 11/29/16 06:12 Bedside Glucose 246 mg/dl 281 mg/dl 188 mg/dl White Blood Count 16.52 K/uL Red Blood Count 4.84 M/uL Hemoglobin 14.0 g/dL Hematocrit 42.3 % Mean Corpuscular Volume 87.4 fL Mean Corpuscular Hemoglobin 28.9 pg Mean Corpuscular Hemoglobin Concent 33.1 g/dl RDW Standard Deviation 55.3 fL RDW Coefficient of Variation 17.2 % Platelet Count 159 K/uL Mean Platelet Volume 10.1 fL Sodium Level 136 mmol/L Potassium Level 3.9 mmol/L Chloride Level 99 mmol/L Carbon Dioxide Level 31 mmol/L Anion Gap 6.0 mmol/L Blood Urea Nitrogen 25 mg/dl Creatinine 0.90 mg/dl Est Creatinine Clear Calc Drug Dose 104.4 ml/min Estimated GFR () 103.5 Estimated GFR (Non- 89.3 BUN/Creatinine Ratio 27.4 Random Glucose 173 mg/dl Calcium Level 9.2 mg/dl Test 11/29/16 11:38 Bedside Glucose 281 mg/dl Assessment & Plan Acute on chronic hypoxemic respiratory failure : secondary to malignant pleural effusion -recurrence Esophageal CA with mets had thoracentesis done in last admission by Dr Dukes with drainage of approx 900 ml pathology of pleural effusion -metastatic esophageal CA U/S chest showed the pleural effusion on the right has an estimated volume of 720 cc and the pleural effusion on the left has an estimated volume of 1024 cc. S/P PleurX Catheter done by Dr. Brambila Repeat CXR on 11/27/16 showed decreasing left pleural effusion with slight improvement in the aeration of the left lung base Pulmonary and thoracic surgery on board no sign of pneumonia, Levaquin was D/Rachid WBC trending down Continue lasix 40mg daily No drainage from PleurX Dr. 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: not a candidate for chemo for progressively decline in functional status follows with Hem/Onc Dr Epps very poor prognosis -presents with reaccumulation of malignant effusion in past 10 days Hospice care discussed with pt and family by Dr Epps last admission pt and family wanted to wait did not want any aggressive measure , was not in favor for chemo or radiation for side effect( now not a candidate ) palliative care was consulted 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 and 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 for 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 will arrange for home hospice Will d/c morphine and increase Roxanol to 10mg CODE STATUS very poor prognosis /advanced malignancy DO NOT RESUSCITATE DVT PROPHYLAXIS high risk for advanced malignancy Sub q Lovenox DISPOSITION Discharge home for home hospice Will need home health visiting nurse Medicine follow up with Dr Esther Delgadillo Consultants: Pulmonary Thoracic Surgery Procedures: PleurX catheter insertion Current Inpatient Medications: Current Inpatient Medications Medications (Trade) Dose Ordered Sig/Kamron Route Start Time Stop Time Status Last Admin Dose Admin Guaifenesin (Mucinex Contr Rel Tab) 600 mg Q12 PO 11/24/16 21:00 12/24/16 20:59 11/29/16 08:29 600 MG Glucose (Glucose 40% Gel) 15-30 GRAMS 15 GRAMS... UD PRN PO 11/24/16 20:30 12/24/16 20:29 Glucose (Glucose Chew Tab) 4-8 Tablets 4 Tabl... UD PRN PO 11/24/16 20:30 12/24/16 20:29 Dextrose (Dextrose 50% 50ML Syringe) 25-50ML OF 50% DW IV FOR... UD PRN IV 11/24/16 20:30 12/24/16 20:29 Glucagon (Glucagon Inj) 1 mg UD PRN SQ 11/24/16 20:30 12/24/16 20:29 Insulin Glargine (Lantus Solostar Pen) 10 units DAILY SC 11/24/16 22:05 12/24/16 22:04 11/29/16 08:37 10 UNITS Enoxaparin Sodium (Lovenox Inj) 40 mg Q24H SC 11/24/16 22:00 12/24/16 21:59 Future hold 11/28/16 20:55 40 MG Acetaminophen (Tylenol Tab) 650 mg Q4H PRN PO 11/24/16 20:30 12/24/16 20:29 Nitroglycerin (Nitrostat Tab) 0.4 mg UD PRN SL 11/24/16 20:30 12/24/16 20:29 Insulin Aspart (novoLOG ASPART) SLIDING SCALE If C... ACHS SC 11/24/16 21:00 12/24/16 20:59 11/29/16 12:17 5 UNITS Citalopram Hydrobromide (celeXA TAB) 40 mg QPM PO 11/24/16 21:00 12/24/16 20:59 11/28/16 20:56 40 MG Losartan Potassium (coZAAR TAB) 25 mg DAILY PO 11/25/16 09:00 12/25/16 08:59 11/29/16 08:28 25 MG Metoprolol Tartrate (Lopressor Tab) 25 mg BID PO 11/24/16 21:00 12/24/16 20:59 11/29/16 08:29 25 MG Pantoprazole Sodium (Protonix Tab) 40 mg BID PO 11/24/16 21:00 12/24/16 20:59 11/29/16 08:29 40 MG Potassium Chloride (Klor-Con M10) 10 meq QPM PO 11/24/16 21:00 12/24/16 20:59 11/28/16 20:56 10 MEQ Pravastatin Sodium (Pravachol Tab) 20 mg DAILY PO 11/25/16 09:00 7/31/17 08:59 11/29/16 08:29 20 MG Spironolactone (Aldactone Tab) 12.5 mg QAM PO 11/25/16 09:00 12/25/16 08:59 11/29/16 08:28 12.5 MG Ondansetron HCl (Zofran Inj) 4 mg Q6H PRN IV 11/24/16 20:30 12/24/16 20:29 Tramadol HCl (Ultram Tab) 25 mg Q6H PRN PO 11/24/16 20:30 12/24/16 20:29 11/25/16 00:51 25 MG Prednisone (PredniSONE TAB) 40 mg DAILY PO 11/25/16 09:00 11/30/16 08:59 11/29/16 08:29 40 MG Levalbuterol (Xopenex 1.25MG/ 0.5ML Neb) 1.25 mg Q6R INH 11/25/16 03:00 12/25/16 02:59 11/29/16 14:22 1.25 MG Ipratropium [place] (Atrovent 0.02% 0.5MG/2.5ML Neb) 0.5 mg Q6R INH 11/25/16 03:00 12/25/16 02:59 11/29/16 14:22 0.5 MG Miscellaneous Information (Order Awaiting Action) 1 ea QS N/A 11/25/16 00:00 12/25/16 00:00 Enteral Nutritional Formula (Boost Pudding) 1 cup BIDM PO 11/25/16 17:15 12/25/16 17:14 11/26/16 08:21 1 CUP Lorazepam (Ativan Tab) 0.25 mg HS PRN PO 11/25/16 20:00 12/25/16 19:59 11/25/16 23:42 0.25 MG Lorazepam (Ativan Tab) 0.5 mg HS PRN PO 11/26/16 01:00 12/26/16 00:59 11/26/16 23:46 0.5 MG Furosemide (Lasix Tab) 40 mg QAM PO 11/27/16 09:00 12/27/16 08:59 11/29/16 08:29 40 MG Docusate Sodium (coLACE CAP) 100 mg BID PO 11/28/16 09:00 12/28/16 08:59 Polyethylene (Miralax Powder Packet) 17 gm DAILY PRN PO 11/27/16 22:30 12/27/16 22:29 Ipratropium [place] (Atrovent 0.02% 0.5MG/2.5ML Neb) 0.5 mg Q4H PRN INH 11/27/16 23:45 12/27/16 23:44 11/28/16 22:16 0.5 MG Levalbuterol (Xopenex 1.25MG/ 0.5ML Neb) 1.25 mg Q4H PRN INH 11/27/16 23:45 12/27/16 23:44 11/28/16 22:16 1.25 MG Morphine Sulfate (Roxanol Oral Soln) 10 mg Q4 PRN PO 11/28/16 16:00 12/10/16 17:29 11/29/16 05:37 10 MG
[2016-11-29] MEDS: CITALOPRAM 40 MG TAB PO SCH (19:54)
[2016-11-29] MEDS: POTASSIUM CHLORIDE 10 MEQ TABCR PO SCH (19:55)
[2016-11-29] MEDS: TRAMADOL HCL 50 MG TAB PO PRN (20:05)
[2016-11-29] MEDS: ENOXAPARIN 40 MG/0.4 ML SYR SC SCH (20:53)
[2016-11-30] VITALS (11 sets, daily range): BP systolic 96–128; BP diastolic 64–74; PULSE 90–108; TEMP 36.6–36.8; O2SAT 89–94
[2016-11-30] MEDS: IPRATROPIUM BROMIDE NEB SOLN 0.02% 2.5 ML VIAL INH SCH ×4 (01:14→18:55)
[2016-11-30] MEDS: LEVALBUTEROL 1.25MG/0.5ML NEB INH SCH ×4 (01:14→18:55)
[2016-11-30] MEDS: MoRPHine SULFATE 5 MG/0.25 ML UDP PO PRN ×2 (05:46→08:57)
[2016-11-30 06:39] LABS: HEMATOCRIT 39.1 % (42-52); MEAN CELL VOLUME 85.9 fL (80-100); MEAN CORPUSCULAR HEMOGLOBIN 29.9 pg (25-34); MEAN CORPUSCULAR HGB CONC 34.8 g/dl (32-36); MEAN PLATELET VOLUME 10.4 fL (7.4-10.4); PLATELET COUNT 175 K/uL (130-400); RED BLOOD COUNT 4.55 M/uL (4.7-6.1); WHITE BLOOD COUNT 24.45 K/uL (4.8-10.8)
[2016-11-30 07:10] LABS: BUN/CREATININE RATIO 23.9 (10-20); CALCIUM 9.2 mg/dl (8.5-10.1); CREATININE 1.4 mg/dl (0.60-1.40); POTASSIUM 4.2 mmol/L (3.5-5.1)
[2016-11-30] MEDS: FUROSEMIDE 40 MG TAB PO SCH (07:40)
[2016-11-30] MEDS: DOCUSATE SODIUM 100 MG CAP PO SCH ×3 (07:41→19:45)
[2016-11-30] MEDS: GUAIFENESIN 600 MG TABCR PO SCH ×2 (07:42→20:43)
[2016-11-30] MEDS: PRAVASTATIN SOD 20 MG TAB PO SCH (07:42)
[2016-11-30] MEDS: PANTOprazole SOD 40 MG TAB PO SCH ×2 (07:43→19:45)
[2016-11-30] MEDS: LOSARTAN POTASSIUM 25 MG TAB PO SCH (07:45)
[2016-11-30] MEDS: METOPROLOL TARTRATE 25 MG TAB PO SCH ×2 (07:55→19:44)
--- NOTE | 2016-11-30 08:38 | DIAGNOSTIC IMAGING REPORT ---
CHEST ONE VIEW PORTABLE CLINICAL HISTORY: pleurodesis dyspnea COMPARISON STUDY: 11/28/2016 FINDINGS: Moderate cardiomegaly. Progressive increase in density left base. Findings a slightly progressive components of congestive failure. Central catheter remains in superior vena cava. IMPRESSION: 1. Slightly progressive findings of congestive failure. 2. Progressive infiltrative/atelectatic changes left base. Electronically signed by: Miguel Granados M.D. 11/30/2016 8:37 AM Dictated Date/Time: 11/30/2016 8:36 AM
[2016-11-30] MEDS: INSULIN GLARGINE SOLOSTAR 100 UNITS/ML 3 ML PEN SC SCH (09:00)
[2016-11-30] MEDS ORDERED: NURSING VERBAL MED ORDER ONE (09:00)
[2016-11-30] MEDS: INSULIN ASPART 100 UNITS/ML 3 ML PEN SC SCH ×4 (09:02→20:56)
[2016-11-30] MEDS ORDERED: MoRPHine SULFATE 5 MG/0.25 ML UDP PO PRN (09:15)
--- NOTE | 2016-11-30 09:25 | Progress Note ---
Progress Note Date of Service Nov 30, 2016. Progress Note Left pleurx removed without difficulty. Sterile dressing applied.
--- NOTE | 2016-11-30 09:29 | Progress Note ---
Progress Note Date of Service Nov 30, 2016. Progress Note Mr. Granados was seen this morning. He sitting up in a chair. He still complains of shortness of breath. His x-ray showed no reaccumulation of fluid. Very little was drained from the Pleurx catheter this morning. He still has some decreased breath sounds in the left please moving air fairly well. He had some pain with a talc pleurodesis yesterday but has improved. We will pull his Pleurx out today and check a chest x-ray in the morning.
--- NOTE | 2016-11-30 09:30 | Procedure Note ---
Procedure Note Date of Service Nov 30, 2016. Procedure Note At the patient's bedside, his left Pleurx dressing was removed. Sutures removed and under sterile conditions the Pleurx catheter was quickly removed and an occlusive antimicrobial dressing was placed. We will check a chest x- ray in the morning. He tolerated it well.
[2016-11-30] MEDS: SPIRONOLACTONE 25 MG TAB PO SCH (10:02)
[2016-11-30] MEDS: BOOST VANILLA PUDDING CUP PO SCH ×2 (10:12→10:16)
--- NOTE | 2016-11-30 11:25 | Pulmonology Progress Note ---
Pulmonary Progress Note Date of Service Nov 30, 2016. Attending Dr Morrison Subjective Patient was seen today with Vance Lange, physician bricklayer's assistant student, with the patient's verbal consent. Patient was seen this morning. When presented the room patient was in there alone. He stated that he was doing well. He stated that Dr. Hawkins was in and remove the Pleurx catheter. At that time his walked in and was very angry and upset that the Pleurx was removed. She verbalized that they've been in and had fluid reaccumulate previously and that the fluid was just going to reaccumulate again and they would end up back in here. I tried to explain to her that with talc pleurodesis the risk of fluid reaccumulation is low however she was not interested in that. She remained to be very angry and upset. At this point she instructed me to focus on the patient and finish the interview and exam. Patient reports that breathing bass he feels pretty well. He states that he can take a deep breath in without any difficulty. He states that he will have some discomfort on the left side where the talc was instilled. He's rates it as a 5 out of 10 at its worst. He states that when he is sitting at rest it may be a 0- 1 out of 10. He does have some cough but the cough is nonproductive. He states that he does have wheezing. He hasn't really been up moving around much. He states that if he would get up and walk to the bathroom he thinks that he would be short of breath. He reports that he's had no cardiac type chest pain. He's had no palpitations. He states that his appetites been normal. He states that occasionally he will have to go down wrong when he eats. He reports that his bowels haven't moved for about 2 days. He states that when he first came in his bowels didn't move and then about 2 days ago he had a large bowel movement and actually had some diarrhea. He states that he felt like he was cleaned out. He states that he hasn 't had his bowels move since then. He states he is passing air. He states he does not have any sensation that he needs to go. He's not having any abdominal pain. He reports his morning that he has not voided. He states that his urine has been varying anywhere from clear to little bit dark. He's not had any dysuria. He's not had any known hesitancy or urgency. He has been having increased swelling in his right leg. He states it's been this way for several days. Both he and his report that he has had ultrasounds in the past to rule out DVT. He did have an ultrasound on November 24 during this hospitalization which did not show any evidence of deep vein thrombosis in the right lower extremity. Patient states that they are planning on doing a chest x-ray in the morning. He states that he was helping her at home today but he realizes that he'll be here at least until tomorrow. Objective The patient is comfortable. He was cooperative and alert. Patient is not in any acute respiratory distress. He is able to complete sentences without difficulty. He is alert and oriented 3. Mood is good. Affect is good. Vital signs: Temp is 36.7. Pulse is 90. Respirations 20. Blood pressure is 97/ 64. Pulse ox is 90-91% on 2 L via nasal cannula. Neck: Short and thick. No mass, adenopathy, bruit. Chest: Diminished breath sounds bilaterally. Breath sounds in the right her latter than on the left. Left breast sounds are coarse. Questionable rales at the left base but difficult to ascertain. Cardiovascular: Regular rate and rhythm. No murmurs, gallops, or rubs. Abdomen: Obese. Extremities: Right lower extremity has +2 borderline +3 edema. Edema is pitting. Skin is shiny. Edema goes up to the knee. There is no tenderness to palpation. There is no posterior calf tenderness to palpation. Left lower extremity is a prosthesis. Neuro: Cranial nerves II-12 grossly intact. No focal deficits. Labs show white count of 24,000, which is up from 16,000 on November 29. H&H is 13.6 39.1. BUN is 34. Creatinine is 1.4, which is up from 0.9 on November 29. Chest x-ray showing atelectatic changes at the left base. Assessment & Plan Impressions #1 respiratory failure and severe shortness of breath-multifactorial #2 esophageal carcinoma with metastasis #3 malignant left pleural effusion #4 multiple lung nodules suspicious for malignancy #5 COPD #6 mild obstructive sleep apnea #7 diastolic CHF #8 left lower lobe opacification-rule out pneumonia-most likely on clinical grounds Comments and recommendations: Patient was evaluated today. He had his Pleurx removed earlier today. Currently he feels that his breathing is stable. He denies any other concerns or problems. My concern is that his white count did elevate which she can sometimes see with talc pleurodesis. This will need to be monitored. However, he also has been anuric this morning. He will need to be monitored for possible UTI and didn't worsening renal function. His BUN and creatinine while in an acceptable range were elevated compared to yesterday. I will put an order in for a UA and have instructed nursing staff that I do want them to monitor him for his urinary output. I also instructed them to notify either myself or the hospitalist if the patient has avoided in another 2 hours. At this time patient does have chest x-ray ordered for tomorrow. We'll continue to monitor him. Patient's was very upset. I did contact Dr. Silvio Hawkins to advise them of her concerns. He was going to try and contact the patient and his regarding this. This point continue to follow.. Data Medications: Current Inpatient Medications Medications (Trade) Dose Ordered Sig/[place] Route Start Time Stop Time Status Last Admin Dose Admin Guaifenesin (Mucinex Contr Rel Tab) 600 mg Q12 PO 11/24/16 21:00 12/24/16 20:59 11/30/16 07:42 600 MG Glucose (Glucose 40% Gel) 15-30 GRAMS 15 GRAMS... UD PRN PO 11/24/16 20:30 12/24/16 20:29 Glucose (Glucose Chew Tab) 4-8 Tablets 4 Tabl... UD PRN PO 11/24/16 20:30 12/24/16 20:29 Dextrose (Dextrose 50% 50ML Syringe) 25-50ML OF 50% DW IV FOR... UD PRN IV 11/24/16 20:30 12/24/16 20:29 Glucagon (Glucagon Inj) 1 mg UD PRN SQ 11/24/16 20:30 12/24/16 20:29 Insulin Glargine (Lantus Solostar Pen) 10 units DAILY SC 11/24/16 22:05 12/24/16 22:04 11/30/16 09:00 10 UNITS Enoxaparin Sodium (Lovenox Inj) 40 mg Q24H SC 11/24/16 22:00 12/24/16 21:59 Future hold 11/29/16 20:53 40 MG Acetaminophen (Tylenol Tab) 650 mg Q4H PRN PO 11/24/16 20:30 12/24/16 20:29 Nitroglycerin (Nitrostat Tab) 0.4 mg UD PRN SL 11/24/16 20:30 12/24/16 20:29 Insulin Aspart (novoLOG ASPART) SLIDING SCALE If C... ACHS SC 11/24/16 21:00 12/24/16 20:59 11/30/16 09:02 5 UNITS Citalopram Hydrobromide (celeXA TAB) 40 mg QPM PO 11/24/16 21:00 12/24/16 20:59 11/29/16 19:54 40 MG Losartan Potassium (coZAAR TAB) 25 mg DAILY PO 11/25/16 09:00 12/25/16 08:59 11/29/16 08:28 25 MG Metoprolol Tartrate (Lopressor Tab) 25 mg BID PO 11/24/16 21:00 12/24/16 20:59 11/30/16 07:55 25 MG Pantoprazole Sodium (Protonix Tab) 40 mg BID PO 11/24/16 21:00 12/24/16 20:59 11/30/16 07:43 40 MG Potassium Chloride (Klor-Con M10) 10 meq QPM PO 11/24/16 21:00 12/24/16 20:59 11/29/16 19:55 10 MEQ Pravastatin Sodium (Pravachol Tab) 20 mg DAILY PO 11/25/16 09:00 12/25/16 08:59 11/30/16 07:42 20 MG Spironolactone (Aldactone Tab) 12.5 mg QAM PO 11/25/16 09:00 12/25/16 08:59 11/29/16 08:28 12.5 MG Ondansetron HCl (Zofran Inj) 4 mg Q6H PRN IV 11/24/16 20:30 12/24/16 20:29 Tramadol HCl (Ultram Tab) 25 mg Q6H PRN PO 11/24/16 20:30 12/24/16 20:29 7/5/17 20:05 25 MG Levalbuterol (Xopenex 1.25MG/ 0.5ML Neb) 1.25 mg Q6R INH 11/25/16 03:00 12/25/16 02:59 11/30/16 07:03 1.25 MG Ipratropium [place] (Atrovent 0.02% 0.5MG/2.5ML Neb) 0.5 mg Q6R INH 11/25/16 03:00 12/25/16 02:59 11/30/16 07:02 0.5 MG Miscellaneous Information (Order Awaiting Action) 1 ea QS N/A 11/25/16 00:00 12/25/16 00:00 Enteral Nutritional Formula (Boost Pudding) 1 cup BIDM PO 11/25/16 17:15 12/25/16 17:14 11/26/16 08:21 1 CUP Lorazepam (Ativan Tab) 0.25 mg HS PRN PO 11/25/16 20:00 12/25/16 19:59 11/25/16 23:42 0.25 MG Lorazepam (Ativan Tab) 0.5 mg HS PRN PO 11/26/16 01:00 12/26/16 00:59 11/26/16 23:46 0.5 MG Furosemide (Lasix Tab) 40 mg QAM PO 11/27/16 09:00 12/27/16 08:59 11/30/16 07:40 40 MG Docusate Sodium (coLACE CAP) 100 mg BID PO 11/28/16 09:00 12/28/16 08:59 Polyethylene (Miralax Powder Packet) 17 gm DAILY PRN PO 11/27/16 22:30 12/27/16 22:29 Ipratropium [place] (Atrovent 0.02% 0.5MG/2.5ML Neb) 0.5 mg Q4H PRN INH 11/27/16 23:45 12/27/16 23:44 11/28/16 22:16 0.5 MG Levalbuterol (Xopenex 1.25MG/ 0.5ML Neb) 1.25 mg Q4H PRN INH 11/27/16 23:45 12/27/16 23:44 11/28/16 22:16 1.25 MG Morphine Sulfate (Roxanol Oral Soln) 10 mg Q2H PRN PO 11/30/16 09:15 12/12/16 15:59 Vital Signs: Date Time Temp Pulse Resp B/P (MAP) Pulse Ox O2 Delivery O2 Flow Rate FiO2 11/30/16 09:00 Nasal Cannula 3.0 11/30/16 08:08 36.7 90 20 97/64 (75) 90 2.0 11/30/16 07:50 105 115/73 (87) 11/30/16 07:09 104 24 89 Nasal Cannula 2.0 11/30/16 04:30 36.7 102 20 99/67 (78) 91 Nasal Cannula 2.0 11/30/16 01:14 98 20 94 Nasal Cannula 2.0 11/30/16 00:09 Nasal Cannula 2.0 11/29/16 23:56 36.9 95 17 97/64 (75) 92 Nasal Cannula 2.0 11/29/16 21:00 105 107/66 (80) 11/29/16 19:45 Nasal Cannula 2.0 11/29/16 18:57 98 20 94 Nasal Cannula 2.0 11/29/16 18:35 92 Nasal Cannula 2.0 11/29/16 18:25 36.5 104 20 104/72 (83) 92 Nasal Cannula 2.0 11/29/16 16:00 Nasal Cannula 2.0 11/29/16 16:00 36.7 97 16 93/62 (72) 92 Nasal Cannula 2.0 11/29/16 14:22 94 20 94 Nasal Cannula 2.0 11/29/16 12:32 36.5 100 18 119/69 (86) 95 11/29/16 12:00 Nasal Cannula 2.0 Laboratory Results: Last 24 Hours Test 11/29/16 11:38 11/29/16 16:50 11/29/16 20:24 11/30/16 06:20 Bedside Glucose 281 mg/dl 277 mg/dl 267 mg/dl White Blood Count 24.45 K/uL Red Blood Count 4.55 M/uL Hemoglobin 13.6 g/dL Hematocrit 39.1 % Mean Corpuscular Volume 85.9 fL Mean Corpuscular Hemoglobin 29.9 pg Mean Corpuscular Hemoglobin Concent 34.8 g/dl RDW Standard Deviation 53.4 fL RDW Coefficient of Variation 17.2 % Platelet Count 175 K/uL Mean Platelet Volume 10.4 fL Sodium Level 133 mmol/L Potassium Level 4.2 mmol/L Chloride Level 98 mmol/L Carbon Dioxide Level 25 mmol/L Anion Gap 10.0 mmol/L Blood Urea Nitrogen 34 mg/dl Creatinine 1.40 mg/dl Est Creatinine Clear Calc Drug Dose 67.1 ml/min Estimated GFR () 60.7 Estimated GFR (Non- 52.4 BUN/Creatinine Ratio 23.9 Random Glucose 206 mg/dl Calcium Level 9.2 mg/dl Test 11/30/16 07:46 Bedside Glucose 218 mg/dl
[2016-11-30] MEDS: MoRPHine SULFATE 10 MG/0.5 ML UDP PO PRN (15:05)
--- NOTE | 2016-11-30 15:19 | Palliative Care Progress Note ---
Palliative Care Progress Note Date of Service Nov 30, 2016. Subjective Pt evaluation today including: conversation w/ patient, conversation w/ family (, Sherry), physical exam, chart review, conversation w/ outside sales consultant, review of inpatient medication list Pain: 0/10 now, 5/10 at its worst- left pleuritic pain PO Intake: tolerating diet Voiding: no voiding problems -Pleur-x was placed on admission. Drained first two days initially, then no drainage for two days and no significant reaccumulation on repeat CT of the chest. -He had talc pleurodesis done yesterday, Pleur-x catheter removed today. -Had some urinary problems- hadn't urinated since 0600, then did urinate 200ml a litter after noon. -Right leg remains with +4 pitting edema. Creatinine 1.4. Overall negative fluid balance for hospital stay. -Roxanol increased to 10mg PO Q2h PRN. -Received report that patient's was very upset about Pleur-x catheter being removed. I went to the room to sit and talk with her and the patient. Patient is OOB to chair, still ambulating independently in room with clearly labored breathing (patient's norm). No distress though. He actually feels a little better without the Pleur-x in due to less pain. I asked , Sherry, how she was doing. She immediately became tearful and stated, "I'm just having a bad day." She went on to talk about her frustration about the Pleur-x being removed, but did say that Dr. Barrett called to further explain. To me, she seems to be upset and stressed over the entire situation of her now with terminal disease and entering hospice care. I recall on Sunday she said to me that she is not ready to accept this. We talked for a while and I offered support. She confirmed that the plan is still for hospice and to keep the patient at home. He is scheduled for CXR tomorrow, then hopefully home. Review of Systems Constitutional: No weakness Respiratory: + shortness of breath, + dyspnea on exertion, + dyspnea at rest Cardiac: + edema (right leg), No chest pain Abdomen: No pain, No nausea, No vomiting Male : + see HPI Psychiatric: No anxiety Objective Vital Signs Date Time Temp Pulse Resp B/P (MAP) Pulse Ox O2 Delivery O2 Flow Rate FiO2 11/30/16 14:15 96 19 93 Nasal Cannula 2.0 11/30/16 11:36 36.8 94 18 96/68 (77) 90 3.0 11/30/16 09:00 Nasal Cannula 3.0 11/30/16 08:08 36.7 90 20 97/64 (75) 90 2.0 11/30/16 07:50 105 115/73 (87) 11/30/16 07:09 104 24 89 Nasal Cannula 2.0 11/30/16 04:30 36.7 102 20 99/67 (78) 91 Nasal Cannula 2.0 11/30/16 01:14 98 20 94 Nasal Cannula 2.0 11/30/16 00:09 Nasal Cannula 2.0 11/29/16 23:56 36.9 95 17 97/64 (75) 92 Nasal Cannula 2.0 11/29/16 21:00 105 107/66 (80) 11/29/16 19:45 Nasal Cannula 2.0 11/29/16 18:57 98 20 94 Nasal Cannula 2.0 11/29/16 18:35 92 Nasal Cannula 2.0 11/29/16 18:25 36.5 104 20 104/72 (83) 92 Nasal Cannula 2.0 11/29/16 16:00 Nasal Cannula 2.0 11/29/16 16:00 36.7 97 16 93/62 (72) 92 Nasal Cannula 2.0 Physical Exam General Appearance: no apparent distress, + obese ENT: hearing grossly normal Neck: supple, no JVD Respiratory/Chest: no respiratory distress, + decreased breath sounds, + accessory muscle use (slightly dyspneic at rest) Cardiovascular: regular rate, rhythm, + pertinent finding (+4 pittin edema to right leg) Abdomen: normal bowel sounds, non tender, soft Neurologic/Psychiatric: alert, normal mood/affect, oriented x 3 Laboratory Results Last 24 Hours Test 11/29/16 16:50 11/29/16 20:24 11/30/16 06:20 11/30/16 07:46 Bedside Glucose 277 mg/dl 267 mg/dl 218 mg/dl White Blood Count 24.45 K/uL Red Blood Count 4.55 M/uL Hemoglobin 13.6 g/dL Hematocrit 39.1 % Mean Corpuscular Volume 85.9 fL Mean Corpuscular Hemoglobin 29.9 pg Mean Corpuscular Hemoglobin Concent 34.8 g/dl RDW Standard Deviation 53.4 fL RDW Coefficient of Variation 17.2 % Platelet Count 175 K/uL Mean Platelet Volume 10.4 fL Sodium Level 133 mmol/L Potassium Level 4.2 mmol/L Chloride Level 98 mmol/L Carbon Dioxide Level 25 mmol/L Anion Gap 10.0 mmol/L Blood Urea Nitrogen 34 mg/dl Creatinine 1.40 mg/dl Est Creatinine Clear Calc Drug Dose 67.1 ml/min Estimated GFR () 60.7 Estimated GFR (Non- 52.4 BUN/Creatinine Ratio 23.9 Random Glucose 206 mg/dl Calcium Level 9.2 mg/dl Test 11/30/16 11:43 Bedside Glucose 201 mg/dl Assessment and Plan Problem list: SOB/OH Pain, left pleuritic Esophageal cancer, metastatic Bilateral malignant pleural effusions- s/p left Pleur-x catheter placement and removal 11/30/16 S/p talc pleurodesis 11/29/16 Goals of care (Z51.5) Palliative care recommendations: -Patient states Roxanol is working well. 10mg PO Q2h PRN. -Plan is still home with hospice. I will follow peripherally. Please contact me with any palliative care needs. Discharge planning: home with Hospice
--- NOTE | 2016-11-30 19:47 | Progress Note ---
Medicine Progress Note Date & Time of Visit: Nov 30, 2016 at 19:35. Subjective Pt was seen and examined Sitting at the edge of the bed with no distress with present in the room Pt said that his breathing feels better after the pleurX removed he said the pain is controlled with the pain med Pt voided about 200ml after noon today was a little bit upset this morning because of the pleurX was removed She was concerned that the fluid will accumulated again and she will have to bring him back to the hospital Dr. Brambila talked to her and she seems to understand it better Denies any chest pain, palpitation, dizziness, fever and chills Objective Last 8 Hrs Date Time Temp Pulse Resp B/P (MAP) Pulse Ox O2 Delivery O2 Flow Rate FiO2 11/30/16 19:26 36.6 108 18 106/66 (79) 92 Nasal Cannula 3.0 11/30/16 18:55 102 18 93 Nasal Cannula 3.0 11/30/16 16:13 Nasal Cannula 3.0 11/30/16 15:29 36.6 99 20 102/67 (79) 91 Nasal Cannula 3.0 11/30/16 14:15 96 19 93 Nasal Cannula 2.0 11/30/16 11:36 36.8 94 18 96/68 (77) 90 3.0 Physical Exam: General- No acute distress Head- atraumatic Eyes- PERRL, EOMI ENT- oropharynx clear Neck- supple, no JVD Lungs- decrease breath sound Heart- regular rhythm Abdomen- normal bowel sounds, soft Extremities- +edema in right leg, Left LE prosthesis Neuro- alert, oriented x 3; PERRL, EOMI Skin- warm & dry Laboratory Results: Last 24 Hours Test 11/29/16 20:24 11/30/16 06:20 11/30/16 07:46 11/30/16 11:43 Bedside Glucose 267 mg/dl 218 mg/dl 201 mg/dl White Blood Count 24.45 K/uL Red Blood Count 4.55 M/uL Hemoglobin 13.6 g/dL Hematocrit 39.1 % Mean Corpuscular Volume 85.9 fL Mean Corpuscular Hemoglobin 29.9 pg Mean Corpuscular Hemoglobin Concent 34.8 g/dl RDW Standard Deviation 53.4 fL RDW Coefficient of Variation 17.2 % Platelet Count 175 K/uL Mean Platelet Volume 10.4 fL Sodium Level 133 mmol/L Potassium Level 4.2 mmol/L Chloride Level 98 mmol/L Carbon Dioxide Level 25 mmol/L Anion Gap 10.0 mmol/L Blood Urea Nitrogen 34 mg/dl Creatinine 1.40 mg/dl Est Creatinine Clear Calc Drug Dose 67.1 ml/min Estimated GFR () 60.7 Estimated GFR (Non- 52.4 BUN/Creatinine Ratio 23.9 Random Glucose 206 mg/dl Calcium Level 9.2 mg/dl Test 11/30/16 16:33 Bedside Glucose 276 mg/dl Assessment & Plan Acute on chronic hypoxemic respiratory failure : secondary to malignant pleural effusion -recurrence Esophageal CA with mets had thoracentesis done in last admission by Dr Dukes with drainage of approx 900 ml pathology of pleural effusion -metastatic esophageal CA U/S chest showed the pleural effusion on the right has an estimated volume of 720 cc and the pleural effusion on the left has an estimated volume of 1024 cc. S/P PleurX Catheter done by Dr. Brambila Repeat CXR on 11/27/16 showed decreasing left pleural effusion with slight improvement in the aeration of the left lung base Pulmonary and thoracic surgery on board no sign of pneumonia, Levaquin was D/Rachid WBC trending down Continue lasix 40mg daily No drainage from PleurX Dr. Brambila will do a bedside pleurodesis with talc plan to remove the pleurX tomorrow 11/30 talc pleurodesis was done yesterday PleurX removed to day breathing clinically improved will get a cxr in am Esophageal cancer with pulmonary spread status post chemo/radiation: not a candidate for chemo for progressively decline in functional status follows with Hem/Onc Dr Epps very poor prognosis -presents with reaccumulation of malignant effusion in past 10 days Hospice care discussed with pt and family by Dr Epps last admission pt and family wanted to wait did not want any aggressive measure , was not in favor for chemo or radiation for side effect( now not a candidate ) palliative care was consulted Patient and agreed for home community engagement manager will arrange for home hospice Will d/c morphine and increase Roxanol to 10mg Continue roxanol 10mg q2hr prn seems to control the pain CODE STATUS very poor prognosis /advanced malignancy DO NOT RESUSCITATE DVT PROPHYLAXIS high risk for advanced malignancy Sub q Lovenox DISPOSITION Will discharge home for home hospice tomorrow Will need home health visiting nurse Medicine follow up with Dr Esther Delgadillo Discharge planning: home with Hospice Consultants: Pulmonary Thoracic Surgery Procedures: PleurX catheter insertion Current Inpatient Medications: Current Inpatient Medications Medications (Trade) Dose Ordered Sig/[place] Route Start Time Stop Time Status Last Admin Dose Admin Guaifenesin (Mucinex Contr Rel Tab) 600 mg Q12 PO 11/24/16 21:00 12/24/16 20:59 11/30/16 07:42 600 MG Glucose (Glucose 40% Gel) 15-30 GRAMS 15 GRAMS... UD PRN PO 11/24/16 20:30 12/24/16 20:29 Glucose (Glucose Chew Tab) 4-8 Tablets 4 Tabl... UD PRN PO 11/24/16 20:30 12/24/16 20:29 Dextrose (Dextrose 50% 50ML Syringe) 25-50ML OF 50% DW IV FOR... UD PRN IV 11/24/16 20:30 12/24/16 20:29 Glucagon (Glucagon Inj) 1 mg UD PRN SQ 11/24/16 20:30 12/24/16 20:29 Insulin Glargine (Lantus Solostar Pen) 10 units DAILY SC 11/24/16 22:05 12/24/16 22:04 11/30/16 09:00 10 UNITS Enoxaparin Sodium (Lovenox Inj) 40 mg Q24H SC 11/24/16 22:00 12/24/16 21:59 Future hold 11/29/16 20:53 40 MG Acetaminophen (Tylenol Tab) 650 mg Q4H PRN PO 11/24/16 20:30 12/24/16 20:29 Nitroglycerin (Nitrostat Tab) 0.4 mg UD PRN SL 11/24/16 20:30 12/24/16 20:29 Insulin Aspart (novoLOG ASPART) SLIDING SCALE If C... ACHS SC 11/24/16 21:00 12/24/16 20:59 11/30/16 17:44 4 UNITS Citalopram Hydrobromide (celeXA TAB) 40 mg QPM PO 11/24/16 21:00 12/24/16 20:59 11/29/16 19:54 40 MG Losartan Potassium (coZAAR TAB) 25 mg DAILY PO 11/25/16 09:00 12/25/16 08:59 11/29/16 08:28 25 MG Metoprolol Tartrate (Lopressor Tab) 25 mg BID PO 11/24/16 21:00 12/24/16 20:59 11/30/16 07:55 25 MG Pantoprazole Sodium (Protonix Tab) 40 mg BID PO 11/24/16 21:00 12/24/16 20:59 11/30/16 07:43 40 MG Potassium Chloride (Klor-Con M10) 10 meq QPM PO 11/24/16 21:00 12/24/16 20:59 11/29/16 19:55 10 MEQ Pravastatin Sodium (Pravachol Tab) 20 mg DAILY PO 11/25/16 09:00 12/25/16 08:59 11/30/16 07:42 20 MG Spironolactone (Aldactone Tab) 12.5 mg QAM PO 11/25/16 09:00 12/25/16 08:59 11/29/16 08:28 12.5 MG Ondansetron HCl (Zofran Inj) 4 mg Q6H PRN IV 11/24/16 20:30 12/24/16 20:29 Tramadol HCl (Ultram Tab) 25 mg Q6H PRN PO 11/24/16 20:30 12/24/16 20:29 11/29/16 20:05 25 MG Levalbuterol (Xopenex 1.25MG/ 0.5ML Neb) 1.25 mg Q6R INH 11/25/16 03:00 12/25/16 02:59 11/30/16 18:55 1.25 MG Ipratropium [place] (Atrovent 0.02% 0.5MG/2.5ML Neb) 0.5 mg Q6R INH 11/25/16 03:00 12/25/16 02:59 11/30/16 18:55 0.5 MG Miscellaneous Information (Order Awaiting Action) 1 ea QS N/A 11/25/16 00:00 12/25/16 00:00 Enteral Nutritional Formula (Boost Pudding) 1 cup BIDM PO 11/25/16 17:15 12/25/16 17:14 11/26/16 08:21 1 CUP Lorazepam (Ativan Tab) 0.25 mg HS PRN PO 11/25/16 20:00 12/25/16 19:59 11/25/16 23:42 0.25 MG Lorazepam (Ativan Tab) 0.5 mg HS PRN PO 11/26/16 01:00 12/26/16 00:59 11/26/16 23:46 0.5 MG Furosemide (Lasix Tab) 40 mg QAM PO 11/27/16 09:00 12/27/16 08:59 11/30/16 07:40 40 MG Docusate Sodium (coLACE CAP) 100 mg BID PO 11/28/16 09:00 12/28/16 08:59 Polyethylene (Miralax Powder Packet) 17 gm DAILY PRN PO 11/27/16 22:30 12/27/16 22:29 Ipratropium [place] (Atrovent 0.02% 0.5MG/2.5ML Neb) 0.5 mg Q4H PRN INH 11/27/16 23:45 12/27/16 23:44 11/28/16 22:16 0.5 MG Levalbuterol (Xopenex 1.25MG/ 0.5ML Neb) 1.25 mg Q4H PRN INH 11/27/16 23:45 12/27/16 23:44 11/28/16 22:16 1.25 MG Morphine Sulfate (Roxanol Oral Soln) 10 mg Q2H PRN PO 11/30/16 13:15 12/14/16 13:14 11/30/16 15:05 10 MG
[2016-11-30] MEDS: CITALOPRAM 40 MG TAB PO SCH (20:43)
[2016-11-30] MEDS: POTASSIUM CHLORIDE 10 MEQ TABCR PO SCH (20:44)
[2016-11-30] MEDS: ENOXAPARIN 40 MG/0.4 ML SYR SC SCH (20:47)
[2016-12-01 02:03] VITALS: PULSE 97; O2SAT 93
[2016-12-01] MEDS: IPRATROPIUM BROMIDE NEB SOLN 0.02% 2.5 ML VIAL INH SCH ×2 (02:03→06:50)
[2016-12-01] MEDS: LEVALBUTEROL 1.25MG/0.5ML NEB INH SCH ×2 (02:03→06:50)
[2016-12-01 04:29] VITALS: BP 156/85; PULSE 101; TEMP 36.6; O2SAT 90
--- NOTE | 2016-12-01 06:21 | DIAGNOSTIC IMAGING REPORT ---
CHEST 2 VIEWS ROUTINE CLINICAL HISTORY: pleural effusion dyspnea COMPARISON STUDY: 11/30/2016 FINDINGS: Unchanged position of central catheter. Components of congestive failure similar. Slight improvement in aeration left base. IMPRESSION: Slight improvement in aeration left base. Otherwise unchanged exam Electronically signed by: Miguel Granados M.D. 12/01/2016 6:20 AM Dictated Date/Time: 12/01/2016 6:19 AM
[2016-12-01 06:50] VITALS: PULSE 108; O2SAT 93
[2016-12-01 07:11] LABS: BASO % 0.1 %; BASO ABS # 0.01 K/uL (0-0.2); COMPLETE YES; EOS % 0.1 %; HEMATOCRIT 37.1 % (42-52); IG% 0.6 %; LYMPH % 4.5 %; LYMPH ABS # 0.77 K/uL (1.2-3.4); MEAN CELL VOLUME 85.3 fL (80-100); MEAN CORPUSCULAR HEMOGLOBIN 28.7 pg (25-34); MEAN CORPUSCULAR HGB CONC 33.7 g/dl (32-36); MEAN PLATELET VOLUME 9.7 fL (7.4-10.4); MONO % 8.3 %; NEUT % 86.4 %; PLATELET COUNT 152 K/uL (130-400); RED BLOOD COUNT 4.35 M/uL (4.7-6.1); WHITE BLOOD COUNT 17.23 K/uL (4.8-10.8)
[2016-12-01 07:14] VITALS: BP 123/74; PULSE 110; TEMP 36.7; O2SAT 91
[2016-12-01 07:45] LABS: BUN/CREATININE RATIO 34.7 (10-20); CALCIUM 9.4 mg/dl (8.5-10.1)
[2016-12-01] MEDS: BOOST VANILLA PUDDING CUP PO SCH (08:06)
[2016-12-01] MEDS: DOCUSATE SODIUM 100 MG CAP PO SCH (08:07)
[2016-12-01] MEDS: PRAVASTATIN SOD 20 MG TAB PO SCH (08:07)
[2016-12-01] MEDS: METOPROLOL TARTRATE 25 MG TAB PO SCH (08:07)
[2016-12-01] MEDS: FUROSEMIDE 40 MG TAB PO SCH (08:07)
[2016-12-01] MEDS: SPIRONOLACTONE 25 MG TAB PO SCH (08:07)
[2016-12-01] MEDS: LOSARTAN POTASSIUM 25 MG TAB PO SCH (08:07)
[2016-12-01] MEDS: GUAIFENESIN 600 MG TABCR PO SCH (08:07)
[2016-12-01] MEDS: PANTOprazole SOD 40 MG TAB PO SCH (08:08)
[2016-12-01] MEDS: INSULIN ASPART 100 UNITS/ML 3 ML PEN SC SCH (08:51)
[2016-12-01] MEDS: INSULIN GLARGINE SOLOSTAR 100 UNITS/ML 3 ML PEN SC SCH (08:51)
[2016-12-01 09:00] VITALS: O2SAT 91
[2016-12-01] MEDS ORDERED: GUAIFENESIN 200 MG TAB PO ONE (09:48)
[2016-12-01] MEDS ORDERED: GUAIFENESIN 600 MG TABCR PO ONE (10:34)
[2016-12-01] MEDS ORDERED: XPNINS1255 INH (10:38)
[2016-12-01] MEDS ORDERED: ATRINS INH (10:38)
[2016-12-01] MEDS ORDERED: GFNSR600 PO (10:38)
--- NOTE | 2016-12-01 10:54 | Discharge Instructions ---
Discharge Instructions Date of Service Dec 01, 2016. Admission Reason for Admission: Respiratory Failure, Acute Discharge Discharge Diagnosis / Problem: Acute on chronic hypoxemic respiratory failure, Esophageal cancer with pulm Discharge Goals Goal(s): Decrease discomfort, Improve function, Improve disease control Activity Recommendations Activity Limitations: resume your previous activity (as tolerated) . Instructions / Follow-Up Instructions / Follow-Up Discharge on home hospice Follow up with Your physician Dr. Lopez on 12/07 @ 10:45 am Case management arranged for home hospice services. Continue Roxanol 10mg for pain and SOB. Hold the next dose if you become drowsiness Do not drive or operate any machine after taking the Roxanol Current Hospital Diet Patient's current hospital diet: Diabetes Type 2 Diet, AHA Diet (Heart Healthy) Discharge Diet Recommended Diet: AHA Diet (Heart Healthy) Procedures Procedures Performed: PleurX catheter Calc pleurodesis Pending Studies Studies pending at discharge: no Laboratory Results Hemoglobin A1c Test 10/21/16 05:19 Range/Units Estimated Average Glucose 160 mg/dl Hemoglobin A1c 7.2 H 4.5-5.6 % Medical Emergencies . Who to Call and When: Medical Emergencies: If at any time you feel your situation is an emergency, please call 911 immediately. . Non-Emergent Contact Non-Emergency issues call your: Primary Care Provider Call Non-Emergent contact if: you have any medication questions . . "Provider Documentation" section prepared by Preston Craft. . VTE Core Measure Inpt VTE Proph given/why not?: Enoxaparin (Lovenox) [place] Drug Monitoring Program Search Results: no issues identified
[2016-12-01] MEDS ORDERED: RXNS10 PO (11:00)
[2016-12-01] MEDS ORDERED: ATV5 PO (11:00)
[2016-12-01 11:07] VITALS: BP 123/74; PULSE 110; TEMP 36.7; O2SAT 91
--- NOTE | 2016-12-01 11:33 | Progress Note ---
Progress Note Date of Service Dec 01, 2016. Progress Note Mr. Granados was seen today. He is complaining of an inability get his "phlegm" up. He really hasn't walked much. His breathing is about the same. Upon auscultation he does have pretty good breath sounds on the left side. He has no wheezing. I took an x-ray and he has really no fluid after we sclerosed him with talc. His is extremely unhappy with the fact we removed his Pleurx catheter yesterday. I had a very long discussion and explained our reasoning and why we did what we did. She understands. I will see him back in the office in 1-2 weeks with a chest x-ray. I've also instructed Mr. Graandos to call me should any problems arise.
[2016-12-01] MEDS: MoRPHine SULFATE 10 MG/0.5 ML UDP PO PRN (11:47)
[2016-12-01] MEDS ORDERED: GUAIFENESIN 200 MG TAB PO SCH (14:00)
--- NOTE | 2016-12-01 17:59 | Progress Note ---
Medicine Progress Note Date & Time of Visit: Dec 01, 2016 at 17:52. Subjective Pt was seen and examined Sitting in chair with no distress Pt said that his breathing feels much better denies any chest pain, palpitation, dizziness, fever and chills. Objective Last 8 Hrs Date Time Temp Pulse Resp B/P (MAP) Pulse Ox O2 Delivery O2 Flow Rate FiO2 12/01/16 11:07 36.7 110 22 91 Nasal Cannula Physical Exam: General- No acute distress Head- atraumatic Eyes- PERRL, EOMI ENT- oropharynx clear Neck- supple, no JVD Lungs- decrease breath sound Heart- regular rhythm Abdomen- normal bowel sounds, soft Extremities- +edema in right leg, Left LE prosthesis Neuro- alert, oriented x 3; PERRL, EOMI Skin- warm & dry Laboratory Results: Last 24 Hours Test 11/30/16 20:02 12/01/16 06:55 12/01/16 07:48 Bedside Glucose 268 mg/dl 210 mg/dl White Blood Count 17.23 K/uL Red Blood Count 4.35 M/uL Hemoglobin 12.5 g/dL Hematocrit 37.1 % Mean Corpuscular Volume 85.3 fL Mean Corpuscular Hemoglobin 28.7 pg Mean Corpuscular Hemoglobin Concent 33.7 g/dl Platelet Count 152 K/uL Mean Platelet Volume 9.7 fL Neutrophils (%) (Auto) 86.4 % Lymphocytes (%) (Auto) 4.5 % Monocytes (%) (Auto) 8.3 % Eosinophils (%) (Auto) 0.1 % Basophils (%) (Auto) 0.1 % Neutrophils # (Auto) 14.90 K/uL Lymphocytes # (Auto) 0.77 K/uL Monocytes # (Auto) 1.43 K/uL Eosinophils # (Auto) 0.01 K/uL Basophils # (Auto) 0.01 K/uL RDW Standard Deviation 53.5 fL RDW Coefficient of Variation 17.2 % Immature Granulocyte % (Auto) 0.6 % Immature Granulocyte # (Auto) 0.11 K/uL Sodium Level 133 mmol/L Potassium Level 4.0 mmol/L Chloride Level 98 mmol/L Carbon Dioxide Level 28 mmol/L Anion Gap 7.0 mmol/L Blood Urea Nitrogen 35 mg/dl Creatinine 1.00 mg/dl Est Creatinine Clear Calc Drug Dose 96.5 ml/min Estimated GFR () 91.1 Estimated GFR (Non- 78.6 BUN/Creatinine Ratio 34.7 Random Glucose 200 mg/dl Calcium Level 9.4 mg/dl Assessment & Plan Acute on chronic hypoxemic respiratory failure : secondary to malignant pleural effusion -recurrence Esophageal CA with mets had thoracentesis done in last admission by Dr Dukes with drainage of approx 900 ml pathology of pleural effusion -metastatic esophageal CA U/S chest showed the pleural effusion on the right has an estimated volume of 720 cc and the pleural effusion on the left has an estimated volume of 1024 cc. S/P PleurX Catheter done by Dr. Brambila Repeat CXR on 11/27/16 showed decreasing left pleural effusion with slight improvement in the aeration of the left lung base Pulmonary and thoracic surgery on board no sign of pneumonia, Levaquin was D/Rachid WBC trending down Continue lasix 40mg daily No drainage from PleurX Dr. 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: not a candidate for chemo for progressively decline in functional status follows with Hem/Onc Dr Epps very poor prognosis -presents with reaccumulation of malignant effusion in past 10 days Hospice care discussed with pt and family by Dr Epps last admission pt and family wanted to wait did not want any aggressive measure , was not in favor for chemo or radiation for side effect( now not a candidate ) palliative care was consulted Patient and agreed for home materials manager will arrange for home hospice Will d/c morphine and increase Roxanol to 10mg Continue roxanol 10mg q2hr prn seems to control the pain discharge home with hospice CODE STATUS very poor prognosis /advanced malignancy DO NOT RESUSCITATE DVT PROPHYLAXIS high risk for advanced malignancy Sub q Lovenox DISPOSITION discharge home with home hospice today Medicine follow up with Dr Esther Delgadillo on 12/07 @ 10:45 am Discharge planning: home with Hospice Consultants: Pulmonary Thoracic Surgery Procedures: PleurX catheter insertion
[2016-12-01] MEDS ORDERED: GUAIFENESIN 600 MG TABCR PO SCH (21:00)
--- NOTE | 2016-12-03 18:30 | Discharge Summary ---
Discharge Summary Date of Service Dec 03, 2016. 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 Procedures: PleurX catheter insertion Consultations: Pulmonary Thoracic Surgery Medication Reconciliation New Medications: Guaifenesin Ext Rel (Mucinex Ext Rel) 600 Mg Tabcr 600 MG PO Q12 for 14 Days Ipratropium [place] (Ipratropium [place]) 0.5 Mg/2.5 Ml Nebu 0.5 MG INH Q6R for 30 Days Levalbuterol (Levalbuterol) 1.25 Mg/0.5 Ml Nebu 1.25 MG INH Q6R for 30 Days Lorazepam (Lorazepam) 0.5 Mg Tab 0.25 MG PO HS PRN for insomnia for 7 Days, TAB Morphine Sulfate (Morphine Sulfate) 10 Mg/0.5 Ml Soln 10 MG PO Q2H PRN for Pain/SOB for 7 Days, #200 ML hold for drowsiness Continued Medications: Betamethasone Dip Augmented (Augmented Betamethasone D) 90 Appln/15 Gm Oint 1 APPLN TOP BID PRN for APPLY OINTMENT TWICE DAILY TO [place] Citalopram Hydrobromide (Celexa) 40 Mg Tab 1 TAB PO QPM Fish Oil ([place]-3) 1 Ea Cap 2 CAP PO DAILY Fluticasone-Salmeterol 230/21 Mcg (Advair Hfa 230/21 Mcg) 1 Aer Aer 2 PUFFS INH BID, AER Furosemide (Lasix) 40 Mg Tab 40 MG PO DAILY, TAB Glyburide (Micronase) 5 Mg Tab 15 MG PO QPM, TAB Losartan Potassium (Cozaar) 25 Mg Tab 25 MG PO DAILY Metoprolol Tartrate (Lopressor) (Lopressor) 25 Mg Tab 25 MG PO BID, TAB Multiple Vitamins W/ Minerals (One Daily Adults 50+) 1 Tab Tab 0.5 TAB PO BID Pantoprazole (Pantoprazole Sodium) 40 Mg Tab 40 MG PO BID Pioglitazone (Actos) 30 Mg Tab 1 TAB PO QPM for 30 Days, #30 TAB 5 Refills Potassium Chloride (Micro-K Ext Rel) 10 Meq Capcr 10 MEQ PO QPM, CAP Pravastatin (Pravachol ) 20 Mg Tab 20 MG PO DAILY, TAB Repaglinide (Prandin) 2 Mg Tab 6 MG PO QPM, TAB TAKES AT SUPPER Spironolactone (Aldactone) 25 Mg Tab 12.5 MG PO QAM, TAB Discontinued Medications: Ipratropium-Albuterol (Duoneb) 3 Ml Nebu 3 ML INH DAILY, INHA Admission Information HPI (per Admitting provider): Recent confinement last month for shortness of breath deemed to be multifactorial - COPD, lung involvement of esophageal cancer, diastolic dysfunction. Few days history of dry cough symptoms, patient unable to expectorate denies aspiration. No fever no chills Increasing shortness of breath Some right leg swelling. Patient combined with home meds. No inordinate weight gain. Patient actually losing weight because of poor appetite as per . Patient sent by his oncologist to the ER.. Physical Exam (per Admitting): General Appearance: + moderate distress, + obese Head: normocephalic Eyes: normal inspection Neck: + pertinent finding (short) Respiratory/Chest: + respiratory distress, + decreased breath sounds, + accessory muscle use, + wheezing Cardiovascular: regular rate, rhythm Abdomen/GI: + distended Extremities/Musculoskelatal: + pertinent finding (some RLE edema, nontender ; prosthetic leg left) Hospital Course Acute on chronic hypoxemic respiratory failure : secondary to malignant pleural effusion -recurrence Esophageal CA with mets had thoracentesis done in last admission by Dr Dukes with drainage of approx 900 ml pathology of pleural effusion -metastatic esophageal CA U/S chest showed the pleural effusion on the right has an estimated volume of 720 cc and the pleural effusion on the left has an estimated volume of 1024 cc. S/P PleurX Catheter done by Dr. Brambila Repeat CXR on 11/27/16 showed decreasing left pleural effusion with slight improvement in the aeration of the left lung base Pulmonary and thoracic surgery on board no sign of pneumonia, Levaquin was D/Rachid WBC trending down Continue lasix 40mg daily No drainage from PleurX Dr. 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: not a candidate for chemo for progressively decline in functional status follows with Hem/Onc Dr Epps very poor prognosis -presents with reaccumulation of malignant effusion in past 10 days Hospice care discussed with pt and family by Dr Epps last admission pt and family wanted to wait did not want any aggressive measure , was not in favor for chemo or radiation for side effect( now not a candidate ) palliative care was consulted Patient and agreed for home clinique counter manager will arrange for home hospice Will d/c morphine and increase Roxanol to 10mg Continue roxanol 10mg q2hr prn seems to control the pain discharge home with hospice CODE STATUS very poor prognosis /advanced malignancy DO NOT RESUSCITATE DVT PROPHYLAXIS high risk for advanced malignancy Sub q Lovenox DISPOSITION discharge home with home hospice today Medicine follow up with Dr Esther Lopez on 12/07 @ 10:45 am Total time spent on discharge = 35 minutes This includes examination of the patient, discharge planning, medication reconciliation, and communication with other providers. Discharge Instructions Discharge Instructions Date of Service Dec 01, 2016. Admission Reason for Admission: Respiratory Failure, Acute Discharge Discharge Diagnosis / Problem: Acute on chronic hypoxemic respiratory failure, Esophageal cancer with pulm Discharge Goals Goal(s): Decrease discomfort, Improve function, Improve disease control Activity Recommendations Activity Limitations: resume your previous activity (as tolerated) . Instructions / Follow-Up Instructions / Follow-Up Discharge on home hospice Follow up with Your physician Dr. Lopez on 12/07 @ 10:45 am Case management arranged for home hospice services. Continue Roxanol 10mg for pain and SOB. Hold the next dose if you become drowsiness Do not drive or operate any machine after taking the Roxanol Current Hospital Diet Patient's current hospital diet: Diabetes Type 2 Diet, AHA Diet (Heart Healthy) Discharge Diet Recommended Diet: AHA Diet (Heart Healthy) Procedures Procedures Performed: PleurX catheter Calc pleurodesis Pending Studies Studies pending at discharge: no Laboratory Results Hemoglobin A1c Test 10/21/16 05:19 Range/Units Estimated Average Glucose 160 mg/dl Hemoglobin A1c 7.2 H 4.5-5.6 % Medical Emergencies . Who to Call and When: Medical Emergencies: If at any time you feel your situation is an emergency, please call 911 immediately. . Non-Emergent Contact Non-Emergency issues call your: Primary Care Provider Call Non-Emergent contact if: you have any medication questions . . "Provider Documentation" section prepared by Preston Craft. . VTE Core Measure Inpt VTE Proph given/why not?: Enoxaparin (Lovenox)[place] Drug Monitoring Program Search Results: no issues identified Additional Copies To Esther Lopez D.O.
== END 2016-12-01 13:00 | disposition hospice, home (50) | DRG 374 ==
LOC: C.EDB 16:05 → ENRESERV 19:54 → C.2E 20:29 → EDBEDREQ 11-29 15:30 → EDBEDREQSVC 11-29 15:31 → EDBEDREQ 11-29 15:31 → ENRESERV 11-29 17:01 → C.4E 11-29 18:32
PROVIDERS: ADMIT Hospitalist; ATTEND Internal Medicine
PROC: 0WHB33Z Insertion of Infusion Device into Left Pleural Cavity, Percutaneous Approach (ICD-10-PCS; principal; 2016-11-27)
PROC: 3E0L3GC Introduction of Other Therapeutic Substance into Pleural Cavity, Percutaneous Approach (ICD-10-PCS; 2016-11-29)
DX: C15.9 Malignant neoplasm of esophagus, unspecified (principal); J96.21 Acute and chronic respiratory failure with hypoxia; C77.1 Secondary and unspecified malignant neoplasm of intrathoracic lymph nodes; J91.0 Malignant pleural effusion; I50.32 Chronic diastolic (congestive) heart failure; Z68.41 Body mass index [BMI] 40.0-44.9, adult; R91.8 Other nonspecific abnormal finding of lung field; J44.9 Chronic obstructive pulmonary disease, unspecified; I11.0 Hypertensive heart disease with heart failure; E11.40 Type 2 diabetes mellitus with diabetic neuropathy, unspecified; E78.5 Hyperlipidemia, unspecified; G47.33 Obstructive sleep apnea (adult) (pediatric); E66.9 Obesity, unspecified; Z66 Do not resuscitate; Z51.5 Encounter for palliative care; Z80.0 Family history of malignant neoplasm of digestive organs; Z87.891 Personal history of nicotine dependence; Z89.612 Acquired absence of left leg above knee; Z79.51 Long term (current) use of inhaled steroids; Z79.899 Other long term (current) drug therapy